=== PATIENT | female | born 1950 | race Caucasian/White ===

== ENCOUNTER 2018-09-14 11:20 | Emergency (ER) | payer MEDICARE, OTHER ==
[2018-09-14 11:46] VITALS: BP 108/58
--- NOTE | 2018-09-14 11:58 | UC ---
Throat Pain/Nasal Omar HPI - HPI Summary HPI Summary: 68-year-old female with at least 10 days of cough, congestion, runny nose. She is diabetic on insulin with history of neuropathy. She denies any smoking history but has had secondhand smoke. Denies elevation of blood sugars. No fevers. - History of Current Complaint Chief Complaint: UCRespiratory Stated Complaint: COUGH CONGESTION Time Seen by Provider: 09/14/18 11:51 Hx Obtained From: Patient Pain Intensity: 0 - Allergies/Home Medications Allergies/Adverse Reactions: Allergies Allergy/AdvReac Type Severity Reaction Status Date / Time aspirin AdvReac GI Upset Verified 09/14/18 11:47 Home Medications: Home Medications Amlodipine Besylate [Norvasc] 09/14/18 [History] Insulin LISPRO* [HumaLOG*] 2 units SUBCUT AC 09/14/18 [History Confirmed ] Metoprolol Tartrate TAB* [Lopressor TAB*] 09/14/18 [History] PMH/Surg Hx/FS Hx/Imm Hx Endocrine History: Diabetes Neurological History: Other - Diabetic neuropathy Other History Of: Negative For: Anticoagulant Therapy - Surgical History Surgical History: Yes Surgery Procedure, Year, and Place: cornea surgery. back surgery - Family History Known Family History: Positive: Hypertension - Social History Occupation: Retired Lives: With Family Alcohol Use: None Substance Use Type: None Smoking Status (MU): Never Smoked Tobacco - Immunization History Most Recent Influenza Vaccination: never Most Recent Tetanus Shot: unknown Most Recent Pneumonia Vaccination: never Review of Systems All Other Systems Reviewed And Are Negative: Yes Constitutional: Negative: Fever Skin: Negative: Rash ENT: Positive: Sore Throat, Nasal Discharge, Sinus Congestion. Negative: Sinus Pain/Tenderness Respiratory: Positive: Cough. Negative: Shortness Of Breath Cardiovascular: Positive: Negative Neurological: Positive: Numbness - Chronic, both legs Physical Exam Triage Information Reviewed: Yes Appearance: No Pain Distress - Chronically ill-appearing Vital Signs: Initial Vital Signs Temp 98.6 F 09/14/18 11:40 Pulse 72 09/14/18 11:40 Resp 16 09/14/18 11:40 BP 108/58 09/14/18 11:40 Pulse Ox 97 09/14/18 11:40 Vital Signs Reviewed: Yes Eyes: Positive: Conjunctiva Clear ENT: Positive: Pharynx normal, Nasal congestion, Nasal drainage, TMs normal. Negative: Pharyngeal erythema, Sinus tenderness Neck: Positive: Nontender, No Lymphadenopathy Respiratory: Positive: Lungs clear, No respiratory distress, No accessory muscle use Cardiovascular: Positive: RRR Abdomen Description: Positive: Nontender Musculoskeletal: Positive: Strength Intact, ROM Intact Neurological Exam: Other - Bilateral lower extremity neuropathy, walks with a cane Neurological: Positive: Alert Psychological Exam: Normal Skin Exam: Normal Diagnostics - Laboratory Lab Results: Blood sugar: 294 - Radiology CXR Radiology Interpretation Completed By: Radiologist - IMPRESSION: #. New RIGHT larger than LEFT small dependent pleural effusions and RIGHT basilar alveolar consolidation concerning for pneumonia. Radiographic follow-up after therapy suggested to assess for resolution. Throat Pain/Nasal Course/Dx - Course Course Of Treatment: Chronically ill-appearing patient without respiratory distress or fever with evidence of right basilar pneumonia on x-ray. Her blood sugar is also elevated. She had no desire to go to the hospital/ER and so was treated here with intramuscular Rocephin and Zithromax orally. She'll be continued on outpatient Augmentin. She is encouraged to follow-up with her doctor tomorrow and to go to the Hospital/ER should she experience worsening, rising blood sugars, difficulty breathing, weakness or other concerns. - Differential Dx/Diagnosis Provider Diagnosis: Community acquired pneumonia, Diabetes mellitus with hyperglycemia Discharge - Sign-Out/Discharge Documenting (check all that apply): Patient Departure All imaging exams completed and their final reports reviewed: Yes - Discharge Plan Condition: Improved Disposition: HOME Prescriptions: Albuterol HFA INHALER* [Ventolin HFA Inhaler*] 2 puff INH Q4H PRN #1 mdi PRN Reason: Sob/Wheezing Amoxicillin/Clavulanate TAB* [Augmentin TAB 875*] 875 mg PO BID #20 tab guaiFENesin [Mucinex] 1,200 mg PO BID #20 tab.er.12h Patient Education Materials: Community Acquired Pneumonia (ED) Referrals: Selene Galo MD [Primary Care Provider] - Additional Instructions: Humidifier while sleeping. Drink lots of fluids. Go to the ER with weakness, fevers, worse, difficulty breathing, new symptoms or other concerns. Call your doctor today for prompt follow-up. - Billing Disposition and Condition Condition: IMPROVED Disposition: Home
[2018-09-14] MEDS ORDERED: Azithromycin TAB* 250 MG PO ONE (12:25)
[2018-09-14] MEDS ORDERED: cefTRIAXone VIAL(*) 1,000 MG VIAL IM ONE (12:25)
[2018-09-14] MEDS ORDERED: Lidocaine 1% MPF* 2 ML VIAL INJ ONE (12:29)
[2018-09-14] MEDS ORDERED: Lidocaine 1%* 5 ML VIAL ONE (12:36)
[2018-09-14] MEDS ORDERED: Lidocaine 1%* 5 ML VIAL INJ ONE (12:41)
== END 2018-09-14 12:55 | disposition home or self-care (01) ==
LOC: UCEAST 11:20
DX: J18.9 Pneumonia, unspecified organism (principal); E11.65 Type 2 diabetes mellitus with hyperglycemia; Z79.4 Long term (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 of insulin
CPT/HCPCS: 71046; 96372; 99212; A9270-GY; G0463; J0696

== ENCOUNTER 2019-02-05 13:08 | Inpatient (IN) | payer MEDICARE, OTHER ==
--- OUTSIDE RECORDS SUMMARY | 2019-02-05 13:48 | XMS REPORT | Continuity of Care Document ---
:1950 External Reference #:[id number] Author Name Loki Johnson MD (transmitted by agent of provider Angi Dickerson) Address [address] [place] [address] Care Team Providers Name Role Phone Selene Galo MD - Internal Medicine Care Team Information Gun Numberer [phone] Franci Hart MD - Nephrology Care Team Information Gun Numberer [phone] Problems Description No Information Available Social History Type Date Description Comments Sex Unknown Tobacco Use Start: Unknown Never Smoked Cigarettes Smoking Status Reviewed: 01/17/19 Never Smoked Cigarettes ETOH Use Never used alcohol Tobacco Use Start: Unknown Patient has never smoked Recreational Drug Use Never Used Drugs Exercise Type/Frequency Exercises sporadically Allergies, Adverse Reactions, Alerts Active Allergies Reaction Severity Comments Date Shellfish-Derived Products Difficulty breathing 07/21/2018 Medications Active Medications SIG Qnty Indications Ordering Date Provider Prednisolone Acetate one drop once Unknown 12/06/2018 daily in right 1% Suspension eye Chromium Picolinate one tablet twice Unknown 12/06/2018 daily 200mcg Tablets Turmeric Unknown 12/05/2018 400mg Capsules Humalog Mix 75/25 inject 20 units 15ml Loki Johnson MD 09/22/2018 Kwikpen in the morning and 10 units at (75-25)100Unit/ML night Supn BD Pen use twice daily 100units E11.22 Loki Johnson MD 09/21/2018 Needle/Angelica/Ultra for injection -Fine/32G X 4mm 32G X 4 mm Misc Insulin use with lantus 100units Loki Johnson MD 08/04/2018 Syringe-Needle U-100 daily 31G X 1/4" 1 ML Misc Onetouch Verio use to check 600units Loki Johnson MD 08/04/2018 blood sugar 4 Strips times a day and for hypoglycemia. Ascorbic Acid 1 tablet twice Unknown 500mg daily Tablets Metoprolol Succinate 1 by mouth twice Unknown ER daily 50mg Tablets ER 24HR Traumeel 1 tablet twice Unknown Tablets daily Onetouch Ultra Blue test twice a day Unknown and as needed Strips Vitamin B-12 1 by mouth every Unknown 1000mcg day Tablets Aspirin 81 1 by mouth every Unknown 81mg day Tablets DR Amlodipine Besylate 1 by mouth every Unknown day 5mg Tablets Acyclovir 1 by mouth once Unknown 400mg daily Tablets History Medications Novolin 70/30 Flexpen 30 minutes before 15ml E11.22 Loki Johnson 2018 - breakfast: 16 09/21/2018 (70-30)100Unit/ML Supn units 30 minutes before dinner: 12 units Novolog Mix 70/30 Take 28 units in 15ml E11.Maritza Johnson 09/21/2018 - Prefilled Flexpen the morning and 09/25/2018 10 units at (70-30)100Unit/ML Supn night. Tradjenta take one tablet 30tabs E11.Maritza Johnson 08/04/2018 - 5mg Tablets by mouth every 10/18/2018 day. Lantus inject 20 units 10ml Loki Johnson 08/04/2018 - 100Unit/ML Solution once daily 09/21/2018 Freestyle Theresa 14 use at least 4 1units E11.Maritza Johnson 08/04/2018 - Day/[place]/Flash times daily with 09/21/2018 Monitoring System sensor Device E16.[address] 3units . Loki Johnson 08/04/2018 - Theresa/Sensor/Flash on skin every 09/21/2018 Monitoring System 10 days; use Misc with reader every 6 hours Immunizations Description No Information Available Vital Signs Date Vital Result Comment 01/17/2019 11:03am Height 64 inches 5'4" Weight 138.00 lb w/ shoes Heart Rate 62 /min BP Systolic Sitting 121 mmHg BP Diastolic Sitting 68 mmHg BMI (Body Mass Index) 23.7 kg/m2 12/21/2018 11:38am Height 64 inches 5'4" Weight 141.00 lb Heart Rate 64 /min BP Systolic Sitting 127 mmHg L arm BP Diastolic Sitting 65 mmHg L arm O2 % BldC Oximetry 99 % BMI (Body Mass Index) 24.2 kg/m2 Results Test Date Facility Test Result H/L Range Note Urinalysis Profile 12/18/2018 [facility] Urine Color Yellow [address] [place] [address] [phone] Urine Appearance Cloudy Urine Specific [place] 1.013 Normal 1.010-1.030 Urine pH 5.0 Normal 5-9 Urine Urobilinogen Negative Negative Urine Ketones Negative Negative Urine Protein 2+(100 mg/dL) Abnormal Negative Urine Leukocytes Negative Negative Urine Blood 1+ Abnormal Negative Urine Nitrite Negative Negative Urine Bilirubin Negative Negative Urine Glucose 3+(>=500 mg/dL) Abnormal Negative Urine White Blood Cell 1+(6-10/hpf) Abnormal Absent Urine Red Blood Cell 3+(>10/hpf) Abnormal Absent Urine Bacteria Absent Absent Urine Squamous Epithelial Cell Present Abnormal Absent CBC Auto 12/18/2018 [facility] White Blood 8.1 10^3/uL Normal 3.5-10.[address] [place] [address] [phone] Red Blood Count 3.85 10^6/uL Normal 3.70-4.87 Hemoglobin 11.8 g/dL Low 12.0-16.0 Hematocrit 35 % Normal 35-47 Mean Corpuscular Volume 90 fL Normal 80-97 Mean Corpuscular Hemoglobin 31 pg Normal 27-31 Mean Corpuscular HGB Conc 34 g/dL Normal 31-36 Red Cell Distribution Width 13 % Normal 10-15 Platelet Count 267 10^3/uL Normal 150-450 Mean Platelet Volume 8.1 fL Normal 7.4-10.4 Abs Neutrophils 6.1 10^3/uL Normal 1.5-7.7 Abs Lymphocytes 1.1 10^3/uL Normal 1.0-4.8 Abs Monocytes 0.4 10^3/uL Normal 0-0.8 Abs Eosinophils 0.4 10^3/uL Normal 0-0.6 Abs Basophils 0.1 10^3/uL Normal 0-0.2 Abs Nucleated RBC 0.0 10^3/uL Granulocyte % 75.8 % Lymphocyte % 13.2 % Monocyte % 5.0 % Eosinophil % 5.3 % Basophil % 0.7 % Nucleated Red Blood Cells % 0.1 Basic Metabolic 12/18/2018 [facility] Sodium 139 mmol/L Normal 135-[address] [place], [place] [id number] [phone] Chloride 108 mmol/L Normal 101-111 Co2 Carbon Dioxide 23 mmol/L Normal 22-32 Glucose 74 mg/dL Normal 70-100 Blood Urea Nitrogen 69 mg/dL High 6-24 Creatinine 3.95 mg/dL High 0.51-0.95 BUN/Creatinine Ratio 17.5 Normal 8-20 Calcium 9.5 mg/dL Normal 8.6-10.3 Egfr Non- 11.2 >60 Egfr 13.6 >60 1 Potassium 5.4 mmol/L High 3.5-5.0 Anion Gap 8 mmol/L Normal 2-11 Laboratory test 12/18/2018 [facility] Total Protein 181 mg/dL finding [address] Random Urine [place], [place] [id number] [phone] Creatinine Random Urine 79.59 mg/dL Pthi 12/18/2018 [facility] Calcium (PTH 9.4 mg/dL Normal 8.6- 10.[address] Intact) [place] [address] [phone] PTH Intact 110.1 pg/mL High 12-88 Urine Culture 12/18/2018 [facility] Urine Culture SEE [address] [place] [address] BELOW [phone] Laboratory test 12/18/2018 [facility] Hemoglobin A1c 7.2 % High 4.0-5. [address] (Glyco HGB) 6 [place], [place] [id number] [phone] Laboratory test 12/18/2018 [facility] Fructosamine 389 Abnormal 200 - [address] mcmol/L 285 [place], [place] [address] [phone] Laboratory test 10/19/2018 [facility] Fructosamine 526 Abnormal 200 - [address] mcmol/L 285 [place], [place] [address] [phone] Comp Metabolic 10/19/2018 [facility] Sodium 137 Normal 135-[address] mmol/L 5 [place] [address] [phone] Potassium 4.5 mmol/L Normal 3.5-5.0 Chloride 105 mmol/L Normal 101-111 Co2 Carbon Dioxide 23 mmol/L Normal 22-32 Anion Gap 9 mmol/L Normal 2-11 Glucose 245 mg/dL High 70-100 Blood Urea Nitrogen 61 mg/dL High 6-24 Creatinine 3.98 mg/dL High 0.51-0.95 BUN/Creatinine Ratio 15.3 Normal 8-20 Calcium 9.6 mg/dL Normal 8.6-10.3 Total Protein 7.1 g/dL Normal 6.4-8.9 Albumin 3.9 g/dL Normal 3.2-5.2 Globulin 3.2 g/dL Normal 2-4 Albumin/Globulin Ratio 1.2 Normal 1-3 Total Bilirubin 0.40 mg/dL Normal 0.2-1.0 Alkaline Phosphatase 120 U/L High 34-104 Alt 14 U/L Normal 7-52 Ast 15 U/L Normal 13-39 Egfr Non- 11.1 >60 Egfr 13.5 >60 6 Laboratory 10/19/2018 [facility] TSH (Thyroid 2.22 Normal 0.34 -5.60 test finding [address] Stim Horm) mcIU/[place] [address] [phone] Hemoglobin A1c (Glyco HGB) 9.6 % High 4.0-5.6 7 Laboratory test 07/21/2018 [facility] C-Peptide 4.5 ng/mL Abnormal 1.1 - [address] 4.4 [place] [address] [phone] Hemoglobin A1c (Glyco HGB) 10.2 % High 4.0-5.6 9 Creatinine 07/21/2018 [facility] Creatinine 3.30 mg/dL High 0.51-0.[address] [place] [address] [phone] Egfr Non- 13.9 >60 Egfr 16.8 >60 10 1 Because ethnic data is not always readily available, this report includes an eGFR for both -Americans and non- Americans. The National Kidney Disease Education Program (NKDEP) does not endorse the use of the MDRD equation for patients that are not between the ages of 18 and 70, are , have extremes of body size, muscle mass, or nutritional status, or are non- or non-. According to the National Kidney Foundation, irrespective of diagnosis, the stage of the disease is based on the level of kidney function: Stage Description GFR(mL/min/1.73 m(2)) 1 Kidney damage with normal or decreased GFR 90 2 Kidney damage with mild decrease in GFR 60-89 3 Moderate decrease in GFR 30-59 4 Severe decrease in GFR 15-29 5 Kidney failure <15 (or dialysis) 2 SEE RESULT BELOW Name: JOSÉ CANO : [address]: Dia Yoder NP, CNM Acct: [id number] Unit: [id number] AGE: 68 Location: LAB Re12/18/18 SEX: F Status: REG REF SPEC: [id number] IVON: 12/18/18-[address] [facility] [address]: Karthik Ornelas MD REQ: [id number] RECD: 12/18/18953 STATUS: ALICIA ARROYO DR: Dia KWON _ SOURCE: URINE SPDESC: ORDERED: Urine Culture Procedure Result Reported Site Urine Culture Final 12/19/18- 1616 ML No growth of clinically significant organisms * ML - Main Lab . END OF REPORT DEPARTMENT OF PATHOLOGY, [address] [place] [address] Shakeel Song M.D. Director [place] # [id number] 3 Therapeutic target for the treatment of diabetes mellitus patients is <7% HBA1C, and in selective patients <6.0%. Please refer to [place] [employer] diabetic care guidelines for further information. 4 Test Performed by: [place] [address] Certified Ophthalmic Surgical Assistant: Andres Little M.D. Ph.D.; CLIA# [id number] 5 Test Performed by: [place] [address] 6 Because ethnic data is not always readily available, this report includes an eGFR for both -Americans and non- Americans. The National Kidney Disease Education Program (NKDEP) does not endorse the use of the MDRD equation for patients that are not between the ages of 18 and 70, are , have extremes of body size, muscle mass, or nutritional status, or are non- or non-. According to the National Kidney Foundation, irrespective of diagnosis, the stage of the disease is based on the level of kidney function: Stage Description GFR(mL/min/1.73 m(2)) 1 Kidney damage with normal or decreased GFR 90 2 Kidney damage with mild decrease in GFR 60-89 3 Moderate decrease in GFR 30-59 4 Severe decrease in GFR 15-29 5 Kidney failure <15 (or dialysis) 7 Therapeutic target for the treatment of diabetes mellitus patients is <7% HBA1C, and in selective patients <6.0%. Please refer to [place] [employer] diabetic care guidelines for further information. 8 Test Performed by: [facility] [address] [facility] [facility], [place], [place] [address] 9 Therapeutic target for the treatment of diabetes mellitus patients is <7% HBA1C, and in selective patients <6.0%. Please refer to [place] [employer] diabetic care guidelines for further information. 10 Because ethnic data is not always readily available, this report includes an eGFR for both -Americans and non- Americans. The National Kidney Disease Education Program (NKDEP) does not endorse the use of the MDRD equation for patients that are not between the ages of 18 and 70, are , have extremes of body size, muscle mass, or nutritional status, or are non- or non-. According to the National Kidney Foundation, irrespective of diagnosis, the stage of the disease is based on the level of kidney function: Stage Description GFR(mL/min/1.73 m(2)) 1 Kidney damage with normal or decreased GFR 90 2 Kidney damage with mild decrease in GFR 60-89 3 Moderate decrease in GFR 30-59 4 Severe decrease in GFR 15-29 5 Kidney failure <15 (or dialysis) Procedures Date Code Description Status 07/21/2018 51032 Glucose Monitoring From Interstital Tissue Fluid Minimum Completed 72 Hours Medical Devices Description No Information Available Encounters Type Date Location Provider Dx Diagnosis Office Visit 12/21/2018 [facility] Nephrology Karthik Ornelas, I12.0 Hyp chr kidney 11:00a disease w stage 5 chr kidney disease or Esrd N18.5 Chronic kidney disease, stage 5 E11.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.4 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 E78.5 Hyperlipidemia, unspecified E87.5 Hyperkalemia I10 Essential (primary) hypertension Office Visit 12/07/2018 11:00a [facility] Nephangel French N18.5 Chronic kidney MD Johnson disease, stage 5 E11.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 E11.65 Type 2 diabetes mellitus with hyperglycemia Z79.4 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 Office Visit 10/19/2018 2:00p [facility] Loki Johnson, E11.22 Type 2 diabetes [facility] of [facility] MD mellitus w diabetic chronic kidney disease N18.5 Chronic kidney disease, stage 5 E11.65 Type 2 diabetes mellitus with hyperglycemia Z79.4 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 Office Visit 09/21/2018 1:00p [facility] Manda N18.6 End stage [facility] of [facility] Marker, 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 Z79.4 alf (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 of insulin E11.649 Type 2 diabetes mellitus with hypoglycemia without coma Office Visit 08/04/2018 11:30a [facility] Manda E11.22 Type 2 [facility] Marker, RPA-C diabetes mellitus w diabetic chronic kidney disease N18.5 Chronic kidney disease, stage 5 Z79.4 alf (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 of insulin E11.649 Type 2 diabetes mellitus with hypoglycemia without coma Office Visit 07/21/2018 1:00p [facility] Manda E11.22 Type 2 [facility] Marker, RPA-C diabetes mellitus w diabetic chronic kidney disease N18.5 Chronic kidney disease, stage 5 Z79.4 alf (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 of insulin 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), and cereb infrc w/o resid deficits Assessments Date Code Description Provider 01/17/2019 E11.22 Type 2 diabetes mellitus with diabetic Loki Johnson MD chronic kidney diseas 01/17/2019 Z79.4 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 Loki Johnson MD 01/17/2019 N18.5 Chronic kidney disease, stage 5 Loki Johnson MD 12/21/2018 I12.0 Hypertensive chronic kidney disease with Karthik Ornelas MD stage 5 chronic kidney disease or end stage renal disease 12/21/2018 N18.5 Chronic kidney disease, stage 5 Karthik Ornelas MD 12/21/2018 E11.22 Type 2 diabetes mellitus with diabetic Karthik Ornelas MD chronic kidney diseas 12/21/2018 Z79.4 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 Karthik Ornelas MD 12/21/2018 E78.5 Hyperlipidemia, unspecified Karthik Ornelas MD 12/21/2018 E87.5 Hyperkalemia Karthik Ornelas MD 12/21/2018 I10 Essential (primary) hypertension Karthik Ornelas MD 12/12/2018 E11.22 Type 2 diabetes mellitus with diabetic Dia Yoder, SPEECH THERAPY ASSISTANT- Cde chronic kidney diseas 12/12/2018 N18.5 Chronic kidney disease, stage 5 Diaenrique Yoder, SPEECH THERAPY ASSISTANT-Cde 12/07/2018 N18.5 Chronic kidney disease, stage 5 Karthik Ornelas MD 12/07/2018 E11.22 Type 2 diabetes mellitus with diabetic Karthik Ornelas MD chronic kidney diseas 12/07/2018 E11.65 Type 2 diabetes mellitus with hyperglycemia Karthik Ornelas MD 12/07/2018 Z79.4 alf (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 of insulin Karthik Ornelas MD 10/19/2018 E11.22 Type 2 diabetes mellitus with diabetic Loki Johnson MD chronic kidney diseas 10/19/2018 N18.5 Chronic kidney disease, stage 5 Loki Johnson MD 10/19/2018 E11.65 Type 2 diabetes mellitus with hyperglycemia Loki Johnson MD 10/19/2018 Z79.4 alf (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 of insulin Loki Johnson MD 09/21/2018 N18.6 End stage renal disease Manda Marker, RPA-C 09/21/2018 E11.22 Type 2 diabetes mellitus with diabetic Manda Marker, RPA -C chronic kidney diseas 09/21/2018 Z79.4 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 Manda Marker, RPA-C 09/21/2018 E11.649 Type 2 diabetes mellitus with hypoglycemia Manda Marker , RPA-C without coma 08/04/2018 E11.22 Type 2 diabetes mellitus with diabetic Manda Marker, RPA -C chronic kidney diseas 08/04/2018 N18.5 Chronic kidney disease, stage 5 Manda Marker, RPA-C 08/04/2018 Z79.4 alf (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 of insulin Manda Marker, RPA-C 08/04/2018 E11.649 Type 2 diabetes mellitus with hypoglycemia Manda Marker , RPA-C without coma 07/21/2018 E11.22 Type 2 diabetes mellitus w diabetic chronic Manda Marker , RPA-C kidney disease 07/21/2018 N18.5 Chronic kidney disease, stage 5 Manda Marker, RPA-C 07/21/2018 Z79.4 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 Manda Marker, RPA-C 07/21/2018 E11.319 Type 2 diabetes w unsp diabetic rtnop w/o Manda Marker , RPA-C macular edema 07/21/2018 Z86.73 Prsnl hx of TIA (TIA), and cereb infrc w/o Manda Marker , RPA-C resid deficits Plan of Treatment Future Appointment(s):03/27/2019 11:00 am - Loki Johnson MD at [facility]01/30/2019 11:30 am - [facility] Rm-Cde at [facility]01/23/2019 1:00 pm - Karthik Ornelas MD at [facility] Uhmeuagyff64/09/2019 - Loki Johnson MDE11.22 Type 2 diabetes mellitus with diabetic chronic kidney diseasNew Orders:Freestyle Theresa Pro, Ordered: Follow up:- 2 weeks with Beba (or Alex) - late March with AlexInstructions:1. Wear Theresa glucose monitor for the next 2 weeks. 2. Use insulin twice daily, as follows: - 20 units with first meal of the day - 10 units with last meal of the day 3. Return in 2 weeks for a follow-up visit.Z79.4 terminal press operator (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 of rbvleonW44.5 Chronic kidney disease, stage 5 Functional Status Description No Information Available Mental Status Description No Information Available Referrals Refer to Reason for Referral Status Appt Date Franci Hart MD CKD stage 5, planning dialysis if Patient Notified needed [address] [facility] [id number] [phone]
--- OUTSIDE RECORDS SUMMARY | 2019-02-05 13:48 | XMS REPORT | Continuity of Care Document ---
:1950 External Reference #:[id number] Author Name Nurse Visit Endocrinology (transmitted by agent of provider Angi Dickerson) Address [address] [place] [id number] Care Team Providers Name Role Phone Selene Galo MD - Internal Medicine Care Team Information Stitching Machine Feeder Or Offbearer [phone] Franci Hart MD - Nephrology Care Team Information Stitching Machine Feeder Or Offbearer Problems Description No Information Available Social History Type Date Description Comments Sex Unknown Tobacco Use Start: Unknown Never Smoked Cigarettes Smoking Status Reviewed: 01/30/19 Never Smoked Cigarettes ETOH Use Never used [...] Mix 70/30 Take 28 units in 15ml E11.22 Loki Johnson 09/21/2018 - Prefilled Flexpen the morning and 09/25/2018 10 units at (70-30)100Unit/ML Supn night. Tradjenta take one tablet 30tabs E11.22 Loki Johnson 08/04/2018 - 5mg Tablets by mouth every MD 10/18/2018 day. Lantus inject 20 units 10ml Loki Johnson 08/04/2018 - 100Unit/ML Solution once daily 09/21/2018 Freestyle Theresa 14 use at least 4 1units E11.22 Loki Johnson 08/04/2018 - Day/[place]/Flash times daily with 09/21/2018 Monitoring System sensor Device E16.[address] 3units E11.22 Loki Johnson 08/04/2018 - Theresa/Sensor/Flash on skin every 09/21/2018 Monitoring System 10 days; use Misc with reader every 6 hours Immunizations Description No Information Available Vital Signs Date Vital Result Comment 01/30/2019 9:24am Height 64 inches 5'4" Weight 142.00 lb w/shoes Heart Rate 67 /min BP Systolic Sitting 120 mmHg BP Diastolic Sitting 71 mmHg BMI (Body Mass Index) 24.4 kg/m2 01/23/2019 1:02pm Height 64 inches 5'4" Weight 142.00 lb L arm Heart Rate 80 /min BP Systolic Sitting 128 mmHg R arm BP Diastolic Sitting 71 mmHg R arm O2 % BldC Oximetry 98 % BMI (Body Mass Index) 24.4 kg/m2 Results Test Date Facility Test Result H/L Range Note Neph Routine 01/22/2019 [facility] Total Protein 131 mg/dL [address] [place] [address] [phone] Creatinine Random Urine 61.80 mg/dL CBC Auto 01/22/2019 [facility] White Blood 8.0 10^3/uL Normal 3.5-10.[address] [place] [address] [phone] Red Blood Count 3.86 10^6/uL Normal 3.70-4.87 Hemoglobin 11.7 g/dL Low 12.0-16.0 Hematocrit 34 % Low 35-47 Mean Corpuscular Volume 89 fL Normal 80-97 Mean Corpuscular Hemoglobin 30 pg Normal 27-31 Mean Corpuscular HGB Conc 34 g/dL Normal 31-36 Red Cell Distribution Width 13 % Normal 10-15 Platelet Count 255 10^3/uL Normal 150-450 Mean Platelet Volume 7.7 fL Normal 7.4-10.4 Abs Neutrophils 6.0 10^3/uL Normal 1.5-7.7 Abs Lymphocytes 1.1 10^3/uL Normal 1.0-4.8 Abs Monocytes 0.4 10^3/uL Normal 0-0.8 Abs Eosinophils 0.5 10^3/uL Normal 0-0.6 Abs Basophils 0.1 10^3/uL Normal 0-0.2 Abs Nucleated RBC 0.0 10^3/uL Granulocyte % 74.7 % Lymphocyte % 13.5 % Monocyte % 5.1 % Eosinophil % 5.8 % Basophil % 0.9 % Nucleated Red Blood Cells % 0.0 Urinalysis Profile 01/22/2019 [facility] Urine Color Yellow [address] [place] [address] [phone] Urine Appearance Clear Urine Specific [place] 1.011 Normal 1.010-1.030 Urine pH 5.0 Normal 5-9 Urine Urobilinogen Negative Negative Urine Ketones Negative Negative Urine Protein 2+(100 mg/dL) Abnormal Negative Urine Leukocytes Negative Negative Urine Blood Negative Negative * * Abnormal Negative 1 Urine Nitrite Negative Negative Urine Bilirubin Negative Negative Urine Glucose 3+(>=500 mg/dL) Abnormal Negative Urine White Blood Cell Trace(0-5/hpf) Absent Urine Red Blood Cell Absent Absent Urine Bacteria Absent Absent Urine Squamous Epithelial Cell Present Abnormal Absent Basic Metabolic 01/22/2019 [facility] Sodium 136 mmol/L Normal 135-[address] [place] [address] [phone] Potassium 4.9 mmol/L Normal 3.5-5.0 Chloride 106 mmol/L Normal 101-111 Co2 Carbon Dioxide 22 mmol/L Normal 22-32 Anion Gap 8 mmol/L Normal 2-11 Glucose 255 mg/dL High 70-100 Blood Urea Nitrogen 60 mg/dL High 6-24 Creatinine 4.11 mg/dL High 0.51-0.95 BUN/Creatinine Ratio 14.6 Normal 8-20 Calcium 9.5 mg/dL Normal 8.6-10.3 Egfr Non- 10.7 >60 Egfr 13.0 >60 2 Urine Culture And 01/22/2019 [facility] Urine Culture SEE RESULT [address] [place] [address] [phone] Urinalysis Profile 12/18/2018 [facility] Urine Color Yellow [address] [place] [address] [phone] Urine Appearance Cloudy Urine Specific [place] 1.013 Normal 1.010-1.030 Urine pH 5.0 Normal [...] Cell Present Abnormal Absent CBC Auto 12/18/2018 [facility] White Blood 8.1 10^3/uL Normal 3.5-10.[address] [place] [address] [phone] Red Blood Count 3.85 10^6/uL Normal 3.70-4.87 [...] Blood Cells % 0.1 Basic Metabolic 12/18/2018 [facility] Sodium 139 mmol/L Normal 135-[address] [place] [address] [phone] Chloride 108 mmol/L Normal 101-111 Co2 Carbon Dioxide 23 mmol/L Normal 22-32 Glucose 74 mg/dL Normal 70-100 Blood Urea Nitrogen 69 mg/dL High 6-24 Creatinine 3.95 mg/dL High 0.51-0.95 BUN/Creatinine Ratio 17.5 Normal 8-20 Calcium 9.5 mg/dL Normal 8.6-10.3 Egfr Non- 11.2 >60 Egfr 13.6 >60 4 Potassium 5.4 mmol/L High 3.5-5.0 Anion Gap 8 mmol/L Normal 2-11 Laboratory test 12/18/2018 [facility] Total Protein 181 mg/dL finding [address] [place] [address] [phone] Creatinine Random Urine 79.59 mg/dL Pthi 12/18/2018 [facility] Calcium (PTH 9.4 mg/dL Normal 8.6- 10.[address] Intact) [place] [address] [phone] PTH Intact 110.1 pg/mL High 12-88 Urine Culture 12/18/2018 [facility] Urine Culture SEE [address] [place] [address] BELOW [phone] Laboratory test 12/18/2018 [facility] Hemoglobin A1c 7.2 % High 4.0-5. 6 finding (Glyco HGB) 6 [place] [address] [phone] Laboratory test 12/18/2018 [facility] Fructosamine 389 Abnormal 200 - [address] mcmol/L [address] [place] [address] [phone] Laboratory test 10/19/2018 [facility] Fructosamine 526 Abnormal 200 - 8 finding mcmol/L [address] [place], [place] [address] [phone] Comp Metabolic 10/19/2018 [facility] Sodium 137 Normal 135-14 Panel mmol/L 5 [place], [place] [address] [phone] Potassium 4.5 mmol/L Normal 3.5-5.0 Chloride 105 [...] Egfr Non- 11.1 >60 Egfr 13.5 >60 9 Laboratory 10/19/2018 [facility] TSH (Thyroid 2.22 Normal 0.34 -5.[address] Stim Horm) mcIU/[place] [address] [phone] Hemoglobin A1c (Glyco HGB) 9.6 % High 4.0-5.6 10 1 *Ascorbic acid is present which may interfere with detection of blood. 2 Because ethnic data is not always readily [...] 15-29 5 Kidney failure <15 (or dialysis) 3 SEE RESULT BELOW Name: JOSÉ CANO : [address]: Karthik Ornelas MD Acct: [id number] Unit: [id number] AGE: 68 Location: LAB Re01/22/19 SEX: F Status: REG REF SPEC: [id number] IVON: 01/22/[address]: Karthik Ornelas MD REQ: [id number] RECD: 01/22/19 STATUS: COMP _ SOURCE: URINE SPDESC: ORDERED: Urine Culture Procedure Result Reported Site Urine Culture Final 01/24/19- 925 ML No growth of clinically significant organisms * ML - Main Lab . END OF REPORT DEPARTMENT OF PATHOLOGY, [address] [place] [address] Shakeel Song M.D. Director [facility] # [id number] 4 Because ethnic data is not always readily [...] 15-29 5 Kidney failure <15 (or dialysis) 5 SEE RESULT BELOW Name: JOSÉ CANO : [address]: Dia Yoder NP, CNM Acct: [id number] Unit: [id number] AGE: 68 Location: LAB Re12/18/18 SEX: F Status: REG REF SPEC: [id number] IVON: 12/18/18-[address]: Karthik Ornelas MD REQ: [id number] RECD: 12/18/18-1343 STATUS: ALICIA ARROYO DR: Dia Yoder NP CNM _ SOURCE: URINE SPDESC: ORDERED: Urine Culture Procedure Result Reported Site Urine Culture Final 12/19/18- 1616 ML No growth of clinically significant organisms * - [facility] . END OF REPORT DEPARTMENT OF PATHOLOGY, [address] [place] [address] Shakeel Song M.D. Director [facility] # [id number] 6 Therapeutic target for the treatment of diabetes mellitus patients is <7% HBA1C, and in selective patients <6.0%. Please refer to [place] [employer] diabetic care guidelines for further information. 7 Test Performed by: [place] [address] Operational Communication Chief: Andres Little M.D. Ph.D.; CLIA# [id number] 8 Test Performed by: [place] [address] 9 Because ethnic data is not always readily [...] 15-29 5 Kidney failure <15 (or dialysis) 10 Therapeutic target for the treatment of diabetes mellitus patients is <7% HBA1C, and in selective patients <6.0%. Please refer to [place] [employer] diabetic care guidelines for further information. Procedures Description No Information Available Medical Devices Description No Information Available Encounters Type Date Location Provider Dx Diagnosis Office Visit 01/23/2019 [facility] Karthik Ornelas, I12.0 Hyp chr kidney 1:00p MD disease w stage 5 chr kidney disease or Esrd N18.5 Chronic kidney disease, stage 5 E11.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 Z79.4 intermediate project manager (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 of insulin E78.5 Hyperlipidemia, unspecified E87.5 Hyperkalemia I10 Essential (primary) hypertension I12.9 Hypertensive chronic kidney disease w stg 1-4/unsp chr kdny Office Visit 12/21/2018 11:00a [facility] Nephrology Karthik French 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 Z79.4 intermediate project manager (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 of insulin E78.5 Hyperlipidemia, unspecified E87.5 Hyperkalemia I10 Essential (primary) hypertension Office Visit 12/12/2018 11:30a [facility] Dia Beckfordkins, E11.22 Type 2 [facility] of [facility] COURSE DEVELOPER-Cde diabetes mellitus w diabetic chronic kidney disease N18.5 Chronic kidney disease, stage 5 Office Visit 12/07/2018 11:00a [facility] Nephrology Karthik French N18.5 Chronic kidney MD Johnson disease, stage 5 E11.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 E11.65 Type 2 diabetes mellitus with hyperglycemia Z79.4 intermediate project manager (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 of insulin Office Visit 10/19/2018 2:00p [facility] Loki Johnson, E11.22 Type 2 diabetes [facility] of [facility] MD mellitus w diabetic chronic kidney disease N18.5 Chronic kidney disease, stage 5 E11.65 Type 2 diabetes mellitus with hyperglycemia Z79.4 intermediate project manager (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 of insulin Office Visit 09/21/2018 1:00p [facility] Manda N18.6 End stage [facility] of [facility] Marker, 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 Z79.4 intermediate project manager (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 of insulin E11.649 Type 2 diabetes mellitus with hypoglycemia without coma Office Visit 08/04/2018 11:30a [facility] Manda E11.22 Type 2 [facility] of [facility] Marker, RPA-C diabetes mellitus w diabetic chronic kidney disease N18.5 Chronic kidney disease, stage 5 Z79.4 intermediate project manager (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 of insulin E11.649 Type 2 diabetes mellitus with hypoglycemia without coma Assessments Date Code Description Provider 01/23/2019 I12.0 Hypertensive chronic kidney disease with Karthik Ornelas MD stage 5 chronic kidney disease or end stage renal disease 01/23/2019 N18.5 Chronic kidney disease, stage 5 Karthik Orenlas MD 01/23/2019 E11.22 Type 2 diabetes mellitus with diabetic Karthik Ornelas MD chronic kidney diseas 01/23/2019 Z79.4 intermediate project manager (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 of insulin Karthik Ornelas MD 01/23/2019 E78.5 Hyperlipidemia, unspecified Karthik Ornelas MD 01/23/2019 E87.5 Hyperkalemia Karthik Ornelas MD 01/23/2019 I10 Essential (primary) hypertension Karthik Ornelas MD 01/23/2019 I12.9 Hypertensive chronic kidney disease with Karthik Ornelas MD stage 1 through stage 4 chronic kidney disease, or unspecified chronic kidney disease 01/17/2019 E11.22 Type 2 diabetes mellitus with diabetic Loki Johnson MD chronic kidney diseas 01/17/2019 Z79.4 penitentiary (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 of insulin Loki Johnson MD 01/17/2019 N18.5 Chronic kidney disease, stage 5 Loki Johnson MD 12/21/2018 I12.0 Hypertensive chronic kidney disease with Karthik Ornelas MD stage 5 chronic kidney disease or end stage renal disease 12/21/2018 N18.5 Chronic kidney disease, stage 5 Karthik Ornelas MD 12/21/2018 E11.22 Type 2 diabetes mellitus with diabetic Karthik Ornelas MD chronic kidney diseas 12/21/2018 Z79.4 intermediate project manager (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 of insulin Karthik Ornelas MD 12/21/2018 E78.5 Hyperlipidemia, unspecified Karthik Ornelas MD 12/21/2018 E87.5 Hyperkalemia Karthik Ornelas MD 12/21/2018 I10 Essential (primary) hypertension Karthik Ornelas MD 12/12/2018 E11.22 Type 2 diabetes mellitus with diabetic AUTUMN Rm chronic kidney diseas 12/12/2018 N18.5 Chronic kidney disease, stage 5 Aide Rm 12/07/2018 N18.5 Chronic kidney disease, stage 5 Karthik Ornelas MD 12/07/2018 E11.22 Type 2 diabetes mellitus with diabetic Karthik Ornelas MD chronic kidney diseas 12/07/2018 E11.65 Type 2 diabetes mellitus with hyperglycemia Karthik Ornelas MD 12/07/2018 Z79.4 intermediate project manager (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 of insulin Karthik Ornelas MD 10/19/2018 E11.22 Type 2 diabetes mellitus with diabetic Loki Johnson MD chronic kidney diseas 10/19/2018 N18.5 Chronic kidney disease, stage 5 Loki Johnson MD 10/19/2018 E11.65 Type 2 diabetes mellitus with hyperglycemia Loki Johnson MD 10/19/2018 Z79.4 intermediate project manager (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 of insulin Loki Johnson MD 09/21/2018 N18.6 End stage renal disease Manda Marker, RPA-C 09/21/2018 E11.22 Type 2 diabetes mellitus with diabetic Manda Marker, RPA -C chronic kidney diseas 09/21/2018 Z79.4 intermediate project manager (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 of insulin Manda Marker, RPA-C 09/21/2018 E11.649 Type 2 diabetes mellitus with hypoglycemia Manda Marker , RPA-C without coma 08/04/2018 E11.22 Type 2 diabetes mellitus with diabetic Manda Marker, RPA -C chronic kidney diseas 08/04/2018 N18.5 Chronic kidney disease, stage 5 Manda Marker, RPA-C 08/04/2018 Z79.4 intermediate project manager (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 of insulin Manda Marker, RPA-C 08/04/2018 E11.649 Type 2 diabetes mellitus with hypoglycemia Manda Marker , RPA-C without coma Plan of Treatment Future Appointment(s):02/23/2019 11:00 am - Karthik Ornelas MD at [facility] Oagoczlknx76/17/2019 11:00 am - Loki Johnson MD at [facility]12/21/2018 - Karthik rOnelas MDI12.0 Hypertensive chronic kidney disease with stage 5 chronic kidney disease or end stage renal hqykqkcS24.5 Chronic kidney disease, stage 5Follow up:1 mvvkeD19.22 Type 2 diabetes mellitus with diabetic chronic kidney davhpqH80.4 intermediate project manager (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 of ikrkdqzQ89.5 Hyperlipidemia, tmlmxzphlbnT35.5 EgqwqemsloxiD98 Essential ( primary) hypertension Functional Status Description No Information Available Mental Status Description No Information Available Referrals Refer to Dr Reason for Referral Status Appt Date Jay Rodriguez MD CKD 5 for AVF Sent [address] [place] [address] [phone] Franci Hart MD CKD stage 5, planning dialysis if Patient Notified needed [address] [facility] [phone]
--- OUTSIDE RECORDS SUMMARY | 2019-02-05 13:48 | XMS REPORT | Continuity of Care Document ---
:1950 External Reference #:[id number] Author Name Karthik Ornelas MD (transmitted by agent of provider Marybeth Patel) Address [address] [place] [address] Care Team Providers Name Role Phone Selene Galo MD - Internal Medicine Care Team Information Manager Mechanical [phone] Franci Hart MD - Nephrology Care Team Information Manager Mechanical [phone] Problems Description No Information Available Social History Type Date Description Comments Sex Unknown Tobacco Use Start: Unknown Never Smoked Cigarettes Smoking Status Reviewed: 01/23/19 Never Smoked Cigarettes ETOH Use Never used [...] Tradjenta take one tablet 30tabs E11.22 Loki Johnson, 08/04/2018 - 5mg Tablets by mouth every MD 10/18/2018 day. Lantus inject 20 units 10ml Loki Johnson 08/04/2018 - 100Unit/ML Solution once daily 09/21/2018 Freestyle Theresa 14 use at least 4 1units E11.22 Loki Johnson 08/04/2018 - Day/[place] [employer]/Flash times daily with 09/21/2018 Monitoring System sensor Device E16.[address] 3units E11.22 Loki Johnson 08/04/2018 - Theresa/Sensor/Flash on skin every 09/21/2018 Monitoring System 10 days; use Misc with reader every 6 hours Immunizations Description No Information Available Vital Signs Date Vital Result Comment 01/23/2019 1:02pm Height 64 inches 5'4" Weight 142.00 lb L arm Heart Rate 80 /min BP Systolic Sitting 128 mmHg R arm BP Diastolic Sitting 71 mmHg R arm O2 % BldC Oximetry 98 % BMI (Body Mass Index) 24.4 kg/m2 01/17/2019 11:03am Height 64 inches 5'4" Weight 138.00 lb w/ shoes Heart Rate 62 /min BP Systolic Sitting 121 mmHg BP Diastolic Sitting 68 mmHg BMI (Body Mass Index) 23.7 kg/m2 Results Test Date Facility Test Result H/L Range Note Neph Routine 01/22/2019 [facility] Total Protein 131 mg/[place] [address] [phone] Creatinine Random Urine 61.80 mg/dL CBC Auto 01/22/2019 [facility] White Blood 8.0 10^3/uL Normal 3.5-10.[address] [place] [address] [phone] Red Blood Count 3.86 10^6/uL Normal 3.70-4.87 [...] Blood Cells % 0.0 Urinalysis Profile 01/22/2019 [facility] Urine Color Yellow [address] [place] [address] [phone] Urine Appearance Clear Urine Specific [place] 1.011 Normal 1.010-1.030 Urine pH 5.0 Normal [...] Cell Present Abnormal Absent Basic Metabolic 01/22/2019 [facility] Sodium 136 mmol/L Normal 135-[address] [place] [address] [phone] Potassium 4.9 mmol/L Normal 3.5-5.0 Chloride 106 mmol/L Normal 101-111 Co2 Carbon Dioxide 22 mmol/L Normal 22-32 Anion Gap 8 mmol/L Normal 2-11 Glucose 255 mg/dL High 70-100 Blood Urea Nitrogen 60 mg/dL High 6-24 Creatinine 4.11 mg/dL High 0.51-0.95 BUN/Creatinine Ratio 14.6 Normal 8-20 Calcium 9.5 mg/dL Normal 8.6-10.3 Egfr Non- 10.7 >60 Egfr 13.0 >60 2 Urinalysis Profile 12/18/2018 [facility] Urine Color Yellow [address] [place] [address] [phone] Urine Appearance Cloudy Urine Specific [place] 1.013 Normal 1.010-1.030 Urine pH 5.0 Normal [...] Cell Present Abnormal Absent CBC Auto 12/18/2018 [facility] White Blood 8.1 10^3/uL Normal 3.5-10.[address] [place] [address] [phone] Red Blood Count 3.85 10^6/uL Normal 3.70-4.87 [...] Blood Cells % 0.1 Basic Metabolic 12/18/2018 [facility] Sodium 139 mmol/L Normal 135-[address] [place], [place] [address] [phone] Chloride 108 mmol/L Normal 101-111 Co2 Carbon Dioxide 23 mmol/L Normal 22-32 Glucose 74 mg/dL Normal 70-100 Blood Urea Nitrogen 69 mg/dL High 6-24 Creatinine 3.95 mg/dL High 0.51-0.95 BUN/Creatinine Ratio 17.5 Normal 8-20 Calcium 9.5 mg/dL Normal 8.6-10.3 Egfr Non- 11.2 >60 Egfr 13.6 >60 3 Potassium 5.4 mmol/L High 3.5-5.0 Anion Gap 8 mmol/L Normal 2-11 Laboratory test 12/18/2018 [facility] Total Protein 181 mg/dL finding [address] Random Urine [place], [place] [address] [phone] Creatinine Random Urine 79.59 mg/dL Pthi 12/18/2018 [facility] Calcium (PTH 9.4 mg/dL Normal 8.6- 10.[address] Intact) [place], [place] [id number] [phone] PTH Intact 110.1 pg/mL High 12-88 Urine Culture 12/18/2018 [facility] Urine Culture SEE [address] [place] [address] BELOW [phone] Laboratory test 12/18/2018 [facility] Hemoglobin A1c 7.2 % High 4.0-5. [address] (Glyco HGB) 6 [place] [address] [phone] Laboratory test 12/18/2018 [facility] Fructosamine 389 Abnormal 200 - [address] mcmol/L 285 [place], [place] [address] [phone] Laboratory test 10/19/2018 [facility] Fructosamine 526 Abnormal 200 - [address] mcmol/L 285 [place] [address] [phone] Comp Metabolic 10/19/2018 [facility] Sodium 137 Normal 135-[address] mmol/L 5 [place], [place] [address] [phone] Potassium 4.5 mmol/L Normal 3.5-5.0 Chloride 105 [...] Egfr Non- 11.1 >60 Egfr 13.5 >60 8 Laboratory 10/19/2018 [facility] TSH (Thyroid 2.22 Normal 0.34 -5.[address] Stim Horm) mcIU/mL [place], [place] [address] [phone] Hemoglobin A1c (Glyco HGB) 9.6 % High 4.0-5.6 9 1 *Ascorbic acid is present which may [...] 5 Kidney failure <15 (or dialysis) 3 Because ethnic data is not always readily [...] 15-29 5 Kidney failure <15 (or dialysis) 4 SEE RESULT BELOW Name: JOSÉ CANO : [address]: Dia Yoder NP [facility] Acct: [id number] Unit: [id number] AGE: 68 Location: LAB Re12/18/18 SEX: F Status: REG REF SPEC: [id number] IVON: 12/18/18-1255 [facility] DR: Karthik Ornelas MD REQ: [id number] RECD: 12/18/184303 STATUS: ALICIA ARROYO DR: Dia Yoder NP CNM _ SOURCE: URINE SPDESC: ORDERED: Urine Culture Procedure Result Reported Site Urine Culture Final 12/19/18- 1616 ML No growth of clinically significant organisms * ML - Main Lab . END OF REPORT DEPARTMENT OF PATHOLOGY, [address] [place] [address] Shakeel Song M.D. Director [facility] # [id number] 5 Therapeutic target for the treatment of diabetes mellitus patients is <7% HBA1C, and in selective patients <6.0%. Please refer to [place] [employer] diabetic care guidelines for further information. 6 Test Performed by: [address] [address] Fruit Bar Maker: Andres Little M.D. Ph.D.; CLIA# [id number] 7 Test Performed by: [place] [id number] 8 Because ethnic data is not always readily [...] 15-29 5 Kidney failure <15 (or dialysis) 9 Therapeutic target for the treatment of diabetes mellitus patients is <7% HBA1C, and in selective patients <6.0%. Please refer to [place] [employer] diabetic care guidelines for further information. Procedures Description No Information Available Medical Devices Description No Information Available Encounters Type Date Location Provider Dx Diagnosis Office Visit 12/21/2018 [facility] Nephrology Karthik Ornelas, I12.0 Hyp chr kidney 11:00a disease w stage 5 chr kidney disease or Esrd N18.5 Chronic kidney disease, stage 5 E11.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 Z79.4 FPC (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 of insulin E78.5 Hyperlipidemia, unspecified E87.5 Hyperkalemia I10 Essential (primary) hypertension Office Visit 12/07/2018 11:00a [facility] Nephrology Karthik French N18.5 Chronic kidney MD Johnson disease, stage 5 E11.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 E11.65 Type 2 diabetes mellitus with hyperglycemia Z79.4 FPC (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 of insulin Office Visit 10/19/2018 2:00p [facility] Manjarrez Coch, E11.22 Type 2 diabetes [facility]ocr[facility]ology of [facility] MD mellitus w diabetic chronic kidney disease N18.5 Chronic kidney disease, stage 5 E11.65 Type 2 diabetes mellitus with hyperglycemia Z79.4 intermediate project manager (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 of insulin Office Visit 09/21/2018 1:00p [facility] Manda N18.6 End stage [facility] of [facility] Marker, 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 Z79.4 intermediate project manager (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 of insulin E11.649 Type 2 diabetes mellitus with hypoglycemia without coma Office Visit 08/04/2018 11:30a [facility] Manda E11.22 Type 2 [facility] Marker, RPA-C diabetes mellitus w diabetic chronic kidney disease N18.5 Chronic kidney disease, stage 5 Z79.4 FPC (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 of insulin E11.649 Type 2 diabetes mellitus with hypoglycemia without coma Assessments Date Code Description Provider 01/23/2019 N18.5 Chronic kidney disease, stage 5 Karthik Ornelas MD 01/23/2019 Z79.4 FPC (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 of insulin Karthik Ornelas MD 01/23/2019 E11.22 Type 2 diabetes mellitus with diabetic Karthik Ornelas MD chronic kidney diseas 01/23/2019 E78.5 Hyperlipidemia, unspecified Karthik Ornelas MD 01/23/2019 E87.5 Hyperkalemia Karthik Ornelas MD 01/23/2019 I10 Essential (primary) hypertension Karthik Ornelas MD 01/23/2019 I12.9 Hypertensive chronic kidney disease with Karthik Ornelas MD stage 1 through stage 4 chronic kidney disease, or unspecified chronic kidney disease 01/17/2019 E11.22 Type 2 diabetes mellitus with diabetic Loki Johnson MD chronic kidney diseas 01/17/2019 Z79.4 FPC (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 of insulin Loki Johnson MD 01/17/2019 N18.5 Chronic kidney disease, stage 5 Loki Johnson MD 12/21/2018 I12.0 Hypertensive chronic kidney disease with Karthik Ornelas MD stage 5 chronic kidney disease or end stage renal disease 12/21/2018 N18.5 Chronic kidney disease, stage 5 Karthik Ornelas MD 12/21/2018 E11.22 Type 2 diabetes mellitus with diabetic Karthik Ornelas MD chronic kidney diseas 12/21/2018 Z79.4 FPC (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 of insulin Karthik Ornelas MD 12/21/2018 E78.5 Hyperlipidemia, unspecified Karthik Ornelas MD 12/21/2018 E87.5 Hyperkalemia Karthik Ornelas MD 12/21/2018 I10 Essential (primary) hypertension Karthik Ornelas MD 12/12/2018 E11.22 Type 2 diabetes mellitus with diabetic CATHY RmP- enrique chronic kidney diseas 12/12/2018 N18.5 Chronic kidney disease, stage 5 Dia Yoder, CONTACT CLERK-Cde 12/07/2018 N18.5 Chronic kidney disease, stage 5 Karthik Ornelas MD 12/07/2018 E11.22 Type 2 diabetes mellitus with diabetic Karthik Ornelas MD chronic kidney diseas 12/07/2018 E11.65 Type 2 diabetes mellitus with hyperglycemia Karthik Ornelas MD 12/07/2018 Z79.4 FPC (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 of insulin Karthik Ornelas MD 10/19/2018 E11.22 Type 2 diabetes mellitus with diabetic Loki Johnson MD chronic kidney diseas 10/19/2018 N18.5 Chronic kidney disease, stage 5 Loki Johnson MD 10/19/2018 E11.65 Type 2 diabetes mellitus with hyperglycemia Loki Johnson MD 10/19/2018 Z79.4 FPC (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 of insulin Loki Johnson MD [...] 11:00 am - Karthik Ornelas MD at [facility] Nrtthojvvg17/22/2019 9:20 am - Nurse Visit Endocrinology at [place] [facility]03/27/2019 11:00 am - Loki Johnson MD at [facility]12/21/2018 - Karthik Ornelas MDI12.0 Hypertensive chronic kidney disease with stage 5 chronic kidney disease or end stage renal lpckuesX27.5 Chronic kidney disease, stage 5Follow up:1 lycdxW64.22 Type 2 diabetes mellitus with diabetic chronic kidney thlbfdM36.4 FPC ( 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 of nkgrkjcL36.5 Hyperlipidemia, rbyihqflgjnS09.5 ExptmsebslsaL49 Essential (primary) hypertension Functional Status Description No Information Available Mental Status Description No Information Available Referrals Refer to Dr Reason for Referral Status Appt Date Jay Rodriguez MD CKD 5 for AVF Sent [address] [place] [address] [phone] Franci Hart MD CKD stage 5, planning dialysis if Patient Notified needed [address] [facility] [address] [phone]
--- OUTSIDE RECORDS SUMMARY | 2019-02-05 13:49 | XMS REPORT | Continuity of Care Document ---
:1950 External Reference #:[id number] Author Name Dia Yoder, SELENIUM PLANT OPERATOR-Cde (transmitted by agent of provider Angi Dickerson) Address [address] [facility], [place] [address] Care Team Providers Name Role Phone Selene Galo MD - Internal Medicine Care Team Information Media Services Director [phone] Franci Hart MD - Nephrology Care Team Information Media Services Director [phone] Problems Description No Information Available Social History Type Date Description Comments Sex Unknown Tobacco Use Start: Unknown Never Smoked Cigarettes Smoking Status Reviewed: 12/07/18 Never Smoked Cigarettes ETOH Use Never used [...] 12/05/2018 400mg Capsules Humalog Mix 75/25 inject 16 units 15ml Loki Johnson MD 09/22/2018 Kwikpen in the morning and 12 units at (75-25)100Unit/ML night Supn BD Pen [...] Strips times a day and for hypoglycemia. Metoprolol Succinate 1 by mouth twice Unknown [...] least 4 1units E11.Maritza Johnson 08/04/2018 - Day/[place]/Flash times daily with 09/21/2018 Monitoring System sensor Device E16.[address] device 3units E11.22 Loki Johnson 08/04/2018 - Theresa/Sensor/Flash on skin every 09/21/2018 Monitoring System 10 days; use Misc with reader every 6 hours Immunizations Description No Information Available Vital Signs Date Vital Result Comment 12/12/2018 11:37am Height 64 inches 5'4" Weight 142.00 lb BP Systolic 124 mmHg BP Diastolic 64 mmHg BMI (Body Mass Index) 24.4 kg/m2 12/07/2018 11:06am Height 64 inches 5'4" Weight 145.00 lb Heart Rate 66 /min BP Systolic Sitting 142 mmHg L arm BP Diastolic Sitting 63 mmHg L arm O2 % BldC Oximetry 94 % BMI (Body Mass Index) 24.9 kg/m2 Results Test Date Facility Test Result H/L Range Note Laboratory test [facility] Fructosamine 526 mcmol/L Abnormal 200 - [address] [place] [address] [phone] Comp Metabolic [facility] Sodium 137 mmol/L Normal 135-[address] [place] [address] [phone] Potassium 4.5 mmol/L Normal 3.5-5.0 Chloride 105 [...] Egfr Non- 11.1 >60 Egfr 13.5 >60 2 Laboratory 10/19/2018 [facility] TSH (Thyroid 2.22 Normal 0.34 -5.[address] Stim Horm) mcIU/[place] [address] [phone] Hemoglobin A1c (Glyco HGB) 9.6 % High 4.0-5.6 3 Laboratory test 07/21/2018 [facility] C-Peptide 4.5 ng/mL Abnormal 1.1 - [address]4 [place] [address] [phone] Hemoglobin A1c (Glyco HGB) 10.2 % High 4.0-5.6 5 Creatinine 07/21/2018 [facility] Creatinine 3.30 mg/dL High 0.51-0.[address] [place] [address] [phone] Egfr Non- 13.9 >60 Egfr 16.8 >60 6 1 Test Performed by: [facility] [address] [place] [address] 2 Because ethnic data is not always [...] 5 Kidney failure <15 (or dialysis) 3 Therapeutic target for the treatment of diabetes mellitus patients is <7% HBA1C, and in selective patients <6.0%. Please refer to [place] [employer] diabetic care guidelines for further information. 4 Test Performed by: [facility] [address] [place] [address] 5 Therapeutic target for the treatment of diabetes mellitus patients is <7% HBA1C, and in selective patients <6.0%. Please refer to [place] [employer] diabetic care guidelines for further information. 6 Because ethnic data is not always [...] dialysis) Procedures Date Code Description Status 07/21/2018 77303 Glucose Monitoring From Interstital Tissue Fluid Minimum Completed 72 Hours Medical Devices Description No Information Available Encounters Type Date Location Provider Dx Diagnosis Office Visit 12/07/2018 [facility] Nephrology Karthik Ornelas, N18.5 Chronic kidney 11:00a MD disease, stage 5 E11.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 E11.65 Type 2 diabetes mellitus with hyperglycemia Z79.4 [facility] (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 of insulin Office Visit 10/19/2018 2:00p [facility] Manjarrez Coch, E11.22 Type 2 diabetes [facility]ocrinology of [facility] MD mellitus w diabetic chronic kidney disease N18.5 Chronic kidney disease, stage 5 E11.65 Type 2 diabetes mellitus with hyperglycemia Z79.4 [facility] (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 of insulin Office Visit 09/21/2018 1:00p [facility] Manda 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, 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 Z79.4 [facility] (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 of insulin E11.649 Type 2 diabetes mellitus with hypoglycemia without coma Office Visit 08/04/2018 11:30a [facility] Manda E11.22 Type 2 [facility] Marker, RPA-C diabetes mellitus w diabetic chronic kidney disease N18.5 Chronic kidney disease, stage 5 Z79.4 [facility] (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 of insulin E11.649 Type 2 diabetes mellitus with hypoglycemia without coma Office Visit 07/21/2018 1:00p [facility] Manda E11.22 Type 2 [facility] Marker, RPA-C diabetes mellitus w diabetic chronic kidney disease N18.5 Chronic kidney disease, stage 5 Z79.4 [facility] (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 of insulin 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), and cereb infrc w/o resid deficits Assessments Date Code Description Provider 12/12/2018 E11.22 Type 2 diabetes mellitus with diabetic Dia Yoder, SELENIUM PLANT OPERATOR- Cde chronic kidney diseas 12/12/2018 N18.5 Chronic kidney disease, stage 5 Dia Yoder, SELENIUM PLANT OPERATOR-Cde 12/07/2018 N18.5 Chronic kidney disease, stage 5 Karthik Ornelas MD 12/07/2018 E11.22 Type 2 diabetes mellitus with diabetic Karthik Ornelas MD chronic kidney diseas 12/07/2018 E11.65 Type 2 diabetes mellitus with hyperglycemia Karthik Ornelas MD 12/07/2018 Z79.4 [facility] (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 of insulin Karthik Ornelas MD 10/19/2018 E11.22 Type 2 diabetes mellitus with diabetic Loki Johnson MD chronic kidney diseas 10/19/2018 N18.5 Chronic kidney disease, stage 5 Loki Johnson MD 10/19/2018 E11.65 Type 2 diabetes mellitus with hyperglycemia Loki Johnson MD 10/19/2018 Z79.4 [facility] (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 of insulin Loki Johnson MD 09/21/2018 N18.6 End stage renal disease Manda Marker, RPA-C 09/21/2018 E11.22 Type 2 diabetes mellitus with diabetic Manda Marker, RPA -C chronic kidney diseas 09/21/2018 Z79.4 [facility] (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 of insulin Manda Marker, RPA-C 09/21/2018 E11.649 Type 2 diabetes mellitus with hypoglycemia Manda Marker , RPA-C without coma 08/04/2018 E11.22 Type 2 diabetes mellitus with diabetic Manda Marker, RPA -C chronic kidney diseas 08/04/2018 N18.5 Chronic kidney disease, stage 5 Manda Marker, RPA-C 08/04/2018 Z79.4 terminal worker (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 of insulin Manda Marker, RPA-C 08/04/2018 E11.649 Type 2 diabetes mellitus with hypoglycemia Manda Marker , RPA-C without coma 07/21/2018 E11.22 Type 2 diabetes mellitus w diabetic chronic Manda Marker , RPA-C kidney disease 07/21/2018 N18.5 Chronic kidney disease, stage 5 Manda Marker, RPA-C 07/21/2018 Z79.4 terminal worker (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 of insulin Manda Marker, RPA-C 07/21/2018 E11.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 2 diabetes w unsp diabetic rtnop w/o Manda Marker , RPA-C macular edema 07/21/2018 Z86.73 Prsnl hx of TIA (TIA), and cereb infrc w/o Manda Marker , RPA-C resid deficits Plan of Treatment Future Appointment(s):12/21/2018 11:00 am - Karthik Ornelas MD at [facility] Ljmpphbkzd64/09/2019 11:00 am - Loki Johnson MD at [facility]12/12/2018 - [place] Rm-CdeE11.22 Type 2 diabetes mellitus w diabetic chronic kidney jnymthxI34.5 Chronic kidney disease, stage 5Follow up:In January with Dr Johnson Get your HgbA1C done first [place] 12/12/2018 - [place] Rm-CdeE11.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1. Follow carbohydrate guidelines: Try to keep your meals to approximately 30 grams of carbohydrates/meal. Use a one cup measurement to approximate this. 2. Make sure that you eat a balanced lunch and a snack in the afternoon to avoid any low blood sugar. 3. Stay on the same insulin dose for now. 4. Please call if you have more low blood sugar aeutrjcxQ72.5 Chronic kidney disease, stage 51. Follow carbohydrate guidelines : Try to keep your meals to approximately 30 grams of carbohydrates/meal. Use a one cup measurement to approximate this. 2. Make sure that you eat a balanced lunch and a snack in the afternoon to avoid any low blood sugar. 3. Stay on the same insulin dose for now. 4. Please call if you have more low blood sugar readingsAll1. Follow carbohydrate guidelines: Try to keep your meals to approximately 30 grams of carbohydrates/meal. Use a one cup measurement to approximate this. 2. Make sure that you eat a balanced lunch and a snack in the afternoon to avoid any low blood sugar. 3. Stay on the same insulin dose for now. 4. Please call if you have more low blood sugar readings Functional Status Description No Information Available Mental Status Description No Information Available Referrals Refer to Reason for Referral Status Appt Date Franci Hart MD CKD stage 5, planning dialysis if Patient Notified needed [address] [facility] [address] [phone]
--- OUTSIDE RECORDS SUMMARY | 2019-02-05 13:49 | XMS REPORT | Continuity of Care Document ---
:1950 External Reference #:[id number] Author Name Karthik Ornelas MD (transmitted by agent of provider Marybeth Patel) Address [address] [place] [address] Care Team Providers Name Role Phone Selene Galo MD - Internal Medicine Care Team Information Foreign Banknote Teller Franci Hart MD - Nephrology Care Team Information Foreign Banknote Teller [phone] Problems Description No Information Available Social History Type Date Description Comments Sex Unknown Tobacco Use Start: Unknown Never Smoked Cigarettes Smoking Status Reviewed: 12/21/18 Never Smoked Cigarettes ETOH Use Never used [...] Theresa 14 use at least 4 1units E11. Loki Johnson 08/04/2018 - Day/[place]/Flash times daily with 09/21/2018 Monitoring System sensor Device E16.[address] 3units E11. Loki Johnson 08/04/2018 - Theresa/Sensor/Flash on skin every 09/21/2018 Monitoring System 10 days; use Misc with reader every 6 hours Immunizations Description No Information Available Vital Signs Date Vital Result Comment 12/21/2018 11:38am Height 64 inches 5'4" Weight 141.00 lb Heart Rate 64 /min BP Systolic Sitting 127 mmHg L arm BP Diastolic Sitting 65 mmHg L arm O2 % BldC Oximetry 99 % BMI (Body Mass Index) 24.2 kg/m2 12/12/2018 11:37am Height 64 inches 5'4" Weight 142.00 lb BP Systolic 124 mmHg BP Diastolic 64 mmHg BMI (Body Mass Index) 24.4 kg/m2 Results Test Date Facility Test Result H/L Range Note Urinalysis Profile 12/18/2018 [facility] Urine Color Yellow [address] [place] [address] [phone] Urine Appearance Cloudy Urine Specific [place] 1.013 Normal 1.010-1.030 Urine pH 5.0 Normal [...] Cell Present Abnormal Absent CBC Auto 12/18/2018 [facility] White Blood 8.1 10^3/uL Normal 3.5-10.[address] [place] [address] [phone] Red Blood Count 3.85 10^6/uL Normal 3.70-4.87 [...] Blood Cells % 0.1 Basic Metabolic 12/18/2018 [facility] Sodium 139 mmol/L Normal 135-[address] [place] [address] [phone] Chloride 108 mmol/L Normal 101-111 Co2 Carbon Dioxide 23 mmol/L Normal 22-32 Glucose 74 mg/dL Normal 70-100 Blood Urea Nitrogen 69 mg/dL High 6-24 Creatinine 3.95 mg/dL High 0.51-0.95 BUN/Creatinine Ratio 17.5 Normal 8-20 Calcium 9.5 mg/dL Normal 8.6-10.3 Egfr Non- 11.2 >60 Egfr 13.6 >60 1 Potassium 5.4 mmol/L High 3.5-5.0 Anion Gap 8 mmol/L Normal 2-11 Laboratory test 12/18/2018 [facility] Total Protein 181 mg/dL finding [address] [place] [address] [phone] Creatinine Random Urine 79.59 mg/dL Pthi 12/18/2018 [facility] Calcium (PTH 9.4 mg/dL Normal 8.6- 10.[address] Intact) [place] [address] [phone] PTH Intact 110.1 pg/mL High 12-88 Urine Culture 12/18/2018 [facility] Urine Culture SEE [address] [place] [address] BELOW [phone] Laboratory test 12/18/2018 [facility] Hemoglobin A1c 7.2 % High 4.0-5. [address] (Glyco HGB) 6 [place], [place] [id number] [phone] Laboratory test 12/18/2018 [facility] Fructosamine 389 Abnormal 200 - [address] mcmol/L 285 [place], [place] [address] [phone] Laboratory test 10/19/2018 [facility] Fructosamine 526 Abnormal 200 - [address] mcmol/L 285 [place], [place] [address] [phone] Comp Metabolic 10/19/2018 [facility] Sodium 137 Normal 135-[address] mmol/L 5 [place] [address] [phone] Potassium 4.5 mmol/L Normal 3.5-5.0 Chloride 105 [...] >60 Egfr 13.5 >60 6 Laboratory 10/19/2018 [facility] TSH (Thyroid 2.22 Normal 0.34 -5.60 test finding [address] Stim Horm) mcIU/[place] [address] [phone] Hemoglobin A1c (Glyco HGB) 9.6 % High 4.0-5.6 7 Laboratory test 07/21/2018 [facility] C-Peptide 4.5 ng/mL Abnormal 1.1 - [address] 4.4 [place] [address] [phone] Hemoglobin A1c (Glyco HGB) 10.2 % High 4.0-5.6 9 Creatinine 07/21/2018 [facility] Creatinine 3.30 mg/dL High 0.51-0.[address] [place] [address] [phone] Egfr Non- 13.9 >60 Egfr 16.8 >60 [...] JOSÉ CANO : [address]: Dia KWON Acct: [id number] Unit: [id number] AGE: 68 Location: LAB Re12/18/18 SEX: F Status: REG REF SPEC: [id number] IVON: 12/18/18-[address] [facility] [address]: Karthik Ornelas MD REQ: [id number] RECD: 12/18/18-1343 STATUS: ALICIA ARROYO DR: Dia Yoder NP [facility] _ SOURCE: URINE SPDESC: ORDERED: Urine Culture Procedure Result Reported Site Urine Culture Final 12/19/18- 1616 ML No growth of clinically significant organisms * ML - Main Lab . END OF REPORT DEPARTMENT OF PATHOLOGY, [address] [place] [address] Shakeel Song M.D. Director CLIA # [id number] 3 Therapeutic target for the treatment of diabetes mellitus patients is <7% HBA1C, and in selective patients <6.0%. Please refer to [employer] diabetic care guidelines for further information. 4 Test Performed by: [facility] [place] [address] Armored Truck Driver: Andres Little M.D. Ph.D.; CLIA# [id number] 5 Test Performed by: [place] [address] 6 Because ethnic data is not always [...] in selective patients <6.0%. Please refer to [employer] diabetic care guidelines for further information. 8 Test Performed by: [facility] [address] [place] [address] 9 Therapeutic target for the treatment of diabetes mellitus patients is <7% HBA1C, and in selective patients <6.0%. 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 Office Visit 10/19/2018 2:00p [facility] and Loki Johnson E11.22 Type 2 diabetes Endocrinology of [facility] mellitus w diabetic chronic kidney disease N18.5 Chronic kidney disease, stage 5 E11.65 Type 2 diabetes mellitus with hyperglycemia Z79.4 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 Office Visit 09/21/2018 1:00p [facility] and Manda N18.6 End stage [facility]ocrinology of [facility] Marker, 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.4 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 E11.649 Type 2 diabetes mellitus with hypoglycemia without coma Office Visit 08/04/2018 11:30a [facility] Manda E11.22 Type 2 Endocrinology of [facility] Marker, RPA-C diabetes mellitus w diabetic chronic kidney disease N18.5 Chronic kidney disease, stage 5 Z79.4 custodial (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 of insulin E11.649 Type 2 diabetes mellitus with hypoglycemia without coma Office Visit 07/21/2018 1:00p [facility] Manda E11.22 Type 2 Endocrinology of [employer] Marker, RPA-C diabetes mellitus w diabetic chronic kidney disease N18.5 Chronic kidney disease, stage 5 Z79.4 custodial (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 of insulin 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), and cereb infrc w/o resid deficits Assessments Date Code Description Provider 12/21/2018 N18.5 Chronic kidney disease, stage 5 Karthik Ornelas MD 12/21/2018 E11.22 Type 2 diabetes mellitus with diabetic Karthik Ornelas MD chronic kidney diseas 12/21/2018 Z79.4 custodial (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 of insulin Karthik Ornelas MD 12/21/2018 E78.5 Hyperlipidemia, unspecified Karthik Ornelas MD 12/21/2018 I10 Essential (primary) hypertension Karthik Ornelas MD 12/21/2018 E87.5 Hyperkalemia Karthik Ornelas MD 12/12/2018 E11.22 Type 2 diabetes mellitus with diabetic AUTUMN Rm chronic kidney diseas 12/12/2018 N18.5 Chronic kidney disease, stage 5 Aide Rm 12/07/2018 N18.5 Chronic kidney disease, stage 5 Karthik Ornelas MD 12/07/2018 E11.22 Type 2 diabetes mellitus with diabetic Karthik Ornelas MD chronic kidney diseas 12/07/2018 E11.65 Type 2 diabetes mellitus with hyperglycemia Karthik Ornelas MD 12/07/2018 Z79.4 custodial (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 of insulin Karthik Ornelas MD 10/19/2018 E11.22 Type 2 diabetes mellitus with diabetic Loki Johnson MD chronic kidney diseas 10/19/2018 N18.5 Chronic kidney disease, stage 5 Loki Johnson MD 10/19/2018 E11.65 Type 2 diabetes mellitus with hyperglycemia Loki Johnson MD 10/19/2018 Z79.4 custodial (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 of insulin Loki Johnson MD 09/21/2018 N18.6 End stage renal disease Manda Marker, RPA-C 09/21/2018 E11.22 Type 2 diabetes mellitus with diabetic Manda Marker, RPA -C chronic kidney diseas 09/21/2018 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.4 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 Manda Marker, RPA-C 09/21/2018 E11.649 Type 2 diabetes mellitus with hypoglycemia Manda Marker , RPA-C without coma 08/04/2018 E11.22 Type 2 diabetes mellitus with diabetic Manda Marker, RPA -C chronic kidney diseas 08/04/2018 N18.5 Chronic kidney disease, stage 5 Manda Marker, RPA-C 08/04/2018 Z79.4 custodial (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 of insulin Manda Marker, RPA-C 08/04/2018 E11.649 Type 2 diabetes mellitus with hypoglycemia Manda Marker , RPA-C without coma 07/21/2018 E11.22 Type 2 diabetes mellitus w diabetic chronic Manda Marker , RPA-C kidney disease 07/21/2018 N18.5 Chronic kidney disease, stage 5 Manda Marker, RPA-C 07/21/2018 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.4 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 Manda Marker, RPA-C 07/21/2018 E11.319 Type 2 diabetes w unsp diabetic rtnop w/o Manda Marker , RPA-C macular edema 07/21/2018 Z86.73 Prsnl hx of TIA (TIA), and cereb infrc w/o Manda Marker , RPA-C resid deficits Plan of Treatment Future Appointment(s):01/23/2019 1:00 pm - Karthik Ornelas MD at [facility] Zzgcmmfzzi49/09/2019 11:00 am - Loki Johnson MD at [facility]12/21/2018 - Karthik Ornelas MDN18.5 Chronic kidney disease, stage 5Follow up:1 occrtX44.22 Type 2 diabetes mellitus with diabetic chronic kidney tospfiH23.4 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 sbfalvcK64.5 Hyperlipidemia, rkytotslhuoW85 Essential (primary) eojwbswbqhltB65.5 Hyperkalemia Functional Status Description No Information Available Mental Status Description No Information Available Referrals Refer to Dr Reason for Referral Status Appt Date Franci Hart MD CKD stage 5, planning dialysis if Patient Notified needed [address] [facility] [address] [phone]
--- NOTE | 2019-02-05 14:07 | ED ---
Shortness of Breath - HPI Summary HPI Summary: This patient is a 68 year old female presenting to [facility] with a chief complaint of SOB since 3 days ago. She states she is experiencing SOB while lying flat and with exertion. She reports dry cough, heart racing and fatigue. Pt has kidney failure and is planned to have fistula placed on 02/13. She has a Hx of diabetes who did not take her medication today. She denies chest pain and abdominal pain. She has a Hx of heart murmur. - History of Current Complaint Chief Complaint: EDShortnessOfBreath Time Seen by Provider: 02/05/19 13:59 Hx Obtained From: Patient Onset/Duration: Sudden Onset, Lasting Days Dyspnea At: Exertion - Allergy/Home Medications Allergies/Adverse Reactions: Allergies Allergy/AdvReac Type Severity Reaction Status Date / Time aspirin AdvReac GI Upset Verified 09/14/18 11:47 seafood Allergy Airway Uncoded 02/06/19 12:26 Obstruction Home Medications: Home Medications Acyclovir* [Zovirax 400 MG TAB*] 400 mg PO DAILY 02/05/19 [History Confirmed ] Ascorbic Acid TAB* [Vitamin C TAB*] 1,000 mg PO DAILY 02/05/19 [History Confirmed 02/05/19] Aspirin EC TAB* [Ecotrin EC Low Dose 81 MG*] 81 mg PO DAILY 02/05/19 [History Confirmed 02/05/19] Hydrocortisone 2.5% CREAM(NF) 1 applic TOPICAL BID 02/05/19 [History Confirmed 02/05/19] Insulin Lispro Protamin/Lispro [Humalog Mix 75-25 Kwikpen] 10 - 20 unit SUBCUT SEE INSTRUCTIONS 02/05/19 [History Confirmed 02/05/19] Nystatin CREAM* 1 applic TOPICAL BID 02/05/19 [History Confirmed 02/05/19] Vitamin C64-Nwhrqehlpvuwkt 1 tab SL DAILY 02/05/19 [History Confirmed 02/05/19] PMH/Surg Hx/FS Hx/Imm Hx Endocrine/Hematology History: Reports: Hx Diabetes - type 2 Denies: Hx Anticoagulant Therapy Cardiovascular History: Reports: Hx Hypertension Denies: Hx Pacemaker/ICD Sensory History: Reports: Hx Contacts or Glasses Denies: Hx Hearing Aid Opthamlomology History: Reports: Hx Contacts or Glasses Psychiatric History: Denies: Hx Panic Disorder - Surgical History Surgery Procedure, Year, and Place: cornea surgery. back surgery Infectious Disease History: No Infectious Disease History: Denies: Traveled Outside the [place] in Last 30 Days - Family History Known Family History: Positive: Hypertension - Social History Alcohol Use: None Substance Use Type: Reports: None Smoking Status (MU): Never Smoked Tobacco Review of Systems Positive: Fatigue Positive: Palpitations. Negative: Chest Pain Positive: Shortness Of Breath, Cough Negative: Abdominal Pain All Other Systems Reviewed And Are Negative: Yes Physical Exam - Summary Physical Exam Summary: Appearance: Well-appearing, Well-nourished, lying in bed comfortably Skin: Warm, dry, no obvious rash Eyes: sclera anicteric, no conjunctival pallor ENT: mucous membranes moist, pharynx appears normal Neck: Supple, nontender Respiratory: Clear to auscultation, no signs of respiratory distress Cardiovascular: Normal S1, S2. No murmurs. Normal distal pulses in tibial and radial bilaterally. Abdomen: Soft, nontender, normal active bowel sounds present Musculoskeletal: Normal, Strength/ROM Intact Neurological: A&Ox3, awake and alert, mentation is normal, speech is fluent and appropriate Psychiatric: affect is normal, does not appear anxious or depressed Triage Information Reviewed: Yes Vital Signs On Initial Exam: Initial Vitals Temp Pulse Resp BP Pulse Ox 97.1 F 67 16 148/76 98 02/05/19 13:17 02/05/19 13:17 02/05/19 13:17 02/05/19 13:17 02/05/19 13:17 Vital Signs Reviewed: Yes Procedures - Sedation Patient Received Moderate/Deep Sedation with Procedure: No Diagnostics - Vital Signs Vital Signs Temp Pulse Resp BP Pulse Ox 02/05/19 13:23 97.1 F 64 17 148/76 98 02/05/19 13:17 97.1 F 67 16 148/76 98 - Laboratory Result Diagrams: 02/06/19 05:45 02/08/19 06:33 Lab Statement: Any lab studies that have been ordered have been reviewed, and results considered in the medical decision making process. - Radiology CXR Radiology Interpretation Completed By: Radiologist Summary of Radiographic Findings: Increased interstitial edema and CHF with cardiomegaly. Right lower lobe mass or infiltrate. ED Physician has reviewed this report. - EKG 1310 Cardiac Rate: NL - 65 BPM EKG Rhythm: Sinus Rhythm Summary of EKG Findings: No STEMI. ED Physician has reviewed and interpreted this report. Course/Dx - Course Course Of Treatment: This patient is a 68 year old female presenting to [facility] with a chief complaint of SOB since 3 days ago. CXR reveals increased interstitial edema and CHF with cardiomegaly. Right lower lobe mass or infiltrate. Labs reveal RBC 3.52 L, Hgb 10.9 L, Hct 32 L, Absolute Lymphs 0.9 L , D-Dimer, Quantiative 303 H, Sodium 134 L, Potassium 5.5 H, Carbon Dioxide 20 L , BUN 69 H, Creatinine 4.07 H, Glucose 240 H, Troponin 0.05 H. The patient was given IV diuretic in the ED, as recommended by Dr. Johnson, Nephrology. Dr. Johnson stated she could go home with a prescription if it works, however it did not and therefore she would be admitted. Dr. Alfaro, Hospitalist, accepted the patient for admission. This plan was discussed with the patient and she was agreeable with this plan. - Diagnoses Provider Diagnoses: CHF (congestive heart failure) - Physician Notifications Discussed Care of Patient With: Rosamaria Johnson - Nephrology Time Discussed With Above Provider: 15:44 Discharge ED - Sign-Out/Discharge Documenting (check all that apply): Patient Departure - Admission - Discharge Plan Condition: Stable Disposition: ADMITTED TO [facility] - Billing Disposition and Condition Condition: STABLE Disposition: Admitted to [facility] - Attestation Statements Document Initiated by Carly: Yes Documenting Bhargavibe: Alvarado Joshi Provider For Whom Carly is Documenting (Include Credential): MD Bhargav Vazibenrique Attestation: Alvarado Kat scribed for Mustapha Tavares MD on 02/08/19 at 1818. Scribe Documentation Reviewed: Yes Provider Attestation: The documentation as recorded by the Alvarado lux accurately reflects the service I personally performed and the decisions made by me, Mustapha Tavares MD Status of Scribe Document: Viewed
[2019-02-05 15:00] LABS: ABS Basophils 0.1 10^3/ul (0-0.2); ABS Eosinophils 0.2 10^3/ul (0-0.6); ABS Lymphocytes 0.9 10^3/ul (1.0-4.8); ABS Monocytes 0.4 10^3/ul (0-0.8); ABS Neutrophils 6.8 10^3/ul (1.5-7.7); Eosinophil % 1.9 %; Hematocrit 32 % (35-47); Hemoglobin 10.9 g/dL (12.0-16.0); Lymphocyte % 10.9 %; Mean Corpuscular HGB Conc 34 g/dL (31-36); Mean Corpuscular Hemoglobin 31 pg (27-31); Mean Corpuscular Volume 90 fL (80-97); Mean Platelet Volume 7.7 fL (7.4-10.4); Nucleated Red Blood Cells % 0.1; Platelet Count 217 10^3/uL (150-450); Red Blood Count 3.52 10^6 /uL (3.70-4.87); Red Cell Distribution Width 14 % (10-15); White Blood Count 8.4 10^3/uL (3.5-10.8)
[2019-02-05 15:21] LABS: ALT 16 U/L (7-52); AST 13 U/L (13-39); Albumin 3.8 g/dL (3.2-5.2); Albumin/Globulin Ratio 1.2 (1-3); Alkaline Phosphatase 104 U/L (34-104); Blood Urea Nitrogen 69 mg/dL (6-24); CO2 Carbon Dioxide 20 mmol/L (22-32); Calcium 9.5 mg/dL (8.6-10.3); Chloride 107 mmol/L (101-111); EGFR African American 13.1 (>60); EGFR Non-African American 10.8 (>60); Globulin 3.3 g/dL (2-4); Glucose 240 mg/dL (70-100); Sodium 134 mmol/L (135-145); Total Protein 7.1 g/dL (6.4-8.9)
[2019-02-05 15:28] LABS: Anion Gap 7 mmol/L (2-11); Potassium 5.5 mmol/L (3.5-5.0)
[2019-02-05 15:31] LABS: Troponin I 0.05 ng/mL (<0.04)
[2019-02-05] MEDS ORDERED: Furosemide IV* 10 MG/ML VIAL (40 MG) IV SLOW PU ONE (15:42)
[2019-02-05] MEDS ORDERED: Furosemide IV* 100 MG in NS 0.9% 100 ML* 90 ML IV ONE (16:00)
[2019-02-05 18:53] LABS: Troponin I 0.04 ng/mL (<0.04)
[2019-02-05] MEDS ORDERED: Acetaminophen TAB* 325 MG PO PRN (19:00)
[2019-02-05] MEDS ORDERED: Ondansetron INJ* 2 MG/ML VIAL IV PRN (19:00)
[2019-02-05] MEDS: Senna TAB 8.6 mg* TAB PO SCH (21:27)
[2019-02-05] MEDS: Heparin VIAL(*) 5000 UNITS/ML VIAL (FIVE THOUSAND) SUBCUT SCH (21:52)
[2019-02-05] MEDS: Metoprolol Tartrate TAB* 50 mg PO SCH (21:53)
[2019-02-05] MEDS: Insulin ISOPH/REG 70/30 (*) 1 UNITS UNIT SUBCUT SCH (21:53)
[2019-02-05] MEDS: Nystatin CREAM* 15 GM TUBE TOPICAL SCH (21:54)
[2019-02-05 22:19] LABS: Urine Appearance Clear; Urine Bacteria Absent (Absent); Urine Bilirubin Negative (Negative); Urine Blood 1+ (Negative); Urine Color Straw; Urine Glucose 2+(150 mg/dL) (Negative); Urine Ketones Negative (Negative); Urine Nitrite Negative (Negative); Urine Protein Negative (Negative); Urine Red Blood Cell Absent (Absent); Urine Specific Gravity 1.008 (1.010-1.030); Urine Squamous Epithelial Cell Present (Absent); Urine Urobilinogen Negative (Negative); Urine White Blood Cell Absent (Absent)
--- NOTE | 2019-02-05 22:46 | HP ---
ADMISSION HISTORY AND PHYSICAL: DATE OF ADMISSION: 02/05/19 PRIMARY CARE PHYSICIAN: Dr. Selene Galo. PROVIDER: Leatha Torres NP ATTENDING PHYSICIAN: Dr. Real Queen.* (DICTATED BY LEATHA TORRES NP) OTHER PROVIDER: Dr. Karthik Ornelas. CHIEF COMPLAINT: Shortness of breath. HISTORY OF PRESENT ILLNESS: This is a 68-year-old female with a past medical history significant for end-stage renal disease, heart murmur, and diabetes type 2, who arrived at the ED on 02/05/19 after reports of shortness of breath, originally onset within the past few weeks, but got worse significantly this past Tuesday, so 3 days prior, worse when getting up going to the bathroom or with any kind of activity. It is better with rest. She has been sleeping with 2 pillows in the past few nights and uses no home O2. She has denied any recent changes in her medications though is supposed to have an AV fistula placed for dialysis on 02/13/19 due to failing creatinine. In the emergency room, labs were drawn, chest x-ray was taken. Hospitalists were asked to evaluate the patient for admission after the patient had received 100 mg of IV Lasix per Nephrology, which she did not respond to. After the IV Lasix, she was still breathless with transfers from stretcher to commode and O2 sats would drop into the 80s upon room air. Currently, she,at rest, denies any shortness of breath or chest pain, is satting about 93% on 2 L and in no acute distress. PAST MEDICAL HISTORY: Heart murmur; diabetes type 2; hypertension; neuropathy; cerebellar CVA, congestive heart failure, unknown whether it is diastolic or systolic; hyperlipidemia; hyperparathyroidism; osteoporosis. PAST SURGICAL HISTORY: Cataract extraction, corneal transplant, removal of bone spurs in her lumbar spine, bilateral tubal ligation. MEDICATIONS: 1. Nystatin cream 1 application topically b.i.d. to her chin. 2. Metoprolol tartrate 50 mg p.o. b.i.d. 3. Insulin lispro. 4. Protamine/lispro 75/25, 10 to 20 units twice a day. 5. Hydrocortisone 2.5% cream topically b.i.d. 6. Ascorbic acid 1000 mg p.o. daily. 7. Vitamin B12 one tab sublingually daily. 8. Aspirin 81 mg p.o. daily. 9. Amlodipine besylate 5 mg p.o. daily. 10. Acyclovir 400 mg p.o. daily. ALLERGIES: To ASPIRIN which causes GI upset. FAMILY HISTORY: Significant for sister having diabetes and a stroke. SOCIAL HISTORY: Denies any tobacco, ETOH, or recreational substance use. 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 She is , has 3 children. She lives with her . REVIEW OF SYSTEMS: An 11-point system review was performed. It was significant for orthostatic hypotension, poor appetite, dry hacky cough for the past few days, constipation, and right eye blurriness which has been present for the past 10 to 12 years. PHYSICAL EXAMINATION GENERAL: This is a thin, older woman seen resting in bed, in no acute distress. VITAL SIGNS: Temperature 97.1 Fahrenheit, 61 pulse, 19 respirations, 92% oxygen on 2 L, and 138/78 blood pressure. HEENT: Eyes: Conjunctivae pink and moist. PERRLA. EOMs intact. ENT: Oropharynx clear. Mucous membranes moist. NECK: Supple. No JVD noted. LUNGS: Fine crackles heard to right middle and lower lung henry. Other lung henry clear on 2 L of oxygen via nasal cannula. No accessory muscle use noted. HEART: S1, S2. Stenotic murmur appreciated. No gallops or rubs. ABDOMEN: Soft, nontender, and nondistended with positive bowel sounds x4. MUSCULOSKELETAL: No clubbing or cyanosis appreciated. Full range of motion, 5 /5 in bilateral upper and lower extremities. NEURO: Moves all extremities. Sensation intact to light touch. No focal deficits appreciated. PSYCH: Alert and oriented x4. No anxiety or depression appreciated. SKIN: Noted fine peeling red area to the chin and around lips. PERTINENT LAB DATA/ DIAGNOSTIC STUDIES: Sodium 134, potassium 5.5, carbon dioxide 20, BUN 69, creatinine 4.07, glucose 240, lactic acid 0.1. Troponin 0.05, which trended down to 0.04, appears not too much above baseline. D-dimer is 303. RBC 3.52, hemoglobin 10.9, hematocrit 32. EKG showed sinus rhythm with inverted T-waves in V1 and V2 and AVL with some ST depression present in V5 and V6, which is similar to previous EKGs. Chest x-ray showed increased interstitial edema and CHF with cardiomegaly, right lower lobe mass or infiltrate. ASSESSMENT AND PLAN: My impression is that this is a 68-year-old female with a past medical history significant for end-stage renal disease, heart murmur, and diabetes type 2, who was admitted on 02/05/19 for congestive heart failure exacerbation with possible need for dialysis. 1. Congestive heart failure exacerbation. Transthoracic echocardiogram to confirm ejection fraction. Spoke with Dr. Ornelas, the industrial maintenance repairer helper, and per his recommendations, we will give IV Lasix at 100 mg and start Garcia catheter to monitor urine output and draw BNP. Currently, the patient does not seem to be in distress, noted no JVD, +1 lower extremity edema, no shortness of breath at rest. 2. End-stage renal disease. Again, Dr. Ornelas consulted. We will monitor the patient for need for earlier dialysis than the beginning of February. To draw CBC and BMP in the a.m. and monitor fluid status and urine output. 3. Hypertension. Current SBP in the 140's. Continue amlodipine and metoprolol. 4. Diabetes type II. Glucose in the ED was 240. The patient has had recent issues with controlling her glucose and has not tolerated the increase in nighttime insulin that her primary care physician put her on. We will do fingersticks a.c. and h.s. and NPH insulin 70/30 mix. 5. Fungal rash to face. Continue with nystatin cream. It is not causing the patient any discomfort. No pain, no itching, though has noted improvement with the use of nystatin. 6. Hyperlipidemia. Not currently on any statins, though due to the patient facing pending dialysis, the efficacy of statins is questionable. 7. DVT prophylaxis. Heparin and SCDs. 8. Code status: Full code. CONDITION: Guarded. DISPOSITION: Admit OBV to [address] [place] [address]. TIME SPENT: Time spent with the patient is about 60 minutes with more than half of this spent [id number]. Case was reviewed my by attending and they agree. LEATHA TORRES, DIRECTOR OF PLAYER PERSONNEL [id number]/[facility] #: [id number] [facility]ENT[facility]etta
[2019-02-06] MEDS: Heparin VIAL(*) 5000 UNITS/ML VIAL (FIVE THOUSAND) SUBCUT SCH ×3 (05:22→21:43)
[2019-02-06 06:30] LABS: ABS Basophils 0.1 10^3/ul (0-0.2); ABS Eosinophils 0.3 10^3/ul (0-0.6); ABS Lymphocytes 1.5 10^3/ul (1.0-4.8); ABS Monocytes 0.5 10^3/ul (0-0.8); ABS Neutrophils 5.3 10^3/ul (1.5-7.7); Eosinophil % 4.3 %; Hematocrit 31 % (35-47); Hemoglobin 10.8 g/dL (12.0-16.0); Lymphocyte % 19.6 %; Mean Corpuscular HGB Conc 35 g/dL (31-36); Mean Corpuscular Hemoglobin 31 pg (27-31); Mean Corpuscular Volume 89 fL (80-97); Mean Platelet Volume 7.9 fL (7.4-10.4); Nucleated Red Blood Cells % 0.1; Platelet Count 220 10^3/uL (150-450); Red Blood Count 3.51 10^6 /uL (3.70-4.87); Red Cell Distribution Width 14 % (10-15); White Blood Count 7.6 10^3/uL (3.5-10.8)
[2019-02-06 06:45] LABS: BUN/Creatinine Ratio 16.9 (8-20); Calcium 9.4 mg/dL (8.6-10.3); EGFR African American 12.5 (>60); EGFR Non-African American 10.3 (>60); Potassium 4.1 mmol/L (3.5-5.0)
[2019-02-06] MEDS ORDERED: amLODIPine TAB* 5 MG PO SCH (09:00)
[2019-02-06] MEDS: Insulin ISOPH/REG 70/30 (*) 1 UNITS UNIT SUBCUT SCH ×2 (09:30→21:43)
[2019-02-06] MEDS: Acyclovir* 400 MG TAB PO SCH (09:30)
[2019-02-06] MEDS: Aspirin EC TAB* 81 MG TAB.EC PO SCH (09:31)
[2019-02-06] MEDS: [UNRECOGNIZED DRUG - OTHER] SL SCH (09:32)
[2019-02-06] MEDS: Ascorbic Acid TAB* 500 MG PO SCH (09:32)
[2019-02-06] MEDS: Nystatin CREAM* 15 GM TUBE TOPICAL SCH ×2 (09:32→21:48)
[2019-02-06] MEDS: Metoprolol Tartrate TAB* 50 mg PO SCH ×2 (09:32→21:43)
[2019-02-06] MEDS: METHYLCOBALAMIN SL SCH (09:32)
--- NOTE | 2019-02-06 11:38 | ECHO ---
*[facility]* [place] [address] Fax #: [phone] Transthoracic Echocardiogram Patient: Shaunna Tolbert : 1950 Study Date: 02/06/2019 Age: 68 Gender: F HR: 61 bpm Height: 64 in /162.6 cm BSA: 1.69 m^2 Weight: 140.7 lb /64 kg BMI: 24.2 kg/m^2 *Trip Rider: * Selene Cyr [facility] *Referring Physician: * Leatha Torres *Reading Physician: * Kam Harris MD Indications: Congestive Heart Failure. History: Congestive heart failure. Cerebrovascular accident. Chronic renal disease. Risk factors: Hypertension. Diabetes mellitus. Dyslipidemia. Conclusions Summary: - Left ventricle: Systolic function is mildly reduced. The estimated ejection fraction is 40-45%. - Regional wall motion abnormality: Moderate hypokinesis of the apical anterior, apical inferior, and apical myocardium; mild hypokinesis of the apical septal and apical lateral myocardium. - Right ventricle: Systolic function is normal. - Mitral valve: The Mitral valve annulus appears calcified. The leaflets are moderately calcified. Mobility is restricted. The findings are consistent with moderate stenosis. There is mild regurgitation. The valve area by pressure half-time is 1.8 cm^2. - Aortic valve: The findings are consistent with mild stenosis. There is trace regurgitation. The mean systolic gradient is 10.0 mm Hg. - Tricuspid valve: There is mild-moderate regurgitation. - Pulmonary arteries: Systolic pressure is severely increased. The peak pressure during systole by Doppler is 60.0 mm Hg. - The previous study of 05/29/06 was normal. All abnormal findings on today's study are new. Study data: Transthoracic echocardiogram. Procedure: Transthoracic echocardiography was performed. Image quality was good. Complete 2D, spectral Doppler, and color flow Doppler. Location: Bedside. Patient status: Inpatient. Patient room number: 442 02. Rhythm: Normal sinus rhythm. Findings Left ventricle: The cavity size is normal. Wall thickness is mildly increased. Systolic function is mildly reduced. The estimated ejection fraction is 40-45%. Regional wall motion abnormalities: Hypokinesis of the apical myocardium. Moderate hypokinesis of the apical anterior, apical inferior, and apical myocardium; mild hypokinesis of the apical septal and apical lateral myocardium. Features are consistent with a pseudonormal left ventricular filling pattern, with concomitant abnormal relaxation and increased filling pressure (grade 2 diastolic dysfunction). Right ventricle: The cavity size is normal. Systolic function is normal. Left atrium: The atrium is normal in size. Right atrium: The atrium is normal in size. Mitral valve: The Mitral valve annulus appears calcified. The leaflets are moderately calcified. Mobility is restricted. The findings are consistent with moderate stenosis. There is mild regurgitation. Aortic valve: The annulus is mildly calcified. The valve is trileaflet. The leaflets are moderately thickened. Valve mobility is restricted. The findings are consistent with mild stenosis. There is trace regurgitation. Tricuspid valve: The leaflets are normal thickness. There is no evidence of stenosis. There is mild-moderate regurgitation. Pulmonic valve: The leaflets are normal thickness. There is no evidence of stenosis. There is no significant regurgitation. Aorta: The aortic root appears normal. Pericardium: There is no significant pericardial effusion. Pulmonary arteries: Systolic pressure is severely increased. Systemic veins: Inferior vena cava: The vessel is normal in size. There is (>= 50%) respiratory change in the IVC dimension. Measurements Left ventricle Value Ref Aortic valve continued Value Ref EVANS, LAX 4.3 cm 3.8 - 5.2 VTI, S 51.0 cm ----- ESD, LAX 2.5 cm 2.2 - 3.5 Mean grad, S 10.0 mm Hg ----- FS, LAX 43 % 27 - 45 Peak grad, S 18.0 mm Hg ----- PW, ED, LAX 0.9 cm 0.6 - 0.9 LVOT/AV, VTI ratio 0.5 ----- EF 74 % 54 - 74 ROSELYN, VTI 1.20 cm^2 ----- E', lat julia, TDI (L) 4.3 cm/sec >=10.0 ROSELYN, Vmax 1.10 cm^2 - ---- E/e', lat julia, 47 TDI Mitral valve Value Ref E', med julia, TDI (L) 4.2 cm/sec >=7.0 Peak E 2.01 m/sec - ---- E/e', med julia, 48 Peak A 1.32 m/sec ---- - TDI Decel time 299 ms ----- E', avg, TDI 4.3 cm/sec PHT 125 ms ---- - E/e', avg, TDI (H) 47 <=14 Mean grad, D 7.0 mm Hg - ---- Peak grad, D 18.0 mm Hg ----- LVOT Value Ref Peak E/A ratio 1.5 ----- Diam, S 1.80 cm MVA, PHT 1.8 cm^2 ----- Area 2.5 cm^2 Peak gustavo, S 0.9 m/sec Pulmonic valve Value Ref VTI, S 24.0 cm Peak v, S 0.87 m/sec ----- Peak grad, S 3 mm Hg Peak grad, S 3.0 mm Hg ----- Mean grad, S 3 mm Hg Tricuspid valve Value Ref Ventricular septum Value Ref TR peak v (H) 3.7 m/sec <=2.8 IVS, ED (H) 1.2 cm 0.6 - 0.9 Peak RV-RA grad, S 55 mm Hg ----- Right ventricle Value Ref Aortic root Value Ref EVANS, LAX 2.1 cm Root diam 2.5 cm <3.9 EVANS minor ax, A4C 2.7 cm 1.9 - 3.5 mid Ascending aorta Value Ref Pressure, S 63 mm Hg AAo AP diam, S 2.7 cm ----- Left atrium Value Ref Aortic arch Value Ref AP dim, ES (H) 4.10 cm 2.70 - Arch diam 2.0 cm ----- 3.80 ML dim, A4C 3.3 cm Decending aorta Value Ref SI dim, A4C 5.1 cm Edith peak gustavo 0.54 m/sec ----- Vol/bsa, ES, A/L 28 ml/m^2 16 - 34 Pulmonary artery Value Ref Right atrium Value Ref Pressure, S 60.0 mm Hg ----- SI dim, ES 5.2 cm 3.4 - 5.3 ML dim, ES, A4C 3.1 cm 2.6 - 4.4 Inferior vena cava Value Ref Estimated RAP 8 mm Hg Diam 1.7 cm ----- Aortic valve Value Ref Julia diam, ED 1.7 cm Peak v, S 2.1 m/sec Legend: (L) and (H) ryile values outside specified reference range. Prepared and electronically signed by Kam Harris MD 02/06/2019 11:38
[2019-02-06] MEDS: Furosemide IV* 10 MG/ML VIAL (40 MG) IV SLOW PU SCH ×2 (15:35→15:52)
--- NOTE | 2019-02-06 15:39 | CONSULT ---
Consult Consult: Chief complaint: Consultation for Shortness of breath. Requesting physician is Dr. Christel Contreras History of present illness: Patient is a very nice 68-year-old woman who has been admitted last night for progressive shortness of breath. History is taken from the patient and review of medical records. Her shortness of breath started about 2 weeks ago initially was present only with exertion. This has progressed to being present even at rest and at night when lying down. She had to prop herself up on 2 pillows. She would wake up in the middle of the night being short of breath. This has not been associated by any fevers, chills, chest pain, palpitations or sputum production. When she came in the emergency room she needed 2 L of oxygen to maintain oxygen saturation to about 95%. Blood pressure was good in 120s-140s systolic. She did not have any leukocytosis or fever. Chest x-ray was compatible with congestive heart failure. BNP was elevated. Troponins were slightly elevated but remained stable. She received a dose of 100 mg IV of Lasix and apparently she did not make much urine with that. Subsequently received another dose of 100 mg Lasix within the next couple hours and she produced about 1 L of urine overnight. Initially she was found to have post void residual of about 250 cc. This morning it was checked again and it was nonsignificant per patients report. This morning oxygenation was good at rest without the need of supplemental oxygen. Blood pressure has been low in low 100s systolic. She stated that she was feeling okay without significant shortness of breath at rest. Head of the bed was elevated about 30. She slept better last night. An echocardiogram was done today show a mildly decreased left ventricular ejection fraction to 40-45%. Multiple regional wall motion abnormalities. Severe pulmonary hypertension. Mild mitral valve regurgitation with moderate stenosis. Mild aortic valve stenosis and trace regurgitation. Mild to moderate tricuspid valve regurgitation. Right ventricle function is normal. She has a history of advanced chronic kidney disease with an estimated GFR lower than 15 mL/min. Most probably her chronic kidney disease is secondary to type 2 diabetes mellitus. She is in the process of getting ready for dialysis. She is scheduled to have a fistula placement on February 13. Kidney function is not much changed compared to baseline. She was admitted with a creatinine of 4.07 mg/dL and today is 4.25 mg/dL with minimal change in GFR. She also has a history of type 2 diabetes mellitus. She states that lately her blood sugars have been low when she had to cut back on insulin at night. Chest x-ray on admission showed a right middle lobe infiltrate which was stable compared with a chest x-ray done in September. Patient does not know of any abnormality. She has never smoked. She denies hemoptysis, night sweats, cough and weight loss. She usually walks with a walker or cane at home just for safety. She has a previous history of CVA. Review of systems: Other than those mentioned in the history of present illness: Constitutional: Fatigue, no weight loss GI: No nausea, vomiting, diarrhea, constipation, blood per rectum : Decreased urine output, no hematuria, no frequency All systems were reviewed and they are all negative unless otherwise specified Medications prior to admission: 1. Metoprolol tartrate 50 mg by mouth twice a day 2. Amlodipine 5 mg by mouth twice a day 3. Acyclovir 400 mg by mouth daily 4. Aspirin 81 mg daily 5. Insulin lispro 6. Protamine/lispro 75/25, 10-20 units twice a day 7. vitamin C 1000 mg daily. 8. Vitamin B12 1 tab sublingually daily 9. Hydrocortisone 2.5 g percent cream topically twice a day Current medications: 1. Acetaminophen 650 milligrams by mouth every 4 hours as needed for pain 2. Acyclovir 400 mg by mouth daily 3. Vitamin C 1000 mg daily 4. Aspirin 81 mg daily 5. Heparin 5000 units subcu 6. Regular insulin 8 units at bedtime subcutaneously, 16 units in the morning. 7. Metoprolol 50 mg by mouth twice a day 8. Amlodipine 5 mg daily 9. Nystatin cream 10. Zofran as needed 11. Senna at bedtime 1 tab Past medical history: 1. 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 Hypertension 3. Cerebellar CVA 4. Congestive heart failure 5. Hyperlipidemia 6. Hyperparathyroidism of renal origin 7. Diabetic neuropathy Past surgical history: 1. Cataract extraction 2. Corneal transplant 3. Removal of bone spurs in her lumbar spine 4. Tubal ligation bilaterally Family history: 1. A sister with diabetes and stroke 2. Mother had hypertension and Social history: Lives with her , she is retired. Has 3 children. Denies smoking or alcohol. Physical exam: Vitals stable: Blood pressure 106/45, heart rate 66 bpm, temperature 97.5 oxygen saturation is 95% on room air at rest Constitutional: Minimal work of breathing sitting up in the bed, chronically ill , pleasant and conversant. Eyes: [place] conjunctiva, no ptosis, normal sclera, pupils are equal ENMT: Nose and ears appear normal. No pharyngeal erythema. Neck: No thyromegaly appreciated, trachea midline, no lymphadenopathy appreciated. JVD present. Chest: Clear to auscultation with good respiratory effort, no CVA tenderness Cardiovascular: Regular rate and rhythm, normal S1-S2, no rubs or gallops appreciated. 2 out of 6 harsh systolic murmur appreciated at the apex. +1 lower extremities dependent edema. No carotid bruits appreciated. Gastrointestinal: Abdomen is soft, nontender, nondistended. No hepatosplenomegaly or organomegaly appreciated. No masses. Bowel sounds are present. No rebound. Musculoskeletal: No digital cyanosis or clubbing. Skin: No rashes, ulcers or lesions. Normal program temperature. Neurologic: Speech fluent, no tremors. Grossly nonfocal. Psychiatric: Alert and oriented x3, judgment and insight intact. Normal memory. Normal mood. Labs: Sodium 136, potassium 4.1, total CO2 21, BUN 72, Green 4.25 mg/dL, EGFR 10.30 glucose in the morning 125. BNP greater than 1300. Assessment and plan: Shaunna Tolbert is a very nice 68-year-old woman who has end-stage kidney disease on dialysis yet secondary to diabetes mellitus type 2. She is admitted for acute systolic heart failure. She responded to 100 mg IV 2 of Lasix last night. 1. Acute systolic heart failure with left ventricular ejection fraction of 40- 45%. - She needs continued diuretics. Even her blood pressure is a little low but she may tolerate Lasix well. I would continue Lasix 100 mg IV over 30 minutes twice a day. 2. CKD stage V - Stable. If volume control becomes difficult we may need to start dialysis during this hospitalization. - I would stop vitamin C thousand milligrams daily. It can accumulate in patients with decreased kidney function and because the position of oxalate in the kidneys. 3. Diabetes mellitus type 2 complicated with diabetic nephropathy and diabetic neuropathy - Per admitting physician she is on regular insulin. 4. Hypotension - Continue to hold amlodipine - Consider decreasing metoprolol from 50-25 mg by mouth twice a day if hypotension persists - May improve with volume removal 5. Pulmonary hypertension - Most probably secondary to mitral valve stenosis. - Diuresis for now 6. Regional wall motion abnormalities of the heart - She may need a cardiac cath. Consider cardiology consult. 7. Moderate mitral stenosis 8. Mild aortic stenosis 9. Mild to moderate tricuspid regurgitation 10. Hyperlipidemia 11. Increased post void residual - Continue to monitor for with bladder scans 12. Right middle lobe opacity which has been present since September. - Wonder if we need to start any workup while she is in the hospital Discussed with Dr. Contreras twice today. This note was dictated with [employer] voice recognition software. It was checked for major inaccuracies. I apologize if minor inaccuracies are still present.
--- NOTE | 2019-02-06 19:36 | PN ---
Subjective Date of Service: 02/06/19 Interval History: Pt is feeling ok. She denies any SOB at this time. No LE edema. Objective Active Medications: Acetaminophen (Tylenol Tab*) 650 mg PO Q4H PRN PRN Reason: MILD PAIN or TEMP > 100.4 Acyclovir (Zovirax Tab*) 400 mg PO DAILY [facility] Last Admin: 02/06/19 09:30 Dose: 400 mg Ascorbic Acid (Vitamin C Tab*) 1,000 mg PO DAILY [facility] Last Admin: 02/06/19 09:32 Dose: Not Given Aspirin (Aspirin Ec Tab*) 81 mg PO DAILY [facility] Last Admin: 02/06/19 09:31 Dose: 81 mg Furosemide (Lasix Iv*) 100 mg IV SLOW PU 0800,1700 [facility] Last Admin: 02/06/19 15:52 Dose: Not Given Heparin Sodium (Porcine) (Heparin Vial(*)) 5,000 units SUBCUT Q8HR [facility] Last Admin: 02/06/19 15:13 Dose: 5,000 units Insulin Human Isoph/Insulin Regular (Humulin 70/30 (*)) 16 units SUBCUT QAM [facility] Last Admin: 02/06/19 09:30 Dose: 16 units Insulin Human Isoph/Insulin Regular (Humulin 70/30 (*)) 8 units SUBCUT BEDTIME [facility] Last Admin: 02/05/19 21:53 Dose: 8 units Metoprolol Tartrate (Lopressor Tab*) 50 mg PO BID [facility] Last Admin: 02/06/19 09:32 Dose: 50 mg Non Formulary Med* ( Vitamin B12- Methylcobalamin 1 Tab) 1 tab SL DAILY [facility] Last Admin: 02/06/19 09:32 Dose: Not Given Nystatin (Nystatin Cream*) 1 applic TOPICAL BID [facility] Last Admin: 02/06/19 09:32 Dose: Not Given Ondansetron HCl (Zofran Inj*) 4 mg IV Q4H PRN PRN Reason: NAUSEA/VOMITING Senna (Senokot 8.6 Mg Tab*) 1 tab PO BEDTIME [facility] Last Admin: 02/05/19 21:27 Dose: Not Given Vital Signs - 8 hr 02/06/19 02/06/19 14:16 15:17 Temperature 97.7 F Pulse Rate 62 Respiratory 18 Rate Blood Pressure 106/45 121/53 (mmHg) O2 Sat by Pulse 97 Oximetry Oxygen Devices in Use Now: None Appearance: Elderly female sitting up in bed, NAD Eyes: No Scleral Icterus Ears/Nose/Mouth/Throat: Mucous Membranes Moist Respiratory: Symmetrical Chest Expansion and Respiratory Effort, Clear to Auscultation, - - breath sounds are diminished throught out, few crackles at the bases Cardiovascular: RRR, No Edema, - - III/ murmur heard best at the LUSB Abdominal: NL Sounds; No Tenderness; No Distention Extremities: No Clubbing, Cyanosis Skin: No Nodules or Sclerosis Neurological: Alert and Oriented x 3 Result Diagrams: 02/06/19 05:45 02/06/19 05:45 Assess/Plan/Problems-Billing Ms Tolbert is a 68 yo F who has a h/o type II DM, HTN, CHF, past CVA and HLD who presented to the ER with c/o progressive shortness of breath and was admitted for a CHF exacerbation. - Patient Problems (1) Diastolic CHF, acute on chronic Current Visit: Yes Status: Acute Code(s): I50.33 - ACUTE ON CHRONIC DIASTOLIC (CONGESTIVE) HEART FAILURE SNOMED Code(s): 789235238 Comment: Pt not responding too well to IV lasix. Dr. Johnson however recommended trying lasix 100mg IV BID to see if she has a better response. Currently the patient is seeming improved from how she was described on admission. (2) Chronic kidney disease, stage IV (severe) Current Visit: Yes Status: Acute Code(s): N18.4 - CHRONIC KIDNEY DISEASE, STAGE 4 (SEVERE) SNOMED Code(s): 819572863 Comment: Creatinine is relatively stable. Monitor closely for worsening renal function in the setting of aggressive diuresis. (3) Hypertension Current Visit: Yes Status: Chronic Priority: High Code(s): I10 - ESSENTIAL (PRIMARY) HYPERTENSION SNOMED Code(s): 89986309 Comment: BP low normal today. Amlodipine discontinued. Monitor on current dose of metoprolol. (4) DVT prophylaxis Current Visit: Yes Status: Acute Code(s): Z29.9 - ENCOUNTER FOR PROPHYLACTIC MEASURES, UNSPECIFIED SNOMED Code(s): 749166175 Comment: SQ heparin (5) Full code status Current Visit: Yes Status: Acute Code(s): Z78.9 - OTHER SPECIFIED HEALTH STATUS SNOMED Code(s): 853637358
[2019-02-06] MEDS: Senna TAB 8.6 mg* TAB PO SCH (21:43)
[2019-02-07] MEDS ORDERED: Dextrose 50% VIAL 50 ml IV PUSH PRN (01:21)
[2019-02-07] MEDS ORDERED: Dextrose 50% VIAL 50 ml ONE (01:30)
[2019-02-07] MEDS: Heparin VIAL(*) 5000 UNITS/ML VIAL (FIVE THOUSAND) SUBCUT SCH ×3 (05:11→21:34)
[2019-02-07] MEDS: [UNRECOGNIZED DRUG - OTHER] SL SCH (09:15)
[2019-02-07] MEDS: METHYLCOBALAMIN SL SCH (09:15)
[2019-02-07] MEDS: Furosemide IV* 10 MG/ML VIAL (40 MG) IV SLOW PU SCH ×2 (09:17→10:17)
[2019-02-07] MEDS: Insulin ISOPH/REG 70/30 (*) 1 UNITS UNIT SUBCUT SCH ×2 (09:24→17:00)
[2019-02-07] MEDS: Acyclovir* 400 MG TAB PO SCH (09:26)
[2019-02-07] MEDS: Ascorbic Acid TAB* 500 MG PO SCH (09:27)
[2019-02-07] MEDS: Aspirin EC TAB* 81 MG TAB.EC PO SCH (09:27)
[2019-02-07] MEDS: Nystatin CREAM* 15 GM TUBE TOPICAL SCH ×2 (09:29→21:35)
[2019-02-07] MEDS: Metoprolol Tartrate TAB* 50 mg PO SCH ×2 (10:16→21:34)
--- NOTE | 2019-02-07 10:36 | PN ---
Subjective Date of Service: 02/07/19 Interval History: Overnight had an episode of hypoglycemia- resolved. Per patient she takes her PM dose of the insulin with dinner and not at bedtime - that likely contributed to the hypoglycemia No chest pain, reports SOB is improved, no lower extremity swelling. Family History: Unchanged from Admission Social History: Unchanged from Admission Past Medical History: Unchanged from Admission Objective Active Medications: Acetaminophen (Tylenol Tab*) 650 mg PO Q4H PRN PRN Reason: MILD PAIN or TEMP > 100.4 Acyclovir (Zovirax Tab*) 400 mg PO DAILY [facility] Last Admin: 02/07/19 09:26 Dose: 400 mg Ascorbic Acid (Vitamin C Tab*) 1,000 mg PO DAILY [facility] Last Admin: 02/07/19 09:27 Dose: 1,000 mg Aspirin (Aspirin Ec Tab*) 81 mg PO DAILY [facility] Last Admin: 02/07/19 09:27 Dose: 81 mg Dextrose (Dextrose 50% Vial 50 Ml*) 50 ml IV PUSH .FOR FS < 60 - SS PRN PRN Reason: FS < 60 Last Admin: 02/07/19 01:36 Dose: 50 ml Heparin Sodium (Porcine) (Heparin Vial(*)) 5,000 units SUBCUT Q8HR [facility] Last Admin: 02/07/19 05:11 Dose: 5,000 units Insulin Human Isoph/Insulin Regular (Humulin 70/30 (*)) 16 units SUBCUT QAM [facility] Last Admin: 02/07/19 09:24 Dose: 16 units Insulin Human Isoph/Insulin Regular (Humulin 70/30 (*)) 8 units SUBCUT BEDTIME [facility] Last Admin: 02/06/19 21:43 Dose: 8 units Metoprolol Tartrate (Lopressor Tab*) 50 mg PO BID [facility] Last Admin: 02/07/19 10:16 Dose: Not Given Non Formulary Med* ( Vitamin B12- Methylcobalamin 1 Tab) 1 tab SL DAILY [facility] Last Admin: 02/07/19 09:15 Dose: Not Given Nystatin (Nystatin Cream*) 1 applic TOPICAL BID [facility] Last Admin: 02/07/19 09:29 Dose: 1 applic Ondansetron HCl (Zofran Inj*) 4 mg IV Q4H PRN PRN Reason: NAUSEA/VOMITING Senna (Senokot 8.6 Mg Tab*) 1 tab PO BEDTIME [facility] Last Admin: 02/06/19 21:43 Dose: 1 tab Torsemide (Demadex*) 100 mg PO DAILY [facility] Vital Signs - 8 hr 02/07/19 02/07/19 02/07/19 03:38 06:34 07:33 Temperature 97.3 F 98.3 F Pulse Rate 60 64 Respiratory 14 18 16 Rate Blood Pressure 128/55 124/52 (mmHg) O2 Sat by Pulse 98 96 Oximetry Oxygen Devices in Use Now: None Appearance: Elderly female, lying in bed, not in distress. Eyes: PERRLA Ears/Nose/Mouth/Throat: Mucous Membranes Moist, - Neck: - - No JVD Respiratory: Symmetrical Chest Expansion and Respiratory Effort, Clear to Auscultation Cardiovascular: RRR, No Edema Neurological: Alert and Oriented x 3 Result Diagrams: 02/06/19 05:45 02/06/19 05:45 Assess/Plan/Problems-Billing Ms Tolbert is a 68 yo F who has a h/o type II DM, HTN, CHF, past CVA and HLD who presented to the ER with c/o progressive shortness of breath and was admitted for a CHF exacerbation. - Patient Problems (1) Chronic kidney disease, stage IV (severe) Current Visit: Yes Status: Acute Code(s): N18.4 - CHRONIC KIDNEY DISEASE, STAGE 4 (SEVERE) SNOMED Code(s): 706514040 Comment: Creatinine is relatively stable. Monitor closely for worsening renal function in the setting of aggressive diuresis. (2) Diastolic CHF, acute on chronic Current Visit: Yes Status: Acute Code(s): I50.33 - ACUTE ON CHRONIC DIASTOLIC (CONGESTIVE) HEART FAILURE SNOMED Code(s): 589150356 Comment: Not responding to lasix. Dr. Johnson- recommends changing lasix to torsemide- 100mg oral- to start today. Labs ordered for today- to check electorlytes and Cr. ECHO with hypokinesis with EF of 40-45%. (3) DVT prophylaxis Current Visit: Yes Status: Acute Code(s): Z29.9 - ENCOUNTER FOR PROPHYLACTIC MEASURES, UNSPECIFIED SNOMED Code(s): 744875252 Comment: Heparin subQ (4) Full code status Current Visit: Yes Status: Acute Code(s): Z78.9 - OTHER SPECIFIED HEALTH STATUS SNOMED Code(s): 541244021 (5) Hypertension Current Visit: Yes Status: Chronic Priority: High Code(s): I10 - ESSENTIAL (PRIMARY) HYPERTENSION SNOMED Code(s): 41724822 Comment: Amlodipine discontinued this admission. Monitor on current dose of metoprolol and with diuresis. Status and Disposition: monitor for diuresis.
[2019-02-07 11:18] LABS: BUN/Creatinine Ratio 16.2 (8-20); EGFR Non-African American 9.4 (>60); Potassium 4.2 mmol/L (3.5-5.0)
[2019-02-07 11:19] LABS: Calcium 9.9 mg/dL (8.6-10.3); EGFR African American 11.3 (>60); Magnesium 2.5 mg/dL (1.9-2.7); Phosphorus 5.4 mg/dL (2.5-5.0)
[2019-02-07] MEDS: Torsemide TAB* 100 MG PO SCH (11:32)
[2019-02-07] MEDS: Senna TAB 8.6 mg* TAB PO SCH (21:34)
--- NOTE | 2019-02-07 22:31 | PN ---
NEPHROLOGY INPATIENT PROGRESS NOTE: DATE OF SERVICE: 02/07/19 CHIEF COMPLAINT: Advanced chronic kidney disease and acute systolic heart failure. HISTORY OF PRESENT ILLNESS: Mrs. Tolbert is doing much better today from the shortness of breath point of view. She slept well at night without PND. She had good urine output after her evening dose of Lasix. She is able to go to the bathroom without being short of breath, which she was not able to do before. She has no chest pain or palpitations. She had low blood sugars overnight. she usually takes her insulin with dinner, but at this time she took it at bedtime. She is feeling much better, but tired after having to deal with the low blood sugars. She denies burning with urination, blood in the urine, cough with sputum production. Ins and outs, she had an intake of 940 cc yesterday and an output of 1.5 L. Her weight yesterday was 63.6 kilos. MEDICATIONS: Her medications were unchanged. PHYSICAL EXAM: Blood pressure is 124/53, heart rate is 62 beats per minute, oxygen saturation is 98% on room air, temperature is 97.9 Fahrenheit. Constitutional: She is in no acute distress, pleasant, and conversant, sitting in bed. Chest is clear to auscultation with good respiratory effort. Heart shows S1, S2, harsh systolic murmur, 2/6 appreciated at apex. She has trace lower extremity edema. Abdomen is soft, nontender, nondistended. Extremities: Without clubbing or cyanosis. Psychiatric: She is alert and oriented x3. Normal insight, normal mood, and good judgment. LABORATORY DATA: Sodium 136, potassium 4.2, total CO2 23, BUN 75, creatinine is 4.62, estimated GFR is 9.4, phosphorus is 5.4. ASSESSMENT AND PLAN: Shaunna Tolbert is a 68-year-old woman who has end-stage kidney disease, not on dialysis yet. She is admitted for acute systolic heart failure and she is improving with the diuresis. 1. Acute systolic heart failure with left ventricular ejection fraction of 40% to 45%. She responded very well to diuretics and she is symptomatically improved. I would switch her from Lasix IV to torsemide 100 mg daily. The plan is to get her ready for discharge on a stable dose of po diuretics. We will have to determine a target weight for her. Please add order for daily weights. 2. She has chronic kidney disease, stage 5, not on dialysis yet. Serum creatinine worsened because of cardiorenal and jorge-cardiac syndrome. She is not symptomatic with uremia. She is due for an AV fistula placement on . Hopefully, she will get discharged by then and she will be ready for the procedure. 3. Diabetes mellitus type 2, complicated with diabetic nephropathy and diabetic neuropathy. She had a low blood sugar overnight. During the day blood sugars are much better today. Her insulin regimen has been adjusted by the admission provider. 4. Hypertension. is doing well without amlodipine without continuous hypotension. She continues on metoprolol 50 mg by mouth twice a day. 5. Hypophosphatemia, potassium is 5.5, which is reasonable at this time. I would not add the phosphate binder because of polypharmacy. 6. Anemia of chronic kidney disease. Her last hemoglobin was 10.8. No need of YUAN. She may need iron studies as an outpatient. 7. Pulmonary hypertension, which is severe. 8. Cardiomyopathy, regional wall motion abnormalities and decreased systolic ejection fraction. She will need to see continuous towel roller during this admission or after discharge. 9. Increased postvoid residual. Continue to monitor. 10. Mild aortic stenosis with moderate mitral stenosis and [id number] tricuspid regurgitation. 11. Right middle lobe opacity, which has been present in September. Again, I think this she will need some workup during this hospitalization or after discharge. I discussed with the primary team. [id number]/[facility] #: [id number] [place]
[2019-02-08] MEDS: Heparin VIAL(*) 5000 UNITS/ML VIAL (FIVE THOUSAND) SUBCUT SCH ×3 (05:17→21:34)
[2019-02-08 08:05] LABS: BUN/Creatinine Ratio 16.8 (8-20); Calcium 9.4 mg/dL (8.6-10.3); EGFR Non-African American 9.1 (>60); Magnesium 2.3 mg/dL (1.9-2.7); Potassium 3.5 mmol/L (3.5-5.0)
[2019-02-08] MEDS ORDERED: Influenza VAC *QUAD* 2019-20* 0.5 ML SYRINGE IM ONE (09:00)
[2019-02-08] MEDS ORDERED: Pneumococcal *Vac Polyvalent 0.5 ML VIAL IM ONE (09:00)
--- NOTE | 2019-02-08 09:43 | PN ---
NEPHROLOGY INPATIENT PROGRESS NOTE: DATE OF SERVICE: 02/08/19 CHIEF COMPLAINT: Volume overload, acute systolic heart failure, and advanced CKD stage 5. HISTORY OF PRESENT ILLNESS: Ms. Tolbert is doing much better today. I saw her while sitting in the chair eating her breakfast. Her appetite is very good. She states she had a very good night and shortness of breath is much improved. She is able to walk around in the room without becoming short of breath. She denies any chest pain or palpitations. Denies dysuria. She responded well to diuretics. REVIEW OF SYSTEMS: As above. PHYSICAL EXAMINATION: Vitals: Temperature is 92.8, oxygen saturation is 98% on room air, blood pressure is 118/52 with a heart rate of 57 beats per minute, heart rate can go up to 72 beats per minute. Constitutional: She is in no acute distress, pleasant and conversant, looking better than yesterday. Chest: She has few crackles on the right base, but other than that, is clear. She has good respiratory effort. Extremities: She has no clubbing or cyanosis, and she has trace to +1 edema. Heart shows S1 and S2, regular rate and rhythm, a 2/6 holosystolic murmur at the apex. Psychiatric : She is alert and oriented x3. Good insight and good judgment. Memory is excellent. LABORATORY DATA: Sodium is 136, potassium 3.5, total CO2 of 21, BUN 80, creatinine is 4.76. MEDICATIONS: She is on: 1. Acyclovir 400 mg daily. 2. Vitamin C 1000 mg daily. 3. Aspirin 81 mg daily. 4. Heparin subcu 5000 units q.8 hours. 5. She was given influenza vaccination here in the hospital. 6. Insulin 16 units in the morning, 8 units at 5 p.m. 7. She is on Humulin 70/30. 8. Metoprolol 50 mg p.o. b.i.d. 9. Torsemide 100 mg daily. 10. Senokot at bedtime. 11. Zofran as needed. ASSESSMENT AND PLAN: Ms. Tolbert is a very nice 68-year-old woman who has a history of chronic kidney disease stage 5 with an estimated GFR of about 10 mL per minute, and was admitted with acute decompensation of systolic heart failure. 1. Acute systolic heart failure, decompensated. Ejection fraction 40% to 45%. She is significantly improved. I would switch her to torsemide 60 mg daily and spironolactone 12.5 mg daily. Her potassium is on the low side at 3.5 mEq per liter and I want to avoid hypokalemia over the weekend. She can be discharged home on this regimen, and she can call me over the weekend if she has any problems, I gave her my card. Otherwise, we will see her in the clinic on Tuesday. She will need to do daily weights and make sure she does not gain weight. 2. Chronic kidney disease stage 5, not on dialysis yet. Her appetite is superb. She always finishes her breakfast 100%. She does not have any tremor or asterixis. She has no symptoms of uremia. She will have her arteriovenous fistula placed on 02/12/19. 3. Hypertension, is very well controlled. She should remain on the same regimen, off amlodipine. 4. Type 2 diabetes mellitus, complicated with diabetic nephropathy and diabetic retinopathy. Blood sugars are better. 5. Anemia of chronic kidney disease. No need for YUAN. We will continue to follow up as outpatient. 6. Complicating comorbidities: a. Pulmonary hypertension. b. Cardiomyopathy with regional wall motion abnormality and decreased systolic ejection fraction. She should see Cardiology after discharge. c. Mild aortic stenosis with moderate mitral stenosis and [id number] tricuspid regurgitation. d. Right middle lobe opacity which has been present since September. She will need workup as an outpatient. Thank you for allowing me to be involved in her care. Rosamaria Johnson MD Nephrology [id number]/[facility] #: [id number] [facility] HOSPITALRenetta
[2019-02-08] MEDS: Acyclovir* 400 MG TAB PO SCH (10:34)
[2019-02-08] MEDS: Spironolactone TAB* 25 MG PO SCH (10:35)
[2019-02-08] MEDS: Metoprolol Tartrate TAB* 50 mg PO SCH ×2 (10:36→21:34)
[2019-02-08] MEDS: Aspirin EC TAB* 81 MG TAB.EC PO SCH (10:37)
[2019-02-08] MEDS: Ascorbic Acid TAB* 500 MG PO SCH (10:37)
[2019-02-08] MEDS: Nystatin CREAM* 15 GM TUBE TOPICAL SCH ×2 (10:39→21:34)
[2019-02-08] MEDS: Insulin ISOPH/REG 70/30 (*) 1 UNITS UNIT SUBCUT SCH ×2 (10:40→17:19)
[2019-02-08] MEDS: Torsemide TAB* 100 MG PO SCH (10:52)
[2019-02-08] MEDS: METHYLCOBALAMIN SL SCH (10:52)
[2019-02-08] MEDS: [UNRECOGNIZED DRUG - OTHER] SL SCH (10:52)
[2019-02-08] MEDS: Torsemide TAB* 20 MG PO SCH (12:07)
--- NOTE | 2019-02-08 15:10 | PN ---
Subjective Date of Service: 02/08/19 Interval History: Patient is feeling well today. Patient has no DIALLO, but has had limited exercise. Patient denies CP, SOB, Dizziness, N/V, abdominal pain, diarrhea, F/C , anuria, dysuria, or other pain. Patient states she is unhappy with her care with her primary providers and would like to transfer her care up to [place] if possible. Family History: Unchanged from Admission Social History: Unchanged from Admission Past Medical History: Unchanged from Admission Objective Active Medications: Acetaminophen (Tylenol Tab*) 650 mg PO Q4H PRN PRN Reason: MILD PAIN or TEMP > 100.4 Last Admin: 02/08/19 02:43 Dose: 650 mg Acyclovir (Zovirax Tab*) 400 mg PO DAILY [facility] Last Admin: 02/08/19 10:34 Dose: 400 mg Ascorbic Acid (Vitamin C Tab*) 1,000 mg PO DAILY [facility] Last Admin: 02/08/19 10:37 Dose: 1,000 mg Aspirin (Aspirin Ec Tab*) 81 mg PO DAILY [facility] Last Admin: 02/08/19 10:37 Dose: 81 mg Dextrose (Dextrose 50% Vial 50 Ml*) 50 ml IV PUSH .FOR FS < 60 - SS PRN PRN Reason: FS < 60 Last Admin: 02/07/19 01:36 Dose: 50 ml Heparin Sodium (Porcine) (Heparin Vial(*)) 5,000 units SUBCUT Q8HR [facility] Last Admin: 02/08/19 14:28 Dose: 5,000 units Insulin Human Isoph/Insulin Regular (Humulin 70/30 (*)) 8 units SUBCUT 1700 [facility] Last Admin: 02/07/19 17:00 Dose: 8 units Metoprolol Tartrate (Lopressor Tab*) 50 mg PO BID [facility] Last Admin: 02/08/19 10:36 Dose: 50 mg Non Formulary Med* ( Vitamin B12- Methylcobalamin 1 Tab) 1 tab SL DAILY [facility] Last Admin: 02/08/19 10:52 Dose: Not Given Nystatin (Nystatin Cream*) 1 applic TOPICAL BID [facility] Last Admin: 02/08/19 10:39 Dose: 1 applic Ondansetron HCl (Zofran Inj*) 4 mg IV Q4H PRN PRN Reason: NAUSEA/VOMITING Senna (Senokot 8.6 Mg Tab*) 1 tab PO BEDTIME [facility] Last Admin: 02/07/19 21:34 Dose: 1 tab Spironolactone (Aldactone Tab*) 12.5 mg PO DAILY [facility] Last Admin: 02/08/19 10:35 Dose: 12.5 mg Torsemide (Demadex*) 60 mg PO DAILY [facility] Last Admin: 02/08/19 12:07 Dose: 60 mg Vital Signs - 8 hr 02/08/19 02/08/19 02/08/19 07:15 08:00 11:15 Temperature 97.1 F 97.1 F Pulse Rate 61 61 Respiratory 20 20 20 Rate Blood Pressure 113/54 111/50 (mmHg) O2 Sat by Pulse 98 100 Oximetry Oxygen Devices in Use Now: None Appearance: Patient is a 68yo female who appears stated age and is sitting in the bed in NAD. Eyes: No Scleral Icterus, PERRLA Ears/Nose/Mouth/Throat: NL Teeth, Lips, Gums, Clear Oropharnyx, Mucous Membranes Moist Neck: NL Appearance and Movements; NL JVP, Trachea Midline Respiratory: Symmetrical Chest Expansion and Respiratory Effort, Clear to Auscultation Cardiovascular: NL Sounds; No Murmurs; No JVD, RRR, - - Trace LE Edema. Abdominal: NL Sounds; No Tenderness; No Distention, No Hepatosplenomegaly Lymphatic: No Cervical Adenopathy Extremities: No Edema, No Clubbing, Cyanosis Skin: No Rash or Ulcers, No Nodules or Sclerosis Neurological: Alert and Oriented x 3, NL Sensation, NL Muscle Strength and Tone , - - CN II-XII intact. Result Diagrams: 02/06/19 05:45 02/08/19 06:33 Assess/Plan/Problems-Billing Ms Tolbert is a 68 yo F who has a h/o type II DM, HTN, CHF, past CVA and HLD who presented to the ER with c/o progressive shortness of breath and was admitted for a CHF exacerbation which is improving. - Patient Problems (1) Chronic kidney disease Current Visit: Yes Status: Acute Code(s): N18.9 - CHRONIC KIDNEY DISEASE, UNSPECIFIED SNOMED Code(s): 393435418 Comment: - Stage V - Worsened with diuresis, decrease Torsemide and add Spironolactone for decreasing potassium level - Appreciate Nephrology input, Dialysis fistula on 11/4/19 - No electrolyte abnormality necessitating dialysis yet - No Symptomatic uremia (2) Heart failure with reduced ejection fraction Current Visit: Yes Status: Acute Code(s): I50.20 - UNSPECIFIED SYSTOLIC ( CONGESTIVE) HEART FAILURE SNOMED Code(s): 888771837 Comment: - Newly reduced EF with wall motion abnormalities from Echo from 02/2018 - Continue Torsemide and Start Spironolactone, already on Metoprolol - Unable to be put on ACEI/ARB at this time - Stress test in AM with Lipid profile and hemoglobin A1c - Trop elevated and trended down on admission, No recollection of chest pain. (3) Pulmonary infiltrate Current Visit: Yes Status: Acute Code(s): R91.8 - OTHER NONSPECIFIC ABNORMAL FINDING OF LUNG FIELD SNOMED Code(s): 844280571 Comment: - Present since 09/2018 - No symptoms of Pnemonia, will need outpatient CT scan for further characterization. - Denies smoking history (4) Hypertension Current Visit: Yes Status: Chronic Priority: High Code(s): I10 - ESSENTIAL (PRIMARY) HYPERTENSION SNOMED Code(s): 07190120 Comment: - Amlodipine discontinued this admission. Monitor on current dose of metoprolol and with diuresis. - Normotensive (5) Diabetes Current Visit: Yes Status: Acute Code(s): E11.9 - TYPE 2 DIABETES MELLITUS WITHOUT COMPLICATIONS SNOMED Code(s): 76743318 Comment: - Likely complicated by diabetic nephropathy - Good BG control with 70/30 - Hold Morning dose tomorrow due to NPO status. - Update Hemoglobin A1c (6) DVT prophylaxis Current Visit: Yes Status: Acute Code(s): Z29.9 - ENCOUNTER FOR PROPHYLACTIC MEASURES, UNSPECIFIED SNOMED Code(s): 304932964 Comment: - Heparin subQ (7) Full code status Current Visit: Yes Status: Acute Code(s): Z78.9 - OTHER SPECIFIED HEALTH STATUS SNOMED Code(s): 092470995 Status and Disposition: Inpatient for stress test.
[2019-02-08] MEDS: Senna TAB 8.6 mg* TAB PO SCH (21:34)
[2019-02-09] MEDS: Heparin VIAL(*) 5000 UNITS/ML VIAL (FIVE THOUSAND) SUBCUT SCH ×2 (05:06→14:31)
[2019-02-09] MEDS: Metoprolol Tartrate TAB* 50 mg PO SCH (08:47)
[2019-02-09] MEDS: Spironolactone TAB* 25 MG PO SCH (08:47)
[2019-02-09] MEDS: Acyclovir* 400 MG TAB PO SCH (08:47)
[2019-02-09] MEDS: Nystatin CREAM* 15 GM TUBE TOPICAL SCH (08:47)
[2019-02-09] MEDS: Torsemide TAB* 20 MG PO SCH (08:47)
[2019-02-09] MEDS: Ascorbic Acid TAB* 500 MG PO SCH (08:48)
[2019-02-09] MEDS: [UNRECOGNIZED DRUG - OTHER] SL SCH (08:48)
[2019-02-09] MEDS: Aspirin EC TAB* 81 MG TAB.EC PO SCH (08:48)
[2019-02-09] MEDS: METHYLCOBALAMIN SL SCH (08:48)
[2019-02-09] MEDS ORDERED: Regadenoson* 0.4 MG/5 ML SYRINGE ONE (09:27)
[2019-02-09 12:28] LABS: ABS Basophils 0.1 10^3/ul (0-0.2); ABS Eosinophils 0.2 10^3/ul (0-0.6); ABS Lymphocytes 0.7 10^3/ul (1.0-4.8); ABS Monocytes 0.6 10^3/ul (0-0.8); ABS Neutrophils 9.9 10^3/ul (1.5-7.7); Eosinophil % 1.9 %; Hematocrit 35 % (35-47); Hemoglobin 11.8 g/dL (12.0-16.0); Lymphocyte % 6.5 %; Mean Corpuscular HGB Conc 34 g/dL (31-36); Mean Corpuscular Hemoglobin 30 pg (27-31); Mean Corpuscular Volume 89 fL (80-97); Mean Platelet Volume 8.2 fL (7.4-10.4); Platelet Count 245 10^3/uL (150-450); Red Blood Count 3.93 10^6 /uL (3.70-4.87); Red Cell Distribution Width 14 % (10-15); White Blood Count 11.5 10^3/uL (3.5-10.8)
[2019-02-09 12:33] VITALS: BP 103/41
[2019-02-09 12:53] LABS: BUN/Creatinine Ratio 17.1 (8-20); Calcium 9.5 mg/dL (8.6-10.3); EGFR African American 9.9 (>60); EGFR Non-African American 8.2 (>60); HDL Cholesterol 37.9 mg/dL; Magnesium 2.5 mg/dL (1.9-2.7); Potassium 3.9 mmol/L (3.5-5.0)
--- NOTE | 2019-02-09 14:36 | CONSULT ---
Subjective Date of Service: 02/09/19 Interval History: Admission Date: 02/06/19 Consult date 02/09/2019 Service: Hospitalist CC: shortness of breath Reason for consult: Previous silent WI HISTORY OF PRESENT ILLNESS: Shaunna Tolbert is a 68-year-old female with a past medical history as below. She was admitted with shortness of breath and orthopnea. She was found with pulmonary edema. She received IV diuresis and is now asymptomatic. There are plans to start dialysis soon and placement of an AV fistulaa. During the course of hospitalization she was found with evidence of a prior WI. She denies any chest, GI, neck, jaw or arm discomfort or any memorable symptoms that could have represented an WI. PAST MEDICAL HISTORY: Aortic stenosis diabetes type 2 CHF hypertension neuropathy cerebellar CVA, hyperlipidemia; hyperparathyroidism; o steoporosis. PAST SURGICAL HISTORY: Cataract extraction, corneal transplant, removal of bone spurs in her lumbar spine, bilateral tubal ligation. ALLERGIES: To ASPIRIN which causes GI upset. FAMILY HISTORY: Significant for sister having diabetes and a stroke. SOCIAL HISTORY: Denies any tobacco, ETOH, or recreational substance use. 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 She is , has 3 children. She lives with her . Medications Active Medications: Acetaminophen (Tylenol Tab*) 650 mg PO Q4H PRN PRN Reason: MILD PAIN or TEMP > 100.4 Last Admin: 02/08/19 02:43 Dose: 650 mg Acyclovir (Zovirax Tab*) 400 mg PO DAILY [facility] Last Admin: 02/09/19 08:47 Dose: 400 mg Ascorbic Acid (Vitamin C Tab*) 1,000 mg PO DAILY [facility] Last Admin: 02/09/19 08:48 Dose: 1,000 mg Aspirin (Aspirin Ec Tab*) 81 mg PO DAILY [facility] Last Admin: 02/09/19 08:48 Dose: 81 mg Atorvastatin Calcium (Lipitor*) 80 mg PO 1700 [facility] Dextrose (Dextrose 50% Vial 50 Ml*) 50 ml IV PUSH .FOR FS < 60 - SS PRN PRN Reason: FS < 60 Last Admin: 02/07/19 01:36 Dose: 50 ml Heparin Sodium (Porcine) (Heparin Vial(*)) 5,000 units SUBCUT Q8HR [facility] Last Admin: 02/09/19 05:06 Dose: 5,000 units Insulin Human Isoph/Insulin Regular (Humulin 70/30 (*)) 8 units SUBCUT 1700 [facility] Last Admin: 02/08/19 17:19 Dose: 8 units Metoprolol Succinate (Toprol Xl Tab*) 50 mg PO DAILY [facility] Non Formulary Med* ( Vitamin B12- Methylcobalamin 1 Tab) 1 tab SL DAILY [facility] Last Admin: 02/09/19 08:48 Dose: Not Given Nystatin (Nystatin Cream*) 1 applic TOPICAL BID [facility] Last Admin: 02/09/19 08:47 Dose: 1 applic Ondansetron HCl (Zofran Inj*) 4 mg IV Q4H PRN PRN Reason: NAUSEA/VOMITING Senna (Senokot 8.6 Mg Tab*) 1 tab PO BEDTIME [facility] Last Admin: 02/08/19 21:34 Dose: 1 tab Sodium Bicarbonate (Sodium Bicarbonate (Antacid)*) 325 mg PO QID [facility] Torsemide (Demadex*) 40 mg PO DAILY [facility] Home Medications: Metoprolol Tartrate TAB* [Lopressor TAB*] 50 mg PO BID 09/14/18 [History Confirmed 02/05/19] Acyclovir* [Zovirax 400 MG TAB*] 400 mg PO DAILY 02/05/19 [History Confirmed ] Ascorbic Acid TAB* [Vitamin C TAB*] 1,000 mg PO DAILY 02/05/19 [History Confirmed 02/05/19] Aspirin EC TAB* [Ecotrin EC Low Dose 81 MG*] 81 mg PO DAILY 02/05/19 [History Confirmed 02/05/19] Hydrocortisone 2.5% CREAM(NF) 1 applic TOPICAL BID 02/05/19 [History Confirmed 02/05/19] Insulin Lispro Protamin/Lispro [Humalog Mix 75-25 Kwikpen] 10 - 20 unit SUBCUT SEE INSTRUCTIONS 02/05/19 [History Confirmed 02/05/19] Nystatin CREAM* 1 applic TOPICAL BID 02/05/19 [History Confirmed 02/05/19] Vitamin K19-Weczyrqrbdvnll 1 tab SL DAILY 02/05/19 [History Confirmed 02/05/19] Acetaminophen TAB* [Tylenol TAB*] 650 mg PO Q4H PRN tab 02/08/19 [Rx] Spironolactone TAB* [Aldactone TAB 25 MG*] 12.5 mg PO DAILY #30 tab 02/08/19 [Rx ] Torsemide TAB* [Demadex 20 MG*] 60 mg PO DAILY #90 tab 02/08/19 [Rx] Review of Systems - Measurements Intake and Output: Intake and Output Last 24 Hours 02/07/19 02/08/19 02/09/19 02/10/19 06:59 06:59 06:59 06:59 Intake Total 854 439 9171 0 Output Total 1455 1525 1680 300 Balance -515 -865 120 -300 Weight 135 lb 9.6 oz Intake: IV Fluids 10 IVPB 10 Oral 410 522 8710 0 Output: Urine 1455 1525 1680 300 Other: # Bowel Movements 2 2 1 Estimated Stool Amount Medium Medium Medium Medium - Review of Systems Constitutional Symptoms: Positive: Weakness, Fatigue Negative: Weight Gain, Weight Loss, Fever, Night Sweats Dermatology: Negative: Rash, Skin Lesions HEENT: Negative: Change in Hearing, Vertigo Eyes: Negative: Change in Vision, Double Vision Thyroid: Negative: Cold Intolerance, Heat Intolerance Pulmonary: Positive: Shortness of Breath, Exercise Intolerance Negative: Cough, Sputum, Hemoptysis, Wheezing, COPD, Asthma, Home Oxygen Cardiology: Positive: Shortness of Breath Negative: Chest Pain, Palpitations, Swelling of Ankles, Peripheral Vascular Dis, Syncope, Claudication, Paroxysmal Nocturnal Dyspnea, Orthopnea Gastroenterology: Negative: Haematemesis, Melena Musculoskeletal: Negative: Joint Stiffness, Arthritis Endocrinology: Negative: Diabetes, Polydipsia, Polyuria Hematologic/Lymphatic: Positive: Use of Antiplatelet Drugs Negative: Use of Anticoagulant Neurology: Negative: Hx of Stroke\TIA, Hx Seizures Psychiatry: Negative: Unusual Anxiety, Suicidal Ideation Allergic/Immunologic: Negative: Hx HIV, Immunocompromise Review of Systems Statement: All other review of systems negative, unless stated above. Objective Vital Signs: Temp Pulse Resp BP Pulse Ox 98.1 F 68 16 103/41 100 02/09/19 11:15 02/09/19 11:15 02/09/19 11:15 02/09/19 11:15 02/09/19 11:15 Oxygen Devices in Use Now: None Appearance: nad, pleasant Ears/Nose/Mouth/Throat: Clear Oropharnyx, Mucous Membranes Moist Neck: NL Appearance and Movements; NL JVP, Trachea Midline Respiratory: Symmetrical Chest Expansion and Respiratory Effort, Clear to Auscultation Cardiovascular: RRR, - - 3/6 systolic murmur, minimal edema, uncertain jvp Abdominal: NL Sounds; No Tenderness; No Distention Extremities: No Clubbing, Cyanosis Skin: No Rash or Ulcers Neurological: Alert and Oriented x 3 Laboratory Results: 02/09/19 11:49 02/09/19 11:49 Total Bilirubin 0.50 mg/dL (0.2-1.0) 02/05/19 14:45 AST 13 U/L (13-39) 02/05/19 14:45 ALT 16 U/L (7-52) 02/05/19 14:45 Alkaline Phosphatase 104 U/L (34-104) 02/05/19 14:45 B-Natriuretic Peptide > 1300 pg/mL (<=100) H 02/05/19 14:45 Total Protein 7.1 g/dL (6.4-8.9) 02/05/19 14:45 Albumin 3.8 g/dL (3.2-5.2) 02/05/19 14:45 Globulin 3.3 g/dL (2-4) 02/05/19 14:45 Albumin/Globulin Ratio 1.2 (1-3) 02/05/19 14:45 Triglycerides 151 mg/dL 02/09/19 11:49 Cholesterol 167 mg/dL 02/09/19 11:49 LDL Cholesterol 99 mg/dL 02/09/19 11:49 HDL Cholesterol 37.9 mg/dL 02/09/19 11:49 02/05/19 02/05/19 14:45 18:26 Troponin I 0.05 H* 0.04 H* Diagnostic Imaging: Transthoracic Echocardiogram Study Date: 02/06/2019 - Left ventricle: Systolic function is mildly reduced. The estimated ejection fraction is 40-45%. - Regional wall motion abnormality: Moderate hypokinesis of the apical anterior, apical inferior, and apical myocardium; mild hypokinesis of the apical septal and apical lateral myocardium. - Right ventricle: Systolic function is normal. - Mitral valve: The Mitral valve annulus appears calcified. The leaflets are moderately calcified. Mobility is restricted. The findings are consistent with moderate stenosis. There is mild regurgitation. The valve area by pressure half-time is 1.8 cm^2. - Aortic valve: The findings are consistent with mild stenosis. There is trace regurgitation. The mean systolic gradient is 10.0 mm Hg. - Tricuspid valve: There is mild-moderate regurgitation. - Pulmonary arteries: Systolic pressure is severely increased. cxr Exam Date: 02/05/19 1409 ADM Status: REG ER IMPRESSION: Increased interstitial edema and CHF with cardiomegaly. Right lower lobe mass or infiltrate. EKG Data: ekg 02/06/2019 NSR, LAFB, poor R wave progression consider prior anterior wall WI Assessment/Plan 1. Silent WI, old - Ischemic CM LVEF 40-45% with CHF - Stress MPI reviewed and my interpretation is a medium sized fixed mid LAD territory infarct 2. Advanced CKD 3. Diabetes 4. Aortic and mitral stenosis, not severe 5. Pulmonary hypertension 6. Hypertension - continue aspirin 81 mg po daily - continue toprol 50 mg po bid - recommend to start lipitor 80 mg po daily - Not on aceI/ARB due to renal failure, once on HD would consider at Triage Specialist discretion - Diuretics per Nephrology - once PD and/or AVF catheter placed and ok with surgeon will start plavix 75 mg po daily - Given patient is asymptomatic (other than multifactorial volume overload improved) and stress MPI defect is fixed, I do not think that patient would benefit form revascularization in addition to secondary prevention medical therapy at this time. - Will arrange cardiology follow up - Discussed with patient and her son in detail and they are agreeable to plan Thank you for for allowing me to participate in the cardiovascular care of this patient. Please do not hesitate to contact me with questions or concerns.
--- NOTE | 2019-02-09 15:02 | PN ---
Progress Note - Progress Note Date of Service: 02/09/19 - ' Note: Inpatient Nephrology FU Note: Attending: Hospitalist Andres Cline Performed by Dr. Hamilton Ornelas, [facility] Nephrology 02/09/2019 I know Shaunna from the outpatient renal clinic. She was admitted to [facility] with fluid overload and progressive CKD. Diuresis with IV Lasix and switched to PO Demadex. She was admitted with sCr 4.07~02/05. sCr 4.07~02/05 to 5.2~02/09 BUN worsening 69~02/05 to 89~02/09 She initially chose HD, for which she was scheduled for AVF 02/16. No current uremic s&s Good appetite. No SOB at rest. No CP, Syncope & edema is significantly better. No flapping tremors Of note, seen by Cardiology, has old CA, HFrEF~LVEF 40-45% & mild aortic stenosis No invasive tests planned by cardiology. Now has only mild Edema Active Medications: Acetaminophen (Tylenol Tab*) 650 mg PO Q4H PRN PRN Reason: MILD PAIN or TEMP > 100.4 Last Admin: 02/08/19 02:43 Dose: 650 mg Acyclovir (Zovirax Tab*) 400 mg PO DAILY [facility] Last Admin: 02/09/19 08:47 Dose: 400 mg Ascorbic Acid (Vitamin C Tab*) 1,000 mg PO DAILY [facility] Last Admin: 02/09/19 08:48 Dose: 1,000 mg Aspirin (Aspirin Ec Tab*) 81 mg PO DAILY [facility] Last Admin: 02/09/19 08:48 Dose: 81 mg Atorvastatin Calcium (Lipitor*) 80 mg PO 1700 [facility] Dextrose (Dextrose 50% Vial 50 Ml*) 50 ml IV PUSH .FOR FS < 60 - SS PRN PRN Reason: FS < 60 Last Admin: 02/07/19 01:36 Dose: 50 ml Heparin Sodium (Porcine) (Heparin Vial(*)) 5,000 units SUBCUT Q8HR [facility] Last Admin: 02/09/19 14:31 Dose: 5,000 units Insulin Human Isoph/Insulin Regular (Humulin 70/30 (*)) 8 units SUBCUT 1700 [facility] Last Admin: 02/08/19 17:19 Dose: 8 units Metoprolol Succinate (Toprol Xl Tab*) 50 mg PO DAILY [facility] Non Formulary Med* ( Vitamin B12- Methylcobalamin 1 Tab) 1 tab SL DAILY [facility] Last Admin: 02/09/19 08:48 Dose: Not Given Nystatin (Nystatin Cream*) 1 applic TOPICAL BID [facility] Last Admin: 02/09/19 08:47 Dose: 1 applic Ondansetron HCl (Zofran Inj*) 4 mg IV Q4H PRN PRN Reason: NAUSEA/VOMITING Senna (Senokot 8.6 Mg Tab*) 1 tab PO BEDTIME [facility] Last Admin: 02/08/19 21:34 Dose: 1 tab Sodium Bicarbonate (Sodium Bicarbonate (Antacid)*) 325 mg PO QID [facility] Torsemide (Demadex*) 40 mg PO DAILY [facility] Objective: .Vital Signs: Vital Signs Temp 98.1 F 02/09/19 11:15 Pulse 68 02/09/19 11:15 Resp 16 02/09/19 11:15 BP 103/41 02/09/19 11:15 Pulse Ox 100 02/09/19 11:15 Intake & Output 02/08/19 02/09/19 02/09/19 18:59 06:59 18:59 Intake Total 1080 720 0 Output Total 650 1030 300 Balance 430 -310 -300 Weight 61.915 kg 61.507 kg Intake: Oral 1080 720 0 Output: Urine 650 1030 300 Other: # Bowel Movements 1 Estimated Stool Amount Medium Medium .Heart: Regular rate and rhythm No murmur or gallop Trace LE Edema No Rub .Lungs: Clear to auscultation and percussion. No wheezes or Crackles .Extremities: Trace LE edema Laboratory: Sodium 133 mmol/L (135-145) L 02/09/19 11:49 Potassium 3.9 mmol/L (3.5-5.0) 02/09/19 11:49 BUN 89 mg/dL (6-24) H 02/09/19 11:49 Creatinine 5.21 mg/dL (0.51-0.95) H 02/09/19 11:49 Hemoglobin A1c 7.3 % (4.0-5.6) H 02/09/19 11:49 Calcium 9.5 mg/dL (8.6-10.3) 02/09/19 11:49 Magnesium 2.5 mg/dL (1.9-2.7) 02/09/19 11:49 AST 13 U/L (13-39) 02/05/19 14:45 ALT 16 U/L (7-52) 02/05/19 14:45 Triglycerides 151 mg/dL 02/09/19 11:49 Cholesterol 167 mg/dL 02/09/19 11:49 LDL Cholesterol 99 mg/dL 02/09/19 11:49 Assessment and Plan: I had a lengthy discussion with Shaunna and her son at the bedside. They were given the different EQUINE DENTIST Choice, including HD vs. PD. I told them her best choice is PD, as it will be gentler on her cardiac conditions given her Hx o Pulm. HTN & mild and low LVEF~HFrEF. Besides, if she gets PD Catheter soon, she can start PD training within 2 weeks of placement. I dont think HD is suitable for her given her Echo findings, besides shell unlikely be able to hold on till AVF matures, 2 months after AVF placement, she will likely end up with TDC. I spoke to Dr. Cline, Hospitalist and Dr. Giles, Surgeon. Shes scheduled for PDC next Tuesday. Shes On ASA, Surgeon is Ok with it. Ill see her in Renal Clinic Next Tuesday She was informed about lab results & prognosis. All questions were answered. She and her son were made part of the treatment plan
[2019-02-09] MEDS ORDERED: Atorvastatin* 80 MG TAB PO SCH (17:00)
[2019-02-09] MEDS ORDERED: Sodium Bicarbonate (ANTACID)* 650 MG TAB PO SCH (17:00)
--- NOTE | 2019-02-09 23:12 | DS ---
CC: Dr. Selene Galo; Dr. Karthik Ornelas; Dr. Romel Saldana * DISCHARGE SUMMARY: DATE OF ADMISSION: 02/05/19 DATE OF DISCHARGE: 02/09/19 PRIMARY CARE PROVIDER: Dr. Selene Galo. MY ATTENDING WHILE IN THE HOSPITAL: Dr. Vee Verde.* (DICTATED BY ARCENIO JALLOH) OUTPATIENT CRIB ATTENDANT: Dr. Karthik Ornelas. CONSULTING FIELD SERVICE TECHNICIAN: Dr. Romel Saldana. PRIMARY DISCHARGE DIAGNOSES: 1. Heart failure with reduced ejection fraction exacerbation, improved. 2. History of myocardial infarction, new diagnosis. 3. Chronic kidney disease stage 5, not on dialysis. 4. Diabetes mellitus type 2, insulin dependent. SECONDARY DISCHARGE DIAGNOSES: 1. Hypertension. 2. History of cerebrovascular accident. 3. Diabetic neuropathy. 4. Hyperlipidemia. 5. Hyperparathyroidism. 6. Osteoporosis. 7. Chronic pulmonary infiltrate, unknown etiology. STUDIES DONE WHILE IN THE HOSPITAL: Chest x-ray from 02/05/19 read as increased interstitial edema and CHF with cardiomegaly, right lower lobe mass or infiltrate. EKG from 02/05/19 read as normal sinus rhythm, T-wave inversions in I and aVL, and [id number] elevation or depression, left atrial enlargement. No hypertrophy. Left axis deviation. Transthoracic echocardiogram from 02/05/19 read as left ventricle systolic function is mildly reduced, estimated ejection fraction 40% to 45%, regional wall motion abnormality, mild hypokinesis of the apical; anterior apical and inferior apical myocardium, mild hypokinesis of the apical septal and apical lateral myocardium. Right ventricular systolic function is normal. Mitral valve annulus appears calcified. The leaflets are moderately calcified and mobility is restricted consistent with moderate stenosis. Tricuspid valve with [id number] regurgitation, severe pulmonary hypertension. Previous study from 2006 was normal. EF was 60% to 65% in February 2018. Nuclear medicine scan from 02/09/19 read as large fixed defects of the anterior wall and apex consistent with previous infarct, intermediate risk, EF 58%, end diastolic volume 76 mL, septal apical dyskinesia. MEDICATIONS AT DISCHARGE: 1. Metoprolol succinate 50 mg p.o. daily. 2. Sodium bicarbonate 325 mg p.o. 4 times a day. 3. Torsemide 40 mg p.o. daily. 4. Tylenol 650 mg p.o. q.4 hours as needed. 5. Acyclovir 400 mg p.o. daily. 6. Aspirin 81 mg p.o. daily. 7. Multivitamin 1 tab p.o. daily. 8. Ascorbic acid 1000 mg p.o. daily. 9. Hydrocortisone 1 application topical b.i.d. 10. Insulin lispro 75/25 mix 16 units in a.m., 8 units at 1700. 11. Nystatin topical powder 1 application topical b.i.d. 12. Atorvastatin 80 mg p.o. daily. Medications Discontinued at Discharge: 1. Metoprolol tartrate 50 mg p.o. b.i.d. 2. Norvasc 5 mg p.o. daily. New Medications at Discharge: 1. Tylenol. 2. Lipitor. 3. Metoprolol succinate. 4. Sodium bicarbonate. 5. Torsemide. HOSPITAL COURSE: This is a brief summary of the patient's presentation. For more details, please see the history and physical from Leatha Torres NP, on . In brief, the patient is a 68-year-old female with past medical history significant for the above who has had worsening renal function over the past year with her creatinine going from 0.9 most recently noted in 2013 to 3.3 in July this year, up to 4.11 on 01/22/19, and 4.07 on 02/05/19 when the patient was admitted. The patient had several days of worsening shortness of breath on the days before her admission, particularly getting worse 3 days before and needing to use several pillows due to shortness of breath and severely decreased exercise tolerance. The patient was in the emergency department seen in consultation by Dr. Rosamaria Johnson of nephrology who recommended high-dose IV Lasix therapy due to the patient's severe chronic kidney disease and recommended admission to the hospital. The patient had good diuresis. Her weight declined from admission at 64 kg down to 61.5 on her day of discharge. The patient had resolution in her symptoms of shortness of breath and on admission, she had lower extremity edema, which entirely resolved by the time of discharge; however, the patient's creatinine continued to increase from 4.07 on admission to 5.21 on 02/09/19. The patient had worsening uremia and increased anion gap metabolic acidosis. The patient was found to have a decreased ejection fraction, which was a new diagnosis for her. The patient had no known history of WA and no history of reduced ejection fraction including a normal echocardiogram in February 2018. The patient had slight troponin elevation, which trended down on her admission. The patient also had slightly elevated potassium on her admission, which resolved with diuresis. The patient was planned to have a dialysis fistula placed in her arm on . With the patient's diuresis and worsening renal function, the patient was cut back to initially from 100 mg of IV Lasix twice daily to torsemide 100 mg p.o. daily, then 60 mg, and then 40, which was finally what she was discharged on. The patient was trialed on spironolactone, which was discontinued as her potassium began to increase again and her torsemide was being decreased. The patient underwent a stress test on 02/09/19 after her respiratory symptoms had resolved to assess the cause of her decreased ejection fraction, which was read as above showing a large anterior infarct. The patient was seen in consultation by Dr. Romel Saldana and was counseled that she likely had a silent WA at some point in time recently, possibly very recently, leading to her worsening heart failure and renal function. The patient was seen in consultation as followed by her outpatient chief specialist leed, Dr. Karthik Ornelas, who convinced the patient to try peritoneal dialysis and a peritoneal dialysis catheter insertion was planned for 02/16/19. The patient was already on aspirin. The patient was started on a statin for secondary prevention of WA, and her metoprolol tartrate was transitioned to metoprolol succinate. Due to addition of the patient's torsemide and low normal blood pressures throughout her hospitalization, the patient's amlodipine was discontinued in the hospital and not resumed at discharge. The patient was stable and amenable for discharge on 02/09/19. PHYSICAL EXAM ON THE DAY OF DISCHARGE: General: The patient is a 68-year-old female who appears stated age and is sitting comfortably in bed, in no acute distress. Vital Signs: Temperature 98.1, pulse rate 60, respiratory rate 16, oxygen saturation 100% on room air, blood pressure 103/41. HEENT: Head: Normocephalic, atraumatic. Sclerae anicteric. No conjunctival injection. Nasal mucosa moist. Oral mucosa moist. No pharyngeal erythema, discharge, or exudate. Neck: Supple, nontender. No lymphadenopathy. No carotid bruits auscultated. No JVD. Cardiac: Regular rate and rhythm. Grade 2/6 holosystolic murmur heard best at the right upper sternal border. Respiratory: Clear to auscultation bilaterally. No wheezes, rales, or rhonchi. Good air exchange bilaterally. Abdomen: Soft, nontender, nondistended. Bowel sounds present and normoactive in all 4 quadrants. No hepatosplenomegaly. No abdominal bruits auscultated. No hepatojugular reflux. Genitourinary: No suprapubic or CVA tenderness. Skin: Clean, dry, and intact. No rashes. Neuro : Cranial nerves II through XII intact. No focal deficits. Alert and oriented x3. Psychiatric: Pleasant and cooperative. DISCHARGE PLAN BY PROBLEM: 1. Chronic kidney disease stage 5, not on dialysis. The patient's renal function has been worsening throughout her hospitalization with diuresis. The patient's diuretics have been significantly decreased. The patient will follow up closely with her chief specialist leed, Dr. Ornelas. She has an appointment made on 02/13/19. The patient will have a renal function panel before that. The patient has been started on sodium bicarbonate for her slight acidosis and torsemide should likely keep her potassium from going too high. The patient is planned to have a peritoneal dialysis catheter placed and will be started on dialysis soon thereafter. The patient should return to the hospital for severe shortness of breath, passing out, entire lack of urine output, or other alarming symptoms. 2. History of silent WA, heart failure, and reduced ejection fraction. The patient has evidence of an WA that occurred sometime between February last year and this year resulting in new wall motion abnormalities and decreased ejection fraction. The patient will be started on a statin and continued on aspirin after for secondary prevention. The patient will be started on Plavix per recommendation of cardiology after the patient is cleared to have this done by her surgeon, after peritoneal dialysis catheter is placed. The patient will be on metoprolol succinate for her heart failure at some point in the future. The patient will also be started on DONALD inhibitor likely after she has started peritoneal dialysis as well as possibly spironolactone based on her electrolyte status and diuretic need. 3. Hypertension. The patient has had low normal blood pressure throughout her hospitalization. The patient has been started on metoprolol succinate 50 mg p.o. daily as well as her torsemide and the patient's amlodipine has been stopped. The patient should have a close recheck of her blood pressure and her amlodipine can be restarted if needed. 4. Hyperlipidemia. The patient was started on high-dose aspirin therapy due to discovered silent WA. 5. Diabetes mellitus type 2. Continue the patient's daily dosing of 70/30 insulin. 6. History of CVA. Continue the patient's aspirin and statin. 7. Heart murmur. The patient's heart murmur is likely a combination of aortic stenosis and mitral regurgitation. This should be followed with echocardiogram with outpatient puncher and fastener, whom she should see in 1 to 2 weeks. DISPOSITION: Home. CONDITION: Stable. TIME SPENT: Approximately 75 minutes were spent on the discharge of this patient, 30 of which were spent [id number] with the patient obtaining history and physical and discussing the treatment plan. ARCENIO JALLOH [id number]/[facility] #: [id number] [place]
[2019-02-10] MEDS ORDERED: Metoprolol Succinate XL TAB* 50 MG PO SCH (09:00)
[2019-02-10] MEDS ORDERED: Torsemide TAB* 20 MG PO SCH (09:00)
== END 2019-02-09 15:18 | disposition home or self-care (01) | DRG 291 ==
LOC: ED 13:08 → MEDTELE 19:27 → OBSVTOIN 02-06 16:00
PROVIDERS: ADMIT Internal Medicine; ATTEND Internal Medicine
DX: I13.2 Hypertensive heart and chronic kidney disease with heart failure and with stage 5 chronic kidney disease, or end stage renal disease (principal); I50.21 Acute systolic (congestive) heart failure; N18.5 Chronic kidney disease, stage 5; I27.20 Pulmonary hypertension, unspecified; D63.1 Anemia in chronic kidney disease; E11.649 Type 2 diabetes mellitus with hypoglycemia without coma; E11.22 Type 2 diabetes mellitus with diabetic chronic kidney disease; E11.21 Type 2 diabetes mellitus with diabetic nephropathy; E21.3 Hyperparathyroidism, unspecified; E78.5 Hyperlipidemia, unspecified; I95.1 Orthostatic hypotension; R91.8 Other nonspecific abnormal finding of lung field; M81.0 Age-related osteoporosis without current pathological fracture; R01.1 Cardiac murmur, unspecified; I08.3 Combined rheumatic disorders of mitral, aortic and tricuspid valves; I25.2 Old myocardial infarction; Z86.73 Personal history of transient ischemic attack (TIA), and cerebral infarction without residual deficits; Z79.82 Long term (current) use of aspirin; Z79.4 Long term (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 of insulin; Z79.899 Other long term (current) drug therapy; Z88.6 Allergy status to analgesic agent; Z83.3 Family history of diabetes mellitus; Z82.3 Family history of stroke
CPT/HCPCS: 36415; 71046; 78452; 80048; 80053; 80061; 81003; 81015; 83036; 83605; 83735; 83880; 84100; 84484; 85025; 85379; 90686; 90732; 93005; 93017; 93306; 96365; 99285; A9270-GY; A9502; J1644; J1940; J2785

== ENCOUNTER → 2019-02-16 12:14 | Day surgery (SDC) | payer MEDICARE, OTHER ==
[~2019-02-16 12:14] MED LIST: Acetaminophen TAB* 325 MG ONE; Acetaminophen TAB* 325 MG PO ONE; Buffered Lidocaine 1% SYRIN* 1 ML/SYRINGE INTRADERM ONE; Bupivacaine 0.25% EPI 200,000* 30 ML SDV ONE; Famotidine IV* 10 MG/ML 2 ML (20 mg) IV ONE; Famotidine IV* 10 MG/ML 2 ML (20 mg) ONE; HYDROmorphone INJ1* 1 MG/ML SYRINGE IV PRN; Lactated Ringers 1000 ML Bag* 1,000 ML IV SCH; Lidocaine 1% INJ* 10 MG/ML 30 ML SDV ONE; Midazolam* 1 MG/ML 2 ML VIAL (2 MG) ONE; Naloxone* 0.4 MG/ML 1 ML VIAL IV PRN; Ondansetron INJ* 2 MG/ML VIAL IV PRN; Phenylephrine 40 MCG/ML SYRINGE ONE; Propofol* 10 MG/ML 20 ML BTL ONE; ceFAZolin 2 GM in NS PREMIX(*) 2 GM/100 ML BAG IVPB ONE; ceFAZolin VIAL(*) VIAL ONE
--- NOTE | 2019-02-16 17:02 | BRIEFOPN ---
Brief Operative/Procedure Note - Operation Details Pre-Op Diagnosis: end stage renal disease Post-Op Diagnosis: end stage renal disease Procedures: open placement of peritoneal dialysis catheter Surgeon(s)/Proceduralists: Surgeon: Chan. Assist: MARIAMA Chavez Anesthesia: MAC Estimated Blood Loss: scant Findings: Catheter placed without incident Complications: none
[2019-02-16 17:08] VITALS: BP 138/80
--- NOTE | 2019-02-17 14:10 | OP ---
AMENDED REPORT TO CORRECT ACCOUNT NUMBER CC: Dr. Jay Rdoriguez; Dr. Karthik Ornelas; Primary Care Doctor; Dr. Loki Johnson * DATE OF OPERATION: 02/16/19 - SDS DATE OF : 46 SURGEON: Romel Giles MD RAYON WINDER: ARCENIO Villagran ANESTHESIA: Local MAC. PRE-OP DIAGNOSIS: End-stage renal disease. POST-OP DIAGNOSIS: End-stage renal disease. OPERATIVE PROCEDURE: Open placement of peritoneal dialysis catheter. ESTIMATED BLOOD LOSS: Minimal blood loss. FLUIDS: Minimal crystalloid fluid given. IMPLANTS: Appropriate peritoneal dialysis catheter placed over the left lower quadrant. COMPLICATIONS: None. DRAIN: Not sutured to skin, but taped. DISPOSITION: The patent was transferred to the PACU in stable condition. DESCRIPTION OF PROCEDURE: The patient was identified in the preoperative area. She was marked accordingly. She does not wear a belt, so this did not play into her marking. She was then taken the operating room, placed on the operating table in supine position. Preoperative antibiotics were given. Sequential devices were placed on bilateral lower extremities. General sedation was given. The patient's abdomen was prepped and draped in a standard sterile fashion and the time-out was performed. An incision was made over the left rectus muscle. This was dissected down through Shala's fascia down to the rectus fascia. I incised this at point about a 1 cm incision that was up and down and it appeared to be lateral with no muscle fibers under there, appeared to be lateral to the rectus muscle. We therefore abandoned that and made another approximately 1 cm linear incision overlying the left rectus muscle. The muscle fibers were split and posterior fascia was elevated and incised. We then looked into the abdomen. There was no free fluid. A 2-0 Vicryl suture in a pursestring fashion was made and then a PD catheter was inserted in appropriate fashion directing it into the deep pelvis. We assured that the appropriate portions were intraabdominal and the appropriate portions were extraabdominal. We then closed our pursestring suture ensuring it was not clamping on the tubing itself. We then irrigated and reapproximated the anterior fascia with interrupted 0-Vicryl sutures. Next, the catheter was tunneled in the appropriate fashion up and then over again to the left lateral abdomen. We then connected this to dialysate and that was allowed to flow and it flowed well and also emptied well. We then reapproximated the skin and incision. The initial skin incision with 3-0 Vicryl at the Shala's fascia and skin ambar and 4-0 Vicryl at the separate stab incision superiorly for the tunneling purpose. Sterile dressing was applied. The patient tolerated the procedure well, was transferred to the PACU in stable condition. [id number]/[facility] #: [id number] [facility]ENTERRenetta
== END | disposition home or self-care (01) ==
LOC: OR 12:14
PROVIDERS: ATTEND Surgery
DX: E11.22 Type 2 diabetes mellitus with diabetic chronic kidney disease (principal); N18.6 End stage renal disease; I12.0 Hypertensive chronic kidney disease with stage 5 chronic kidney disease or end stage renal disease; Z79.4 Long term (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 of insulin; E78.5 Hyperlipidemia, unspecified; M19.90 Unspecified osteoarthritis, unspecified site; F32.9 Major depressive disorder, single episode, unspecified; M81.0 Age-related osteoporosis without current pathological fracture
CPT/HCPCS: 36415; 84132; A9270-GY; C1750; J0690; J2250; J2704

== ENCOUNTER 2019-04-11 10:52 | Emergency (ER) | payer MEDICARE, OTHER ==
--- OUTSIDE RECORDS SUMMARY | 2019-04-11 11:15 | XMS REPORT | Continuity of Care Document ---
:1950 External Reference #:[id number] Author Name Romel Saldana DO FAC (transmitted by agent of provider Loyda Benítez) Address [address] [place] [address] Care Team Providers Name Role Phone Selene Galo MD - Internal Medicine Care Team Information [employer] Teacher Librarian Franci Hart MD - Nephrology Care Team Information [employer] Teacher Librarian Romel Giles MD - Surgery Care Team Information Primary [employer] Teacher Librarian [phone] Deo Sierra MD - Hospitalist Care Team Information [employer] Teacher Librarian [phone] Problems Description No Information Available Social History Type Date Description Comments Sex Unknown Tobacco Use Start: Unknown Never Smoked Cigarettes Smoking Status Reviewed: 02/26/19 Never Smoked Cigarettes ETOH Use Never used alcohol Tobacco Use Start: Unknown Patient has never smoked Recreational Drug Use Never Used Drugs Exercise Type/Frequency Exercises sporadically Allergies, Adverse Reactions, Alerts Active Allergies Reaction Severity Comments Date Shellfish-Derived Products Difficulty breathing 07/21/2018 Medications Active Medications SIG Qnty Indications Ordering Date Provider Renvelconcepcion 1 tab po 3 times 90units N18.5 Mohammad A. 02/13/2019 0.8gm Packet daily with meals MD Johnson Prednisolone Acetate one drop once Unknown 12/06/2018 daily in right 1% Suspension eye Humalog Mix 75/25 inject 20 units 15ml [...] Strips times a day and for hypoglycemia. Sodium Bicarbonate 1/2 tab by mouth Unknown four times a day 650mg Tablets Atorvastatin Calcium 1 by mouth every 90tabs Romel Saldana, day at 5 pm DO FACC 80mg Tablets Torsemide 1 by mouth every Unknown 20mg day Tablets Metoprolol Succinate 1 by mouth once 90tabs Romel Saldana, ER daily DO FACC 50mg Tablets ER 24HR Onetouch Ultra Blue test twice a day Unknown and as needed Strips Aspirin 81 1 by mouth every Unknown 81mg day Tablets DR Acyclovir 1 by mouth once Unknown 400mg daily as needed Tablets History Medications Chromium Picolinate one tablet twice Unknown 12/06/2018 - Unknown daily 200mcg Tablets Turmeric Unknown 12/05/2018 - Unknown 400mg Capsules Novolin 70/30 30 minutes before 15ml E11.22 Loki Johnson MD 09/21/2018 - Flexpen breakfast: 16 09/21/2018 units 30 minutes (70-30)100Unit/ML before dinner: 12 Supn units Novolog Mix 70/30 Take 28 units in 15ml E11.22 Loki Johnson MD 09/21/2018 - Prefilled Flexpen the morning and 09/25/2018 10 units at (70-30)100Unit/ML night. Supn Immunizations Description No Information Available Vital Signs Date Vital Result Comment 02/26/2019 2:06pm Height 64 inches 5'4" Weight 130.00 lb with shoes Heart Rate 62 /min BP Systolic Sitting 110 mmHg LA BP Diastolic Sitting 66 mmHg LA BP Systolic Standing 104 mmHg LA BP Diastolic Standing 70 mmHg LA BMI (Body Mass Index) 22.3 kg/m2 Ejection Fraction 40-45% Echo 02/06/19 02/26/2019 9:40am Heart Rate 66 /min BP Systolic Sitting 112 mmHg BP Diastolic Sitting 58 mmHg Respiratory Rate 16 /min Body Temperature 97.2 F Results Test Acquired Date Facility Test Result H/L Range Note Renal Function 02/26/2019 [facility] Albumin 3.7 g/dL Normal 3.2-5.[address] [place] [address] [phone] Calcium 9.2 mg/dL Normal 8.6-10.3 Co2 Carbon Dioxide 29 mmol/L Normal 22-32 Chloride 92 mmol/L Low 101-111 Glucose 325 mg/dL High 70-100 Phosphorus 5.3 mg/dL High 2.5-5.0 Potassium 3.1 mmol/L Low 3.5-5.0 Sodium 132 mmol/L Low 135-145 Blood Urea Nitrogen BUN 111 mg/dL High 6-24 Creatinine 02/26/2019 [facility] Creatinine 5.41 mg/dL High 0.51-0.[address] [place] [address] [phone] Egfr Non- 7.8 >60 Egfr 9.5 >60 1 Comp Metabolic Panel 02/22/2019 [facility] Sodium 133 mmol/L Low 135-[address] [place] [address] [phone] Potassium 3.6 mmol/L Normal 3.5-5.0 Chloride 93 mmol/L Low 101-111 Co2 Carbon Dioxide 25 mmol/L Normal 22-32 Anion Gap 15 mmol/L High 2-11 Glucose 296 mg/dL High 70-100 Blood Urea Nitrogen 124 mg/dL High 6-24 Creatinine 6.61 mg/dL High 0.51-0.95 BUN/Creatinine Ratio 18.8 Normal 8-20 Calcium 9.5 mg/dL Normal 8.6-10.3 Total Protein 7.6 g/dL Normal 6.4-8.9 Albumin 3.9 g/dL Normal 3.2-5.2 Globulin 3.7 g/dL Normal 2-4 Albumin/Globulin Ratio 1.1 Normal 1-3 Total Bilirubin 0.40 mg/dL Normal 0.2-1.0 Alkaline Phosphatase 101 U/L Normal 34-104 Alt < 3 U/L Low 7-52 Ast 11 U/L Low 13-39 Egfr Non- 6.2 >60 Egfr 7.5 >60 2 Pthi 02/22/2019 [facility] Calcium (PTH 9.6 mg/dL Normal 8.6- 10.[address] Intact) [place] [address] [phone] PTH Intact 168.5 pg/mL High 12-88 Urine Culture And 02/19/2019 [facility] Urine SEE RESULT [address] Culture BELOW [place] [address] [phone] Laboratory test 02/19/2019 [facility] Albumin 4.1 g/dL Normal 3.2-[address] .[address] [place] [address] [phone] B-Type Natriuretic Peptide BNP 686 pg/mL High <=100 Phosphorus 8.6 mg/dL High 2.5-5.0 Calcium 9.6 mg/dL Normal 8.6-10.3 Neph Routine 02/19/2019 [facility] Total Protein Random 123 mg/ dL [address] [place] [address] [phone] Creatinine Random Urine 76.76 mg/dL CBC Auto 02/19/2019 [facility] White Blood 10.4 10^3/uL Normal 3.5-10.[address] [place] [address] [phone] Red Blood Count 4.13 10^6/uL Normal 3.70-4.87 Hemoglobin 12.6 g/dL Normal 12.0-16.0 Hematocrit 37 % Normal 35-47 Mean Corpuscular Volume 89 fL Normal 80-97 Mean Corpuscular Hemoglobin 31 pg Normal 27-31 Mean Corpuscular HGB Conc 34 g/dL Normal 31-36 Red Cell Distribution Width 14 % Normal 10-15 Platelet Count 320 10^3/uL Normal 150-450 Mean Platelet Volume 8.7 fL Normal 7.4-10.4 Abs Neutrophils 8.9 10^3/uL High 1.5-7.7 Abs Lymphocytes 0.8 10^3/uL Low 1.0-4.8 Abs Monocytes 0.4 10^3/uL Normal 0-0.8 Abs Eosinophils 0.2 10^3/uL Normal 0-0.6 Abs Basophils 0.1 10^3/uL Normal 0-0.2 Abs Nucleated RBC 0.0 10^3/uL Granulocyte % 85.1 % Lymphocyte % 7.6 % Monocyte % 4.3 % Eosinophil % 2.4 % Basophil % 0.6 % Nucleated Red Blood Cells % 0.0 Urinalysis Profile 02/19/2019 [facility] Urine Color Yellow [address] [place] [address] [phone] Urine Appearance Turbid Urine Specific Revloc 1.012 Normal 1.010-1.030 Urine pH 5.0 Normal 5-9 Urine Urobilinogen Negative Negative Urine Ketones Trace Abnormal Negative Urine Protein 1+(30 mg/dL) Abnormal Negative Urine Leukocytes 3+ Abnormal Negative Urine Blood 2+ Abnormal Negative Urine Nitrite Negative Negative Urine Bilirubin Negative Negative Urine Glucose 1+(50 mg/dL) Abnormal Negative Urine White Blood Cell 3+(>20/hpf) Abnormal Absent Urine Red Blood Cell 3+(>10/hpf) Abnormal Absent Urine Bacteria Absent Absent Urine Squamous Epithelial Cell Present Abnormal Absent Urine Hyaline Casts Present Abnormal Absent Basic Metabolic 02/19/2019 [facility] Sodium 133 mmol/L Low 135-145 Panel [address] [place] [address] [phone] Potassium 3.7 mmol/L Normal 3.5-5.0 Chloride 94 mmol/L Low 101-111 Co2 Carbon Dioxide 20 mmol/L Low 22-32 Anion Gap 19 mmol/L High 2-11 Glucose 315 mg/dL High 70-100 Creatinine 7.26 mg/dL High 0.51-0.95 Egfr Non- 5.6 >60 Egfr 6.7 >60 4 Blood Urea Nitrogen 135 mg/dL High 6-24 BUN/Creatinine Ratio 18.6 Normal 8-20 Laboratory 02/16/2019 [facility] Point of Care 323 mg/dL High 70-100 [address] [place] [address] [phone] Laboratory 02/16/2019 [facility] Point of Care 175 mg/dL High 70-100 6 test finding 101 [facility] [place] [address] [phone] Laboratory 02/16/2019 [facility] Potassium 4.0 Normal 3.5-5.0 7, 8 test finding 101 [facility] mmol/[place] [address] [phone] Laboratory 02/16/2019 [facility] Point of Care 312 mg/dL High 70-100 9 test finding [address] [place] [address] [phone] CBC Auto Diff 02/15/2019 [facility] White Blood 9.8 Normal 3.5 -10.[address] Count 10^3/[place] [address] [phone] Red Blood Count 4.05 10^6/uL Normal 3.70-4.87 Hemoglobin 12.4 g/dL Normal 12.0-16.0 Hematocrit 36 % Normal 35-47 Mean Corpuscular Volume 88 fL Normal 80-97 Mean Corpuscular Hemoglobin 31 pg Normal 27-31 Mean Corpuscular HGB Conc 35 g/dL Normal 31-36 Red Cell Distribution Width 14 % Normal 10-15 Platelet Count 290 10^3/uL Normal 150-450 Mean Platelet Volume 8.0 fL Normal 7.4-10.4 Abs Neutrophils 8.2 10^3/uL High 1.5-7.7 Abs Lymphocytes 0.8 10^3/uL Low 1.0-4.8 Abs Monocytes 0.6 10^3/uL Normal 0-0.8 Abs Eosinophils 0.2 10^3/uL Normal 0-0.6 Abs Basophils 0.1 10^3/uL Normal 0-0.2 Abs Nucleated RBC 0.0 10^3/uL Granulocyte % 83.0 % Lymphocyte % 7.8 % Monocyte % 5.9 % Eosinophil % 2.3 % Basophil % 1.0 % Nucleated Red Blood Cells % 0.0 Laboratory test 02/15/2019 [facility] B-Type 562 pg/mL High <= [address] [place] [address] Peptide BNP [phone] Laboratory test 02/15/2019 [facility] Albumin 4.2 g/dL Normal 3.2-5.[address] [place] [address] [phone] Phosphorus 8.7 mg/dL High 2.5-5.0 Quantiferon-TB 02/15/2019 [facility] QuantiferonTb Negative Negative 10 Gold Plus [address] [place] [address] [phone] TB1 Ag minus Nil Result 0.01 IU/mL TB2 Ag minus Nil Result 0.01 IU/mL Mitogen minus Nil Result 3.16 IU/mL Nil Result 0.02 IU/mL Urinalysis Profile 02/15/2019 [facility] Urine Color Yellow [address] [place] [address] [phone] Urine Appearance Turbid Urine Specific Revloc 1.011 Normal 1.010-1.030 Urine pH 5.0 Normal 5-9 Urine Urobilinogen Negative Negative Urine Ketones Negative Negative Urine Protein 2+(100 mg/dL) Abnormal Negative Urine Leukocytes 3+ Abnormal Negative Urine Blood 1+ Abnormal Negative Urine Nitrite Negative Negative Urine Bilirubin Negative Negative Urine Glucose 2+(150 mg/dL) Abnormal Negative Urine White Blood Cell 3+(>20/hpf) Abnormal Absent Urine Red Blood Cell 2+(6-10/hpf) Abnormal Absent Urine Bacteria 1+ Abnormal Absent Urine Squamous Epithelial Cell Present Abnormal Absent Urine Culture And 02/15/2019 [facility] Urine Culture SEE RESULT [address] [place] [address] [phone] Neph Routine 02/15/2019 [facility] Total Protein 183 mg/dL [address] [place] [address] [phone] Creatinine Random Urine 68.74 mg/dL Pthi 02/15/2019 [facility] Calcium (PTH 9.4 mg/dL Normal 8.6- 10.[address] Intact) [place] [address] [phone] PTH Intact 228.1 pg/mL High 12-88 Basic Metabolic 02/15/2019 [facility] Sodium 134 mmol/L Low 135-[address] [place] [address] [phone] Potassium 3.9 mmol/L Normal 3.5-5.0 Chloride 99 mmol/L Low 101-111 Co2 Carbon Dioxide 20 mmol/L Low 22-32 Anion Gap 15 mmol/L High 2-11 Glucose 273 mg/dL High 70-100 Creatinine 6.92 mg/dL High 0.51-0.95 Egfr Non- 5.9 >60 Egfr 7.1 >60 12 Blood Urea Nitrogen 144 mg/dL High 6-24 BUN/Creatinine Ratio 20.8 High 8-20 Laboratory test 02/15/2019 [facility] Calcium 9.4 mg/dL Normal 8.6-10.[address] [place] [address] [phone] Hepatitis B Core AB Total Negative Negative 13 Hepatitis B Surface Ag Nonreactive Nonreactive Hepatitis B Madie AB Titer Not Immune Abnormal Immune Neph Routine 02/13/2019 [facility] Total Protein Random 141 mg/ dL [address] [place] [address] [phone] Creatinine Random Urine 57.19 mg/dL CBC Auto 02/13/2019 [facility] White Blood 9.5 10^3/uL Normal 3.5-10.[address] [place] [address] [phone] Red Blood Count 4.18 10^6/uL Normal 3.70-4.87 Hemoglobin 12.7 g/dL Normal 12.0-16.0 Hematocrit 37 % Normal 35-47 Mean Corpuscular Volume 89 fL Normal 80-97 Mean Corpuscular Hemoglobin 30 pg Normal 27-31 Mean Corpuscular HGB Conc 34 g/dL Normal 31-36 Red Cell Distribution Width 14 % Normal 10-15 Platelet Count 282 10^3/uL Normal 150-450 Mean Platelet Volume 7.6 fL Normal 7.4-10.4 Abs Neutrophils 7.6 10^3/uL Normal 1.5-7.7 Abs Lymphocytes 0.9 10^3/uL Low 1.0-4.8 Abs Monocytes 0.6 10^3/uL Normal 0-0.8 Abs Eosinophils 0.3 10^3/uL Normal 0-0.6 Abs Basophils 0.1 10^3/uL Normal 0-0.2 Abs Nucleated RBC 0.0 10^3/uL Granulocyte % 79.9 % Lymphocyte % 9.8 % Monocyte % 6.5 % Eosinophil % 2.9 % Basophil % 0.9 % Nucleated Red Blood Cells % 0.0 Basic Metabolic 02/13/2019 [facility] Sodium 135 mmol/L Normal 135-[address] [place] [address] [phone] Potassium 4.3 mmol/L Normal 3.5-5.0 Chloride 98 mmol/L Low 101-111 Co2 Carbon Dioxide 20 mmol/L Low 22-32 Anion Gap 17 mmol/L High 2-11 Glucose 186 mg/dL High 70-100 Blood Urea Nitrogen 120 mg/dL High 6-24 Creatinine 6.55 mg/dL High 0.51-0.95 BUN/Creatinine Ratio 18.3 Normal 8-20 Calcium 9.8 mg/dL Normal 8.6-10.3 Egfr Non- 6.3 >60 Egfr 7.6 >60 14 Urinalysis Profile 02/13/2019 [facility] Urine Color Yellow [address] [place] [address] [phone] Urine Appearance Turbid Urine Specific Revloc 1.010 Normal 1.010-1.030 Urine pH 5.0 Normal 5-9 Urine Urobilinogen Negative Negative Urine Ketones Negative Negative Urine Protein 2+(100 mg/dL) Abnormal Negative Urine Leukocytes 3+ Abnormal Negative Urine Blood 2+ Abnormal Negative Urine Nitrite Positive Abnormal Negative Urine Bilirubin Negative Negative Urine Glucose 1+(50 mg/dL) Abnormal Negative Urine White Blood Cell 3+(>20/hpf) Abnormal Absent Urine Red Blood Cell 3+(>10/hpf) Abnormal Absent Urine Bacteria 1+ Abnormal Absent Urine Culture And 02/13/2019 [facility] Urine Culture SEE RESULT [address] [place] [address] [phone] Neph Routine 01/22/2019 [facility] Total Protein 131 mg/dL [address] [place] [address] [phone] Creatinine Random Urine 61.80 mg/dL CBC Auto 01/22/2019 [facility] White Blood 8.0 10^3/uL Normal 3.5-10.[address] [place] [address] [phone] Red Blood Count 3.86 10^6/uL Normal 3.70-4.87 [...] Blood Cells % 0.0 Urinalysis Profile 01/22/2019 [facility] Urine Color Yellow [address] [place] [address] [phone] Urine Appearance Clear Urine Specific Revloc 1.011 Normal 1.010-1.030 Urine pH 5.0 Normal 5-9 Urine Urobilinogen Negative Negative Urine Ketones Negative Negative Urine Protein 2+(100 mg/dL) Abnormal Negative Urine Leukocytes Negative Negative Urine Blood Negative Negative * * Abnormal Negative 16 Urine Nitrite Negative Negative Urine Bilirubin Negative Negative Urine Glucose 3+(>=500 mg/dL) Abnormal Negative Urine White Blood Cell Trace(0-5/hpf) Absent Urine Red Blood Cell Absent Absent Urine Bacteria Absent Absent Urine Squamous Epithelial Cell Present Abnormal Absent Basic Metabolic 01/22/2019 [facility] Sodium 136 mmol/L Normal 135-145 Panel [facility] [place] [address] [phone] Potassium 4.9 mmol/L Normal 3.5-5.0 Chloride 106 mmol/L Normal 101-111 Co2 Carbon Dioxide 22 mmol/L Normal 22-32 Anion Gap 8 mmol/L Normal 2-11 Glucose 255 mg/dL High 70-100 Blood Urea Nitrogen 60 mg/dL High 6-24 Creatinine 4.11 mg/dL High 0.51-0.95 BUN/Creatinine Ratio 14.6 Normal 8-20 Calcium 9.5 mg/dL Normal 8.6-10.3 Egfr Non- 10.7 >60 Egfr 13.0 >60 17 Urine Culture And 01/22/2019 [facility] Urine Culture SEE RESULT [address] [place] [address] [phone] Urinalysis Profile 12/18/2018 [facility] Urine Color Yellow [address] [place] [address] [phone] Urine Appearance Cloudy Urine Specific Revloc 1.013 Normal 1.010-1.030 Urine pH 5.0 Normal [...] Cell Present Abnormal Absent CBC Auto 12/18/2018 [facility] White Blood 8.1 10^3/uL Normal 3.5-10.[address] [place] [address] [phone] Red Blood Count 3.85 10^6/uL Normal 3.70-4.87 [...] Blood Cells % 0.1 Basic Metabolic 12/18/2018 [facility] Sodium 139 mmol/L Normal 135-[address] [place] [address] [phone] Chloride 108 mmol/L Normal 101-111 Co2 Carbon Dioxide 23 mmol/L Normal 22-32 Glucose 74 mg/dL Normal 70-100 Blood Urea Nitrogen 69 mg/dL High 6-24 Creatinine 3.95 mg/dL High 0.51-0.95 BUN/Creatinine Ratio 17.5 Normal 8-20 Calcium 9.5 mg/dL Normal 8.6-10.3 Egfr Non- 11.2 >60 Egfr 13.6 >60 19 Potassium 5.4 mmol/L High 3.5-5.0 Anion Gap 8 mmol/L Normal 2-11 Laboratory test 12/18/2018 [facility] Total Protein 181 mg/dL finding [address] [place] [address] [phone] Creatinine Random Urine 79.59 mg/dL Pthi 12/18/2018 [facility] Calcium (PTH 9.4 mg/dL Normal 8.6- 10.[address] Intact) [place] [address] [phone] PTH Intact 110.1 pg/mL High 12-88 Urine Culture 12/18/2018 [facility] Urine Culture SEE [address] [place] [address] BELOW [phone] Laboratory test 12/18/2018 [facility] Hemoglobin A1c 7.2 % High 4.0-[address] (Glyco HGB) .6 [place] [address] [phone] Laboratory test 12/18/2018 [facility] Fructosamine 389 Abnormal 200 - [address] mcmol/L [address] [place], [place] [address] [phone] Laboratory test 10/19/2018 [facility] Fructosamine 526 Abnormal 200 - [address] mcmol/L [address] [place], [place] [address] [phone] Comp Metabolic 10/19/2018 [facility] Sodium 137 Normal 135-[address] mmol/L [address] [place], [place] [address] [phone] Potassium 4.5 mmol/L Normal 3.5-5.0 Chloride 105 [...] Egfr Non- 11.1 >60 Egfr 13.5 >60 24 Laboratory 10/19/2018 [facility] TSH (Thyroid 2.22 Normal 0.34 -5.60 test finding [address] Stim Horm) mcIU/mL [place], [place] [address] [phone] Hemoglobin A1c (Glyco HGB) 9.6 % High 4.0-5.6 25 1 Because ethnic data is not always [...] 5 Kidney failure <15 (or dialysis) 2 Because ethnic data is not always [...] dialysis) 3 SEE RESULT BELOW Name: JOSÉ TOLBERT : [address]: Karthik Ornelas MD Acct: [id number] Unit: [id number] AGE: 68 Location: LAB Re02/19/19 SEX: F Status: REG REF SPEC: [id number] IVON: 02/19/19-[address] [facility] [address]: Karthik Ornelas MD REQ: [id number] RECD: 02/19/19 STATUS:COMP _ SOURCE: URINE SPDESC: ORDERED: Urine Culture Procedure Result Reported Site Urine Culture Final 02/20/19- 1320 ML No Growth (<1,000 CFU/mL) * ML - [facility] . END OF REPORT DEPARTMENT OF PATHOLOGY, [address] [place] [address] Shakeel Song M.D. Director [facility] # [id number] 4 Because ethnic data is not always [...] 5 Kidney failure <15 (or dialysis) 5 Presetter Operator: [id number] 6 Presetter Operator: [id number] 7 Comment: when arrives for OR 8 Comment: when arrives for OR 9 Presetter Operator: [id number] 10 M. tuberculosis infection NOT likely 11 SEE RESULT BELOW Name: JOSÉ TOLBERT : [address]: Karthik Ornelas MD Acct: [id number] Unit: [id number] AGE: 68 Location: LAB Re02/15/19 SEX: F Status: REG REF SPEC: [id number] IVON: 02/15/[address]: Karthik Ornelas MD REQ: [id number] RECD: 02/15/19 STATUS:COMP _ SOURCE: URINE SPDESC: ORDERED: Urine Culture Procedure Result Reported Site Urine Culture Final 02/17/19 0839 ML Organism 1 KLEBSIELLA PNEUMONIAE [place] Count >100,000 (Many) CFU/ML 1. KLEBSIELLA PNEUMONIAE [facility] RX --------- ------ Ampicillin >=32 R Cefazolin <=4 S Cefepime <=1 S Ceftriaxone <=1 S Ciprofloxacin <=0.25 S Gentamicin <=1 S Levofloxacin <=0.12 S Meropenem <=0.25 S Nitrofurantoin 64 I Tetracycline >=16 R Pipercillin/Tazobactam <=4 S Trimethoprim/Sulfamethoxazole <=20 S Amoxicillin/Clavulanic Acid <=2 S Aztreonam <=1 S Contact the Microbiology Department for any additional antibiotic reporting. * ML - [facility] . END OF REPORT DEPARTMENT OF PATHOLOGY, [address] [place] [address] Shakeel Song M.D. Director [facility] # [id number] 12 Because ethnic data is not always readily [...] 15-29 5 Kidney failure <15 (or dialysis) 13 Test Performed by: [facility] [address] [place] [address] [facility]: Andres Little M.D. Ph.D.; [place]# [id number] 14 Because ethnic data is not always readily [...] 15-29 5 Kidney failure <15 (or dialysis) 15 SEE RESULT BELOW Name: JOSÉ TOLBERT : [address]: Karthik Ornelas MD Acct: [id number] Unit: [id number] AGE: 68 Location: LAB Re02/13/19 SEX: F Status: REG REF SPEC: [id number] IVON: 02/13/19-[address]: Karthik Ornelas MD REQ: [id number] RECD: 02/13/19 STATUS:COMP _ SOURCE: URINE SPDESC: ORDERED: Urine Culture Procedure Result Reported Site Urine Culture Final 02/15/19- 1007 ML Organism 1 KLEBSIELLA PNEUMONIAE [place] Count >100,000 (Many) CFU/ML 1. KLEBSIELLA PNEUMONIAE [facility] RX --------- ------ Ampicillin >=32 R Cefazolin <=4 S Cefepime <=1 S Ceftriaxone <=1 S Ciprofloxacin <=0.25 S Gentamicin <=1 S Levofloxacin <=0.12 S Meropenem <=0.25 S Nitrofurantoin 64 I Tetracycline >=16 R Pipercillin/Tazobactam <=4 S Trimethoprim/Sulfamethoxazole <=20 S Amoxicillin/Clavulanic Acid <=2 S Aztreonam <=1 S Contact the Microbiology Department for any additional antibiotic reporting. * ML - Main Lab . END OF REPORT DEPARTMENT OF PATHOLOGY, [address] [place] [address] Shakeel Song M.D. Director [facility] # [id number] 16 *Ascorbic acid is present which may interfere with detection of blood. 17 Because ethnic data is not always readily [...] 15-29 5 Kidney failure <15 (or dialysis) 18 SEE RESULT BELOW Name: JOSÉ TOLBERT : [address]: Karthik Ornelas MD Acct: [id number] Unit: [id number] AGE: 68 Location: LAB Re01/22/19 SEX: F Status: REG REF SPEC: [id number] IVON: 01/22/[address] [facility] [address]: Karthik Ornelas MD REQ: [id number] RECD: 01/22/19 STATUS: COMP _ S[facility]: [facility] ORDERED: Urine Culture Procedure Result Reported Site Urine Culture Final 01/24/19- 0238 ML No growth of clinically significant organisms * ML - Main Lab . END OF REPORT DEPARTMENT OF PATHOLOGY, [address] [place] [address] Shakeel Song M.D. Director [facility] # [id number] 19 Because ethnic data is not always readily [...] 15-29 5 Kidney failure <15 (or dialysis) 20 SEE RESULT BELOW Name: JOSÉ TOLBERT : [address]: Dia Yoder NP, CNM Acct: [id number] Unit: [id number] AGE: 68 Location: LAB Re12/18/18 SEX: F Status: REG REF SPEC: [id number] IVON: 12/18/18-[address] [facility] [address]: Karthik Ornelas MD REQ: [id number] RECD: 12/18/185023 STATUS: ALICIA ARROYO DR: Dia Yoder NP, CNM _ SOURCE: URINE SPDESC: ORDERED: Urine Culture Procedure Result Reported Site Urine Culture Final 12/19/18- 1616 ML No growth of clinically significant organisms * ML - Main Lab . END OF REPORT DEPARTMENT OF PATHOLOGY, [address] [place] [address] Shakeel Song M.D. Director [place] # [id number] 21 Therapeutic target for the treatment of diabetes mellitus patients is <7% HBA1C, and in selective patients <6.0%. Please refer to [place] [employer] diabetic care guidelines for further information. 22 Test Performed by: [place] [address] [facility]: Andres Little M.D. Ph.D.; CLIA# [id number] 23 Test Performed by: [place] [address] 24 Because ethnic data is not always readily [...] 15-29 5 Kidney failure <15 (or dialysis) 25 Therapeutic target for the treatment of diabetes mellitus patients is <7% HBA1C, and in selective patients <6.0%. Please refer to [place] diabetic care guidelines for further information. Procedures Date Code Description Status 02/26/2019 94001 EKG Tracing & Interpretation Completed 02/16/2019 94000 Insert Intraperitoneal Cannula/Catheter Permanent Completed 02/16/2019 15873 Insert Intraperitoneal Cannula/Catheter Permanent Completed 02/09/2019 11966 Treadmill Interp/Report Only Completed 02/09/2019 91892 Stress Test Supervsn W/Out I/R Completed 02/06/2019 89801 ECHO Transthorasic Realtime 2D W Doppler & Color Flow Hosp Completed 01/30/2019 11598 Glucose Monitoring Interpetation And Report Completed Medical Devices Description No Information Available Encounters Type Date Location Provider Dx Diagnosis Office Visit 02/15/2019 Surgical [facility] Romel Giles, N18.6 End stage renal 10:45a Of Ankur ALVAREZ, FACS disease Office Visit 02/09/2019 [facility] Karthik French N18.5 Chronic kidney 3:27p MD Johnson disease, stage 5 E87.70 Fluid overload, unspecified Office Visit 02/08/2019 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 N18.5 Chronic kidney disease, stage 5 I50.23 Acute on chronic systolic (congestive) heart failure E87.70 Fluid overload, unspecified E11.40 Type 2 diabetes mellitus with diabetic neuropathy, unsp D63.1 Anemia in chronic kidney disease I27.20 Pulmonary hypertension, unspecified Office Visit 02/07/2019 [facility] Kayla I50.33 Acute on chronic 9:17a Assoc,tim Queen MD diastolic Hospitalists (congestive) heart failure Z78.9 Other specified health status Office Visit 02/07/2019 8:54a [facility] Rosamaria Johnson, I13.2 Hyp hrt & chr 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 I50.21 Acute systolic (congestive) heart failure E11.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 N18.5 Chronic kidney disease, stage 5 D63.1 Anemia in chronic kidney disease E11.40 Type 2 diabetes mellitus with diabetic neuropathy, unsp I27.20 Pulmonary hypertension, unspecified Office Visit 02/06/2019 [facility] Christel I50.33 Acute on chronic 9:16a Assoc,tim Contreras D.O. diastolic Hospitalists (congestive) heart failure Office Visit 02/06/2019 [facility] Rosamaria Johnson, I13.2 Hyp hrt & chr kdny 8:54a dis w hrt fail and w stg 5 chr kdny/Esrd I50.21 Acute systolic (congestive) heart failure E11.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 N18.5 Chronic kidney disease, stage 5 I95.89 Other hypotension Office Visit 02/05/2019 9:16a [facility] Leatha Vaca, I13.2 Hyp hrt & chr Assoc,pc SAND HAULER kdny dis w hrt Hospitalists fail and w stg 5 chr kdny/Esrd E11.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 N18.6 End stage renal disease I50.9 Heart failure, unspecified Office Visit 01/23/2019 1:00p [facility] Karthik French 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 Z79.4 custodial (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 of insulin E78.5 Hyperlipidemia, unspecified E87.5 Hyperkalemia I10 Essential (primary) hypertension I12.9 Hypertensive chronic kidney disease w stg 1-4/unsp chr kdny Office Visit 01/17/2019 11:00a [facility] Manjarrezrickie Johnson, E11.22 Type 2 diabetes [facility] MD mellitus w diabetic chronic kidney disease N18.4 Chronic kidney disease, stage 4 (severe) Z79.4 custodial (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 of insulin Office Visit 12/21/2018 11:00a [facility] Karthik French 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 Z79.4 physical therapy aid (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 of insulin E78.5 Hyperlipidemia, unspecified E87.5 Hyperkalemia I10 Essential (primary) hypertension Office Visit 12/12/2018 11:30a [facility] Dia Yoder E11.22 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-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 diabetes mellitus w diabetic chronic kidney disease N18.5 Chronic kidney disease, stage 5 Office Visit 12/07/2018 11:00a [facility] Karthik French N18.5 Chronic kidney MD Johnson disease, stage 5 E11.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 E11.65 Type 2 diabetes mellitus with hyperglycemia Z79.4 custodial (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 of insulin Office Visit 10/19/2018 2:00p [facility] Loki Johnson, E11.22 Type 2 diabetes [facility] MD mellitus w diabetic chronic kidney disease N18.5 Chronic kidney disease, stage 5 E11.65 Type 2 diabetes mellitus with hyperglycemia Z79.4 physical therapy aid (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 of insulin Office Visit 09/21/2018 1:00p [facility] Manda N18.6 End stage [facility] Marker, 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 Z79.4 physical therapy aid (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 of insulin E11.649 Type 2 diabetes mellitus with hypoglycemia without coma Assessments Date Code Description Provider 02/26/2019 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 infarction Romel Saldana DO FACC 02/26/2019 N18.6 End stage renal disease Romel Giles MD, FACS 02/26/2019 N18.5 Chronic kidney disease, stage 5 Romel Saldana DO FACC 02/26/2019 E11.22 Type 2 diabetes mellitus with diabetic Romel Saldana DO FACC chronic kidney disease 02/26/2019 I10 Essential (primary) hypertension Romelbehzad Saldana, DO FACC 02/26/2019 E78.2 Mixed hyperlipidemia Romelbehzad Saldana, DO FACC 02/26/2019 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, 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) and diastolic (congestive) heart failure 02/22/2019 N18.5 Chronic kidney disease, stage 5 Karthik Ornelas MD 02/22/2019 N18.6 End stage renal disease Karthik Ornelas MD 02/22/2019 E11.22 Type 2 diabetes mellitus with diabetic Karthik Ornelas MD chronic kidney disease 02/22/2019 I10 Essential (primary) hypertension Karthik Ornelas MD 02/22/2019 E78.2 Mixed hyperlipidemia Karthik Ornelas MD 02/22/2019 E87.70 Fluid overload, unspecified Karthik Ornelas MD 02/22/2019 I50.20 Unspecified systolic (congestive) heart Karthik Ornelas MD failure 02/19/2019 N18.5 Chronic kidney disease, stage 5 Karthik Ornelas MD 02/19/2019 N18.6 End stage renal disease Karthik Ornelas MD 02/19/2019 E11.22 Type 2 diabetes mellitus with diabetic Karthik Ornelas MD chronic kidney disease 02/19/2019 I10 Essential (primary) hypertension Karthik Ornelas MD 02/19/2019 E78.2 Mixed hyperlipidemia Karthik Ornelas MD 02/19/2019 E87.70 Fluid overload, unspecified Karthik Ornelas MD 02/16/2019 N18.6 End stage renal disease Alvarado Chavez PA-C 02/16/2019 N18.6 End stage renal disease Romel Giles MD, FACS 02/15/2019 N18.5 Chronic kidney disease, stage 5 Karthik Ornelas MD 02/15/2019 N18.6 End stage renal disease Romel Giles MD, FACS 02/15/2019 N18.6 End stage renal disease Karthik Ornelas MD 02/15/2019 E11.22 Type 2 diabetes mellitus with diabetic Karthik Ornelas MD chronic kidney disease 02/15/2019 I10 Essential (primary) hypertension Karthik Ornelas MD 02/15/2019 E78.2 Mixed hyperlipidemia Karthik Ornelas MD 02/15/2019 E87.70 Fluid overload, unspecified Karthik Ornelas MD 02/14/2019 N18.5 Chronic kidney disease, stage 5 Deo Sierra MD 02/14/2019 E11.22 Type 2 diabetes mellitus with diabetic Deo Sierra MD chronic kidney disease 02/14/2019 I10 Essential (primary) hypertension Deo Sierra MD 02/14/2019 E78.2 Mixed hyperlipidemia Deo Sierra MD 02/14/2019 I50.20 Unspecified systolic (congestive) heart Deo Sierra MD failure 02/13/2019 I12.0 Hypertensive chronic kidney disease with Karthik Ornelas MD stage 5 chronic kidney disease or end stage renal disease 02/13/2019 E11.22 Type 2 diabetes mellitus with diabetic Karthik Ornelas MD chronic kidney disease 02/13/2019 N18.5 Chronic kidney disease, stage 5 Karthik Ornelas MD 02/13/2019 E87.70 Fluid overload, unspecified Karthik Ornelas MD 02/13/2019 E78.2 Mixed hyperlipidemia Karthik Ornelas MD 02/13/2019 I10 Essential (primary) hypertension Karthik Ornelas MD 02/13/2019 I12.9 Hypertensive chronic kidney disease with Karthik Ornelas MD stage 1 through stage 4 chronic kidney disease, or unspecified chronic kidney disease 02/09/2019 N18.5 Chronic kidney disease, stage 5 Karthik Ornelas MD 02/09/2019 E87.70 Fluid overload, unspecified Karthik Ornelas MD 02/09/2019 I13.2 Hypertensive heart and chronic kidney ARCENIO Bennett disease with heart failure and with stage 5 chronic kidney disease, or end stage renal disease 02/09/2019 I50.20 Unspecified systolic (congestive) heart ARCENIO Bennett failure 02/09/2019 E11.22 Type 2 diabetes mellitus with diabetic ARCENIO Bennett chronic kidney disease 02/09/2019 N18.5 Chronic kidney disease, stage 5 ARCENIO Bennett 02/08/2019 I50.20 Unspecified systolic (congestive) heart ARCENIO Bennett failure 02/08/2019 I13.2 Hypertensive heart and chronic kidney Rosamaria Johnson MD disease with heart failure and with stage 5 chronic kidney disease, or end stage renal disease 02/08/2019 R91.8 Other nonspecific abnormal finding of ARCENIO Bennett lung field 02/08/2019 E11.22 Type 2 diabetes mellitus with diabetic Rosamaria Johnson MD chronic kidney disease 02/08/2019 E11.21 Type 2 diabetes mellitus with diabetic ARCENIO Bennett nephropathy 02/08/2019 N18.5 Chronic kidney disease, stage 5 Rosamaria Johnson MD 02/08/2019 I50.23 Acute on chronic systolic (congestive) Rosamaria Johnson MD heart failure 02/08/2019 E87.70 Fluid overload, unspecified Rosamaria Johnson MD 02/08/2019 E11.40 Type 2 diabetes mellitus with diabetic Rosamaria Johnson MD neuropathy, unspecified 02/08/2019 D63.1 Anemia in chronic kidney disease Rosamaria Johnson MD 02/08/2019 I27.20 Pulmonary hypertension, unspecified Rosamaria Johnson MD 02/07/2019 I50.33 Acute on chronic diastolic (congestive) Kayla Queen MD heart failure 02/07/2019 Z78.9 Other specified health status Kayla Queen MD 02/07/2019 I13.2 Hypertensive heart and chronic kidney Rosamaria Johnson MD disease with heart failure and with stage 5 chronic kidney disease, or end stage renal disease 02/07/2019 I50.21 Acute systolic (congestive) heart Rosamaria Johnson MD failure 02/07/2019 E11.22 Type 2 diabetes mellitus with diabetic Rosamaria Johnson MD chronic kidney disease 02/07/2019 N18.5 Chronic kidney disease, stage 5 Rosamaria Johnson MD 02/07/2019 D63.1 Anemia in chronic kidney disease Rosamaria Johnson MD 02/07/2019 E11.40 Type 2 diabetes mellitus with diabetic Rosamaria Johnson MD neuropathy, unspecified 02/07/2019 I27.20 Pulmonary hypertension, bhavaniified Rosamaria Johnson MD 02/06/2019 I13.2 Hypertensive heart and chronic kidney Rosamaria Johnson MD disease with heart failure and with stage 5 chronic kidney disease, or end stage renal disease 02/06/2019 I50.33 Acute on chronic diastolic (congestive) Christel Contreras D.O. heart failure 02/06/2019 I50.21 Acute systolic (congestive) heart Rosamaria Johnson MD failure 02/06/2019 E11.22 Type 2 diabetes mellitus with diabetic Rosamaria Johnson MD chronic kidney disease 02/06/2019 N18.5 Chronic kidney disease, stage 5 Rosamaria Johnson MD 02/06/2019 I95.89 Other hypotension Rosamaria Johnson MD 02/06/2019 I50.9 Heart failure, unspecified Kam Harris M.D. 02/05/2019 I13.2 Hypertensive heart and chronic kidney Leatha Vaca NP disease with heart failure and with stage 5 chronic kidney disease, or end stage renal disease 02/05/2019 E11.22 Type 2 diabetes mellitus with diabetic Leatha Vaca NP chronic kidney disease 02/05/2019 N18.6 End stage renal disease Leatha Vaca NP 02/05/2019 I50.9 Heart failure, unspecified Leatha Vaca NP 01/30/2019 E11.22 Type 2 diabetes mellitus with diabetic Nurse Visit Endocrinology chronic kidney disease 01/30/2019 N18.4 Chronic kidney disease, stage 4 (severe) Nurse Visit Endocrinology 01/23/2019 I12.0 Hypertensive chronic kidney disease with Karthik Ornelas MD stage 5 chronic kidney disease or end stage renal disease 01/23/2019 N18.5 Chronic kidney disease, stage 5 Karthik Ornelas MD 01/23/2019 E11.22 Type 2 diabetes mellitus with diabetic Karthik Ornelas MD chronic kidney diseas 01/23/2019 Z79.4 physical therapy aid (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 of insulin Karthik Ornelas MD [...] Loki Johnson MD chronic kidney diseas 01/17/2019 N18.4 Chronic kidney disease, stage 4 (severe) Loki Johnson MD 01/17/2019 Z79.4 custodial (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 of insulin Loki Johnson MD 12/21/2018 I12.0 Hypertensive chronic kidney disease with Karthik Ornelas MD stage 5 chronic kidney disease or end stage renal disease 12/21/2018 N18.5 Chronic kidney disease, stage 5 Karthik Ornelas MD 12/21/2018 E11.22 Type 2 diabetes mellitus with diabetic Karthik Ornelas MD chronic kidney diseas 12/21/2018 Z79.4 physical therapy aid (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 of insulin Karthik Ornelas MD [...] 12/07/2018 E11.65 Type 2 diabetes mellitus with Karthik Ornelas MD hyperglycemia 12/07/2018 Z79.4 physical therapy aid (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 of insulin Karthik Ornelas MD 10/19/2018 E11.22 Type 2 diabetes mellitus with jass Johnson MD chronic kidney diseas 10/19/2018 N18.5 Chronic kidney disease, stage 5 Loki Johnson MD 10/19/2018 E11.65 Type 2 diabetes mellitus with Loki Johnson MD hyperglycemia 10/19/2018 Z79.4 physical therapy aid (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 of insulin Loki Johnson MD 09/21/2018 N18.6 End stage renal disease Manda Marker, RPA-C 09/21/2018 E11.22 Type 2 diabetes mellitus with diabetic Manda Marker, RPA -C chronic kidney diseas 09/21/2018 Z79.4 physical therapy aid (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 of insulin Manda Marker, RPA-C 09/21/2018 E11.649 Type 2 diabetes mellitus with Manda Marker, RPA-C hypoglycemia without coma Plan of Treatment Future Appointment(s):08/23/2019 11:20 am - Romel Saldana DO FACC at [facility]04/16/2019 11:20 am - Deo Sierra MD at [facility] - [address] 05/28/2018 11:00 am - Loki Johnson MD at [facility]02/26/2019 - Romel Saldana, DO FACC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 infarctionComments:Have a lipid panel checked with your next routine blood work. Just take the lab slip with you and have them add it and send a copy to us.Follow up:6 ysfulxE88.5 Chronic kidney disease, stage 5E11.22 Type 2 diabetes mellitus with diabetic chronic kidney [id number] Essential (primary) [id number] Mixed sbjreenakevdyjX09.40 Unspecified combined systolic ( congestive) and diastolic (congestive) heart failure Functional Status Description No Information Available Mental Status Description No Information Available Referrals Refer to Dr Reason for Referral Status Appt Date Romel Giles MD Dr. Bollo agreed to place PD Catheter next Tuesday Created 02/16. Please schedule on his clinic schedule for 02/15 She'll need PD very soon [place] [address] [facility] [id number] [phone] Jay Rodriguez MD CKD 5 for AVF Sent [address] [place] [address] [phone]
--- OUTSIDE RECORDS SUMMARY | 2019-04-11 11:15 | XMS REPORT | Continuity of Care Document ---
:1950 External Reference #:[id number] Author Name Romel Giles MD, FACS (transmitted by agent of provider Jame Marte) Address [address] [place] [address] [place] [address] Care Team Providers Name Role Phone Selene Galo MD - Internal Medicine Care Team Information Labor Utilization Superintendent Franci Hart MD - Nephrology Care Team Information Labor Utilization Superintendent Romel Giles MD - Surgery Care Team Information Labor Utilization Superintendent [phone] Deo Sierra MD - Hospitalist Care Team Information Labor Utilization Superintendent [phone] Problems Description No Information Available Social History [...] Medications SIG Qnty Indications Ordering Date Provider Renvela 1 tab po 3 times 90units N18.5 [...] Tablets Atorvastatin Calcium 1 by mouth every Unknown day at 5 pm 80mg Tablets Torsemide 1 by mouth every Unknown 20mg day Tablets Metoprolol Succinate 1 by mouth once Unknown ER daily 50mg Tablets ER 24HR Onetouch Ultra Blue [...] Vital Signs Date Vital Result Comment 02/26/2019 9:40am Heart Rate 66 /min BP Systolic Sitting 112 mmHg BP Diastolic Sitting 58 mmHg Respiratory Rate 16 /min Body Temperature 97.2 F 02/22/2019 2:07pm Height 64 inches 5'4" Weight 132.00 lb Heart Rate 65 /min BP Systolic Sitting 107 mmHg L arm BP Diastolic Sitting 64 mmHg L arm O2 % BldC Oximetry 97 % BMI (Body Mass Index) 22.7 kg/m2 Results Test Acquired Date Facility Test Result H/L Range Note Comp Metabolic 02/22/2019 [facility] Sodium 133 mmol/L Low 135 -[address] [place] [address] [phone] Potassium 3.6 mmol/L Normal 3.5-5.0 Chloride 93 [...] Egfr Non- 6.2 >60 Egfr 7.5 >60 1 Pthi 02/22/2019 [facility] Calcium (PTH 9.6 mg/dL Normal 8.6- 10.[address] Intact) [place], [place] [id number] [phone] PTH Intact 168.5 pg/mL High 12-88 Neph Routine 02/19/2019 [facility] Total Protein Random 123 mg/ dL [address] [place] [address] [phone] Creatinine Random Urine 76.76 mg/dL CBC Auto 02/19/2019 [facility] White Blood 10.4 10^3/uL Normal 3.5-10.[address] [place] [address] [phone] Red Blood Count 4.13 10^6/uL Normal 3.70-4.87 [...] Red Blood Cells % 0.0 Basic Metabolic 02/19/2019 [facility] Sodium 133 mmol/L Low 135-145 Panel [address] [place] [address] [phone] Potassium 3.7 mmol/L Normal 3.5-5.0 Chloride 94 mmol/L Low 101-111 Co2 Carbon Dioxide 20 mmol/L Low 22-32 Anion Gap 19 mmol/L High 2-11 Glucose 315 mg/dL High 70-100 Creatinine 7.26 mg/dL High 0.51-0.95 Egfr Non- 5.6 >60 Egfr 6.7 >60 2 Blood Urea Nitrogen 135 mg/dL High 6-24 BUN/Creatinine Ratio 18.6 Normal 8-20 Urinalysis Profile 02/19/2019 [facility] Urine Color Yellow [address] [place] [address] [phone] Urine Appearance Turbid Urine Specific [place] 1.012 Normal 1.010-1.030 Urine pH 5.0 Normal [...] Absent Urine Hyaline Casts Present Abnormal Absent Laboratory test 02/19/2019 [facility] Albumin 4.1 g/dL Normal 3.2-5.[address] [place] [address] [phone] B-Type Natriuretic Peptide BNP 686 pg/mL High <=100 Phosphorus 8.6 mg/dL High 2.5-5.0 Calcium 9.6 mg/dL Normal 8.6-10.3 Urine Culture 02/19/2019 [facility] Urine Culture SEE [address] [place] [address] BELOW [phone] Laboratory test 02/16/2019 [facility] Point of Care 323 mg/dL High 70-100 [address] [place] [address] [phone] Laboratory test 02/16/2019 [facility] Potassium 4.0 Normal 3.5 -5.0 5, finding [address] mmol/L 6 [place] [address] [phone] Laboratory test 02/16/2019 [facility] Point of Care 312 mg/dL High 70-100 [address] [place] [address] [phone] Laboratory test 02/16/2019 [facility] Point of Care 175 mg/dL High 70-100 [address] [place] [address] [phone] Urine Culture 02/15/2019 [facility] Urine Culture SEE [address] [place] [address] BELOW [phone] Laboratory test 02/15/2019 [facility] B-Type 562 pg/mL High <= [address] [place] [address] Peptide BNP [phone] Quantiferon-TB 02/15/2019 [facility] QuantiferonTb Negative Negative 10 Gold Plus [address] [place] [address] Result [phone] TB1 Ag minus Nil Result 0.01 IU/mL TB2 Ag minus Nil Result 0.01 IU/mL Mitogen minus Nil Result 3.16 IU/mL Nil Result 0.02 IU/mL Laboratory test 02/15/2019 [facility] Calcium 9.4 mg/dL Normal 8.6-10.[address] [place] [address] [phone] Hepatitis B Core AB Total Negative Negative 11 Hepatitis B Surface Ag Nonreactive Nonreactive Hepatitis B Madie AB Titer Not Immune Abnormal Immune Pthi 02/15/2019 [facility] Calcium (PTH 9.4 mg/dL Normal 8.6- 10.[address] Intact) [place] [address] [phone] PTH Intact 228.1 pg/mL High 12-88 Laboratory test 02/15/2019 [facility] Albumin 4.2 g/dL Normal 3.2-5.2 finding [address] [place] [address] [phone] Phosphorus 8.7 mg/dL High 2.5-5.0 Urinalysis Profile 02/15/2019 [facility] Urine Color Yellow [address] [place] [address] [phone] Urine Appearance Turbid Urine Specific [place] 1.011 Normal 1.010-1.030 Urine pH 5.0 Normal [...] Epithelial Cell Present Abnormal Absent Basic Metabolic 02/15/2019 [facility] Sodium 134 mmol/L Low 135-[address] [facility] [place] [address] [phone] Potassium 3.9 mmol/L Normal 3.5-5.0 Chloride 99 mmol/L Low 101-111 Co2 Carbon Dioxide 20 mmol/L Low 22-32 Anion Gap 15 mmol/L High 2-11 Glucose 273 mg/dL High 70-100 Creatinine 6.92 mg/dL High 0.51-0.95 Egfr Non- 5.9 >60 Egfr 7.1 >60 12 Blood Urea Nitrogen 144 mg/dL High 6-24 BUN/Creatinine Ratio 20.8 High 8-20 CBC Auto 02/15/2019 [facility] White Blood 9.8 10^3/uL Normal 3.5-10.[address] [place] [address] [phone] Red Blood Count 4.05 10^6/uL Normal 3.70-4.87 [...] % Nucleated Red Blood Cells % 0.0 Neph Routine 02/15/2019 [facility] Total Protein Random 183 mg/ dL [address] [place] [address] [phone] Creatinine Random Urine 68.74 mg/dL Neph Routine 02/13/2019 [facility] Total Protein Random 141 mg/ dL [address] [place] [address] [phone] Creatinine Random Urine 57.19 mg/dL CBC Auto 02/13/2019 [facility] White Blood 9.5 10^3/uL Normal 3.5-10.[address] [place] [address] [phone] Red Blood Count 4.18 10^6/uL Normal 3.70-4.87 [...] Blood Cells % 0.0 Basic Metabolic 02/13/2019 [facility] Sodium 135 mmol/L Normal 135-145 Panel [address] [place] [address] [phone] Potassium 4.3 mmol/L Normal 3.5-5.0 Chloride 98 mmol/L Low 101-111 Co2 Carbon Dioxide 20 mmol/L Low 22-32 Anion Gap 17 mmol/L High 2-11 Glucose 186 mg/dL High 70-100 Blood Urea Nitrogen 120 mg/dL High 6-24 Creatinine 6.55 mg/dL High 0.51-0.95 BUN/Creatinine Ratio 18.3 Normal 8-20 Calcium 9.8 mg/dL Normal 8.6-10.3 Egfr Non- 6.3 >60 Egfr 7.6 >60 13 Urinalysis Profile 02/13/2019 [facility] Urine Color Yellow [address] [place] [address] [phone] Urine Appearance Turbid Urine Specific [place] 1.010 Normal 1.010-1.030 Urine pH 5.0 Normal [...] 1+ Abnormal Absent Urine Culture And 02/13/2019 [facility] Urine SEE RESULT [address] [place] [place] [address] [phone] Urine Culture And 01/22/2019 [facility] Urine SEE RESULT [address] [place] [place] [address] [phone] Basic Metabolic 01/22/2019 [facility] Sodium 136 mmol/L Normal 135- Panel [address] [place] [address] [phone] Potassium 4.9 mmol/L Normal 3.5-5.0 Chloride 106 mmol/L Normal 101-111 Co2 Carbon Dioxide 22 mmol/L Normal 22-32 Anion Gap 8 mmol/L Normal 2-11 Glucose 255 mg/dL High 70-100 Blood Urea Nitrogen 60 mg/dL High 6-24 Creatinine 4.11 mg/dL High 0.51-0.95 BUN/Creatinine Ratio 14.6 Normal 8-20 Calcium 9.5 mg/dL Normal 8.6-10.3 Egfr Non- 10.7 >60 Egfr 13.0 >60 16 Urinalysis Profile 01/22/2019 [facility] Urine Color Yellow [address] [place] [address] [phone] Urine Appearance Clear Urine Specific [place] 1.011 Normal 1.010-1.030 Urine pH 5.0 Normal 5-9 Urine Urobilinogen Negative Negative Urine Ketones Negative Negative Urine Protein 2+(100 mg/dL) Abnormal Negative Urine Leukocytes Negative Negative Urine Blood Negative Negative * * Abnormal Negative 17 Urine Nitrite Negative Negative Urine Bilirubin Negative Negative Urine Glucose 3+(>=500 mg/dL) Abnormal Negative Urine White Blood Cell Trace(0-5/hpf) Absent Urine Red Blood Cell Absent Absent Urine Bacteria Absent Absent Urine Squamous Epithelial Cell Present Abnormal Absent CBC Auto 01/22/2019 [facility] White Blood 8.0 10^3/uL Normal 3.5-10.[address] [place] [address] [phone] Red Blood Count 3.86 10^6/uL Normal 3.70-4.87 [...] % Nucleated Red Blood Cells % 0.0 Neph Routine 01/22/2019 [facility] Total Protein Random 131 mg/ dL [address] [place] [address] [phone] Creatinine Random Urine 61.80 mg/dL Urinalysis Profile 12/18/2018 [facility] Urine Color Yellow [address] [place] [address] [phone] Urine Appearance Cloudy Urine Specific [place] 1.013 Normal 1.010-1.030 Urine pH 5.0 Normal [...] Cell Present Abnormal Absent CBC Auto 12/18/2018 [facility] White Blood 8.1 10^3/uL Normal 3.5-10.[address] [place] [address] [phone] Red Blood Count 3.85 10^6/uL Normal 3.70-4.87 [...] Blood Cells % 0.1 Basic Metabolic 12/18/2018 [facility] Sodium 139 mmol/L Normal 135-[address] [place] [address] [phone] Chloride 108 mmol/L Normal 101-111 Co2 Carbon Dioxide 23 mmol/L Normal 22-32 Glucose 74 mg/dL Normal 70-100 Blood Urea Nitrogen 69 mg/dL High 6-24 Creatinine 3.95 mg/dL High 0.51-0.95 BUN/Creatinine Ratio 17.5 Normal 8-20 Calcium 9.5 mg/dL Normal 8.6-10.3 Egfr Non- 11.2 >60 Egfr 13.6 >60 18 Potassium 5.4 mmol/L High 3.5-5.0 Anion Gap 8 mmol/L Normal 2-11 Laboratory test 12/18/2018 [facility] Total Protein 181 mg/dL finding [address] [place] [address] [phone] Creatinine Random Urine 79.59 mg/dL Pthi 12/18/2018 [facility] Calcium (PTH 9.4 mg/dL Normal 8.6- 10.[address] Intact) [place] [address] [phone] PTH Intact 110.1 pg/mL High 12-88 Urine Culture 12/18/2018 [facility] Urine Culture SEE [address] [place] [address] BELOW [phone] Laboratory test 12/18/2018 [facility] Hemoglobin A1c 7.2 % High 4.0-[address] (Glyco HGB) .6 [place] [address] [phone] Laboratory test 12/18/2018 [facility] Fructosamine 389 Abnormal 200 - [address] mcmol/L 285 [place] [address] [phone] Laboratory test 10/19/2018 [facility] Fructosamine 526 Abnormal 200 - [address] mcmol/L 285 [place] [address] [phone] Comp Metabolic 10/19/2018 [facility] Sodium 137 Normal 135-[address] mmol/L 45 [place] [address] [phone] Potassium 4.5 mmol/L Normal 3.5-5.0 Chloride 105 [...] Egfr Non- 11.1 >60 Egfr 13.5 >60 23 Laboratory 10/19/2018 [facility] TSH (Thyroid 2.22 Normal 0.34 -5.60 test finding [address] Stim Horm) mcIU/[place] [address] [phone] Hemoglobin A1c (Glyco HGB) 9.6 % High 4.0-5.6 24 1 Because ethnic data is not always [...] [address]: Karthik Ornelas MD Acct: [id number] Unit: [id number] AGE: 68 Location: LAB Re02/19/19 SEX: F Status: REG REF SPEC: [id number] IVON: 02/19/19-12[address] [facility] [address]: Karthik Ornelas MD REQ: [id number] RECD: 02/19/19 STATUS:COMP _ SOURCE: URINE SPDESC: ORDERED: Urine Culture Procedure Result Reported Site Urine Culture Final 02/20/19- 1320 ML No Growth (<1,000 CFU/mL) * ML - Main Lab . END OF REPORT DEPARTMENT OF PATHOLOGY, [address] [place] [address] Shakeel Song M.D. Director [facility] # [id number] 4 Land Surveyor: [id number] Comment: when arrives for OR 6 Comment: when arrives for OR 7 Land Surveyor: [id number] Land Surveyor: [id number] 9 SEE RESULT BELOW Name: JOSÉ TOLBERT : [address]: Karthik Ornelas MD Acct: [id number] Unit: [id number] AGE: 68 Location: LAB Re02/15/19 SEX: F Status: REG REF SPEC: [id number] IVON: 02/15/[address]: Karthik Ornelas MD REQ: [id number] RECD: 02/15/19 STATUS:COMP _ SOURCE: URINE SPDESC: ORDERED: Urine Culture Procedure Result Reported Site Urine Culture Final 02/17/19 0839 ML Organism 1 KLEBSIELLA PNEUMONIAE [place] Count >100,000 (Many) CFU/ML 1. KLEBSIELLA PNEUMONIAE [...] . END OF REPORT DEPARTMENT OF PATHOLOGY, [address] [place] [address] Shakeel Song M.D. Director [facility] # [id number] 10 M. tuberculosis infection NOT likely 11 Test Performed by: [facility] [place] [address] Mathematical Sciences Professor: Andres Little M.D. Ph.D.; IA# [id number] 12 Because ethnic data is not always [...] 5 Kidney failure <15 (or dialysis) 13 Because ethnic data is not always readily [...] 15-29 5 Kidney failure <15 (or dialysis) 14 SEE RESULT BELOW Name: JOÉS TOLBERT : [address]: Karthik Ornelas MD Acct: [id number] Unit: [id number] AGE: 68 Location: LAB Re02/13/19 SEX: F Status: REG REF SPEC: [id number] IVON: 02/13/19-[address]: Karthik Ornelas MD REQ: [id number] RECD: 02/13/195899 STATUS:COMP _ SOURCE: URINE SPDESC: ORDERED: Urine Culture Procedure Result Reported Site Urine Culture Final 02/15/19- 1007 ML Organism 1 KLEBSIELLA PNEUMONIAE [place] Count >100,000 (Many) CFU/ML 1. KLEBSIELLA PNEUMONIAE [...] . END OF REPORT DEPARTMENT OF PATHOLOGY, [address] [place] [address] Shakeel Song M.D. Director [facility] # [id number] 15 SEE RESULT BELOW Name: JOSÉ TOLBERT : [address]: Karthik Ornelas MD Acct: [id number] Unit: [id number] AGE: 68 Location: LAB Re01/22/19 SEX: F Status: REG REF SPEC: [id number] IVON: 01/22/19-[address] [facility] [address]: Karthik Ornelas MD REQ: [id number] RECD: 01/22/19 STATUS: COMP _ SOURCE: URINE [facility]: ORDERED: Urine Culture Procedure Result Reported Site Urine Culture Final 01/24/19925 ML No growth of clinically significant organisms * ML - Main Lab . END OF REPORT DEPARTMENT OF PATHOLOGY, [address] [place] [address] Shakeel Song M.D. Director [facility] # [id number] 16 Because ethnic data is not always readily [...] 15-29 5 Kidney failure <15 (or dialysis) 17 *Ascorbic acid is present which may interfere with detection of blood. 18 Because ethnic data is not always readily [...] 15-29 5 Kidney failure <15 (or dialysis) 19 SEE RESULT BELOW Name: JOSÉ TOLBERT : [address]: Dia Yoder NP, CNM Acct: [id number] Unit: [id number] AGE: 68 Location: LAB Re12/18/18 SEX: F Status: REG REF SPEC: [id number] IVON: 12/18/18-[address]: Karthik Ornelas MD REQ: [id number] RECD: 12/18/185174 STATUS: COMP OT : Dia Yoder NP, CNM _ SOURCE: URINE SPDESC: ORDERED: Urine Culture Procedure Result Reported Site Urine Culture Final 12/19/18- 1616 ML No growth of clinically significant organisms * ML - Main Lab . END OF REPORT DEPARTMENT OF PATHOLOGY, [address] [place] [address] Shakeel Song M.D. Director [place] # [id number] 20 Therapeutic target for the treatment of diabetes mellitus patients is <7% HBA1C, and in selective patients <6.0%. Please refer to [employer] diabetic care guidelines for further information. 21 Test Performed by: [place] [address] Mathematical Sciences Professor: Andres Little M.D. Ph.D.; CLIA# [id number] 22 Test Performed by: [address] [address] 23 Because ethnic data is not always readily [...] 15-29 5 Kidney failure <15 (or dialysis) 24 Therapeutic target for the treatment of diabetes mellitus patients is <7% HBA1C, and in selective patients <6.0%. Please refer to [employer] diabetic care guidelines for further information. Procedures Date Code Description Status 02/16/2019 26956 Insert Intraperitoneal Cannula/Catheter Permanent Completed 02/16/2019 98229 Insert Intraperitoneal Cannula/Catheter Permanent Completed 02/09/2019 04431 Treadmill Interp/Report Only Completed 02/09/2019 44617 Stress Test Supervsn W/Out I/R Completed 02/06/2019 71276 ECHO Transthorasic Realtime 2D W Doppler & Color Flow Hosp Completed 01/30/2019 96282 Glucose Monitoring Interpetation And Report Completed Medical Devices Description No Information Available Encounters Type Date Location Provider Dx Diagnosis Office Visit 02/[facility] Romel Giles, N18.6 End stage renal 10:45a Of Ankur ALVAREZ, FACS disease Office Visit 02/09/2019 [facility] Nephrology Karthik French N18.5 Chronic kidney 3:27p MD Johnson disease, stage 5 E87.70 Fluid overload, unspecified Office Visit 02/08/2019 [facility] I50.20 Unspecified 9:17a Assoc,pc ARCENIO Gould systolic Hospitalists (congestive) heart failure R91.8 Other nonspecific abnormal finding of lung field E11.21 Type 2 diabetes mellitus with diabetic nephropathy Office Visit 02/08/2019 8:36a [facility] Nephrology Rosamaria Johnson, I13.2 Hyp hrt & chr lala ALVAREZ dis w hrt fail and w stg 5 chr kdclare/Esrd E11.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 N18.5 Chronic kidney disease, stage 5 I50.23 Acute on chronic systolic (congestive) heart failure E87.70 Fluid overload, unspecified E11.40 Type 2 diabetes mellitus with diabetic neuropathy, unsp D63.1 Anemia in chronic kidney disease I27.20 Pulmonary hypertension, unspecified Office Visit 02/07/2019 [facility] Kayla I50.33 Acute on chronic 9:17a Assoc,pc MD Bret diastolic Hospitalists (congestive) heart failure Z78.9 Other specified health status Office Visit 02/07/2019 8:54a [facility] Nephrology Rosamaria Johnson, I13.2 Hyp hrt & chr 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 I50.21 Acute systolic (congestive) heart failure E11.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 N18.5 Chronic kidney disease, stage 5 D63.1 Anemia in chronic kidney disease E11.40 Type 2 diabetes mellitus with diabetic neuropathy, unsp I27.20 Pulmonary hypertension, unspecified [facility] I[facility]33 Acute on chronic 9:16a Assoc,pc Ingrid Contreras diastolic Hospitalists (congestive) heart failure Office Visit 02/06/2019 [facility] Nephrology Rosamaria Johnson, I13.2 Hyp hrt & chr kdny 8:54a dis w hrt fail and w stg 5 chr kdny/Esrd I50.21 Acute systolic (congestive) heart failure E11.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 N18.5 Chronic kidney disease, stage 5 I95.89 Other hypotension Office Visit 02/05/2019 9:16a [facility] Leatha Vaca, I13.2 Hyp hrt & chr Assoc,pc DISBURSING AGENT kdny dis w hrt Hospitalists fail and w stg 5 chr kdny/Esrd E11.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 N18.6 End stage renal disease I50.9 Heart failure, unspecified Office Visit 01/23/2019 1:00p [facility] Nephrology Karthik French 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 Z79.4 assisted (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 of insulin E78.5 Hyperlipidemia, unspecified E87.5 Hyperkalemia I10 Essential (primary) hypertension I12.9 Hypertensive chronic kidney disease w stg 1-4/unsp chr kdny Office Visit 01/17/2019 11:00a [facility] Manjarrez Coch, E11.22 Type 2 diabetes [facility] MD mellitus w diabetic chronic kidney disease N18.4 Chronic kidney disease, stage 4 (severe) Z79.4 assisted (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 of insulin Office Visit 12/21/2018 11:00a [facility] Nephrology Karthik French 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 Z79.4 superintendent terminal (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 of insulin E78.5 Hyperlipidemia, unspecified E87.5 Hyperkalemia I10 Essential (primary) hypertension Office Visit 12/12/2018 11:30a [facility] Dia Yoder, E11.22 Type 2 [facility] GAMBLING MONITOR-Cde diabetes mellitus w diabetic chronic kidney disease N18.5 Chronic kidney disease, stage 5 Office Visit 12/07/2018 11:00a [facility] Nephrology Karthik French N18.5 Chronic kidney MD Johnson disease, stage 5 E11.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 E11.65 Type 2 diabetes mellitus with hyperglycemia Z79.4 superintendent terminal (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 of insulin Office Visit 10/19/2018 2:00p [facility] Loki Johnson, E11.22 Type 2 diabetes [facility] MD mellitus w diabetic chronic kidney disease N18.5 Chronic kidney disease, stage 5 E11.65 Type 2 diabetes mellitus with hyperglycemia Z79.4 assisted (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 of insulin Office Visit 09/21/2018 1:00p [facility] Manda N18.6 End stage [facility] Marker, 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 Z79.4 assisted (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 of insulin E11.649 Type 2 diabetes mellitus with hypoglycemia without coma Assessments Date Code Description Provider 02/26/2019 N18.6 End stage renal disease Romel iGles MD, FACS 02/22/2019 N18.5 Chronic kidney disease, stage 5 [...] E11.22 Type 2 diabetes mellitus with diabetic Rosmaaria Johnson MD chronic kidney disease 02/08/2019 E11.21 [...] Ornelas MD chronic kidney diseas 01/23/2019 Z79.4 superintendent terminal (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 of insulin Karthik Ornelas MD [...] 4 (severe) Loki Johnson MD 01/17/2019 Z79.4 assisted (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 of insulin Loki Johnson MD 12/21/2018 I12.0 Hypertensive chronic kidney disease with Karthik Ornelas MD stage 5 chronic kidney disease or end stage renal disease 12/21/2018 N18.5 Chronic kidney disease, stage 5 Karthik Ornelas MD 12/21/2018 E11.22 Type 2 diabetes mellitus with diabetic Karthik Ornelas MD chronic kidney diseas 12/21/2018 Z79.4 superintendent terminal (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 of insulin Karthik Ornelas MD [...] with Karthik Ornelas MD hyperglycemia 12/07/2018 Z79.4 superintendent terminal (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 of insulin Karthik Ornelas MD 10/19/2018 E11.22 Type 2 diabetes mellitus with diabetic Loki Johnson MD chronic kidney diseas 10/19/2018 N18.5 Chronic kidney disease, stage 5 Loki Johnson MD 10/19/2018 E11.65 Type 2 diabetes mellitus with Loki Johnson MD hyperglycemia 10/19/2018 Z79.4 assisted (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 of insulin Loki Johnson MD 09/21/2018 N18.6 End stage renal disease Manda Marker, RPA-C 09/21/2018 E11.22 Type 2 diabetes mellitus with diabetic Manda Marker, RPA -C chronic kidney diseas 09/21/2018 Z79.4 assisted (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 of insulin Manda Marker, RPA-C 09/21/2018 E11.649 Type 2 diabetes mellitus with Manda Marker, RPA-C hypoglycemia without coma Plan of Treatment Future Appointment(s):04/16/2019 11:20 am - Deo Sierra MD at [facility] Internal Medicine - [address]/28/2018 11:00 am - Loki Johnson MD at [facility]02/26/2019 - Romel Giles MD, FACSN18.6 End stage renal diseaseFollow up:With your edge brusher.Instructions:Antibiotic ointment, gauze , paper tape Functional Status Description No Information Available Mental Status Description No Information Available Referrals Refer to Dr Reason for Referral Status Appt Date Romel Giles MD Dr. Bollo agreed to place PD Catheter next Tuesday Created 02/16. Please schedule on his clinic schedule for 02/15 She'll need PD very soon [place] [address] [facility] [id number] [phone] Jay Rodriguez MD CKD 5 for [facility] [address] [place], [place] [id number] [phone]
--- OUTSIDE RECORDS SUMMARY | 2019-04-11 11:15 | XMS REPORT | Continuity of Care Document ---
:1950 External Reference #:[id number] Author Name Karthik Ornelas MD (transmitted by agent of provider Marybeth Patel) Address [address] [address] Care Team Providers Name Role Phone Selene Galo MD - Internal Medicine Care Team Information [facility] [phone] Franci Hart MD - Nephrology Care Team Information [facility] Romel Giles MD - Surgery Care Team Information [facility] [phone] Deo Sierra MD - Hospitalist Care Team Information [facility] [employer] [phone] Problems Description No Information Available Social History Type Date Description Comments Sex Unknown Tobacco Use Start: Unknown Never Smoked Cigarettes Smoking Status Reviewed: 02/22/19 Never Smoked Cigarettes ETOH Use Never used alcohol Tobacco Use Start: Unknown Patient has never smoked Recreational Drug Use Never Used Drugs Exercise Type/Frequency Exercises sporadically Allergies, Adverse Reactions, Alerts Active Allergies Reaction Severity Comments Date Shellfish-Derived Products Difficulty breathing 07/21/2018 Medications Active Medications SIG Qnty Indications Ordering Date Provider Renvela 1 tab po 3 times 90units N18.5 Karthik French 02/13/2019 0.8gm Packet daily with meals MD [...] Capsules Novolin 70/30 30 minutes before 15ml E11.Maritza Johnson MD 09/21/2018 - Flexpen breakfast: 16 09/21/2018 units 30 minutes (70-30)100Unit/ML before dinner: 12 Supn units Novolog Mix 70/30 Take 28 units in 15ml E11.Maritza Johnson MD 09/21/2018 - Prefilled Flexpen the morning and 09/25/2018 10 units at (70-30)100Unit/ML night. Supn Immunizations Description No Information Available Vital Signs Date Vital Result Comment 02/22/2019 2:07pm Height 64 inches 5'4" Weight 132.00 lb Heart Rate 65 /min BP Systolic Sitting 107 mmHg L arm BP Diastolic Sitting 64 mmHg L arm O2 % BldC Oximetry 97 % BMI (Body Mass Index) 22.7 kg/m2 02/19/2019 1:58pm Height 64 inches 5'4" Weight 132.00 lb Heart Rate 72 /min BP Systolic Sitting 108 mmHg R arm BP Diastolic Sitting 58 mmHg R arm O2 % BldC Oximetry 100 % BMI (Body Mass Index) 22.7 kg/m2 Results Test Acquired Date Facility Test Result H/L Range Note Comp Metabolic 02/22/2019 [facility] Sodium 133 mmol/L Low 135 -[address] [place] [address] [phone] Potassium 3.6 mmol/L Normal 3.5-5.0 Chloride 93 [...] >60 Egfr 7.5 >60 1 Pthi 02/22/2019 [facility] Calcium (PTH 9.6 mg/dL Normal 8.6- 10.[address] Intact) [place], [place] [id number] [phone] PTH Intact 168.5 pg/mL High 12-88 Neph Routine 02/19/2019 [facility] Total Protein Random 123 mg/ dL [address] [place] [address] [phone] Creatinine Random Urine 76.76 mg/dL CBC Auto 02/19/2019 [facility] White Blood 10.4 10^3/uL Normal 3.5-10.[address] [place] [address] [phone] Red Blood Count 4.13 10^6/uL Normal 3.70-4.87 [...] Blood Cells % 0.0 Basic Metabolic 02/19/2019 [facility] Sodium 133 mmol/L Low 135-[address] [place] [address] [phone] Potassium 3.7 mmol/L Normal 3.5-5.0 Chloride 94 mmol/L Low 101-111 Co2 Carbon Dioxide 20 mmol/L Low 22-32 Anion Gap 19 mmol/L High 2-11 Glucose 315 mg/dL High 70-100 Creatinine 7.26 mg/dL High 0.51-0.95 Egfr Non- 5.6 >60 Egfr 6.7 >60 2 Blood Urea Nitrogen 135 mg/dL High 6-24 BUN/Creatinine Ratio 18.6 Normal 8-20 Urinalysis Profile 02/19/2019 [facility] Urine Color Yellow [address] [place] [address] [phone] Urine Appearance Turbid Urine Specific Drake 1.012 Normal 1.010-1.030 Urine pH 5.0 Normal [...] Casts Present Abnormal Absent Laboratory test 02/19/2019 [facility] Albumin 4.1 g/dL Normal 3.2-5.[address] [place] [address] [phone] B-Type Natriuretic Peptide BNP 686 pg/mL High <=100 Phosphorus 8.6 mg/dL High 2.5-5.0 Calcium 9.6 mg/dL Normal 8.6-10.3 Urine Culture 02/19/2019 [facility] Urine Culture SEE [address] [place] [address] BELOW [phone] Laboratory test 02/16/2019 [facility] Point of Care 323 mg/dL High 70-100 [address] [place] [address] [phone] Laboratory test 02/16/2019 [facility] Potassium 4.0 Normal 3.5 -5.0 5, finding [address] mmol/L 6 [place] [address] [phone] Laboratory test 02/16/2019 [facility] Point of Care 312 mg/dL High 70-100 [address] [place] [address] [phone] Laboratory test 02/16/2019 [facility] Point of Care 175 mg/dL High 70-100 [address] [place] [address] [phone] Urine Culture 02/15/2019 [facility] Urine Culture SEE [address] [place] [address] BELOW [phone] Laboratory test 02/15/2019 [facility] B-Type 562 pg/mL High <= [address] [place] [address] Peptide BNP [phone] Quantiferon-TB 02/15/2019 [facility] QuantiferonTb Negative Negative 10 Gold [address] [place] [address] Result [phone] TB1 Ag minus Nil Result 0.01 IU/mL TB2 Ag minus Nil Result 0.01 IU/mL Mitogen minus Nil Result 3.16 IU/mL Nil Result 0.02 IU/mL Laboratory test 02/15/2019 [facility] Calcium 9.4 mg/dL Normal 8.6-10.[address] [place] [address] [phone] Hepatitis B Core AB Total Negative Negative 11 Hepatitis B Surface Ag Nonreactive Nonreactive Hepatitis B Madie AB Titer Not Immune Abnormal Immune Pthi 02/15/2019 [facility] Calcium (PTH 9.4 mg/dL Normal 8.6- 10.[address] DRIVE Intact) [place] [address] [phone] PTH Intact 228.1 pg/mL High 12-88 Laboratory test 02/15/2019 [facility] Albumin 4.2 g/dL Normal 3.2-5.2 [place] [address] [phone] Phosphorus 8.7 mg/dL High 2.5-5.0 Urinalysis Profile 02/15/2019 [facility] Urine Color Yellow [address] [place] [address] [phone] Urine Appearance Turbid Urine Specific Drake 1.011 Normal 1.010-1.030 Urine pH 5.0 Normal [...] Cell Present Abnormal Absent Basic Metabolic 02/15/2019 [facility] Sodium 134 mmol/L Low 135-145 Panel [address] [place] [address] [phone] Potassium 3.9 mmol/L Normal 3.5-5.0 Chloride 99 mmol/L Low 101-111 Co2 Carbon Dioxide 20 mmol/L Low 22-32 Anion Gap 15 mmol/L High 2-11 Glucose 273 mg/dL High 70-100 Creatinine 6.92 mg/dL High 0.51-0.95 Egfr Non- 5.9 >60 Egfr 7.1 >60 12 Blood Urea Nitrogen 144 mg/dL High 6-24 BUN/Creatinine Ratio 20.8 High 8-20 CBC Auto 02/15/2019 [facility] White Blood 9.8 10^3/uL Normal 3.5-10.[address] [place] [address] [phone] Red Blood Count 4.05 10^6/uL Normal 3.70-4.87 [...] Blood Cells % 0.0 Neph Routine 02/15/2019 [facility] Total Protein Random 183 mg/ dL [address] [place] [address] [phone] Creatinine Random Urine 68.74 mg/dL Neph Routine 02/13/2019 [facility] Total Protein Random 141 mg/ dL [address] [place] [address] [phone] Creatinine Random Urine 57.19 mg/dL CBC Auto 02/13/2019 [facility] White Blood 9.5 10^3/uL Normal 3.5-10.[address] [place] [address] [phone] Red Blood Count 4.18 10^6/uL Normal 3.70-4.87 [...] Blood Cells % 0.0 Basic Metabolic 02/13/2019 [facility] Sodium 135 mmol/L Normal 135-145 Panel [address] [place] [address] [phone] Potassium 4.3 mmol/L Normal 3.5-5.0 Chloride 98 mmol/L Low 101-111 Co2 Carbon Dioxide 20 mmol/L Low 22-32 Anion Gap 17 mmol/L High 2-11 Glucose 186 mg/dL High 70-100 Blood Urea Nitrogen 120 mg/dL High 6-24 Creatinine 6.55 mg/dL High 0.51-0.95 BUN/Creatinine Ratio 18.3 Normal 8-20 Calcium 9.8 mg/dL Normal 8.6-10.3 Egfr Non- 6.3 >60 Egfr 7.6 >60 13 Urinalysis Profile 02/13/2019 [facility] Urine Color Yellow [address] [place] [address] [phone] Urine Appearance Turbid Urine Specific Drake 1.010 Normal 1.010-1.030 Urine pH 5.0 Normal [...] 1+ Abnormal Absent Urine Culture And 02/13/2019 [facility] Urine SEE RESULT [address] [place] [address] [phone] Urine Culture And 01/22/2019 [facility] Urine SEE RESULT [address] [place] [address] [phone] Basic Metabolic 01/22/2019 [facility] Sodium 136 mmol/L Normal 135- Panel [address] [place] [address] [phone] Potassium 4.9 mmol/L Normal 3.5-5.0 Chloride 106 mmol/L Normal 101-111 Co2 Carbon Dioxide 22 mmol/L Normal 22-32 Anion Gap 8 mmol/L Normal 2-11 Glucose 255 mg/dL High 70-100 Blood Urea Nitrogen 60 mg/dL High 6-24 Creatinine 4.11 mg/dL High 0.51-0.95 BUN/Creatinine Ratio 14.6 Normal 8-20 Calcium 9.5 mg/dL Normal 8.6-10.3 Egfr Non- 10.7 >60 Egfr 13.0 >60 16 Urinalysis Profile 01/22/2019 [facility] Urine Color Yellow [address] [place] [address] [phone] Urine Appearance Clear Urine Specific Drake 1.011 Normal 1.010-1.030 Urine pH 5.0 Normal [...] Cell Present Abnormal Absent CBC Auto 01/22/2019 [facility] White Blood 8.0 10^3/uL Normal 3.5-10.[address] [place] [address] [phone] Red Blood Count 3.86 10^6/uL Normal 3.70-4.87 [...] Blood Cells % 0.0 Neph Routine 01/22/2019 [facility] Total Protein Random 131 mg/ dL [address] [place] [address] [phone] Creatinine Random Urine 61.80 mg/dL Urinalysis Profile 12/18/2018 [facility] Urine Color Yellow [address] [place] [address] [phone] Urine Appearance Cloudy Urine Specific Drake 1.013 Normal 1.010-1.030 Urine pH 5.0 Normal [...] Cell Present Abnormal Absent CBC Auto 12/18/2018 [facility] White Blood 8.1 10^3/uL Normal 3.5-10.[address] [place] [address] [phone] Red Blood Count 3.85 10^6/uL Normal 3.70-4.87 [...] Blood Cells % 0.1 Basic Metabolic 12/18/2018 [facility] Sodium 139 mmol/L Normal 135-[address] [place], [place] [address] [phone] Chloride 108 mmol/L Normal 101-111 Co2 Carbon Dioxide 23 mmol/L Normal 22-32 Glucose 74 mg/dL Normal 70-100 Blood Urea Nitrogen 69 mg/dL High 6-24 Creatinine 3.95 mg/dL High 0.51-0.95 BUN/Creatinine Ratio 17.5 Normal 8-20 Calcium 9.5 mg/dL Normal 8.6-10.3 Egfr Non- 11.2 >60 Egfr 13.6 >60 18 Potassium 5.4 mmol/L High 3.5-5.0 Anion Gap 8 mmol/L Normal 2-11 Laboratory test 12/18/2018 [facility] Total Protein 181 mg/dL finding [address] Random Urine [place], [place] [address] [phone] Creatinine Random Urine 79.59 mg/dL Pthi 12/18/2018 [facility] Calcium (PTH 9.4 mg/dL Normal 8.6- 10.[address] Intact) [place], [place] [address] [phone] PTH Intact 110.1 pg/mL High 12-88 Urine Culture 12/18/2018 [facility] Urine Culture SEE [address] [place] [address] BELOW [phone] Laboratory test 12/18/2018 [facility] Hemoglobin A1c 7.2 % High 4.0-5 [address] (Glyco HGB) .6 [place] [address] [phone] Laboratory test 12/18/2018 [facility] Fructosamine 389 Abnormal 200 - [address] mcmol/L 285 [place] [address] [phone] Laboratory test 10/19/2018 [facility] Fructosamine 526 Abnormal 200 - [address] mcmol/L 285 [place] [address] [phone] Comp Metabolic 10/19/2018 [facility] Sodium 137 Normal 135-[address] mmol/L 45 [place] [address] [phone] Potassium 4.5 mmol/L Normal 3.5-5.0 Chloride 105 [...] >60 Egfr 13.5 >60 23 Laboratory 10/19/2018 [facility] TSH (Thyroid 2.22 Normal 0.34 -5.60 test finding [address] Stim Horm) mcIU/[place] [address] [phone] Hemoglobin A1c (Glyco HGB) 9.6 % High [...] [address]: Karthik Ornelas MD Acct: [id number] Unit: [id number] AGE: 68 Location: LAB Re02/19/19 SEX: F Status: REG REF SPEC: [id number] IVON: 02/19/19-[address]: Karthik Ornelas MD REQ: [id number] RECD: 02/19/19 STATUS:COMP _ SOURCE: URINE SPDC: ORDERED: Urine Culture Procedure Result Reported Site Urine Culture Final 02/20/19- 1319 ML No Growth (<1,000 CFU/mL) * ML - Main Lab . END OF REPORT DEPARTMENT OF PATHOLOGY, [address] [place] [address] Shakeel Song M.D. Director [facility] # [id number] 4 Ultrasonic Tester: [id number] Comment: when arrives for OR 6 Comment: when arrives for OR 7 Ultrasonic Tester: [id number] Ultrasonic Tester: [id number] 9 SEE RESULT BELOW Name: JOSÉ TOLBERT : [address]: Karthik Ornelas MD Acct: [id number] Unit: [id number] AGE: 68 Location: LAB Re02/15/19 SEX: F Status: REG REF SPEC: [id number] IVON: 02/15/19 [facility] DR: Karthik Orenlas MD REQ: [id number] RECD: 02/15/19 STATUS:COMP _ SOURCE: URINE SPDESC: ORDERED: Urine Culture Procedure Result Reported Site Urine Culture Final 02/17/19- 0839 ML Organism 1 KLEBSIELLA PNEUMONIAE [place] Count >100,000 (Many) CFU/ML 1. KLEBSIELLA PNEUMONIAE [...] . END OF REPORT DEPARTMENT OF PATHOLOGY, [address] [place] [address] Shakeel Song M.D. Director CLIA # [id number] 10 M. tuberculosis infection NOT likely 11 Test [place]: [place] [address] Forming Machine Upkeep Mechanic Helper: Andres Little M.D. Ph.D.; CLIA# [id number] 12 Because ethnic data is not always [...] (or dialysis) 14 SEE RESULT BELOW Name: JOSÉ TOLBERT : [address]: Karthik Ornelas MD Acct: [id number] Unit: [id number] AGE: 68 Location: LAB Re02/13/19 SEX: F Status: REG REF SPEC: [id number] IVON: 02/13/19 [facility] DR: Karthik Ornelas MD REQ: [id number] RECD: 02/13/194269 STATUS:COMP _ SOURCE: URINE SPDESC: ORDERED: Urine Culture Procedure Result Reported Site Urine Culture Final 02/15/19- 1007 ML Organism 1 KLEBSIELLA PNEUMONIAE [place] Count >100,000 (Many) CFU/ML 1. KLEBSIELLA PNEUMONIAE [...] . END OF REPORT DEPARTMENT OF PATHOLOGY, [address] [place] [address] Shakeel oSng M.D. Director [facility] # [id number] 15 SEE RESULT BELOW Name: JOSÉ TOLBERT : [address]: Karthik Ornelas MD Acct: [id number] Unit: [id number] AGE: 68 Location: LAB Re01/22/19 SEX: F Status: REG REF SPEC: [id number] IVON: 01/22/19 [facility] DR: Karthik Ornelas MD REQ: [id number] RECD: 01/22/19 STATUS: COMP _ SOURCE: URINE SPDESC: ORDERED: Urine Culture Procedure Result Reported Site Urine Culture Final 01/24/19925 ML No growth of clinically significant organisms * ML - Main Lab . END OF REPORT DEPARTMENT OF PATHOLOGY, [address] [place] [address] Shakeel Song M.D. Director [facility] # [id number] 16 Because ethnic data is not always [...] TOLBERT : [address]: Dia Yoder NP [facility] Acct: [id number] Unit: [id number] AGE: 68 Location: LAB Re12/18/18 SEX: F Status: REG REF SPEC: [id number] IVON: 12/18/18-1255 [facility] DR: Karthik Ornelas MD REQ: [id number] RECD: 12/18/18-1603 STATUS: ALICIA ARROYO DR: Dia Yoder WATER TREATMENT SPECIALIST CNM _ SOURCE: URINE [facility]: ORDERED: Urine Culture Procedure Result Reported Site Urine Culture Final 12/19/18- 1616 ML No growth of clinically significant organisms * ML - Main Lab . END OF REPORT DEPARTMENT OF PATHOLOGY, [address] [place] [address] Shakeel Song M.D. Director [place] # [id number] 20 Therapeutic target for the treatment of diabetes mellitus patients is <7% HBA1C, and in selective patients <6.0%. Please refer to [employer] diabetic care guidelines for further information. 21 Test Performed by: [address] [address] Forming Machine Upkeep Mechanic Helper: Andres Little M.D. Ph.D.; CLIA# [id number] 22 Test Performed by: [address] [address] 23 Because ethnic data is not always [...] in selective patients <6.0%. Please refer to [employer] diabetic care guidelines for further information. Procedures Date Code Description Status 02/16/2019 13395 Insert Intraperitoneal Cannula/Catheter Permanent Completed 02/16/2019 63370 Insert Intraperitoneal Cannula/Catheter Permanent Completed 02/06/2019 67858 ECHO Transthorasic Realtime 2D W Doppler & Color Flow Hosp Completed 01/30/2019 24409 Glucose Monitoring Interpetation And Report Completed Medical Devices Description No Information Available Encounters Type Date Location Provider Dx Diagnosis Office Visit 02/[facility] Romel Giles, N18.6 End stage renal 10:45a Of Ankur ALVAREZ, FACS disease Office Visit 02/09/2019 [facility] Nephrology Karthik French N18.5 Chronic kidney 3:27p MD Johnson disease, stage 5 E87.70 Fluid overload, unspecified Office Visit 02/08/2019 [facility] I50.20 Unspecified 9:17a Assoc,pc ARCENIO Gould systolic Hospitalists (congestive) heart failure R91.8 Other nonspecific abnormal finding of lung field E11.21 Type 2 diabetes mellitus with diabetic nephropathy Office Visit 02/08/2019 8:36a [facility] Nephrology Rosamaria Johnson, I13.2 Hyp hrt & [...] I27.20 Pulmonary hypertension, unspecified 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 I50.21 Acute systolic (congestive) heart failure E11.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 N18.5 Chronic kidney disease, stage 5 D63.1 Anemia in chronic kidney disease E11.40 Type 2 diabetes mellitus with diabetic neuropathy, unsp I27.20 Pulmonary hypertension, unspecified Office Visit 02/06/2019 [facility] I50.33 Acute on chronic 9:16a Assoc,pc Ingrid Contreras diastolic Hospitalists (congestive) heart failure Office Visit 02/06/2019 [facility] Nephrology Rosamaria Johnson, I13.2 Hyp hrt & chr kdny 8:54a dis w hrt fail and w stg 5 chr kdny/Esrd I50.21 Acute systolic (congestive) heart failure E11.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 N18.5 Chronic kidney disease, stage 5 I95.89 Other hypotension Office Visit 02/05/2019 9:16a [facility] Leatha Vaca, I13.2 Hyp hrt & chr Assoc,pc WATER TREATMENT SPECIALIST kdny dis w hrt Hospitalists fail and w stg 5 chr kdny/Esrd E11.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 N18.6 End stage renal disease I50.9 Heart failure, unspecified Office Visit 01/23/2019 1:00p [facility] Nephrology Karthik French 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 Z79.4 skilled nursing (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 of insulin E78.5 Hyperlipidemia, unspecified E87.5 Hyperkalemia I10 Essential (primary) hypertension I12.9 Hypertensive chronic kidney disease w stg 1-4/unsp chr kdny Office Visit 01/17/2019 11:00a [facility] Loki Johnson, E11.22 Type 2 diabetes [facility] MD mellitus w diabetic chronic kidney disease N18.4 Chronic kidney disease, stage 4 (severe) Z79.4 skilled nursing (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 of insulin Office Visit 12/21/2018 11:00a [facility] Nephrology Karthik French 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 Z79.4 skilled nursing (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 of insulin E78.5 Hyperlipidemia, unspecified E87.5 Hyperkalemia I10 Essential (primary) hypertension Office Visit 12/12/2018 11:30a [facility] Steele and Dia Yoder, E11.22 Type 2 [facility] ACTIVITIES AIDE-Cde diabetes mellitus w diabetic chronic kidney disease N18.5 Chronic kidney disease, stage 5 Office Visit 12/07/2018 11:00a [facility] Nephrology Karthik French N18.5 Chronic kidney MD Johnson disease, stage 5 E11.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 E11.65 Type 2 diabetes mellitus with hyperglycemia 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 Office Visit 10/19/2018 2:00p [facility] and Loki Johnson E11.22 Type 2 diabetes [facility] MD mellitus w diabetic chronic kidney disease N18.5 Chronic kidney disease, stage 5 E11.65 Type 2 diabetes mellitus with hyperglycemia 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 Office Visit 09/21/2018 1:00p [place] [facility] Manda N18.6 End stage [facility] Marker, 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 Z79.4 skilled nursing (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 of insulin E11.649 Type 2 diabetes mellitus with hypoglycemia without coma Assessments Date Code Description Provider 02/22/2019 N18.5 Chronic kidney disease, stage 5 [...] failure 02/06/2019 I50.21 Acute systolic (congestive) heart Rsoamaria Johnson MD failure 02/06/2019 E11.22 Type 2 [...] Ornelas MD chronic kidney diseas 01/23/2019 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 Karthik Ornelas MD [...] 4 (severe) Loki Johnson MD 01/17/2019 Z79.4 skilled nursing (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 of insulin Loki Johnson MD 12/21/2018 I12.0 Hypertensive chronic kidney disease with Karthik Ornelas MD stage 5 chronic kidney disease or end stage renal disease 12/21/2018 N18.5 Chronic kidney disease, stage 5 Karthik Ornelas MD 12/21/2018 E11.22 Type 2 diabetes mellitus with diabetic Karthik Ornelas MD chronic kidney diseas 12/21/2018 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 Karthik Ornelas MD 12/21/2018 E78.5 Hyperlipidemia, unspecified Karthik Ornelas MD 12/21/2018 E87.5 Hyperkalemia Karthik Ornelas MD 12/21/2018 I10 Essential (primary) hypertension Karthik Ornelas MD 12/12/2018 E11.22 Type 2 diabetes mellitus with diabetic CATHY RmP- enrique chronic kidney diseas 12/12/2018 N18.5 Chronic kidney disease, stage 5 ELHAM Rm-Fernando 12/07/2018 N18.5 Chronic kidney disease, stage 5 Karthik Ornelas MD 12/07/2018 E11.22 Type 2 diabetes mellitus with diabetic Karthik Ornelas MD chronic kidney diseas 12/07/2018 E11.65 Type 2 diabetes mellitus with Karthik Ornelas MD hyperglycemia 12/07/2018 Z79.4 skilled nursing (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 of insulin Karthik Ornelas MD 10/19/2018 E11.22 Type 2 diabetes mellitus with diabetic Loki Johnson MD chronic kidney diseas 10/19/2018 N18.5 Chronic kidney disease, stage 5 Loki Johnson MD 10/19/2018 E11.65 Type 2 diabetes mellitus with Loki Johnson MD hyperglycemia 10/19/2018 Z79.4 skilled nursing (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 of insulin Loki Johnson MD 09/21/2018 N18.6 End stage renal disease Manda Marker, RPA-C 09/21/2018 E11.22 Type 2 diabetes mellitus with diabetic Manda Marker, RPA -C chronic kidney diseas 09/21/2018 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 Manda Marker, RPA-C 09/21/2018 E11.649 Type 2 diabetes mellitus with Manda Marker, RPA-C hypoglycemia without coma Plan of Treatment Future Appointment(s):02/27/2019 11:30 am - Karthik Ornelas MD at [facility] Hxmjcdlxmv54/06/2020 11:20 am - Deo Sierra MD at [facility] Internal Medicine - [address]/28/2018 11:00 am - Loki Johnson MD at [place] [facility]02/22/2019 - Karthik Ornelas MDN18.5 Chronic kidney disease, stage 5N18.6 End stage renal cxudfvhZ80.22 Type 2 diabetes mellitus with diabetic chronic kidney sflyxfeP16 Essential (primary) dipfxkckmofuS03.2 Mixed fhjcjcftopdkbuP06.70 Fluid overload, ryjdhzamarzC43.20 Unspecified systolic ( congestive) heart failure Functional Status Description No Information Available Mental Status Description No Information Available Referrals Refer to Reason for Referral Status Appt Date Romel Giles MD Dr. Bollo agreed to place PD Catheter next Tuesday Created 02/16. Please schedule on his clinic schedule for 02/15 She'll need PD very soon [place] [address] [facility] [address] [phone] Jay Rodriguez MD CKD 5 for AVF Sent [address] [place] [address] [place] [address] [phone]
--- OUTSIDE RECORDS SUMMARY | 2019-04-11 11:15 | XMS REPORT | Continuity of Care Document ---
:1950 External Reference #:[id number] Author Name Karthik Ornelas MD (transmitted by agent of provider Marybeth Patel) Address [address] [address] Care Team Providers Name Role Phone Selene Galo MD - Internal Medicine Care Team Information Coronary Care Unit Nurse Franci Hart MD - Nephrology Care Team Information Coronary Care Unit Nurse Romel Giles MD - Surgery Care Team Information Coronary Care Unit Nurse [phone] Deo Sierra MD - Hospitalist Care Team Information Coronary Care Unit Nurse [phone] Problems Description No Information Available Social History Type Date Description Comments Sex Unknown Tobacco Use Start: Unknown Never Smoked Cigarettes Smoking Status Reviewed: 03/06/19 Never Smoked Cigarettes ETOH Use Never used alcohol Tobacco Use Start: Unknown Patient has never smoked Recreational Drug Use Never Used Drugs Exercise Type/Frequency Exercises sporadically Allergies, Adverse Reactions, Alerts Active Allergies Reaction Severity Comments Date Shellfish-Derived Products Difficulty breathing 07/21/2018 Medications Active Medications SIG Qnty Indications Ordering Date Provider Potassium Chloride 1 tablet daily 30tabs Karthik French 02/27/2019 ER MD Johnson 20Meq Tablets ER Renvela 1 tab po 3 times 90units [...] every Unknown 20mg day Tablets Metoprolol Succinate Half Tab by mouth 90tabs Mohammad A. ER once daily MD Johnson 50mg Tablets ER 24HR Onetouch Ultra Blue [...] Available Vital Signs Date Vital Result Comment 03/06/2019 11:47am Height 64 inches 5'4" Weight 131.00 lb Heart Rate 72 /min BP Systolic Sitting 86 mmHg R arm BP Diastolic Sitting 51 mmHg R arm O2 % BldC Oximetry 94 % BMI (Body Mass Index) 22.5 kg/m2 02/27/2019 11:09am Height 64 inches 5'4" Weight 133.00 lb with shoes and coat BMI (Body Mass Index) 22.8 kg/m2 Results Test Acquired Date Facility Test Result H/L Range Note Urinalysis Profile 03/06/2019 [facility] Urine Color Yellow [address] [place] [address] [phone] Urine Appearance Turbid Urine Specific [place] 1.008 Low 1.010-1.030 Urine pH 6.0 Normal 5-9 Urine Urobilinogen Negative Negative Urine [...] Urine Squamous Epithelial Cell Present Abnormal Absent Laboratory test 03/06/2019 [facility] Creatinine Random <pending > finding [address] [place] [address] [phone] Total Protein Random Urine <pending> Laboratory test 03/06/2019 [facility] Hepatitis B Madie <pending> [place] [address] [phone] Hepatitis B Surface Ag <pending> Hepatitis B Core AB Igm <pending> Lipid Profile 03/05/2019 [facility] Triglycerides 165 mg/dL 1 (Trig/Chol/HDL) [address] [place] [address] [phone] Cholesterol 74 mg/dL 2 HDL Cholesterol 24.7 mg/dL 3 LDL Cholesterol 16 mg/dL 4 Neph Routine 03/05/2019 [facility] Total Protein Random <pending > [address] [place] [address] [phone] Creatinine Random Urine <pending> CBC Auto 03/05/2019 [facility] White Blood 6.5 10^3/uL Normal 3.5-10.[address] [place] [address] [phone] Red Blood Count 3.44 10^6/uL Low 3.70-4.87 Hemoglobin 10.7 g/dL Low 12.0-16.0 Hematocrit 31 % Low 35-47 Mean Corpuscular Volume 89 fL Normal 80-97 Mean Corpuscular Hemoglobin 31 pg Normal 27-31 Mean Corpuscular HGB Conc 35 g/dL Normal 31-36 Red Cell Distribution Width 13 % Normal 10-15 Platelet Count 276 10^3/uL Normal 150-450 Mean Platelet Volume 8.6 fL Normal 7.4-10.4 Abs Neutrophils 5.0 10^3/uL Normal 1.5-7.7 Abs Lymphocytes 0.8 10^3/uL Low 1.0-4.8 Abs Monocytes 0.4 10^3/uL Normal 0-0.8 Abs Eosinophils 0.3 10^3/uL Normal 0-0.6 Abs Basophils 0.1 10^3/uL Normal 0-0.2 Abs Nucleated RBC 0.0 10^3/uL Granulocyte % 77.1 % Lymphocyte % 11.7 % Monocyte % 5.5 % Eosinophil % 4.5 % Basophil % 1.2 % Nucleated Red Blood Cells % 0.1 Basic Metabolic 03/05/2019 [facility] Sodium 134 mmol/L Low 135-[address] [place] [phone] Potassium 3.8 mmol/L Normal 3.5-5.0 Chloride 98 mmol/L Low 101-111 Co2 Carbon Dioxide 25 mmol/L Normal 22-32 Anion Gap 11 mmol/L Normal 2-11 Calcium 9.6 mg/dL Normal 8.6-10.3 Glucose 247 mg/dL High 70-100 Blood Urea Nitrogen 77 mg/dL High 6-24 Creatinine 4.30 mg/dL High 0.51-0.95 BUN/Creatinine Ratio 17.9 Normal 8-20 Egfr Non- 10.2 >60 Egfr 12.3 >60 5 Laboratory test 03/05/2019 [facility] Albumin 3.6 g/dL Normal 3.2-5.2 [place] [address] [phone] Renal Function 02/26/2019 [facility] Albumin 3.7 g/dL Normal 3.2-5.2 Panel [address] [place] [address] [phone] Calcium 9.2 mg/dL Normal 8.6-10.3 Co2 Carbon Dioxide 29 mmol/L Normal 22-32 Chloride 92 mmol/L Low 101-111 Glucose 325 mg/dL High 70-100 Phosphorus 5.3 mg/dL High 2.5-5.0 Potassium 3.1 mmol/L Low 3.5-5.0 Sodium 132 mmol/L Low 135-145 Blood Urea Nitrogen BUN 111 mg/dL High 6-24 Creatinine 02/26/2019 [facility] Creatinine 5.41 mg/dL High 0.51-0.[address] [place] [address] [phone] Egfr Non- 7.8 >60 Egfr 9.5 >60 6 Comp Metabolic Panel 02/22/2019 [facility] Sodium 133 mmol/L Low 135-[address] [place] [address] [phone] Potassium 3.6 mmol/L Normal 3.5-5.0 Chloride 93 [...] Egfr Non- 6.2 >60 Egfr 7.5 >60 7 Pthi 02/22/2019 [facility] Calcium (PTH 9.6 mg/dL Normal 8.6- 10.[address] Intact) [place] [address] [phone] PTH Intact 168.5 pg/mL High 12-88 Urine Culture And 02/19/2019 [facility] Urine SEE RESULT [address] [place] [address] [phone] Laboratory test 02/19/2019 [facility] Albumin 4.1 g/dL Normal 3.2-[address] .2 [place] [address] [phone] B-Type Natriuretic Peptide BNP 686 pg/mL High <=100 Phosphorus 8.6 mg/dL High 2.5-5.0 Calcium 9.6 mg/dL Normal 8.6-10.3 Neph Routine 02/19/2019 [facility] Total Protein Random 123 mg/ dL [address] [place] [address] [phone] Creatinine Random Urine 76.76 mg/dL CBC Auto 02/19/2019 [facility] White Blood 10.4 10^3/uL Normal 3.5-10.[address] [place] [address] [phone] Red Blood Count 4.13 10^6/uL Normal 3.70-4.87 [...] Blood Cells % 0.0 Urinalysis Profile 02/19/2019 [facility] Urine Color Yellow [address] [place] [address] [phone] Urine Appearance Turbid Urine Specific [place] 1.012 Normal 1.010-1.030 Urine pH 5.0 Normal [...] Casts Present Abnormal Absent Basic Metabolic 02/19/2019 [facility] Sodium 133 mmol/L Low 135-[address] [place] [address] [phone] Potassium 3.7 mmol/L Normal 3.5-5.0 Chloride 94 mmol/L Low 101-111 Co2 Carbon Dioxide 20 mmol/L Low 22-32 Anion Gap 19 mmol/L High 2-11 Glucose 315 mg/dL High 70-100 Creatinine 7.26 mg/dL High 0.51-0.95 Egfr Non- 5.6 >60 Egfr 6.7 >60 9 Blood Urea Nitrogen 135 mg/dL High 6-24 BUN/Creatinine Ratio 18.6 Normal 8-20 Laboratory 02/16/2019 [facility] Point of Care 323 High 70- 100 10 test finding [address] Glucose mg/[place] [address] [phone] Laboratory 02/16/2019 [facility] Point of Care 175 High 70- 100 11 test finding [address] Glucose mg/[place] [address] [phone] Laboratory 02/16/2019 [facility] Potassium 4.0 Normal 3.5-5.0 12, test finding [address] mmol/L 13 [place], [place] [phone] Laboratory 02/16/2019 [facility] Point of Care 312 High 70- 100 14 test finding [address] Glucose mg/[place] [address] [phone] CBC Auto Diff 02/15/2019 [facility] White Blood 9.8 Normal 3.5 -10.[address] Count 10^3/[place] [address] [phone] Red Blood Count 4.05 10^6/uL Normal 3.70-4.87 [...] Blood Cells % 0.0 Laboratory test 02/15/2019 [facility] B-Type 562 pg/mL High <= 100 finding [address] [place] [address] Peptide BNP [phone] Laboratory test 02/15/2019 [facility] Albumin 4.2 g/dL Normal 3.2-5.2 finding [address] [place] [address] [phone] Phosphorus 8.7 mg/dL High 2.5-5.0 Quantiferon-TB 02/15/2019 [facility] QuantiferonTb Negative Negative 15 [address] Plus [address] [place] [address] [phone] TB1 Ag minus Nil Result 0.01 IU/mL TB2 Ag minus Nil Result 0.01 IU/mL Mitogen minus Nil Result 3.16 IU/mL Nil Result 0.02 IU/mL Urinalysis Profile 02/15/2019 [facility] Urine Color Yellow [address] [place] [address] [phone] Urine Appearance Turbid Urine Specific [place] 1.011 Normal 1.010-1.030 Urine pH 5.0 Normal [...] Present Abnormal Absent Urine Culture And 02/15/2019 [facility] Urine Culture SEE RESULT [address] [place] [address] [phone] Neph Routine 02/15/2019 [facility] Total Protein 183 mg/dL [address] [place] [place] [address] [phone] Creatinine Random Urine 68.74 mg/dL Pthi 02/15/2019 [facility] Calcium (PTH 9.4 mg/dL Normal 8.6- 10.[address] Intact) [place] [address] [phone] PTH Intact 228.1 pg/mL High 12-88 Basic Metabolic 02/15/2019 [facility] Sodium 134 mmol/L Low 135-[address] [place] [address] [phone] Potassium 3.9 mmol/L Normal 3.5-5.0 Chloride 99 mmol/L Low 101-111 Co2 Carbon Dioxide 20 mmol/L Low 22-32 Anion Gap 15 mmol/L High 2-11 Glucose 273 mg/dL High 70-100 Creatinine 6.92 mg/dL High 0.51-0.95 Egfr Non- 5.9 >60 Egfr 7.1 >60 17 Blood Urea Nitrogen 144 mg/dL High 6-24 BUN/Creatinine Ratio 20.8 High 8-20 Laboratory test 02/15/2019 [facility] Calcium 9.4 mg/dL Normal 8.6-10.[address] [place] [address] [phone] Hepatitis B Core AB Total Negative Negative 18 Hepatitis B Surface Ag Nonreactive Nonreactive Hepatitis B Madie AB Titer Not Immune Abnormal Immune Neph Routine 02/13/2019 [facility] Total Protein Random 141 mg/ dL [address] [place] [address] [phone] Creatinine Random Urine 57.19 mg/dL CBC Auto 02/13/2019 [facility] White Blood 9.5 10^3/uL Normal 3.5-10.[address] [place] [address] [phone] Red Blood Count 4.18 10^6/uL Normal 3.70-4.87 [...] Blood Cells % 0.0 Basic Metabolic 02/13/2019 [facility] Sodium 135 mmol/L Normal 135-[address] [place] [address] [phone] Potassium 4.3 mmol/L Normal 3.5-5.0 Chloride 98 mmol/L Low 101-111 Co2 Carbon Dioxide 20 mmol/L Low 22-32 Anion Gap 17 mmol/L High 2-11 Glucose 186 mg/dL High 70-100 Blood Urea Nitrogen 120 mg/dL High 6-24 Creatinine 6.55 mg/dL High 0.51-0.95 BUN/Creatinine Ratio 18.3 Normal 8-20 Calcium 9.8 mg/dL Normal 8.6-10.3 Egfr Non- 6.3 >60 Egfr 7.6 >60 19 Urinalysis Profile 02/13/2019 [facility] Urine Color Yellow [address] [place] [address] [phone] Urine Appearance Turbid Urine Specific [place] 1.010 Normal 1.010-1.030 Urine pH 5.0 Normal [...] 1+ Abnormal Absent Urine Culture And 02/13/2019 [facility] Urine Culture SEE RESULT [address] [place] [address] [phone] Neph Routine 01/22/2019 [facility] Total Protein 131 mg/dL [address] [place] [place] [address] [phone] Creatinine Random Urine 61.80 mg/dL CBC Auto 01/22/2019 [facility] White Blood 8.0 10^3/uL Normal 3.5-10.[address] [place] [address] [phone] Red Blood Count 3.86 10^6/uL Normal 3.70-4.87 [...] Blood Cells % 0.0 Urinalysis Profile 01/22/2019 [facility] Urine Color Yellow [address] [place] [address] [phone] Urine Appearance Clear Urine Specific [place] 1.011 Normal 1.010-1.030 Urine pH 5.0 Normal 5-9 Urine Urobilinogen Negative Negative Urine Ketones Negative Negative Urine Protein 2+(100 mg/dL) Abnormal Negative Urine Leukocytes Negative Negative Urine Blood Negative Negative * * Abnormal Negative 21 Urine Nitrite Negative Negative Urine Bilirubin Negative Negative Urine Glucose 3+(>=500 mg/dL) Abnormal Negative Urine White Blood Cell Trace(0-5/hpf) Absent Urine Red Blood Cell Absent Absent Urine Bacteria Absent Absent Urine Squamous Epithelial Cell Present Abnormal Absent Basic Metabolic 01/22/2019 [facility] Sodium 136 mmol/L Normal 135-145 Panel [address] [place] [address] [phone] Potassium 4.9 mmol/L Normal 3.5-5.0 Chloride 106 mmol/L Normal 101-111 Co2 Carbon Dioxide 22 mmol/L Normal 22-32 Anion Gap 8 mmol/L Normal 2-11 Glucose 255 mg/dL High 70-100 Blood Urea Nitrogen 60 mg/dL High 6-24 Creatinine 4.11 mg/dL High 0.51-0.95 BUN/Creatinine Ratio 14.6 Normal 8-20 Calcium 9.5 mg/dL Normal 8.6-10.3 Egfr Non- 10.7 >60 Egfr 13.0 >60 22 Urine Culture And 01/22/2019 [facility] Urine Culture SEE RESULT [address] [place] [address] [phone] Urinalysis Profile 12/18/2018 [facility] Urine Color Yellow [address] [place] [address] [phone] Urine Appearance Cloudy Urine Specific [place] 1.013 Normal 1.010-1.030 Urine pH 5.0 Normal [...] Cell Present Abnormal Absent CBC Auto 12/18/2018 [facility] White Blood 8.1 10^3/uL Normal 3.5-10.[address] [place] [address] [phone] Red Blood Count 3.85 10^6/uL Normal 3.70-4.87 [...] Blood Cells % 0.1 Basic Metabolic 12/18/2018 [facility] Sodium 139 mmol/L Normal 135-[address] [place] [address] [phone] Chloride 108 mmol/L Normal 101-111 Co2 Carbon Dioxide 23 mmol/L Normal 22-32 Glucose 74 mg/dL Normal 70-100 Blood Urea Nitrogen 69 mg/dL High 6-24 Creatinine 3.95 mg/dL High 0.51-0.95 BUN/Creatinine Ratio 17.5 Normal 8-20 Calcium 9.5 mg/dL Normal 8.6-10.3 Egfr Non- 11.2 >60 Egfr 13.6 >60 24 Potassium 5.4 mmol/L High 3.5-5.0 Anion Gap 8 mmol/L Normal 2-11 Laboratory test 12/18/2018 [facility] Total Protein 181 mg/dL finding [address] [place] [address] [phone] Creatinine Random Urine 79.59 mg/dL Pthi 12/18/2018 [facility] Calcium (PTH 9.4 mg/dL Normal 8.6- 10.[address] Intact) [place] [address] [phone] PTH Intact 110.1 pg/mL High 12-88 Urine Culture 12/18/2018 [facility] Urine Culture SEE [address] [place] [address] BELOW [phone] Laboratory test 12/18/2018 [facility] Hemoglobin A1c 7.2 % High 4.0-[address] (Glyco HGB) .6 [place], [place] [address] [phone] Laboratory test 12/18/2018 [facility] Fructosamine 389 Abnormal 200 - [address] mcmol/L 285 [place], [place] [address] [phone] Laboratory test 10/19/2018 [facility] Fructosamine 526 Abnormal 200 - [address] mcmol/L 285 [place] [address] [phone] Comp Metabolic 10/19/2018 [facility] Sodium 137 Normal 135-[address] mmol/L 45 [place], [place] [address] [phone] Potassium 4.5 mmol/L Normal 3.5-5.0 Chloride 105 [...] Egfr Non- 11.1 >60 Egfr 13.5 >60 29 Laboratory 10/19/2018 [facility] TSH (Thyroid 2.22 Normal 0.34 -5.60 test finding [address] Stim Horm) mcIU/[place] [address] [phone] Hemoglobin A1c (Glyco HGB) 9.6 % High 4.0-5.6 30 1 Desirable: <150 Borderline High: 150-199 High: 200-499 Very High: >500 2 Desirable: <200 Borderline High: 200-239 High: >239 3 Low: <40 Desirable: 40-60 High: >60 4 Desirable: <100 Near Optimal: 100-129 Borderline High: 130-159 High: 160-189 Very High: >189 5 Because ethnic data is not always readily [...] 15-29 5 Kidney failure <15 (or dialysis) 6 Because ethnic data is not always [...] 5 Kidney failure <15 (or dialysis) 7 Because ethnic data is not always readily [...] 15-29 5 Kidney failure <15 (or dialysis) 8 SEE RESULT BELOW Name: JOSÉ TOLBERT : [address]: Karthik Ornelas MD Acct: [id number] Unit: [id number] AGE: 68 Location: LAB Re02/19/19 SEX: F Status: REG REF SPEC: [id number] IVON: 02/19/19-1250 [facility] DR: Karthik Ornelas MD REQ: [id number] RECD: 02/19/19 STATUS:COMP _ SOURCE: URINE SPDESC: ORDERED: Urine Culture Procedure Result Reported Site Urine Culture Final 02/20/19- 1320 ML No Growth (<1,000 CFU/mL) * ML - Main Lab . END OF REPORT DEPARTMENT OF PATHOLOGY, [address] [place] [address] Shakeel Song M.D. Director [facility] # [id number] 9 Because ethnic data is not always [...] 5 Kidney failure <15 (or dialysis) 10 Stone Operator: [id number] 11 Stone Operator: [id number] 12 Comment: when arrives for OR 13 Comment: when arrives for OR 14 Stone Operator: [id number] 15 M. tuberculosis infection NOT likely 16 SEE RESULT BELOW Name: JOSÉ TOLBERT : [address]: Karthik Ornelas MD Acct: [id number] Unit: [id number] AGE: 68 Location: LAB Re02/15/19 SEX: F Status: REG REF SPEC: [id number] IVON: 02/15/[address]: Karthik Ornelas MD REQ: [id number] RECD: 02/15/19 STATUS:COMP _ SOURCE: URINE SPDESC: ORDERED: Urine Culture Procedure Result Reported Site Urine Culture Final 02/17/19838 ML Organism 1 KLEBSIELLA PNEUMONIAE [place] Count >100,000 (Many) CFU/ML 1. KLEBSIELLA PNEUMONIAE [...] . END OF REPORT DEPARTMENT OF PATHOLOGY, [address] [place] [address] Shakeel Song M.D. Director [facility] # [id number] 17 Because ethnic data is not always [...] 5 Kidney failure <15 (or dialysis) 18 Test Performed by: [facility] [address] [place] [address] Student Worker: Andres Little M.D. Ph.D.; CLIA# [id number] 19 Because ethnic data is not always [...] [address]: Karthik Ornelas MD Acct: [id number] Unit: [id number] AGE: 68 Location: LAB Re02/13/19 SEX: F Status: REG REF SPEC: [id number] IVON: 02/13/19-8 [facility] DR: Karthik Ornelas MD REQ: [id number] RECD: 02/13/193766 STATUS:COMP _ SOURCE: URINE SPDESC: ORDERED: Urine Culture Procedure Result Reported Site Urine Culture Final 02/15/19- 1007 ML Organism 1 KLEBSIELLA PNEUMONIAE [place] Count >100,000 (Many) CFU/ML 1. KLEBSIELLA PNEUMONIAE [...] . END OF REPORT DEPARTMENT OF PATHOLOGY, [address] [place] [address] Shakeel Song M.D. Director [facility] # [id number] 21 *Ascorbic acid is present which may interfere with detection of blood. 22 Because ethnic data is not always readily [...] 15-29 5 Kidney failure <15 (or dialysis) 23 SEE RESULT BELOW Name: JOSÉ TOLBERT : [address]: Karthik Ornelas MD Acct: [id number] Unit: [id number] AGE: 68 Location: LAB Re01/22/19 SEX: F Status: REG REF SPEC: [id number] IVON: 01/22/[address]: Karthik Ornelas MD REQ: [id number] RECD: 01/22/19 STATUS: COMP _ SOURCE: URINE SPDESC: ORDERED: Urine Culture Procedure Result Reported Site Urine Culture Final 10/16925 ML No growth of clinically significant organisms * ML - Main Lab . END OF REPORT DEPARTMENT OF PATHOLOGY, [address] [place] [address] Shakeel Song M.D. Director [facility] # [id number] 24 Because ethnic data is not always [...] 5 Kidney failure <15 (or dialysis) 25 SEE RESULT BELOW Name: JOSÉ TOLBERT : [address]: Dia Yoder NP [facility] Acct: [id number] Unit: [id number] AGE: 68 Location: LAB Re12/18/18 SEX: F Status: REG REF SPEC: [id number] IVON: 12/18/18-1255 [facility] DR: Karthik Ornelas MD REQ: [id number] RECD: 12/18/18 STATUS: ALICIA ARROYO DR: Dia Yoder NP CNM _ SOURCE: URINE SPDESC: ORDERED: Urine Culture Procedure Result Reported Site Urine Culture Final 12/19/18- 1616 ML No growth of clinically significant organisms * ML - Main Lab . END OF REPORT DEPARTMENT OF PATHOLOGY, [address] [place] [address] Shakeel Song M.D. Director [facility] # [id number] 26 Therapeutic target for the treatment of diabetes mellitus patients is <7% HBA1C, and in selective patients <6.0%. Please refer to [place] [employer] diabetic care guidelines for further information. 27 Test Performed by: [place] [id number] Student Worker: Andres Little M.D. Ph.D.; CLIA# [id number] 28 Test Performed by: [facility] [address] [place] [address] 29 Because ethnic data is not always readily [...] 15-29 5 Kidney failure <15 (or dialysis) 30 Therapeutic target for the treatment of diabetes mellitus patients is <7% HBA1C, and in selective patients <6.0%. Please refer to [place] [employer] diabetic care guidelines for further information. Procedures Date Code Description Status 02/26/2019 50876 EKG Tracing & Interpretation Completed 02/16/2019 58320 Insert Intraperitoneal Cannula/Catheter Permanent Completed 02/16/2019 96202 Insert Intraperitoneal Cannula/Catheter Permanent Completed 02/09/2019 96841 Treadmill Interp/Report Only Completed 02/09/2019 11084 Stress Test Supervsn W/Out I/R Completed 02/06/2019 67362 ECHO Transthorasic Realtime 2D W Doppler & Color Flow Hosp Completed 01/30/2019 57018 Glucose Monitoring Interpetation And Report Completed Medical Devices Description No Information Available Encounters Type Date Location Provider Dx Diagnosis Office Visit 02/26/2019 [facility] Romel Saldana, 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 N18.5 Chronic kidney disease, stage 5 E11.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 I10 Essential (primary) hypertension E78.2 Mixed hyperlipidemia 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 I35.0 Nonrheumatic aortic (valve) stenosis I34.2 Nonrheumatic mitral (valve) stenosis Office Visit 02/19/2019 2:30p [facility] Karthik French I12.0 Hyp [facility] kidney MD Johnson disease w stage 5 chr kidney disease or Esrd E11.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 N18.5 Chronic kidney disease, stage 5 I10 Essential (primary) hypertension E78.2 Mixed hyperlipidemia E87.70 Fluid overload, unspecified Office Visit 02/15/2019 11:30a [facility] Nephrology Karthik French I12.0 Hyp chr kidney MD Johnson disease w stage 5 chr kidney disease or Esrd E11.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 N18.5 Chronic kidney disease, stage 5 I10 Essential (primary) hypertension E78.2 Mixed hyperlipidemia E87.70 Fluid overload, unspecified Office Visit 02/15/2019 10:45a Surgical Romel Giles, N18.6 End stage [facility] MD FACS renal disease Office Visit 02/13/2019 1:00p [facility] Nephrology Karthik French I12.0 Hyp chr kidney MD Johnson disease w stage 5 chr kidney disease or Esrd E11.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 N18.5 Chronic kidney disease, stage 5 E87.70 Fluid overload, unspecified E78.2 Mixed hyperlipidemia I10 Essential (primary) hypertension I12.9 Hypertensive chronic kidney disease w stg 1-4/unsp chr kdny Office Visit 02/09/2019 3:27p [facility] Karthik French N18.5 Chronic kidney MD Johnson disease, stage 5 E87.70 Fluid overload, unspecified Office Visit 02/09/2019 7:59a [facility] Romel Farrell 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 Of [facility] Saldana, DO infarction FACC I25.5 Ischemic cardiomyopathy I50.9 Heart failure, unspecified N18.9 Chronic kidney disease, unspecified I12.9 Hypertensive chronic kidney disease w stg 1-4/unsp chr kdny I27.20 Pulmonary hypertension, unspecified Office Visit 02/08/2019 [facility] I50.20 Unspecified 9:17a Assoc,pc ARCENIO Gould systolic Hospitalists (congestive) heart failure R91.8 Other nonspecific abnormal finding of lung field E11.21 Type 2 diabetes mellitus with diabetic nephropathy Office Visit 02/08/2019 8:36a [facility] Rosamaria Johnson, I13.2 Hyp hrt & chr rowanny dis w hrt fail and w stg 5 chr kdny/Esrd E11.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 N18.5 Chronic kidney disease, stage 5 I50.23 Acute on chronic systolic (congestive) heart failure E87.70 Fluid overload, unspecified E11.40 Type 2 diabetes mellitus with diabetic neuropathy, unsp D63.1 Anemia in chronic kidney disease I27.20 Pulmonary hypertension, unspecified Office Visit 02/07/2019 [facility] I50.33 Acute on chronic 9:17a Assoc,pc MD Bret diastolic Hospitalists (congestive) heart failure Z78.9 Other specified health status Office Visit 02/07/2019 8:54a [facility] Rosamaria Johnson, I13.2 Hyp hrt [...] I27.20 Pulmonary hypertension, unspecified Office Visit 02/06/2019 [facility] [place] I50.33 Acute on chronic 9:16a Assoc,pc Ingrid Contreras diastolic Hospitalists (congestive) heart failure Office Visit 02/06/2019 [facility] Rosamaria Johnson, I13.2 Hyp hrt & chr kdny 8:54a dis w hrt fail and w stg 5 chr kdny/Esrd I50.21 Acute systolic (congestive) heart failure E11.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 N18.5 Chronic kidney disease, stage 5 I95.89 Other hypotension Office Visit 02/05/2019 9:16a 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 Z79.4 terminal supervisor (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 of insulin E78.5 Hyperlipidemia, unspecified E87.5 Hyperkalemia I10 Essential (primary) hypertension Office Visit 12/12/2018 11:30a [facility] Dia Yoder, E11.22 Type 2 [facility] [employer]-Cde diabetes mellitus w diabetic chronic kidney disease N18.5 Chronic kidney disease, stage 5 Office Visit 12/07/2018 11:00a [facility] Karthik French N18.5 Chronic kidney MD Johnson disease, stage 5 E11.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 E11.65 Type 2 diabetes mellitus with hyperglycemia Z79.4 senior living (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 of insulin Office Visit 10/19/2018 2:00p [facility] Loki Johnson, E11.22 Type 2 diabetes [facility] MD mellitus w diabetic chronic kidney disease N18.5 Chronic kidney disease, stage 5 E11.65 Type 2 diabetes mellitus with hyperglycemia Z79.4 senior living (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 of insulin Office Visit 09/21/2018 1:00p [facility] Manda N18.6 End stage [facility] Marker, 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 Z79.4 terminal supervisor (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 of insulin E11.649 Type 2 diabetes mellitus with hypoglycemia without coma Assessments Date Code Description Provider 03/06/2019 N18.5 Chronic kidney disease, stage 5 Karthik Ornelas MD 03/06/2019 E87.70 Fluid overload, unspecified Karthik Ornelas MD 03/06/2019 E78.2 Mixed hyperlipidemia Karthik Ornelas MD 03/06/2019 I10 Essential (primary) hypertension Karthik Ornelas MD 03/06/2019 E11.22 Type 2 diabetes mellitus with Karthik Ornelas MD diabetic chronic kidney disease 03/06/2019 I12.0 Hypertensive chronic kidney Karthik Ornelas MD disease with stage 5 chronic kidney disease or end stage renal disease 02/27/2019 N18.5 Chronic kidney disease, stage 5 Karthik Ornelas MD 02/27/2019 N18.6 End stage renal disease Karthik Ornelas MD 02/27/2019 E87.70 Fluid overload, unspecified Karthik Ornelas MD 02/27/2019 E78.2 Mixed hyperlipidemia Karthik Ornelas MD 02/27/2019 I10 Essential (primary) hypertension Karthik Ornelas MD 02/27/2019 E11.22 Type 2 diabetes mellitus with Karthik Ornelas MD diabetic chronic kidney disease 02/27/2019 I12.0 Hypertensive chronic kidney Karthik Ornelas MD disease with stage 5 chronic kidney disease or end stage renal disease 02/26/2019 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 infarction Romel Saldana, DO FACC 02/26/2019 N18.6 End stage renal disease Romel Giles MD, FACS 02/26/2019 N18.5 Chronic kidney disease, stage 5 Romel Saldana, DO FACC 02/26/2019 E11.22 Type 2 diabetes mellitus with Romel Saldana, DO FAC diabetic chronic kidney disease 02/26/2019 I10 Essential (primary) hypertension Romel Saldana, DO FACC 02/26/2019 E78.2 Mixed hyperlipidemia Romel Saldana, DO FACC 02/26/2019 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, 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) and diastolic (congestive) heart failure 02/26/2019 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, 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 02/26/2019 I35.0 Nonrheumatic aortic (valve) Romel Saldana, DO FACC stenosis 02/26/2019 I34.2 Nonrheumatic mitral (valve) Romel Saldana, DO FACC stenosis 02/22/2019 N18.5 Chronic kidney disease, stage 5 Karthik Ornelas MD 02/22/2019 E11.22 Type 2 diabetes mellitus with Karthik Ornelas MD diabetic chronic kidney disease 02/22/2019 I10 Essential (primary) hypertension Karthik Ornelas MD 02/22/2019 E78.2 Mixed hyperlipidemia Karthik Ornelas MD 02/22/2019 E87.70 Fluid overload, unspecified Karthik Ornelas MD 02/22/2019 I50.20 Unspecified systolic (congestive) Karthik Ornelas MD heart failure 02/19/2019 I12.0 Hypertensive chronic kidney Karthik Ornelas MD disease with stage 5 chronic kidney disease or end stage renal disease 02/19/2019 E11.22 Type 2 diabetes mellitus with Karthik Ornelas MD diabetic chronic kidney disease 02/19/2019 N18.5 Chronic kidney disease, stage 5 Karthik Ornelas MD 02/19/2019 I10 Essential (primary) hypertension Karthik Ornelas MD 02/19/2019 E78.2 Mixed hyperlipidemia Karthik Ornelas MD 02/19/2019 E87.70 Fluid overload, unspecified Karthik Ornelas MD 02/16/2019 N18.6 End stage renal disease Alvarado Chavez PA-C 02/16/2019 N18.6 End stage renal disease Romel Giles MD, FACS 02/15/2019 I12.0 Hypertensive chronic kidney Karthik Ornelas MD disease with stage 5 chronic kidney disease or end stage renal disease 02/15/2019 E11.22 Type 2 diabetes mellitus with Karthik Ornelas MD diabetic chronic kidney disease 02/15/2019 N18.6 End stage renal disease Romel Giles MD, FACS 02/15/2019 N18.5 Chronic kidney disease, stage 5 Karthik Ornelas MD 02/15/2019 I10 Essential (primary) hypertension Karthik Ornelas MD 02/15/2019 E78.2 Mixed hyperlipidemia Karthik Ornelas MD 02/15/2019 E87.70 Fluid overload, unspecified Karthik Ornelas MD 02/14/2019 N18.5 Chronic kidney disease, stage 5 Deo Sierra MD 02/14/2019 E11.22 Type 2 diabetes mellitus with Deo Sierra MD diabetic chronic kidney disease 02/14/2019 I10 Essential (primary) hypertension Deo Sierra MD 02/14/2019 E78.2 Mixed hyperlipidemia Deo Sierra MD 02/14/2019 I50.20 Unspecified systolic (congestive) Deo Sierra MD heart failure 02/13/2019 I12.0 Hypertensive chronic kidney Karthik Ornelas MD disease with stage 5 chronic kidney disease or end stage renal disease 02/13/2019 E11.22 Type 2 diabetes mellitus with Karthik Ornelas MD diabetic chronic kidney disease 02/13/2019 N18.5 Chronic kidney disease, stage 5 Karthik Ornelas MD 02/13/2019 E87.70 Fluid overload, bhavaniified Karthik Ornelas MD 02/13/2019 E78.2 Mixed hyperlipidemia Karthik Ornelas MD 02/13/2019 I10 Essential (primary) hypertension Karthik Ornelas MD 02/13/2019 I12.9 Hypertensive chronic kidney Karthik Ornelas MD disease with stage 1 through stage 4 chronic kidney disease, or unspecified chronic kidney disease 02/09/2019 R06.02 Shortness of breath Poncho Menezes MD, [facility], [facility] 02/09/2019 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 infarction Romel Saldana, DO [facility] 02/09/2019 I25.5 Ischemic cardiomyopathy Romel Saldana, DO FAC 02/09/2019 I50.9 Heart failure, unspecified Romel Saldana, DO FAC 02/09/2019 N18.9 Chronic kidney disease, Romel S. Saldana, DO FACC unspecified 02/09/2019 I12.9 Hypertensive chronic kidney Romel Saldana, DO FACC disease with stage 1 through stage 4 chronic kidney disease, or unspecified chronic kidney disease 02/09/2019 I27.20 Pulmonary hypertension, Romel Saldana, DO FACC unspecified 02/09/2019 N18.5 Chronic kidney disease, stage 5 Karthik Ornelas MD 02/09/2019 E87.70 Fluid overload, unspecified Karthik Ornelas MD 02/09/2019 I13.2 Hypertensive heart and chronic ARCENIO Bennett kidney disease with heart failure and with stage 5 chronic kidney disease, or end stage renal disease 02/09/2019 I50.20 Unspecified systolic (congestive) ARCENIO Bennett heart failure 02/09/2019 E11.22 Type 2 diabetes mellitus with ARCENIO Bennett diabetic chronic kidney disease 02/09/2019 N18.5 Chronic kidney disease, stage 5 ARCENIO Bennett 02/08/2019 I50.20 Unspecified systolic (congestive) ARCENIO Bennett heart failure 02/08/2019 I13.2 Hypertensive heart and chronic Rosamaria Johnson MD kidney disease with heart failure and with stage 5 chronic kidney disease, or end stage renal disease 02/08/2019 R91.8 Other nonspecific abnormal finding ARCENIO Bennett of lung field 02/08/2019 E11.22 Type 2 diabetes mellitus with Rosamaria Johnson MD diabetic chronic kidney disease 02/08/2019 E11.21 Type 2 diabetes mellitus with ARCENIO Bennett diabetic nephropathy 02/08/2019 N18.5 Chronic kidney disease, stage 5 Rosamaria Johnson MD 02/08/2019 I50.23 Acute on chronic systolic Rosamaria Johnson MD (congestive) heart failure 02/08/2019 E87.70 Fluid overload, unspecified Rosamaria Johnson MD 02/08/2019 E11.40 Type 2 diabetes mellitus with Rosamaria Johnson MD diabetic neuropathy, unspecified 02/08/2019 D63.1 Anemia in chronic kidney disease Rosamaria Johnson MD 02/08/2019 I27.20 Pulmonary hypertension, Rosamaria Johnson MD unspecified 02/07/2019 I50.33 Acute on chronic diastolic Kayla Movva, MD (congestive) heart failure 02/07/2019 Z78.9 Other specified health status Kayla Queen MD 02/07/2019 I13.2 Hypertensive heart and chronic Rosamaria Johnson MD kidney disease with heart failure and with stage 5 chronic kidney disease, or end stage renal disease 02/07/2019 I50.21 Acute systolic (congestive) heart Rosamaria Johnson MD failure 02/07/2019 E11.22 Type 2 diabetes mellitus with Rosamaria Johnson MD diabetic chronic kidney disease 02/07/2019 N18.5 Chronic kidney disease, stage 5 Rosamaria Johnson MD 02/07/2019 D63.1 Anemia in chronic kidney disease Rosamaria Johnson MD 02/07/2019 E11.40 Type 2 diabetes mellitus with Rosamaria Johnson MD diabetic neuropathy, unspecified 02/07/2019 I27.20 Pulmonary hypertension, Rosamaria Johnson MD unspecified 02/06/2019 I13.2 Hypertensive heart and chronic Rosamaria Johnson MD kidney disease with heart failure and with stage 5 chronic kidney disease, or end stage renal disease 02/06/2019 I50.33 Acute on chronic diastolic Christel Contreras D.O. (congestive) heart failure 02/06/2019 I50.21 Acute systolic (congestive) heart Rosamaria Johnson MD failure 02/06/2019 E11.22 Type 2 diabetes mellitus with Rosamaria Johnson MD diabetic chronic kidney disease 02/06/2019 N18.5 Chronic kidney disease, stage 5 Rosamaria Johnson MD 02/06/2019 I95.89 Other hypotension Rosamaria Johnson MD 02/06/2019 I50.9 Heart failure, unspecified Kam Harris M.D. 02/05/2019 I13.2 Hypertensive heart and chronic Leatha Vaca NP kidney disease with heart failure and with stage 5 chronic kidney disease, or end stage renal disease 02/05/2019 E11.22 Type 2 diabetes mellitus with Leatha Vaca NP diabetic chronic kidney disease 02/05/2019 N18.6 End stage renal disease Leatha Vaca NP 02/05/2019 I50.9 Heart failure, unspecified Leatha Vaca NP 01/30/2019 E11.22 Type 2 diabetes mellitus with Nurse Visit Endocrinology diabetic chronic kidney disease 01/30/2019 N18.4 Chronic kidney disease, stage 4 Nurse Visit Endocrinology (severe) 01/23/2019 I12.0 Hypertensive chronic kidney Karthik Ornelas MD disease with stage 5 chronic kidney disease or end stage renal disease 01/23/2019 N18.5 Chronic kidney disease, stage 5 Karthik Ornelas MD 01/23/2019 E11.22 Type 2 diabetes mellitus with Karthik Ornelas MD diabetic chronic kidney diseas 01/23/2019 Z79.4 terminal supervisor (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 of insulin Karthik Onrelas MD 01/23/2019 E78.5 Hyperlipidemia, unspecified Karthik Ornelas MD 01/23/2019 E87.5 Hyperkalemia Karthik Ornelas MD 01/23/2019 I10 Essential (primary) hypertension Karthik Ornelas MD 01/23/2019 I12.9 Hypertensive chronic kidney Karthik Ornelas MD disease with stage 1 through stage 4 chronic kidney disease, or unspecified chronic kidney disease 01/17/2019 E11.22 Type 2 diabetes mellitus with Loki Johnson MD diabetic chronic kidney diseas 01/17/2019 N18.4 Chronic kidney disease, stage 4 Loki Johnson MD (severe) 01/17/2019 Z79.4 senior living (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 of insulin Loki Johnson MD 12/21/2018 I12.0 Hypertensive chronic kidney Karthik Ornelas MD disease with stage 5 chronic kidney disease or end stage renal disease 12/21/2018 N18.5 Chronic kidney disease, stage 5 Karthik Ornelas MD 12/21/2018 E11.22 Type 2 diabetes mellitus with Karthik Ornelas MD diabetic chronic kidney diseas 12/21/2018 Z79.4 terminal supervisor (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 of insulin Karthik Ornelas MD 12/21/2018 E78.5 Hyperlipidemia, bhavaniified Karthik Ornelas MD 12/21/2018 E87.5 Hyperkalemia Karthik Ornelas MD 12/21/2018 I10 Essential (primary) hypertension Karthik Ornelas MD 12/12/2018 E11.22 Type 2 diabetes mellitus with ELHAM Rm-Fernando diabetic chronic kidney diseas 12/12/2018 N18.5 Chronic kidney disease, stage 5 ELHAM Rm-Fernando 12/07/2018 N18.5 Chronic kidney disease, stage 5 Karthik Ornelas MD 12/07/2018 E11.22 Type 2 diabetes mellitus with Karthik Ornelas MD diabetic chronic kidney diseas 12/07/2018 E11.65 Type 2 diabetes mellitus with Karthik Ornelas MD hyperglycemia 12/07/2018 Z79.4 terminal supervisor (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 of insulin Karthik Ornelas MD 10/19/2018 E11.22 Type 2 diabetes mellitus with Loki Johnson MD diabetic chronic kidney diseas 10/19/2018 N18.5 Chronic kidney disease, stage 5 Loki Johnson MD 10/19/2018 E11.65 Type 2 diabetes mellitus with Loki Johnson MD hyperglycemia 10/19/2018 Z79.4 senior living (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 of insulin Loki Johnson MD 09/21/2018 N18.6 End stage renal disease Manda Marker, RPA-C 09/21/2018 E11.22 Type 2 diabetes mellitus with Manda Marker, RPA-C diabetic chronic kidney diseas 09/21/2018 Z79.4 terminal supervisor (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 of insulin Manda Marker, RPA-C 09/21/2018 E11.649 Type 2 diabetes mellitus with Manda Marker, RPA-C hypoglycemia without coma Plan of Treatment Future Appointment(s):03/14/2019 11:20 am - Karthik Ornelas MD at [facility] Ytmpxmuxud83/14/2020 11:20 am - Romel Saldana DO FACC at [facility]04/16/2019 11:20 am - Deo Sierra MD at [facility] Internal Medicine - [address] 11:00 am - Loki Johnson MD at [facility] - Deo Sierra MDN18.5 Chronic kidney disease, stage 5Follow up:8 weeks.E11.22 Type 2 diabetes mellitus with diabetic chronic kidney [id number] Essential (primary) hypertensionComments:Your blood pressure was low today. Please record at home in a log book.E78.2 Mixed [id number] Unspecified systolic (congestive) heart failure Functional Status Description No Information Available Mental Status Description No Information Available Referrals Refer to Dr Reason for Referral Status Appt Date Romel Giles MD Dr. Bollo agreed to place PD Catheter next Tuesday Created 02/16. Please schedule on his clinic schedule for 02/15 She'll need PD very soon [place] [address] [facility] [id number] [phone] Jay Rodriguez MD CKD 5 for AVF Sent [address] [place] [address] [place] [address] [phone]
--- OUTSIDE RECORDS SUMMARY | 2019-04-11 11:15 | XMS REPORT | Continuity of Care Document ---
:1950 External Reference #:[id number] Author Name Karthik Ornelas MD (transmitted by agent of provider Marybeth Patel) Address [address] [address] Care Team Providers Name Role Phone Selene Galo MD - Internal Medicine Care Team Information Electrician Journeyman Wireman [phone] Franci Hart MD - Nephrology Care Team Information Electrician Journeyman Wireman [phone] Romel Giles MD - Surgery Care Team Information Electrician Journeyman Wireman [phone] Deo Sierra MD - Hospitalist Care Team Information Electrician Journeyman Wireman [phone] Problems Description No Information Available Social History Type Date Description Comments Sex Unknown Tobacco Use Start: Unknown Never Smoked Cigarettes Smoking Status Reviewed: 02/27/19 Never Smoked Cigarettes ETOH Use Never used [...] Available Vital Signs Date Vital Result Comment 02/27/2019 11:09am Height 64 inches 5'4" Weight 133.00 lb with shoes and coat BMI (Body Mass Index) 22.8 kg/m2 02/26/2019 2:06pm Height 64 inches 5'4" Weight 130.00 lb with shoes Heart Rate 62 /min BP Systolic Sitting 110 mmHg LA BP Diastolic Sitting 66 mmHg LA BP Systolic Standing 104 mmHg LA BP Diastolic Standing 70 mmHg LA BMI (Body Mass Index) 22.3 kg/m2 Ejection Fraction 40-45% Echo 02/06/19 Results Test Acquired Date Facility Test Result H/L Range Note Renal Function 02/26/2019 [facility] Albumin 3.7 g/dL Normal 3.2-5.2 Panel [address] [place] [address] [phone] Calcium 9.2 mg/dL Normal 8.6-10.3 Co2 Carbon Dioxide 29 mmol/L Normal 22-32 Chloride 92 mmol/L Low 101-111 Glucose 325 mg/dL High 70-100 Phosphorus 5.3 mg/dL High 2.5-5.0 Potassium 3.1 mmol/L Low 3.5-5.0 Sodium 132 mmol/L Low 135-145 Blood Urea Nitrogen BUN 111 mg/dL High 6-24 Creatinine 02/26/2019 [facility] Creatinine 5.41 mg/dL High 0.51-0.95 [address] [place] [address] [phone] Egfr Non- 7.8 >60 Egfr 9.5 >60 1 Comp Metabolic Panel 02/22/2019 [facility] Sodium 133 mmol/L Low 135-145 [address] [place] [address] [phone] Potassium 3.6 mmol/L Normal 3.5-5.0 Chloride 93 [...] >60 Egfr 7.5 >60 2 Pthi 02/22/2019 [facility] Calcium (PTH 9.6 mg/dL Normal 8.6- 10.[address] Intact) [place] [address] [phone] PTH Intact 168.5 pg/mL High 12-88 Urine Culture And 02/19/2019 [facility] Urine SEE RESULT [address] [place] [address] [phone] Laboratory test 02/19/2019 [facility] Albumin 4.1 g/dL Normal 3.2-[address] .2 [place] [address] [phone] B-Type Natriuretic Peptide BNP 686 pg/mL High <=100 Phosphorus 8.6 mg/dL High 2.5-5.0 Calcium 9.6 mg/dL Normal 8.6-10.3 Neph Routine 02/19/2019 [facility] Total Protein Random 123 mg/ dL [address] [place] [address] [phone] Creatinine Random Urine 76.76 mg/dL CBC Auto 02/19/2019 [facility] White Blood 10.4 10^3/uL Normal 3.5-10.[address] [place] [address] [phone] Red Blood Count 4.13 10^6/uL Normal 3.70-4.87 [...] Blood Cells % 0.0 Urinalysis Profile 02/19/2019 [facility] Urine Color Yellow [address] [place] [address] [phone] Urine Appearance Turbid Urine Specific [place] 1.012 Normal 1.010-1.030 Urine pH 5.0 Normal [...] Casts Present Abnormal Absent Basic Metabolic 02/19/2019 [facility] Sodium 133 mmol/L Low 135-145 Panel [address] [place] [address] [phone] Potassium 3.7 mmol/L Normal 3.5-5.0 Chloride 94 mmol/L Low 101-111 Co2 Carbon Dioxide 20 mmol/L Low 22-32 Anion Gap 19 mmol/L High 2-11 Glucose 315 mg/dL High 70-100 Creatinine 7.26 mg/dL High 0.51-0.95 Egfr Non- 5.6 >60 Egfr 6.7 >60 4 Blood Urea Nitrogen 135 mg/dL High 6-24 BUN/Creatinine Ratio 18.6 Normal 8-20 Laboratory 02/16/2019 [facility] Point of Care 323 mg/dL High 70-100 5 test finding [address] [facility] [place] [address] [phone] Laboratory 02/16/2019 [facility] Point of Care 175 mg/dL High 70-100 6 test finding 101 [facility] [place] [address] [phone] Laboratory 02/16/2019 [facility] Potassium 4.0 Normal 3.5-5.0 7, 8 test finding [facility] mmol/[place] [address] [phone] Laboratory 02/16/2019 [facility] Point of Care 312 mg/dL High 70-100 9 test finding [address] [place] [address] [phone] CBC Auto Diff 02/15/2019 [facility] White Blood 9.8 Normal 3.5 -10.[address] Count 10^3/[place] [address] [phone] Red Blood Count 4.05 10^6/uL Normal 3.70-4.87 [...] Blood Cells % 0.0 Laboratory test 02/15/2019 [facility] B-Type 562 pg/mL High <= [address] [place] [address] Peptide BNP [phone] Laboratory test 02/15/2019 [facility] Albumin 4.2 g/dL Normal 3.2-5.[address] [place] [address] [phone] Phosphorus 8.7 mg/dL High 2.5-5.0 Quantiferon-TB 02/15/2019 [facility] QuantiferonTb Negative Negative [address] Gold [address] [place] [address] [phone] TB1 Ag minus Nil Result 0.01 IU/mL TB2 Ag minus Nil Result 0.01 IU/mL Mitogen minus Nil Result 3.16 IU/mL Nil Result 0.02 IU/mL Urinalysis Profile 02/15/2019 [facility] Urine Color Yellow [address] [place] [address] [phone] Urine Appearance Turbid Urine Specific [place] 1.011 Normal 1.010-1.030 Urine pH 5.0 Normal [...] Present Abnormal Absent Urine Culture And 02/15/2019 [facility] Urine Culture SEE RESULT [address] [place] [address] [phone] Neph Routine 02/15/2019 [facility] Total Protein 183 mg/dL [address] [place] [address] [phone] Creatinine Random Urine 68.74 mg/dL Pthi 02/15/2019 [facility] Calcium (PTH 9.4 mg/dL Normal 8.6- 10.[address] Intact) [place] [address] [phone] PTH Intact 228.1 pg/mL High 12-88 Basic Metabolic 02/15/2019 [facility] Sodium 134 mmol/L Low 135-[address] [place] [address] [phone] Potassium 3.9 mmol/L Normal 3.5-5.0 Chloride 99 mmol/L Low 101-111 Co2 Carbon Dioxide 20 mmol/L Low 22-32 Anion Gap 15 mmol/L High 2-11 Glucose 273 mg/dL High 70-100 Creatinine 6.92 mg/dL High 0.51-0.95 Egfr Non- 5.9 >60 Egfr 7.1 >60 12 Blood Urea Nitrogen 144 mg/dL High 6-24 BUN/Creatinine Ratio 20.8 High 8-20 Laboratory test 02/15/2019 [facility] Calcium 9.4 mg/dL Normal 8.6-10.[address] [place] [address] [phone] Hepatitis B Core AB Total Negative Negative 13 Hepatitis B Surface Ag Nonreactive Nonreactive Hepatitis B Madie AB Titer Not Immune Abnormal Immune Neph Routine 02/13/2019 [facility] Total Protein Random 141 mg/ dL [address] [place] [address] [phone] Creatinine Random Urine 57.19 mg/dL CBC Auto 02/13/2019 [facility] White Blood 9.5 10^3/uL Normal 3.5-10.[address] [place] [address] [phone] Red Blood Count 4.18 10^6/uL Normal 3.70-4.87 [...] Blood Cells % 0.0 Basic Metabolic 02/13/2019 [facility] Sodium 135 mmol/L Normal 135-[address] [place] [address] [phone] Potassium 4.3 mmol/L Normal 3.5-5.0 Chloride 98 mmol/L Low 101-111 Co2 Carbon Dioxide 20 mmol/L Low 22-32 Anion Gap 17 mmol/L High 2-11 Glucose 186 mg/dL High 70-100 Blood Urea Nitrogen 120 mg/dL High 6-24 Creatinine 6.55 mg/dL High 0.51-0.95 BUN/Creatinine Ratio 18.3 Normal 8-20 Calcium 9.8 mg/dL Normal 8.6-10.3 Egfr Non- 6.3 >60 Egfr 7.6 >60 14 Urinalysis Profile 02/13/2019 [facility] Urine Color Yellow [address] [place] [address] [phone] Urine Appearance Turbid Urine Specific [place] 1.010 Normal 1.010-1.030 Urine pH 5.0 Normal [...] 1+ Abnormal Absent Urine Culture And 02/13/2019 [facility] Urine Culture SEE RESULT [address] [place] [address] [phone] Neph Routine 01/22/2019 [facility] Total Protein 131 mg/dL [address] [place] [address] [phone] Creatinine Random Urine 61.80 mg/dL CBC Auto 01/22/2019 [facility] White Blood 8.0 10^3/uL Normal 3.5-10.[address] [place] [address] [phone] Red Blood Count 3.86 10^6/uL Normal 3.70-4.87 [...] Blood Cells % 0.0 Urinalysis Profile 01/22/2019 [facility] Urine Color Yellow [address] [place] [address] [phone] Urine Appearance Clear Urine Specific [place] 1.011 Normal 1.010-1.030 Urine pH 5.0 Normal [...] Cell Present Abnormal Absent Basic Metabolic 01/22/2019 [facility] Sodium 136 mmol/L Normal 135-145 [place] [address] [phone] Potassium 4.9 mmol/L Normal 3.5-5.0 Chloride 106 mmol/L Normal 101-111 Co2 Carbon Dioxide 22 mmol/L Normal 22-32 Anion Gap 8 mmol/L Normal 2-11 Glucose 255 mg/dL High 70-100 Blood Urea Nitrogen 60 mg/dL High 6-24 Creatinine 4.11 mg/dL High 0.51-0.95 BUN/Creatinine Ratio 14.6 Normal 8-20 Calcium 9.5 mg/dL Normal 8.6-10.3 Egfr Non- 10.7 >60 Egfr 13.0 >60 17 Urine Culture And 01/22/2019 [facility] Urine Culture SEE RESULT [address] [place] [address] [phone] Urinalysis Profile 12/18/2018 [facility] Urine Color Yellow [address] [place] [address] [phone] Urine Appearance Cloudy Urine Specific [place] 1.013 Normal 1.010-1.030 Urine pH 5.0 Normal [...] Present Abnormal Absent CBC Auto 12/18/2018 [facility] White Blood 8.1 10^3/uL Normal 3.5-10.[address] [place] [address] [phone] Red Blood Count 3.85 10^6/uL Normal 3.70-4.87 [...] Cells % 0.1 Basic Metabolic 12/18/2018 [facility] Sodium 139 mmol/L Normal 135-[address] [place] [address] [phone] Chloride 108 mmol/L Normal 101-111 Co2 Carbon Dioxide 23 mmol/L Normal 22-32 Glucose 74 mg/dL Normal 70-100 Blood Urea Nitrogen 69 mg/dL High 6-24 Creatinine 3.95 mg/dL High 0.51-0.95 BUN/Creatinine Ratio 17.5 Normal 8-20 Calcium 9.5 mg/dL Normal 8.6-10.3 Egfr Non- 11.2 >60 Egfr 13.6 >60 19 Potassium 5.4 mmol/L High 3.5-5.0 Anion Gap 8 mmol/L Normal 2-11 Laboratory test 12/18/2018 [facility] Total Protein 181 mg/dL finding [address] [place] [address] [phone] Creatinine Random Urine 79.59 mg/dL Pthi 12/18/2018 [facility] Calcium (PTH 9.4 mg/dL Normal 8.6- 10.[address] Intact) [place] [address] [phone] PTH Intact 110.1 pg/mL High 12-88 Urine Culture 12/18/2018 [facility] Urine Culture SEE [address] [place] [address] BELOW [phone] Laboratory test 12/18/2018 [facility] Hemoglobin A1c 7.2 % High 4.0-[address] (Glyco HGB) .6 [place], [place] [address] [phone] Laboratory test 12/18/2018 [facility] Fructosamine 389 Abnormal 200 - [address] mcmol/L 285 [place], [place] [address] [phone] Laboratory test 10/19/2018 [facility] Fructosamine 526 Abnormal 200 - [address] mcmol/L 285 [place], [place] [address]60[address] [phone] Comp Metabolic 10/19/2018 [facility] Sodium 137 Normal 135-[address] mmol/L 45 [place], [place] [address] [phone] Potassium 4.5 mmol/L Normal 3.5-5.0 Chloride 105 [...] >60 Egfr 13.5 >60 24 Laboratory 10/19/2018 [facility] TSH (Thyroid 2.22 Normal 0.34 -5.60 test finding [address] Stim Horm) mcIU/[place] [address] [phone] Hemoglobin A1c (Glyco HGB) 9.6 % High [...] [address]: Karthik Ornelas MD Acct: [id number] Unit: [id number] AGE: 68 Location: LAB Re02/19/19 SEX: F Status: REG REF SPEC: [id number] IVON: 02/19/[address]: Karthik Ornelas MD REQ: [id number] RECD: 02/19/19 STATUS:COMP _ SOURCE: URINE SPDESC: ORDERED: Urine Culture Procedure Result Reported Site Urine Culture Final 02/20/19- 1320 ML No Growth (<1,000 CFU/mL) * ML - Main Lab . END OF REPORT DEPARTMENT OF PATHOLOGY, [address] [place] [address] Shakeel Song M.D. Director [facility] # [id number] 4 Because ethnic data is not always [...] 5 Kidney failure <15 (or dialysis) 5 Candle Pourer: [id number] 6 Candle Pourer: [id number] Comment: when arrives for OR 8 Comment: when arrives for OR 9 Candle Pourer: [id number] 10 M. tuberculosis infection NOT likely 11 SEE RESULT BELOW Name: JOSÉ TOLBERT : [address]: Karthik Ornelas MD Acct: [id number] Unit: [id number] AGE: 68 Location: LAB Re02/15/19 SEX: F Status: REG REF SPEC: [id number] IVON: 02/15/[address]: Karthik Ornelas MD REQ: [id number] RECD: 02/15/19 STATUS:COMP _ SOURCE: URINE SPDESC: ORDERED: Urine Culture Procedure Result Reported Site Urine Culture Final 02/17/19- 0839 ML Organism 1 KLEBSIELLA PNEUMONIAE Chandler Count >100,000 (Many) CFU/ML 1. KLEBSIELLA PNEUMONIAE [...] . END OF REPORT DEPARTMENT OF PATHOLOGY, [address] [place] [address] Shakeel Song M.D. Director [facility] # [id number] 12 Because ethnic data is not always [...] <15 (or dialysis) 13 Test Performed by: [facility] [address] [place] [address] Category Manager: Andres Little M.D. Ph.D.; IA# [id number] 14 Because ethnic data is not always [...] [address]: Karthik Ornelas MD Acct: [id number] Unit: [id number] AGE: 68 Location: LAB Re02/13/19 SEX: F Status: REG REF SPEC: [id number] IVON: 02/13/19-[address]: Karthik Ornelas MD REQ: [id number] RECD: 02/13/19 STATUS:COMP _ SOURCE: URINE SPDESC: ORDERED: Urine Culture Procedure Result Reported Site Urine Culture Final 02/15/19- 1007 ML Organism 1 KLEBSIELLA PNEUMONIAE Chandler Count >100,000 (Many) CFU/ML 1. KLEBSIELLA PNEUMONIAE [...] . END OF REPORT DEPARTMENT OF PATHOLOGY, [address] [place] [address] Shakeel Song M.D. Director [facility] # [id number] 16 *Ascorbic acid is present which may [...] [address]: Karthik Ornelas MD Acct: [id number] Unit: [id number] AGE: 68 Location: LAB Re01/22/19 SEX: F Status: REG REF SPEC: [id number] IVON: 01/22/19-[address] [facility] [address]: Karthik Ornelas MD REQ: [id number] RECD: 01/22/19 STATUS: COMP _ SOURCE: URINE SPDESC: ORDERED: Urine Culture Procedure Result Reported Site Urine Culture Final 01/24/19- 925 ML No growth of clinically significant organisms * ML - Main Lab . END OF REPORT DEPARTMENT OF PATHOLOGY, [address] [place] [address] Shakeel Song M.D. Director [facility] # [id number] 19 Because ethnic data is not always [...] Attend Dr: Dia Yoder NP, CNM Acct: [id number] Unit: [id number] AGE: 68 Location: LAB Re12/18/18 SEX: F Status: REG REF SPEC: [id number] IVON: 12/18/18-[address]: Karthik Ornelas MD REQ: [id number] RECD: 12/18/188354 STATUS: ALICIA ARROYO DR: Dia KWON _ SOURCE: URINE SPDESC: ORDERED: Urine Culture Procedure Result Reported Site Urine Culture Final 12/19/18- 1616 ML No growth of clinically significant organisms * ML - Main Lab . END OF REPORT DEPARTMENT OF PATHOLOGY, [address] [place] [address] Shakeel Song M.D. Director CLIA # [id number] 21 Therapeutic target for the treatment of diabetes mellitus patients is <7% HBA1C, and in selective patients <6.0%. Please refer to [employer] diabetic care guidelines for further information. 22 Test Performed by: [facility] [place] [address] Category Manager: Andres Little M.D. Ph.D.; CLIA# [id number] 23 Test Performed by: [address] [address] 24 Because ethnic data is not always [...] in selective patients <6.0%. Please refer to [employer] diabetic care guidelines for further information. Procedures Date Code Description Status 02/26/2019 85335 EKG Tracing & Interpretation Completed 02/16/2019 22517 Insert Intraperitoneal Cannula/Catheter Permanent Completed 02/16/2019 56571 Insert Intraperitoneal Cannula/Catheter Permanent Completed 02/09/2019 44508 Treadmill Interp/Report Only Completed 02/09/2019 06180 Stress Test Supervsn W/Out I/R Completed 02/06/2019 98773 ECHO Transthorasic Realtime 2D W Doppler & Color Flow Hosp Completed 01/30/2019 74871 Glucose Monitoring Interpetation And Report Completed Medical Devices Description No Information Available Encounters Type Date Location Provider Dx Diagnosis Office Visit 02/19/2019 [facility]ph[facility] Karthik Ornelas, I12.0 Hyp chr kidney 2:30p MD disease w stage 5 chr kidney disease or Esrd E11.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 N18.5 Chronic kidney disease, stage 5 I10 Essential (primary) hypertension E78.2 Mixed hyperlipidemia E87.70 Fluid overload, unspecified Office Visit 02/15/2019 11:30a [facility] Nephangel French I12.0 Hyp chr kidney MD Johnson disease w stage 5 chr kidney disease or Esrd E11.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 N18.5 Chronic kidney disease, stage 5 I10 Essential (primary) hypertension E78.2 Mixed hyperlipidemia E87.70 Fluid overload, unspecified Office Visit 02/15/2019 10:45a Surgical Romel Giles, N18.6 End stage [facility] renal disease Office Visit 02/13/2019 1:00p [facility]ph[facility] Karthik French I12.0 Hyp chr kidney MD Johnson disease w stage 5 chr kidney disease or Esrd E11.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 N18.5 Chronic kidney disease, stage 5 E87.70 Fluid overload, unspecified E78.2 Mixed hyperlipidemia I10 Essential (primary) hypertension I12.9 Hypertensive chronic kidney disease w stg 1-4/unsp chr kdny Office Visit 02/09/2019 7:59a [facility] Romel Farrell 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 [facility] Sal[place], DO infarction FAC I25.5 Ischemic cardiomyopathy I50.9 Heart failure, unspecified N18.9 Chronic kidney disease, unspecified I12.9 Hypertensive chronic kidney disease w stg 1-4/unsp chr kdny I27.20 Pulmonary hypertension, unspecified Office Visit 02/09/2019 3:27p [facility] Karthik French N18.5 Chronic kidney MD Johnson disease, stage 5 E87.70 Fluid overload, unspecified Office Visit 02/08/2019 8:36a [facility] Rosamaria Johnson, I13.2 Hyp hrt & [...] disease I27.20 Pulmonary hypertension, unspecified Office Visit 02/08/2019 [facility] Andres I50.20 Unspecified 9:17a Assoc,ARCENIO Poon systolic Hospitalists (congestive) heart failure R91.8 Other nonspecific abnormal finding of lung field E11.21 Type 2 diabetes mellitus with diabetic nephropathy Office Visit 02/07/2019 [facility] Kayla I50.33 Acute on chronic 9:17a Assoc,tim Queen MD diastolic Hospitalists (congestive) heart failure Z78.9 Other specified health status Office Visit 02/07/2019 8:54a [facility] Rosamaria Johnson, I13.2 Hyp hrt & [...] I27.20 Pulmonary hypertension, unspecified Office Visit 02/06/2019 [facility] Christel I50.33 Acute on chronic 9:16a Assoc,pc Ingrid Contreras diastolic Hospitalists (congestive) heart failure Office Visit 02/06/2019 [facility] Rosamaria Johnson, I13.2 Hyp hrt & chr kdny 8:54a MD dis w hrt fail and w stg 5 chr kdny/Esrd I50.21 Acute systolic (congestive) heart failure E11.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 N18.5 Chronic kidney disease, stage 5 I95.89 Other hypotension Office Visit 02/05/2019 9:16a [facility] Leatha Vaca, I13.2 Hyp hrt & chr Assoc,pc [employer] kdny dis w hrt Hospitalists fail and w stg 5 chr kdny/Esrd E11.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 N18.6 End stage renal disease I50.9 Heart failure, unspecified Office Visit 01/23/2019 1:00p [facility] Karthik Enriquez. 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 Z79.4 [facility] (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 of insulin E78.5 Hyperlipidemia, unspecified E87.5 Hyperkalemia I10 Essential (primary) hypertension I12.9 Hypertensive chronic kidney disease w stg 1-4/unsp chr kdny Office Visit 01/17/2019 11:00a [facility] Manjarrez Coch, E11.22 Type 2 diabetes [facility] mellitus w diabetic chronic kidney disease N18.4 Chronic kidney disease, stage 4 (severe) Z79.4 [facility] (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 of insulin Office Visit 12/21/2018 11:00a [facility] Karthik Enriquez. 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 E78.5 Hyperlipidemia, unspecified E87.5 Hyperkalemia I10 Essential (primary) hypertension Office Visit 12/12/2018 11:30a [facility] Dia Yoder, E11.22 Type 2 [facility] MATERIAL HAULER-Cde diabetes mellitus w diabetic chronic kidney disease N18.5 Chronic kidney disease, stage 5 Office Visit 12/07/2018 11:00a [facility] Karthik French N18.5 Chronic kidney MD Johnson disease, stage 5 E11.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 E11.65 Type 2 diabetes mellitus with hyperglycemia 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 Office Visit 10/19/2018 2:00p [facility] Loki Johnson, E11.22 Type 2 diabetes [facility] MD mellitus w diabetic chronic kidney disease N18.5 Chronic kidney disease, stage 5 E11.65 Type 2 diabetes mellitus with hyperglycemia 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 Office Visit 09/21/2018 1:00p [facility] Manda N18.6 End stage [facility] Marker, 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 E11.649 Type 2 diabetes mellitus with hypoglycemia without coma Assessments Date Code Description Provider 02/27/2019 N18.5 Chronic kidney disease, stage 5 [...] 2 diabetes mellitus with Romel Saldana, DO FACC diabetic chronic kidney disease 02/26/2019 I10 Essential (primary) hypertension Romel Saldana, DO FACC 02/26/2019 E78.2 Mixed hyperlipidemia Romel Saldana, DO FACC 02/26/2019 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, 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) and diastolic (congestive) heart failure 02/26/2019 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, 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 02/26/2019 I35.0 [...] Karthik Ornelas MD 02/22/2019 E87.70 Fluid overload, bhavaniified Karthik Ornelas MD 02/22/2019 I50.20 Unspecified systolic [...] R06.02 Shortness of breath Poncho Menezes MD, [facility] 02/09/2019 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 infarction Romel Saldana, DO [facility] 02/09/2019 I25.5 Ischemic cardiomyopathy Romel Saldana, DO FAC 02/09/2019 I50.9 Heart failure, unspecified Romel Saldana, DO FAC 02/09/2019 N18.9 Chronic kidney disease, Romel Saldana, DO [facility] unspecified 02/09/2019 I12.9 Hypertensive chronic kidney Romel Saldana, DO [facility] disease with stage 1 through stage 4 chronic kidney disease, or unspecified chronic kidney disease 02/09/2019 I27.20 Pulmonary hypertension, Romel Saldana, DO [facility] unspecified 02/09/2019 N18.5 Chronic kidney disease, stage [...] 02/07/2019 I50.33 Acute on chronic diastolic Kayla Queen MD (congestive) heart failure 02/07/2019 Z78.9 Other [...] 02/05/2019 I13.2 Hypertensive heart and chronic Leatha R.Brian, [employer] kidney disease with heart failure and with [...] MD diabetic chronic kidney diseas 01/23/2019 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 Karthik Ornelas MD [...] 4 Loki Johnson MD (severe) 01/17/2019 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 Loki Johnson MD 12/21/2018 I12.0 Hypertensive chronic kidney Karthik Ornelas MD disease with stage 5 chronic kidney disease or end stage renal disease 12/21/2018 N18.5 Chronic kidney disease, stage 5 Karthik Ornelas MD 12/21/2018 E11.22 Type 2 diabetes mellitus with Karthik Ornelas MD diabetic chronic kidney diseas 12/21/2018 Z79.4 [facility] (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 of insulin Karthik Ornelas MD 12/21/2018 E78.5 Hyperlipidemia, unspecified Karthik Ornelas MD 12/21/2018 E87.5 Hyperkalemia Karthik Ornelas MD 12/21/2018 I10 Essential (primary) hypertension Karthik Ornelas MD 12/12/2018 E11.22 Type 2 diabetes mellitus with Aide Rm diabetic chronic kidney diseas 12/12/2018 N18.5 Chronic kidney disease, stage 5 Aide Rm 12/07/2018 N18.5 Chronic kidney disease, stage 5 Karthik Ornelas MD 12/07/2018 E11.22 Type 2 diabetes mellitus with Karthik Ornelas MD diabetic chronic kidney diseas 12/07/2018 E11.65 Type 2 diabetes mellitus with Karthik Ornelas MD hyperglycemia 12/07/2018 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 Karthik Ornelas MD 10/19/2018 E11.22 Type 2 diabetes mellitus with Loki Johnson MD diabetic chronic kidney diseas 10/19/2018 N18.5 Chronic kidney disease, stage 5 Loki Johnson MD 10/19/2018 E11.65 Type 2 diabetes mellitus with Loki Johnson MD hyperglycemia 10/19/2018 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 Loki Johnson MD 09/21/2018 N18.6 End stage renal disease Manda Marker, RPA-C 09/21/2018 E11.22 Type 2 diabetes mellitus with Manda Marker, RPA-C diabetic chronic kidney diseas 09/21/2018 Z79.4 [facility] (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 of insulin Manda Marker, RPA-C 09/21/2018 E11.649 Type 2 diabetes mellitus with Manda Marker, RPA-C hypoglycemia without coma Plan of Treatment Future Appointment(s):03/06/2019 11:30 am - Karthik Ornelas MD at [facility] Ngxbanegmv16/14/2020 11:20 am - Romel Saldana DO FACC at [facility]04/16/2019 11:20 am - Deo Sierra MD at [facility] Internal Medicine - [address] 11:00 am - Loki Johnson MD at [facility] - Karthik Ornelas MDN18.5 Chronic kidney disease, stage 5Comments: Dialysis training last week of February.Instructed to go to ED if she gets any worse.Blood Pressure low:Decrease Metoprolol ER 25 mg daily.High phosphate, on Renvela, improvingPotassium low 3.1: Start Potassium 1 tablet dailyFollow up Next week Educated about Low salt diet and Avoiding NSAIDsFollow up:1 weekN18.6 End stage renal zqhcxghW46.70 Fluid overload, pnavuykclgmX94.2 Mixed pkbhqmgyyrapckU90 Essential (primary) dbyuwykpbupyB97.22 Type 2 diabetes mellitus with diabetic chronic kidney jrvkfhyS41.0 Hypertensive chronic kidney disease with stage 5 chronic kidney disease or end stage renal disease Functional Status Description No Information Available Mental Status Description No Information Available Referrals Refer to Dr Reason for Referral Status Appt Date Romel Giles MD Dr. Bollo agreed to place PD Catheter next Tuesday Created 02/16. Please schedule on his clinic schedule for 02/15 She'll need PD very soon [place] [address] [facility] [address] [phone] Jay Rodriguez MD CKD 5 for AVF Sent [address] [place] [address] [place] [address] [phone]
--- OUTSIDE RECORDS SUMMARY | 2019-04-11 11:15 | XMS REPORT | Continuity of Care Document ---
:1950 External Reference #:[id number] Author Name Karthik Ornelas MD (transmitted by agent of provider Marybeth Patel) Address [address] [address] Care Team Providers Name Role Phone Selene Galo MD - Internal Medicine Care Team Information Apartment Rental Agent Franci Hart MD - Nephrology Care Team Information Apartment Rental Agent [phone] Romel Giles MD - Surgery Care Team Information Apartment Rental Agent [phone] Deo Sierra MD - Hospitalist Care Team Information Apartment Rental Agent [phone] Problems Description No Information Available Social History Type Date Description Comments Sex Unknown Tobacco Use Start: Unknown Never Smoked Cigarettes Smoking Status Reviewed: 02/19/19 Never Smoked Cigarettes ETOH Use Never used [...] day at 5 pm 80mg Tablets Torsemide 2 by mouth every Unknown 20mg day Tablets [...] Available Vital Signs Date Vital Result Comment 02/19/2019 1:58pm Height 64 inches 5'4" Weight 132.00 lb Heart Rate 72 /min BP Systolic Sitting 108 mmHg R arm BP Diastolic Sitting 58 mmHg R arm O2 % BldC Oximetry 100 % BMI (Body Mass Index) 22.7 kg/m2 02/15/2019 11:51am Height 64 inches 5'4" Weight 132.00 lb Heart Rate 67 /min BP Systolic Sitting 126 mmHg left arm reg cuff BP Diastolic Sitting 79 mmHg left arm reg cuff O2 % BldC Oximetry 97 % room air BMI (Body Mass Index) 22.7 kg/m2 Results Test Acquired Date Facility Test Result H/L Range Note Neph Routine 02/19/2019 [facility] Total Protein 123 mg/dL [address] [place] [address] [phone] Creatinine Random Urine 76.76 mg/dL CBC Auto 02/19/2019 [facility] White Blood 10.4 10^3/uL Normal 3.5-10.[address] [place] [address] [phone] Red Blood Count 4.13 10^6/uL Normal 3.70-4.87 [...] Blood Cells % 0.0 Urinalysis Profile 02/19/2019 [facility] Urine Color Yellow [address] [place] [address] [phone] Urine Appearance Turbid Urine Specific [place] 1.012 Normal 1.010-1.030 Urine pH 5.0 Normal [...] Hyaline Casts Present Abnormal Absent Laboratory test finding 02/19/2019 [facility] Albumin <pending> [address] [place] [address] [phone] B-Type Natriuretic Peptide BNP <pending> Phosphorus <pending> Calcium <pending> Laboratory test 02/16/2019 [facility] Point of Care 175 mg/dL High 70-100 [address] [place] [address] [phone] Laboratory test 02/16/2019 [facility] Point of Care 312 mg/dL High 70-[address] [place] [address] [phone] Laboratory test 02/16/2019 [facility] Potassium 4.0 mmol/L Normal 3.5-5.0 3, finding [address] 4 [place] [address] [phone] Laboratory test 02/16/2019 [facility] Point of Care 323 mg/dL High 70-100 [address] [place] [address] [phone] Urine Culture 02/15/2019 [facility] Urine Culture SEE RESULT [address] [place] [address] [phone] Laboratory test 02/15/2019 [facility] B-Type 562 pg/mL High <= [address] [place] [address] Peptide BNP [phone] Quantiferon-TB 02/15/2019 [facility] QuantiferonTb Negative Negative 7 Gold Plus [address] [place] [address] Result [phone] TB1 Ag minus Nil Result 0.01 IU/mL TB2 Ag minus Nil Result 0.01 IU/mL Mitogen minus Nil Result 3.16 IU/mL Nil Result 0.02 IU/mL Laboratory test 02/15/2019 [facility] Calcium 9.4 mg/dL Normal 8.6-10.[address] [place] [address] [phone] Hepatitis B Core AB Total Negative Negative 8 Hepatitis B Surface Ag Nonreactive Nonreactive Hepatitis B Madie AB Titer Not Immune Abnormal Immune Pthi 02/15/2019 [facility] Calcium (PTH 9.4 mg/dL Normal 8.6- 10.[address] Intact) [place] [address] [phone] PTH Intact 228.1 pg/mL High 12-88 Laboratory test 02/15/2019 [facility] Albumin 4.2 g/dL Normal 3.2-5.[address] [place] [address] [phone] Phosphorus 8.7 mg/dL High 2.5-5.0 Urinalysis Profile 02/15/2019 [facility] Urine Color Yellow [address] [place] [address] [phone] Urine Appearance Turbid Urine Specific [place] 1.011 Normal 1.010-1.030 Urine pH 5.0 Normal [...] Cell Present Abnormal Absent Basic Metabolic 02/15/2019 [facility] Sodium 134 mmol/L Low 135-145 Panel [facility] [place] [address] [phone] Potassium 3.9 mmol/L Normal 3.5-5.0 Chloride 99 mmol/L Low 101-111 Co2 Carbon Dioxide 20 mmol/L Low 22-32 Anion Gap 15 mmol/L High 2-11 Glucose 273 mg/dL High 70-100 Creatinine 6.92 mg/dL High 0.51-0.95 Egfr Non- 5.9 >60 Egfr 7.1 >60 9 Blood Urea Nitrogen 144 mg/dL High 6-24 BUN/Creatinine Ratio 20.8 High 8-20 CBC Auto 02/15/2019 [facility] White Blood 9.8 10^3/uL Normal 3.5-10.[address] Count [place], [place] [address] [phone] Red Blood Count 4.05 10^6/uL Normal 3.70-4.87 [...] Blood Cells % 0.0 Neph Routine 02/15/2019 [facility] Total Protein Random 183 mg/ dL [address] [place] [address] [phone] Creatinine Random Urine 68.74 mg/dL Urine Culture And 02/13/2019 [facility] Urine Culture SEE RESULT [address] [place] [address] [phone] Urinalysis Profile 02/13/2019 [facility] Urine Color Yellow [address] [place] [address] [phone] Urine Appearance Turbid Urine Specific [place] 1.010 Normal 1.010-1.030 Urine pH 5.0 Normal [...] Abnormal Absent Urine Bacteria 1+ Abnormal Absent Basic Metabolic 02/13/2019 [facility] Sodium 135 mmol/L Normal 135-[address] [place] [address] [phone] Potassium 4.3 mmol/L Normal 3.5-5.0 Chloride 98 mmol/L Low 101-111 Co2 Carbon Dioxide 20 mmol/L Low 22-32 Anion Gap 17 mmol/L High 2-11 Glucose 186 mg/dL High 70-100 Blood Urea Nitrogen 120 mg/dL High 6-24 Creatinine 6.55 mg/dL High 0.51-0.95 BUN/Creatinine Ratio 18.3 Normal 8-20 Calcium 9.8 mg/dL Normal 8.6-10.3 Egfr Non- 6.3 >60 Egfr 7.6 >60 11 CBC Auto 02/13/2019 [facility] White Blood 9.5 10^3/uL Normal 3.5-10.[address] [place] [address] [phone] Red Blood Count 4.18 10^6/uL Normal 3.70-4.87 [...] Red Blood Cells % 0.0 Neph Routine 02/13/2019 [facility] Total Protein Random 141 mg/ dL [address] [place] [address] [phone] Creatinine Random Urine 57.19 mg/dL Neph Routine 01/22/2019 [facility] Total Protein Random 131 mg/ dL [address] [place] [address] [phone] Creatinine Random Urine 61.80 mg/dL CBC Auto 01/22/2019 [facility] White Blood 8.0 10^3/uL Normal 3.5-10.[address] [place] [address] [phone] Red Blood Count 3.86 10^6/uL Normal 3.70-4.87 [...] Blood Cells % 0.0 Urinalysis Profile 01/22/2019 [facility] Urine Color Yellow [address] [place] [address] [phone] Urine Appearance Clear Urine Specific [place] 1.011 Normal 1.010-1.030 Urine pH 5.0 Normal 5-9 Urine Urobilinogen Negative Negative Urine Ketones Negative Negative Urine Protein 2+(100 mg/dL) Abnormal Negative Urine Leukocytes Negative Negative Urine Blood Negative Negative * * Abnormal Negative 12 Urine Nitrite Negative Negative Urine Bilirubin Negative Negative Urine Glucose 3+(>=500 mg/dL) Abnormal Negative Urine White Blood Cell Trace(0-5/hpf) Absent Urine Red Blood Cell Absent Absent Urine Bacteria Absent Absent Urine Squamous Epithelial Cell Present Abnormal Absent Basic Metabolic 01/22/2019 [facility] Sodium 136 mmol/L Normal 135-[address] [place] [address] [phone] Potassium 4.9 mmol/L Normal 3.5-5.0 Chloride 106 mmol/L Normal 101-111 Co2 Carbon Dioxide 22 mmol/L Normal 22-32 Anion Gap 8 mmol/L Normal 2-11 Glucose 255 mg/dL High 70-100 Blood Urea Nitrogen 60 mg/dL High 6-24 Creatinine 4.11 mg/dL High 0.51-0.95 BUN/Creatinine Ratio 14.6 Normal 8-20 Calcium 9.5 mg/dL Normal 8.6-10.3 Egfr Non- 10.7 >60 Egfr 13.0 >60 13 Urine Culture 01/22/2019 [facility] Urine Culture SEE [address] [place] [address] BELOW [phone] Laboratory test 12/18/2018 [facility] Fructosamine 389 Abnormal 200 - [address] mcmol/L 285 [place] [address] [phone] Laboratory test 12/18/2018 [facility] Hemoglobin A1c 7.2 % High 4.0-[address] (Glyco HGB) .6 [place] [address] [phone] Urine Culture 12/18/2018 [facility] Urine Culture SEE [address] [place] [address] BELOW [phone] Pthi 12/18/2018 [facility] Calcium (PTH 9.4 mg/dL Normal 8.6- [address] Intact) 0.3 [place] [address] [phone] PTH Intact 110.1 pg/mL High 12-88 Laboratory test 12/18/2018 [facility] Total Protein 181 mg/dL finding [address] Random Urine [place], [place] [address] [phone] Creatinine Random Urine 79.59 mg/dL Basic Metabolic 12/18/2018 [facility] Sodium 139 mmol/L Normal 135-[address] [place] [address] [phone] Chloride 108 mmol/L Normal 101-111 Co2 Carbon Dioxide 23 mmol/L Normal 22-32 Glucose 74 mg/dL Normal 70-100 Blood Urea Nitrogen 69 mg/dL High 6-24 Creatinine 3.95 mg/dL High 0.51-0.95 BUN/Creatinine Ratio 17.5 Normal 8-20 Calcium 9.5 mg/dL Normal 8.6-10.3 Egfr Non- 11.2 >60 Egfr 13.6 >60 18 Potassium 5.4 mmol/L High 3.5-5.0 Anion Gap 8 mmol/L Normal 2-11 CBC Auto 12/18/2018 [facility] White Blood 8.1 10^3/uL Normal 3.5-10.[address] [place] [address] [phone] Red Blood Count 3.85 10^6/uL Normal 3.70-4.87 [...] % Nucleated Red Blood Cells % 0.1 Urinalysis Profile 12/18/2018 [facility] Urine Color Yellow [address] [place] [address] [phone] Urine Appearance Cloudy Urine Specific [place] 1.013 Normal 1.010-1.030 Urine pH 5.0 Normal [...] Squamous Epithelial Cell Present Abnormal Absent Laboratory 10/19/2018 [facility] Fructosamine 526 mcmol/L Abnormal 200 - 19 test finding [address] [place] [address] [phone] Comp Metabolic 10/19/2018 [facility] Sodium 137 mmol/L Normal 135-[address] 5 [place] [address] [phone] Potassium 4.5 mmol/L Normal 3.5-5.0 Chloride 105 [...] Egfr Non- 11.1 >60 Egfr 13.5 >60 20 Laboratory 10/19/2018 [facility] TSH (Thyroid 2.22 Normal 0.34 -5.60 test finding [address] Stim Horm) mcIU/[place] [address] [phone] Hemoglobin A1c (Glyco HGB) 9.6 % High 4.0-5.6 21 1 Correctional Nurse: [id number] 2 Correctional Nurse: [id number] 3 Comment: when arrives for OR 4 Comment: when arrives for OR 5 Correctional Nurse: [id number] 6 SEE RESULT BELOW Name: JOSÉ TOLBERT : [address]: Karthik Ornelas MD Acct: [id number] Unit: [id number] AGE: 68 Location: LAB Re02/15/19 SEX: F Status: REG REF SPEC: [id number] IVON: 02/15/[address] [facility] [address]: Karthik Ornelas MD REQ: [id number] RECD: 02/15/19 STATUS:COMP _ SOURCE: URINE SPDESC: ORDERED: Urine Culture Procedure Result Reported Site Urine Culture Final 02/17/19- 0839 ML Organism 1 KLEBSIELLA PNEUMONIAE [place] Count >100,000 (Many) CFU/ML 1. KLEBSIELLA PNEUMONIAE [...] . END OF REPORT DEPARTMENT OF PATHOLOGY, [address] [place] [address] Shakeel Song M.D. Director CLIA # [id number] 7 M. tuberculosis infection NOT likely 8 Test Performed by: [facility] [address] [place] [address] Machine I Cutter: Andres Little M.D. Ph.D.; CLIA# [id number] 9 Because ethnic data is not always [...] 5 Kidney failure <15 (or dialysis) 10 SEE RESULT BELOW Name: JOSÉ TOLBERT : [address]: Karthik Ornelas MD Acct: [id number] Unit: [id number] AGE: 68 Location: LAB Re02/13/19 SEX: F Status: REG REF SPEC: [id number] IVON: 02/13/19-[address] [facility] [address]: Karthik Ornelas MD REQ: [id number] RECD: 02/13/19 STATUS:COMP _ SOURCE: URINE SPDESC: ORDERED: Urine Culture Procedure Result Reported Site Urine Culture Final 02/15/19- 1007 ML Organism 1 KLEBSIELLA PNEUMONIAE [place] Count >100,000 (Many) CFU/ML 1. KLEBSIELLA PNEUMONIAE [...] . END OF REPORT DEPARTMENT OF PATHOLOGY, [address] [place] [address] Shakeel Song M.D. Director [facility] # [id number] 11 Because ethnic data is not always readily [...] 15-29 5 Kidney failure <15 (or dialysis) 12 *Ascorbic acid is present which may interfere with detection of blood. 13 Because ethnic data is not always [...] [address]: Karthik Ornelas MD Acct: [id number] Unit: [id number] AGE: 68 Location: LAB Re01/22/19 SEX: F Status: REG REF SPEC: [id number] IVON: 01/22/[address] [facility] [address]: Karthik Ornelas MD REQ: [id number] RECD: 01/22/19 STATUS: COMP _ SOURCE: URINE SPDESC: ORDERED: Urine Culture Procedure Result Reported Site Urine Culture Final 01/24/19- 09 ML No growth of clinically significant organisms * - [facility] . END OF REPORT DEPARTMENT OF PATHOLOGY, [address] [place] [address] Shakeel Song M.D. Director [facility] # [id number] 15 Test Performed by: [place] [address] Machine I Cutter: Andres Little M.D. Ph.D.; IA# [id number] 16 Therapeutic target for the treatment of diabetes mellitus patients is <7% HBA1C, and in selective patients <6.0%. Please refer to [place] [employer] diabetic care guidelines for further information. 17 SEE RESULT BELOW Name: TOLBERTJOSÉ : [address]: Dia Yoder NP, CNM Acct: [id number] Unit: [id number] AGE: 68 Location: LAB Re12/18/18 SEX: F Status: REG REF SPEC: [id number] IVON: 12/18/18-[address] [facility] [address]: Karthik Ornelas MD REQ: [id number] RECD: 12/18/188036 STATUS: ALICIA ARROYO DR: Dia KWON _ SOURCE: URINE SPDESC: ORDERED: Urine Culture Procedure Result Reported Site Urine Culture Final 12/19/18- 1616 ML No growth of clinically significant organisms * ML - Main Lab . END OF REPORT DEPARTMENT OF PATHOLOGY, [address] [place] [address] Shakeel Song M.D. Director [facility] # [id number] 18 Because ethnic data is not always [...] 5 Kidney failure <15 (or dialysis) 19 Test Performed by: [facility] [address] [facility], [place] [address] 20 Because ethnic data is not always readily [...] 15-29 5 Kidney failure <15 (or dialysis) 21 Therapeutic target for the treatment of diabetes mellitus patients is <7% HBA1C, and in selective patients <6.0%. Please refer to [place] [employer] diabetic care guidelines for further information. Procedures Date Code Description Status 02/06/2019 60646 ECHO Transthorasic Realtime 2D W Doppler & Color Flow Hosp Completed 01/30/2019 91173 Glucose Monitoring Interpetation And Report Completed Medical Devices Description No Information Available Encounters Type Date Location Provider Dx Diagnosis Office Visit 02/19/2019 [facility] Karthik Ornelas, N18.5 Chronic kidney 2:30p disease, stage 5 N18.6 End stage renal disease E11.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 I10 Essential (primary) hypertension E78.2 Mixed hyperlipidemia E87.70 Fluid overload, unspecified Office Visit 02/15/2019 10:45a Surgical Romel Giles N18.6 End [facility], FACS renal disease Office Visit 02/09/2019 3:27p [facility] Sanchez8.5 Chronic kidney MD Johnson disease, stage 5 E87.70 Fluid overload, unspecified Office Visit 02/08/2019 [facility] I50.20 Unspecified 9:17a Assoc,pc ARCENIO Gould systolic Hospitalists (congestive) heart failure R91.8 Other nonspecific abnormal finding of lung field E11.21 Type 2 diabetes mellitus with diabetic nephropathy Office Visit 02/08/2019 8:36a [facility] Rosamaria Johnson, I13.2 Hyp hrt & [...] I27.20 Pulmonary hypertension, unspecified Office Visit 02/07/2019 8:54a [facility] oRsamaria Johnson, I13.2 Hyp hrt & chr rowanny dis w hrt fail and w stg 5 chr kdny/Esrd I50.21 Acute systolic (congestive) heart failure E11.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 N18.5 Chronic kidney disease, stage 5 D63.1 Anemia in chronic kidney disease E11.40 Type 2 diabetes mellitus with diabetic neuropathy, unsp I27.20 Pulmonary hypertension, unspecified Office Visit 02/07/2019 [facility] I50.33 Acute on chronic 9:17a Assoc,pc MD Bret diastolic Hospitalists (congestive) heart failure Z78.9 Other specified health status Office Visit 02/06/2019 [facility] Christel I50.33 Acute on chronic 9:16a Assoc,pc Ingrid Contreras diastolic Hospitalists (congestive) heart failure Office Visit 02/06/2019 [facility] Rosamaria Johnson, I13.2 Hyp hrt & chr kdny 8:54a dis w hrt fail and w stg 5 chr kdny/Esrd I50.21 Acute systolic (congestive) heart failure E11.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 N18.5 Chronic kidney disease, stage 5 I95.89 Other hypotension Office Visit 02/05/2019 9:16a [facility] Leatha Vaca, I13.2 Hyp hrt & 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 Z79.4 half-way (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 of insulin E78.5 Hyperlipidemia, unspecified E87.5 Hyperkalemia I10 Essential (primary) hypertension I12.9 Hypertensive chronic kidney disease w stg 1-4/unsp [facility] kdny Office Visit 01/17/2019 11:00a [facility] Loki Johnson, E11.22 Type 2 diabetes [facility] mellitus w diabetic chronic kidney disease N18.4 Chronic kidney disease, stage 4 (severe) Z79.4 ocean transportation intermediary (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 of insulin Office Visit 12/21/2018 11:00a [facility] Karthik Enriquez. 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 Z79.4 ocean transportation intermediary (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 of insulin E78.5 Hyperlipidemia, unspecified E87.5 Hyperkalemia I10 Essential (primary) hypertension Office Visit 12/12/2018 11:30a [facility] Dia Yoder E11.22 Type 2 [facility] SONG LYRICIST-Cde diabetes mellitus w diabetic chronic kidney disease N18.5 Chronic kidney disease, stage 5 Office Visit 12/07/2018 11:00a [facility] Karthik French N18.5 Chronic kidney MD Johnson disease, stage 5 E11.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 E11.65 Type 2 diabetes mellitus with hyperglycemia Z79.4 half-way (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 of insulin Office Visit 10/19/2018 2:00p [facility] Loki Johnson E11.22 Type 2 diabetes [facility] mellitus w diabetic chronic kidney disease N18.5 Chronic kidney disease, stage 5 E11.65 Type 2 diabetes mellitus with hyperglycemia Z79.4 half-way (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 of insulin Office Visit 09/21/2018 1:00p [facility] Manda N18.6 End stage [facility] Marker, 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 Z79.4 half-way (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 of insulin E11.649 Type 2 diabetes mellitus with hypoglycemia without coma Assessments Date Code Description Provider 02/19/2019 N18.5 Chronic kidney disease, stage 5 Karthik Ornelas MD 02/19/2019 N18.6 End stage renal disease Karthik Ornelas MD 02/19/2019 E11.22 Type 2 diabetes mellitus with diabetic Karthik Ornelas MD chronic kidney disease 02/19/2019 I10 Essential (primary) hypertension Karthik Ornelas MD 02/19/2019 E78.2 Mixed hyperlipidemia Karthik Ornelas MD 02/19/2019 E87.70 Fluid overload, unspecified Karthik Ornelas MD 02/15/2019 N18.5 Chronic kidney disease, stage 5 Karthik Ornelas MD 02/15/2019 N18.6 End stage renal disease Romel Giles MD, [facility] 02/15/2019 N18.6 End stage renal disease Karthik [...] Type 2 diabetes mellitus with diabetic Karthik Onrelas MD chronic kidney disease 02/13/2019 N18.5 Chronic [...] MD heart failure 02/08/2019 E87.70 Fluid overload, bhavaniified Rosamaria Johnson MD 02/08/2019 E11.40 Type 2 [...] E11.40 Type 2 diabetes mellitus with diabetic Rosamaira Johnson MD neuropathy, unspecified 02/07/2019 I27.20 Pulmonary hypertension, unspecified Rosamaria Johnson MD 02/06/2019 I13.2 Hypertensive heart [...] Ornelas MD chronic kidney diseas 01/23/2019 Z79.4 half-way (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 of insulin Karthik Ornelas MD [...] 4 (severe) Loki Johnson MD 01/17/2019 Z79.4 half-way (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 of insulin Loki Johnson MD 12/21/2018 I12.0 Hypertensive chronic kidney disease with Karthik Onrelas MD stage 5 chronic kidney disease or end stage renal disease 12/21/2018 N18.5 Chronic kidney disease, stage 5 Karthik Ornelas MD 12/21/2018 E11.22 Type 2 diabetes mellitus with diabetic Karthik Ornelas MD chronic kidney diseas 12/21/2018 Z79.4 half-way (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 of insulin Karthik Ornelas MD 12/21/2018 E78.5 Hyperlipidemia, unspecified Karthik Ornelas MD 12/21/2018 E87.5 Hyperkalemia Karthik Ornelas MD 12/21/2018 I10 Essential (primary) hypertension Karthik Ornelas MD 12/12/2018 E11.22 Type 2 diabetes mellitus with diabetic Diaenrique Yoder, SONG LYRICIST- Cde chronic kidney diseas 12/12/2018 N18.5 Chronic kidney disease, stage 5 Dia Yoder, SONG LYRICIST-Cde 12/07/2018 N18.5 Chronic kidney disease, stage 5 Karthik Ornelas MD 12/07/2018 E11.22 Type 2 diabetes mellitus with diabetic Karthik Ornelas MD chronic kidney diseas 12/07/2018 E11.65 Type 2 diabetes mellitus with Karthik Ornelas MD hyperglycemia 12/07/2018 Z79.4 half-way (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 of insulin Karthik Ornelas MD 10/19/2018 E11.22 Type 2 diabetes mellitus with diabetic Loki Johnson MD chronic kidney diseas 10/19/2018 N18.5 Chronic kidney disease, stage 5 Loki Johnson MD 10/19/2018 E11.65 Type 2 diabetes mellitus with Loki Johnson MD hyperglycemia 10/19/2018 Z79.4 ocean transportation intermediary (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 of insulin Loki Johnson MD 09/21/2018 N18.6 End stage renal disease Manda Marker, RPA-C 09/21/2018 E11.22 Type 2 diabetes mellitus with diabetic Manda Marker, RPA -C chronic kidney diseas 09/21/2018 Z79.4 half-way (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 of insulin Manda Marker, RPA-C 09/21/2018 E11.649 Type 2 diabetes mellitus with Manda Marker, RPA-C hypoglycemia without coma Plan of Treatment Future Appointment(s):02/22/2019 2:00 pm - Karthik Ornelas MD at [facility] Gvmhcnsqqf45/14/2019 2:45 pm - Romel Giles MD, FACS at [facility]04/16/2019 11:20 am - Deo Sierra MD at [facility] Internal Medicine - [address] 11:00 am - Loki Johnson MD at [facility] - Karthik Ornelas MDN18.5 Chronic kidney disease, stage 5Follow up:f /u in 3 days with LabsN18.6 End stage renal ifsitriN13.22 Type 2 diabetes mellitus with diabetic chronic kidney [id number] Essential (primary) cwqdbkyoergsF91.2 Mixed aqlnlpkqkcaatbF05.70 Fluid overload, unspecified Functional Status Description No Information Available Mental Status Description No Information Available Referrals Refer to Reason for Referral Status Appt Date Romel Giles MD Dr. Bollo agreed to place PD Catheter next Tuesday Created 02/16. Please schedule on his clinic schedule for 02/15 She'll need PD very soon [place] [address] [facility] [address] [phone] Jay Rodriguez MD CKD 5 for AVF Sent [address] [place] [address] [place] [address] [phone]
--- OUTSIDE RECORDS SUMMARY | 2019-04-11 11:16 | XMS REPORT | Continuity of Care Document ---
:1950 External Reference #:[id number] Author Name Deo Sierra MD (transmitted by agent of provider Alexandra Manjarrez) Address [address] [place] [id number] Care Team Providers Name Role Phone Selene Galo MD - Internal Medicine Care Team Information [employer] Franci Hart MD - Nephrology Care Team Information [employer] Romel Giles MD - Surgery Care Team Information [employer] [phone] Deo Sierra MD - Hospitalist Care Team Information [employer] [phone] Problems Description No Information Available Social History Type Date Description Comments Sex Unknown Tobacco Use Start: Unknown Never Smoked Cigarettes Smoking Status Reviewed: 02/14/19 Never Smoked Cigarettes ETOH Use Never used alcohol Tobacco Use Start: Unknown Patient has never smoked Recreational Drug Use Never Used Drugs Exercise Type/Frequency Exercises sporadically Allergies, Adverse Reactions, Alerts Active Allergies Reaction Severity Comments Date Shellfish-Derived Products Difficulty breathing 07/21/2018 Medications Active Medications SIG Qnty Indications Ordering Date Provider Prednisolone Acetate one drop once Unknown 12/06/2018 1% daily in right Suspension eye Chromium Picolinate one tablet twice Unknown 12/06/2018 daily 200mcg Tablets Turmeric Unknown 12/05/2018 400mg Capsules Humalog Mix 75/25 inject 20 units 15ml Loki Johnson MD 09/22/2018 Kwikpen in the morning (75-25)100Unit/ML and 10 units at Supn night BD Pen use twice daily 100units E11.22 Loki Johnson MD 09/21/2018 Needle/Angelica/Ultra for injection -Fine/32G X 4mm 32G X 4 mm Misc Insulin Syringe-Needle use with lantus 100units Loki Jonhson MD 2018 U-100 daily 31G X 1/4" 1 ML Misc Onetouch Verio use to check 600units Loki Johnson MD 08/04/2018 Strips blood sugar 4 times a day and for hypoglycemia. Atorvastatin Calcium 1 by mouth every Unknown 80mg day at 5 pm Tablets Torsemide 4 by mouth every Unknown 20mg Tablets day Spironolactone 1/2 tab by mouth Unknown 25mg every day Tablets Ascorbic Acid 1 tablet twice Unknown 500mg daily Tablets Metoprolol Succinate 1 by mouth once Unknown ER daily 50mg Tablets ER 24HR Traumeel 1 tablet twice Unknown Tablets daily Onetouch Ultra Blue test twice a day Unknown and as needed Strips Vitamin B-12 1 by mouth every Unknown 1000mcg day Tablets Aspirin 81 1 by mouth every Unknown 81mg Tablets day DR Amlodipine Besylate 1 by mouth every Unknown 5mg day Tablets Acyclovir 1 by mouth once Unknown 400mg Tablets daily History Medications Novolin 70/30 Flexpen 30 minutes before 15ml E11.22 Loki Johnson, 2018 - breakfast: 16 09/21/2018 (70-30)100Unit/ML Supn units 30 minutes before dinner: 12 units Novolog Mix 70/30 Take 28 units in 15ml E11.22 Loki Johnson, 09/21/2018 - Prefilled Flexpen the morning and 10 09/25/2018 units at night. (70-30)100Unit/ML Supn Immunizations Description No Information Available Vital Signs Date Vital Result Comment 02/14/2019 11:47am Height 64 inches 5'4" Weight 132.00 lb Heart Rate 69 /min BP Systolic Sitting 93 mmHg BP Diastolic Sitting 61 mmHg Body Temperature 96.7 F O2 % BldC Oximetry 97 % BMI (Body Mass Index) 22.7 kg/m2 02/13/2019 12:55pm Height 64 inches 5'4" Weight 134.00 lb Heart Rate 66 /min BP Systolic Sitting 108 mmHg L arm BP Diastolic Sitting 61 mmHg L arm O2 % BldC Oximetry 96 % BMI (Body Mass Index) 23.0 kg/m2 Results Test Acquired Date Facility Test Result H/L Range Note Neph Routine 02/13/2019 [facility] Total Protein 141 mg/dL [address] [place] [address] [phone] Creatinine Random Urine 57.19 mg/dL CBC Auto 02/13/2019 [facility] White Blood 9.5 10^3/uL Normal 3.5-10.[address] [place] [address] [phone] Red Blood Count 4.18 10^6/uL Normal 3.70-4.87 [...] Blood Cells % 0.0 Basic Metabolic 02/13/2019 [facility] Sodium 135 mmol/L Normal 135-[address] [place] [address] [phone] Potassium 4.3 mmol/L Normal 3.5-5.0 Chloride 98 mmol/L Low 101-111 Co2 Carbon Dioxide 20 mmol/L Low 22-32 Anion Gap 17 mmol/L High 2-11 Glucose 186 mg/dL High 70-100 Blood Urea Nitrogen 120 mg/dL High 6-24 Creatinine 6.55 mg/dL High 0.51-0.95 BUN/Creatinine Ratio 18.3 Normal 8-20 Calcium 9.8 mg/dL Normal 8.6-10.3 Egfr Non- 6.3 >60 Egfr 7.6 >60 1 Urinalysis Profile 02/13/2019 [facility] Urine Color Yellow [address] [place] [address] [phone] Urine Appearance Turbid Urine Specific English 1.010 Normal 1.010-1.030 Urine pH 5.0 Normal [...] Abnormal Absent Urine Bacteria 1+ Abnormal Absent Neph Routine 01/22/2019 [facility] Total Protein Random 131 mg/ dL [address] [place] [address] [phone] Creatinine Random Urine 61.80 mg/dL CBC Auto 01/22/2019 [facility] White Blood 8.0 10^3/uL Normal 3.5-10.[address] [place] [address] [phone] Red Blood Count 3.86 10^6/uL Normal 3.70-4.87 [...] Blood Cells % 0.0 Urinalysis Profile 01/22/2019 [facility] Urine Color Yellow [address] [place] [address] [phone] Urine Appearance Clear Urine Specific English 1.011 Normal 1.010-1.030 Urine pH 5.0 Normal 5-9 Urine Urobilinogen Negative Negative Urine Ketones Negative Negative Urine Protein 2+(100 mg/dL) Abnormal Negative Urine Leukocytes Negative Negative Urine Blood Negative Negative * * Abnormal Negative 2 Urine Nitrite Negative Negative Urine Bilirubin Negative Negative Urine Glucose 3+(>=500 mg/dL) Abnormal Negative Urine White Blood Cell Trace(0-5/hpf) Absent Urine Red Blood Cell Absent Absent Urine Bacteria Absent Absent Urine Squamous Epithelial Cell Present Abnormal Absent Basic Metabolic 01/22/2019 [facility] Sodium 136 mmol/L Normal 135-145 [place] [address] [phone] Potassium 4.9 mmol/L Normal 3.5-5.0 Chloride 106 mmol/L Normal 101-111 Co2 Carbon Dioxide 22 mmol/L Normal 22-32 Anion Gap 8 mmol/L Normal 2-11 Glucose 255 mg/dL High 70-100 Blood Urea Nitrogen 60 mg/dL High 6-24 Creatinine 4.11 mg/dL High 0.51-0.95 BUN/Creatinine Ratio 14.6 Normal 8-20 Calcium 9.5 mg/dL Normal 8.6-10.3 Egfr Non- 10.7 >60 Egfr 13.0 >60 3 Urine Culture 01/22/2019 [facility] Urine Culture SEE [address] [place] [address] BELOW [phone] Laboratory test 12/18/2018 [facility] Fructosamine 389 Abnormal 200 - 5 finding mcmol/L 285 [place] [address] [phone] Laboratory test 12/18/2018 [facility] Hemoglobin A1c 7.2 % High 4.0-5. 6 finding (Glyco HGB) 6 [place], [place] [id number] [phone] Urine Culture 12/18/2018 [facility] Urine Culture SEE [address] RESULT Sensitivities [place] [address] BELOW [phone] Pthi 12/18/2018 [facility] Calcium (PTH 9.4 mg/dL Normal 8.6- [address] Intact) .3 [place] [address] [phone] PTH Intact 110.1 pg/mL High 12-88 Laboratory test 12/18/2018 [facility] Total Protein 181 mg/dL finding [address] Random Urine [place] [address] [phone] Creatinine Random Urine 79.59 mg/dL Basic Metabolic 12/18/2018 [facility] Sodium 139 mmol/L Normal 135-[address] [place] [id number] [phone] Chloride 108 mmol/L Normal 101-111 Co2 Carbon Dioxide 23 mmol/L Normal 22-32 Glucose 74 mg/dL Normal 70-100 Blood Urea Nitrogen 69 mg/dL High 6-24 Creatinine 3.95 mg/dL High 0.51-0.95 BUN/Creatinine Ratio 17.5 Normal 8-20 Calcium 9.5 mg/dL Normal 8.6-10.3 Egfr Non- 11.2 >60 Egfr 13.6 >60 8 Potassium 5.4 mmol/L High 3.5-5.0 Anion Gap 8 mmol/L Normal 2-11 CBC Auto 12/18/2018 [facility] White Blood 8.1 10^3/uL Normal 3.5-10.[address] [place] [address] [phone] Red Blood Count 3.85 10^6/uL Normal 3.70-4.87 [...] Blood Cells % 0.1 Urinalysis Profile 12/18/2018 [facility] Urine Color Yellow [address] [place] [address] [phone] Urine Appearance Cloudy Urine Specific English 1.013 Normal 1.010-1.030 Urine pH 5.0 Normal [...] Epithelial Cell Present Abnormal Absent Laboratory 10/19/2018 [facility] Fructosamine 526 mcmol/L Abnormal 200 - 9 test finding 101 [facility] [address] [place] [address] [phone] Comp Metabolic 10/19/2018 [facility] Sodium 137 mmol/L Normal 135-[address] [place] [address] [phone] Potassium 4.5 mmol/L Normal 3.5-5.0 Chloride 105 [...] Egfr Non- 11.1 >60 Egfr 13.5 >60 10 Laboratory 10/19/2018 [facility] TSH (Thyroid 2.22 Normal 0.34 -5.60 test finding [address] Stim Horm) mcIU/[place] [address] [phone] Hemoglobin A1c (Glyco HGB) 9.6 % High 4.0-5.6 11 1 Because ethnic data is not always [...] 5 Kidney failure <15 (or dialysis) 2 *Ascorbic acid is present which may interfere with detection of blood. 3 Because ethnic data is not always [...] dialysis) 4 SEE RESULT BELOW Name: JOSÉ TOLBERT : [address]: Karthik Ornelas MD Acct: [id number] Unit: [id number] AGE: 68 Location: LAB Re01/22/19 SEX: F Status: REG REF SPEC: [id number] IVON: 01/22/[address]: Karthik Ornelas MD REQ: [id number] RECD: 01/22/19 STATUS: COMP _ SOURCE: URINE SPDESC: ORDERED: Urine Culture Procedure Result Reported Site Urine Culture Final 01/24/19- 925 ML No growth of clinically significant organisms * - [facility] . END OF REPORT DEPARTMENT OF PATHOLOGY, [address] [place] [address] Shakeel Song M.D. Director [facility] # [id number] 5 Test Performed by: [place] [address] Flamer Sealer: Andres Little M.D. Ph.D.; CLIA# [id number] 6 Therapeutic target for the treatment of diabetes mellitus patients is <7% HBA1C, and in selective patients <6.0%. Please refer to [place] [employer] diabetic care guidelines for further information. 7 SEE RESULT BELOW Name: JOSÉ TOLBERT : [address]: Dia Yoder NP, CNM Acct: [id number] Unit: [id number] AGE: 68 Location: LAB Re12/18/18 SEX: F Status: REG REF SPEC: [id number] IVON: 12/18/181255 [facility] DR: Karthik Ornelas MD REQ: [id number] RECD: 12/18/187493 STATUS: ALICIA ARROYO DR: Dia Yoder NP, CNM _ SOURCE: URINE SPDESC: ORDERED: Urine Culture Procedure Result Reported Site Urine Culture Final 12/19/18- 1616 ML No growth of clinically significant organisms * ML - Main Lab . END OF REPORT DEPARTMENT OF PATHOLOGY, [address] [place] [address] Shakeel Song M.D. Director [facility] # [id number] 8 Because ethnic data is not always [...] 5 Kidney failure <15 (or dialysis) 9 Test Performed by: [address] [address] 10 Because ethnic data is not always [...] 15-29 5 Kidney failure <15 (or dialysis) 11 Therapeutic target for the treatment of diabetes mellitus patients is <7% HBA1C, and in selective patients <6.0%. Please refer to [place] diabetic care guidelines for further information. Procedures Date Code Description Status 02/06/2019 74233 ECHO Transthorasic Realtime 2D W Doppler & Color Flow Hosp Completed 01/30/2019 88317 Glucose Monitoring Interpetation And Report Completed Medical Devices Description No Information Available Encounters Type Date Location Provider Dx Diagnosis Office Visit 02/08/2019 [facility] Andres Bryanna, I50.20 Unspecified 9:17a tim Coello systolic Hospitalists (congestive) heart failure R91.8 Other nonspecific abnormal finding of lung field E11.21 Type 2 diabetes mellitus with diabetic nephropathy Office Visit 02/08/2019 8:36a [facility] Nephrology Rosamaria Johnson, I13.2 Hyp hrt [...] I27.20 Pulmonary hypertension, unspecified Office Visit 02/07/2019 [facility] Kayla I50.33 Acute on chronic 9:17a Asstim louis MD diastolic Hospitalists (congestive) heart failure Z78.9 Other specified health status Office Visit 02/07/2019 8:54a [facility] Nephrology Rosamaria Johnson, I13.2 Hyp hrt [...] I27.20 Pulmonary hypertension, unspecified Office Visit 02/06/2019 [facility] Christel I50.33 Acute on chronic 9:16a Assoc,pc Ingrid Contreras diastolic Hospitalists (congestive) heart failure Office Visit 02/06/2019 [facility] Nephrology Rosamaria Johnson, I13.2 Hyp hrt & chr kdny 8:54a dis w hrt fail and w stg 5 chr kdny/Esrd I50.21 Acute systolic (congestive) heart failure E11.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 N18.5 Chronic kidney disease, stage 5 I95.89 Other hypotension Office Visit 02/05/2019 9:16a [facility] Leatha Vaca, I13.2 Hyp hrt & chr 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,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 kdny dis w hrt Hospitalists fail and w stg 5 chr kdny/Esrd E11.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 N18.6 End stage renal disease I50.9 Heart failure, unspecified Office Visit 01/23/2019 1:00p [facility]phrology Karthik French 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 Z79.4 MCC (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 of insulin E78.5 Hyperlipidemia, unspecified E87.5 Hyperkalemia I10 Essential (primary) hypertension I12.9 Hypertensive chronic kidney disease w stg 1-4/unsp chr kdny Office Visit 01/17/2019 11:00a [facility] Manjarrez Coch, E11.22 Type 2 diabetes [facility] mellitus w diabetic chronic kidney disease N18.4 Chronic kidney disease, stage 4 (severe) Z79.4 MCC (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 of insulin Office Visit 12/21/2018 11:00a [facility] Nephrology Karthik French 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 Z79.4 silver plater (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 of insulin E78.5 Hyperlipidemia, unspecified E87.5 Hyperkalemia I10 Essential (primary) hypertension Office Visit 12/12/2018 11:30a [facility] Dia Yoder, E11.22 Type 2 [facility] SENIOR BUYER-Cde diabetes mellitus w diabetic chronic kidney disease N18.5 Chronic kidney disease, stage 5 Office Visit 12/07/2018 11:00a [facility] Nephrology Karthik French N18.5 Chronic kidney MD Johnson disease, stage 5 E11.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 E11.65 Type 2 diabetes mellitus with hyperglycemia Z79.4 MCC (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 of insulin Office Visit 10/19/2018 2:00p [facility] Loki Johnson, E11.22 Type 2 diabetes [facility] MD mellitus w diabetic chronic kidney disease N18.5 Chronic kidney disease, stage 5 E11.65 Type 2 diabetes mellitus with hyperglycemia Z79.4 silver plater (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 of insulin Office Visit 09/21/2018 1:00p [facility] Manda N18.6 End stage [facility] Marker, 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 Z79.4 silver plater (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 of insulin E11.649 Type 2 diabetes mellitus with hypoglycemia without coma Assessments Date Code Description Provider 02/14/2019 N18.5 Chronic kidney disease, stage 5 Deo Sierra MD 02/14/2019 E11.22 Type 2 diabetes mellitus with diabetic Deo Sierra MD chronic kidney disease 02/14/2019 I10 Essential (primary) hypertension Deo Sierra MD 02/14/2019 E78.2 Mixed hyperlipidemia Deo Sierra MD 02/14/2019 I50.20 Unspecified systolic (congestive) heart Deo Sierra MD failure 02/13/2019 N18.5 Chronic kidney disease, stage 5 Karthik Ornelas MD 02/13/2019 E87.70 Fluid overload, unspecified Karthik Ornelas MD 02/13/2019 E11.22 Type 2 diabetes mellitus with diabetic Karthik Ornelas MD chronic kidney disease 02/13/2019 I10 Essential (primary) hypertension Karthik Ornelas MD 02/13/2019 I12.9 Hypertensive chronic kidney disease with Karthik Ornelas MD stage 1 through stage 4 chronic kidney disease, or unspecified chronic kidney disease 02/13/2019 E78.2 Mixed hyperlipidemia Karthik Ornelas MD 02/09/2019 E87.70 Fluid overload, [...] 02/08/2019 D63.1 Anemia in chronic kidney disease oRsamaria Johnson MD 02/08/2019 I27.20 Pulmonary hypertension, unspecified Rosamaria Johnson MD 02/07/2019 I50.33 Acute on chronic diastolic (congestive) Kayla Movva, MD heart failure 02/07/2019 Z78.9 Other specified [...] Ornelas MD chronic kidney diseas 01/23/2019 Z79.4 silver plater (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 of insulin Karthik Ornelas MD [...] 4 (severe) Loki Johnson MD 01/17/2019 Z79.4 silver plater (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 of insulin Loki Johnson MD 12/21/2018 I12.0 Hypertensive chronic kidney disease with Karthik Ornelas MD stage 5 chronic kidney disease or end stage renal disease 12/21/2018 N18.5 Chronic kidney disease, stage 5 Karthik Ornelas MD 12/21/2018 E11.22 Type 2 diabetes mellitus with diabetic Karthik Ornelas MD chronic kidney diseas 12/21/2018 Z79.4 MCC (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 of insulin Karthik Ornelas MD 12/21/2018 E78.5 Hyperlipidemia, bhavaniified Karthik Orneals MD 12/21/2018 E87.5 Hyperkalemia Karthik Ornelas MD 12/21/2018 I10 Essential (primary) hypertension Karthik Ornelas MD 12/12/2018 E11.22 Type 2 diabetes mellitus with diabetic Dia Yoder, SENIOR BUYER- Cdenrique chronic kidney diseas 12/12/2018 N18.5 Chronic kidney disease, stage 5 Dia Yoder, SENIOR BUYER-Cde 12/07/2018 N18.5 Chronic kidney disease, stage 5 Karthik Ornelas MD 12/07/2018 E11.22 Type 2 diabetes mellitus with diabetic Karthik Ornelas MD chronic kidney diseas 12/07/2018 E11.65 Type 2 diabetes mellitus with Karthik Ornelas MD hyperglycemia 12/07/2018 Z79.4 MCC (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 of insulin Karthik Ornelas MD 10/19/2018 E11.22 Type 2 diabetes mellitus with diabetic Loki Johnson MD chronic kidney diseas 10/19/2018 N18.5 Chronic kidney disease, stage 5 Loki Johnson MD 10/19/2018 E11.65 Type 2 diabetes mellitus with Loki Johnson MD hyperglycemia 10/19/2018 Z79.4 MCC (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 of insulin Loki Johnson MD 09/21/2018 N18.6 End stage renal disease Manda Marker, RPA-C 09/21/2018 E11.22 Type 2 diabetes mellitus with diabetic Manda Marker, RPA -C chronic kidney diseas 09/21/2018 Z79.4 silver plater (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 of insulin Manda Marker, RPA-C 09/21/2018 E11.649 Type 2 diabetes mellitus with Manda Marker, RPA-C hypoglycemia without coma Plan of Treatment Future Appointment(s):04/16/2019 11:20 am - Deo Sierra MD at [facility] Internal Medicine - [address]/17/2018 11:30 am - Karthik Ornelas MD at [facility] Ltchxuucpx41/18/2019 2:20 pm - Romle Saldana DO FAC at [facility]02/23/2019 11:00 am - Karthik Ornelas MD at [facility] Hvnwsqdyin58/17/2019 11 :00 am - Loki Johnson MD at [facility]02/14/2019 - Deo Sierra MDN18.5 Chronic kidney disease, stage 5Follow up:8 weeks.E11.22 Type 2 diabetes mellitus with diabetic chronic kidney [id number] Essential ( primary) hypertensionComments:Your blood pressure was low today. Please record at home in a log book.E78.2 Mixed [id number] Unspecified systolic ( congestive) heart failure Functional Status Description No Information Available Mental Status Description No Information Available Referrals Refer to Reason for Referral Status Appt Date Romel Giles MD Dr. Bollo agreed to place PD Catheter next Tuesday Created 02/16. Please schedule on his clinic schedule for 02/15 She'll need PD very soon [place] [address] [facility] [address] [phone] Jay Rodriguez MD CKD 5 for AVF Sent [address] [place] [address] [place] [address] [phone]
--- OUTSIDE RECORDS SUMMARY | 2019-04-11 11:16 | XMS REPORT | Continuity of Care Document ---
:1950 External Reference #:[id number] Author Name Romel Saldana DO [facility] (transmitted by agent of provider Vilma Richard) Address [address] [place] [address] Care Team Providers Name Role Phone Selene Galo MD - Internal Medicine Care Team Information Well Logging Captain [phone] Franci Hart MD - Nephrology Care Team Information Well Logging Captain Romel Giles MD - Surgery Care Team Information Well Logging Captain [phone] Deo Sierra MD - Hospitalist Care Team Information Well Logging Captain [phone] Problems Description No Information Available Social History Type Date Description Comments Sex Unknown Tobacco Use Start: Unknown Never Smoked Cigarettes Smoking Status Reviewed: 02/15/19 Never Smoked Cigarettes ETOH Use Never used [...] Available Vital Signs Date Vital Result Comment 02/15/2019 11:51am Height 64 inches 5'4" Weight 132.00 lb Heart Rate 67 /min BP Systolic Sitting 126 mmHg left arm reg cuff BP Diastolic Sitting 79 mmHg left arm reg cuff O2 % BldC Oximetry 97 % room air BMI (Body Mass Index) 22.7 kg/m2 02/15/2019 10:58am Height 64 inches 5'4" Weight 132.00 lb Heart Rate 84 /min BP Systolic Sitting 130 mmHg BP Diastolic Sitting 60 mmHg Respiratory Rate 16 /min Body Temperature 97.1 F BMI (Body Mass Index) 22.7 kg/m2 Results Test Acquired Date Facility Test Result H/L Range Note Laboratory test 02/16/2019 [facility] Point of Care 175 mg/dL High 70-100 [address] [address] [phone] Laboratory test 02/16/2019 [facility] Point of Care 312 mg/dL High 70-100 [address] [place] [address] [phone] Laboratory test 02/16/2019 [facility] Potassium 4.0 mmol/L Normal 3.5-5.0 3, [address] [place] [address] [phone] Laboratory test 02/16/2019 [facility] Point of Care 323 mg/dL High 70-[address] [place] [address] [phone] Neph Routine 02/15/2019 [facility] Total Protein 183 mg/dL [address] [place] [address] [phone] Creatinine Random Urine 68.74 mg/dL CBC Auto 02/15/2019 [facility] White Blood 9.8 10^3/uL Normal 3.5-10.[address] [place] [address] [phone] Red Blood Count 4.05 10^6/uL Normal 3.70-4.87 [...] Red Blood Cells % 0.0 Basic Metabolic 02/15/2019 [facility] Sodium 134 mmol/L Low 135-145 Panel [address] [place] [address] [phone] Potassium 3.9 mmol/L Normal 3.5-5.0 Chloride 99 mmol/L Low 101-111 Co2 Carbon Dioxide 20 mmol/L Low 22-32 Anion Gap 15 mmol/L High 2-11 Glucose 273 mg/dL High 70-100 Creatinine 6.92 mg/dL High 0.51-0.95 Egfr Non- 5.9 >60 Egfr 7.1 >60 6 Blood Urea Nitrogen 144 mg/dL High 6-24 BUN/Creatinine Ratio 20.8 High 8-20 Urinalysis Profile 02/15/2019 [facility] Urine Color Yellow [address] [place] [address] [phone] Urine Appearance Turbid Urine Specific [place] 1.011 Normal 1.010-1.030 Urine pH 5.0 Normal [...] Epithelial Cell Present Abnormal Absent Laboratory test 02/15/2019 [facility] Albumin 4.2 g/dL Normal 3.2-5.2 finding [address] [place] [address] [phone] Phosphorus 8.7 mg/dL High 2.5-5.0 Pthi 02/15/2019 [facility] Calcium (PTH 9.4 mg/dL Normal 8.6- 10.3 101 [facility] Intact) [place] [address] [phone] PTH Intact 228.1 pg/mL High 12-88 Laboratory test 02/15/2019 [facility] Calcium 9.4 mg/dL Normal 8.6-10.[address] [place] [address] [phone] Hepatitis B Core AB Total Negative Negative 7 Hepatitis B Surface Ag Nonreactive Nonreactive Hepatitis B Madie AB Titer Not Immune Abnormal Immune Quantiferon-TB 02/15/2019 [facility] QuantiferonTb Negative Negative 8 Gold Plus [address] [place] [address] [phone] TB1 Ag minus Nil Result 0.01 IU/mL TB2 Ag minus Nil Result 0.01 IU/mL Mitogen minus Nil Result 3.16 IU/mL Nil Result 0.02 IU/mL Laboratory test 02/15/2019 [facility] B-Type 562 pg/mL High <= [address] [place] [address] Peptide BNP [phone] Urine Culture And 02/15/2019 [facility] Urine Culture SEE RESULT [address] [place] [address] [phone] Urine Culture And 02/13/2019 [facility] Urine Culture SEE RESULT [address] [place] [address] [phone] Urinalysis 02/13/2019 [facility] Urine Color Yellow Profile [address] [place] [address] [phone] Urine Appearance Turbid Urine Specific [place] 1.010 Normal 1.010-1.030 Urine pH 5.0 Normal [...] Bacteria 1+ Abnormal Absent Basic Metabolic 02/13/2019 [facility] Sodium 135 mmol/L Normal 135-[address] [place] [address] [phone] Potassium 4.3 mmol/L Normal 3.5-5.0 Chloride 98 mmol/L Low 101-111 Co2 Carbon Dioxide 20 mmol/L Low 22-32 Anion Gap 17 mmol/L High 2-11 Glucose 186 mg/dL High 70-100 Blood Urea Nitrogen 120 mg/dL High 6-24 Creatinine 6.55 mg/dL High 0.51-0.95 BUN/Creatinine Ratio 18.3 Normal 8-20 Calcium 9.8 mg/dL Normal 8.6-10.3 Egfr Non- 6.3 >60 Egfr 7.6 >60 11 CBC Auto 02/13/2019 [facility] White Blood 9.5 10^3/uL Normal 3.5-10.[address] [place] [address] [phone] Red Blood Count 4.18 10^6/uL Normal 3.70-4.87 [...] Blood Cells % 0.0 Neph Routine 02/13/2019 [facility] Total Protein Random 141 mg/ dL [address] [place] [address] [phone] Creatinine Random Urine 57.19 mg/dL Neph Routine 01/22/2019 [facility] Total Protein Random 131 mg/ dL [address] [place] [address] [phone] Creatinine Random Urine 61.80 mg/dL CBC Auto 01/22/2019 [facility] White Blood 8.0 10^3/uL Normal 3.5-10.[address] [place] [address] [phone] Red Blood Count 3.86 10^6/uL Normal 3.70-4.87 [...] Blood Cells % 0.0 Urinalysis Profile 01/22/2019 [facility] Urine Color Yellow [address] [place] [address] [phone] Urine Appearance Clear Urine Specific [place] 1.011 Normal 1.010-1.030 Urine pH 5.0 Normal [...] Cell Present Abnormal Absent Basic Metabolic 01/22/2019 [facility] Sodium 136 mmol/L Normal 135-[address] [place] [address] [phone] Potassium 4.9 mmol/L Normal 3.5-5.0 Chloride 106 mmol/L Normal 101-111 Co2 Carbon Dioxide 22 mmol/L Normal 22-32 Anion Gap 8 mmol/L Normal 2-11 Glucose 255 mg/dL High 70-100 Blood Urea Nitrogen 60 mg/dL High 6-24 Creatinine 4.11 mg/dL High 0.51-0.95 BUN/Creatinine Ratio 14.6 Normal 8-20 Calcium 9.5 mg/dL Normal 8.6-10.3 Egfr Non- 10.7 >60 Egfr 13.0 >60 13 Urine Culture 01/22/2019 [facility] Urine Culture SEE [address] [place] [address] BELOW [phone] Laboratory test 12/18/2018 [facility] Fructosamine 389 Abnormal 200 - [address] mcmol/L 285 [place] [address] [phone] Laboratory test 12/18/2018 [facility] Hemoglobin A1c 7.2 % High 4.0-[address] (Glyco HGB) .6 [place] [address] [phone] Urine Culture 12/18/2018 [facility] Urine Culture SEE [address] [place] [address] BELOW [phone] Pthi 12/18/2018 [facility] Calcium (PTH 9.4 mg/dL Normal 8.6- [address] Intact) 0.3 [place] [address] [phone] PTH Intact 110.1 pg/mL High 12-88 Laboratory test 12/18/2018 [facility] Total Protein 181 mg/dL finding [address] [place] [address] [phone] Creatinine Random Urine 79.59 mg/dL Basic Metabolic 12/18/2018 [facility] Sodium 139 mmol/L Normal 135-[address] [place] [address] [phone] Chloride 108 mmol/L Normal 101-111 Co2 Carbon Dioxide 23 mmol/L Normal 22-32 Glucose 74 mg/dL Normal 70-100 Blood Urea Nitrogen 69 mg/dL High 6-24 Creatinine 3.95 mg/dL High 0.51-0.95 BUN/Creatinine Ratio 17.5 Normal 8-20 Calcium 9.5 mg/dL Normal 8.6-10.3 Egfr Non- 11.2 >60 Egfr 13.6 >60 18 Potassium 5.4 mmol/L High 3.5-5.0 Anion Gap 8 mmol/L Normal 2-11 CBC Auto 12/18/2018 [facility] White Blood 8.1 10^3/uL Normal 3.5-10.[address] [place] [address] [phone] Red Blood Count 3.85 10^6/uL Normal 3.70-4.87 [...] Blood Cells % 0.1 Urinalysis Profile 12/18/2018 [facility] Urine Color Yellow [address] [place] [address] [phone] Urine Appearance Cloudy Urine Specific [place] 1.013 Normal 1.010-1.030 Urine pH 5.0 Normal [...] Epithelial Cell Present Abnormal Absent Laboratory 10/19/2018 [facility] Fructosamine 526 mcmol/L Abnormal 200 - 19 test finding [address] [place] [address] [phone] Comp Metabolic 10/19/2018 [facility] Sodium 137 mmol/L Normal 135-[address] 5 [place], [place] [address] [phone] Potassium 4.5 mmol/L Normal 3.5-5.0 Chloride 105 [...] >60 Egfr 13.5 >60 20 Laboratory 10/19/2018 [facility] TSH (Thyroid 2.22 Normal 0.34 -5.60 test finding [address] Stim Horm) mcIU/[place] [address] [phone] Hemoglobin A1c (Glyco HGB) 9.6 % High 4.0-5.6 21 1 Chauffeur: [id number] 2 Chauffeur: [id number] 3 Comment: when arrives for OR 4 Comment: when arrives for OR 5 Chauffeur: [id number] 6 Because ethnic data is not always [...] 5 Kidney failure <15 (or dialysis) 7 Test Performed by: [facility] [address] [place] [address] Sprinkling Truck Driver: Andres Little M.D. Ph.D.; CLIA# [id number] 8 M. tuberculosis infection NOT likely 9 SEE RESULT BELOW Name: JOSÉ TOLBERT : [address]: Karthik Ornelas MD Acct: [id number] Unit: [id number] AGE: 68 Location: LAB Re02/15/19 SEX: F Status: REG REF SPEC: [id number] IVON: 02/15/[address]: Karthik Ornelas MD REQ: [id number] RECD: 02/15/19 STATUS:COMP _ SOURCE: URINE SPDESC: ORDERED: Urine Culture Procedure Result Reported Site Urine Culture Final 02/17/19- 0839 ML Organism 1 KLEBSIELLA PNEUMONIAE [place] Count >100,000 (Many) CFU/ML 1. KLEBSIELLA PNEUMONIAE [...] END OF REPORT DEPARTMENT OF PATHOLOGY, [address] [place] [address] Shakeel Song M.D. Director [facility] # [id number] 10 SEE RESULT BELOW Name: JOSÉ TOLBERT : [address]: Karthik Ornelas MD Acct: [id number] Unit: [id number] AGE: 68 Location: LAB Re02/13/19 SEX: F Status: REG REF SPEC: [id number] IVON: 02/13/[address] [facility] [address]: Karthik Ornelas MD REQ: [id number] RECD: 02/13/19 STATUS:COMP _ SOURCE: URINE SPDESC: ORDERED: Urine Culture Procedure Result Reported Site Urine Culture Final 02/15/19- 1007 ML Organism 1 KLEBSIELLA PNEUMONIAE [place] Count >100,000 (Many) CFU/ML 1. KLEBSIELLA PNEUMONIAE [...] END OF REPORT DEPARTMENT OF PATHOLOGY, [address] [place] [address] Shakeel Song M.D. Director [facility] # [id number] 11 Because ethnic data is not always [...] [address]: Karthik Ornelas MD Acct: [id number] Unit: [id number] AGE: 68 Location: LAB Re01/22/19 SEX: F Status: REG REF SPEC: [id number] IVON: 01/22/[address]: Karthik Ornelas MD REQ: [id number] RECD: 01/22/19 STATUS: COMP _ SOURCE: URINE SPDESC: ORDERED: Urine Culture Procedure Result Reported Site Urine Culture Final 01/24/19- 925 ML No growth of clinically significant organisms * - Main Lab . END OF REPORT DEPARTMENT OF PATHOLOGY, [address] [place] [address] Shakeel Song M.D. Director [facility] # [id number] 15 Test Performed by: [facility] [address] Sprinkling Truck Driver: Andres Little M.D. Ph.D.; CLIA# [id number] 16 Therapeutic target for the treatment of diabetes mellitus patients is <7% HBA1C, and in selective patients <6.0%. Please refer to [place] [employer] diabetic care guidelines for further information. 17 SEE RESULT BELOW Name: JOSÉ TOLBERT : [address]: Dia Yoder NP, CNM Acct: [id number] Unit: [id number] AGE: 68 Location: LAB Re12/18/18 SEX: F Status: REG REF SPEC: [id number] IVON: 12/18/18-[address] [facility] [address]: Karthik Ornelas MD REQ: [id number] RECD: 12/18/186677 STATUS: ALICIA ARROYO DR: Dia KWON _ SOURCE: URINE SPDESC: ORDERED: Urine Culture Procedure Result Reported Site Urine Culture Final 12/19/18- 1616 ML No growth of clinically significant organisms * ML - Main Lab . END OF REPORT DEPARTMENT OF PATHOLOGY, [address] [place] [address] Shakeel Song M.D. Director [facility] # [id number] 18 Because ethnic data is not always [...] <15 (or dialysis) 19 Test Performed by: [address] [address] 20 Because ethnic data is not always [...] in selective patients <6.0%. Please refer to [place] [employer] diabetic care guidelines for further information. Procedures Date Code Description Status 02/06/2019 10288 ECHO Transthorasic Realtime 2D W Doppler & Color Flow Hosp Completed 01/30/2019 94263 Glucose Monitoring Interpetation And Report Completed Medical Devices Description No Information Available Encounters Type Date Location Provider Dx Diagnosis Office Visit 02/09/2019 [facility] Nephrology Karthik Ornelas, N18.5 Chronic kidney 3:27p disease, stage 5 E87.70 Fluid overload, unspecified Office Visit 02/08/2019 [facility] Andres I50.20 Unspecified 9:17a Assoc,pc ARCENIO Gould systolic Hospitalists (congestive) heart failure R91.8 Other nonspecific abnormal finding of lung field E11.21 Type 2 diabetes mellitus with diabetic nephropathy Office Visit 02/08/2019 8:36a [facility] Nephrology Rosamaria Johnson, I13.2 Hyp hrt & [...] I27.20 Pulmonary hypertension, unspecified Office Visit 02/07/2019 [facility] Kayla I50.33 Acute on chronic 9:17a Assoc,pc MD Bret diastolic Hospitalists (congestive) heart failure Z78.9 Other specified health status Office Visit 02/07/2019 8:54a [facility] Nephrology Rosamaria Johnson, I13.2 Hyp hrt & chr 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 I50.21 Acute systolic (congestive) heart failure E11.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 N18.5 Chronic kidney disease, stage 5 D63.1 Anemia in chronic kidney disease E11.40 Type 2 diabetes mellitus with diabetic neuropathy, unsp I27.20 Pulmonary hypertension, unspecified Office Visit 02/06/2019 [facility] Christel I50.33 Acute on chronic 9:16a Assoc,pc Ingrid Contreras diastolic Hospitalists (congestive) heart failure Office Visit 02/06/2019 [facility] Nephrology Rosamaria Johnson, I13.2 Hyp hrt & chr kdny 8:54a MD dis w hrt fail and w stg 5 chr kdny/Esrd I50.21 Acute systolic (congestive) heart failure E11.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 N18.5 Chronic kidney disease, stage 5 I95.89 Other hypotension Office Visit 02/05/2019 9:16a [facility] Leatha Vaca, I13.2 Hyp hrt & chr Assoc,pc ENTER[employer] SAL[employer] PERSON kdny dis w hrt Hospitalists fail and w stg 5 chr kdny/Esrd E11.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 N18.6 End stage renal disease I50.9 Heart failure, unspecified Office Visit 01/23/2019 1:00p [facility] Nephrology Karthik French 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 Z79.4 detention (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 of insulin E78.5 Hyperlipidemia, unspecified E87.5 Hyperkalemia I10 Essential (primary) hypertension I12.9 Hypertensive chronic kidney disease w stg 1-4/unsp chr kdny Office Visit 01/17/2019 11:00a [facility] Manjarrez Coch, E11.22 Type 2 diabetes [facility] mellitus w diabetic chronic kidney disease N18.4 Chronic kidney disease, stage 4 (severe) Z79.4 detention (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 of insulin Office Visit 12/21/2018 11:00a [facility] Nephrology Karthik French 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 Z79.4 termination clerk (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 of insulin E78.5 Hyperlipidemia, unspecified E87.5 Hyperkalemia I10 Essential (primary) hypertension Office Visit 12/12/2018 11:30a [facility] Dia Beckfordkins, E11.22 Type 2 [facility] SERVICE SPECIALIST-Cde diabetes mellitus w diabetic chronic kidney disease N18.5 Chronic kidney disease, stage 5 Office Visit 12/07/2018 11:00a [facility] Nephrology Karthik French N18.5 Chronic kidney MD Johnson disease, stage 5 E11.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 E11.65 Type 2 diabetes mellitus with hyperglycemia Z79.4 detention (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 of insulin Office Visit 10/19/2018 2:00p [facility] Manjarrez Coch, E11.22 Type 2 diabetes [facility] MD mellitus w diabetic chronic kidney disease N18.5 Chronic kidney disease, stage 5 E11.65 Type 2 diabetes mellitus with hyperglycemia Z79.4 termination clerk (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 of insulin Office Visit 09/21/2018 1:00p [facility] Manda N18.6 End stage [facility] Marker, 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 Z79.4 termination clerk (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 of insulin E11.649 Type 2 diabetes mellitus with hypoglycemia without coma Assessments Date Code Description Provider 02/15/2019 N18.5 Chronic kidney disease, stage 5 [...] 02/08/2019 I50.20 Unspecified systolic (congestive) heart ARCENIO Bnenett failure 02/08/2019 I13.2 Hypertensive heart and chronic [...] Ornelas MD chronic kidney diseas 01/23/2019 Z79.4 termination clerk (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 of insulin Karthik Ornelas MD [...] 4 (severe) Loki Johnson MD 01/17/2019 Z79.4 termination clerk (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 of insulin Loki Johnson MD 12/21/2018 I12.0 Hypertensive chronic kidney disease with Karthik Ornelas MD stage 5 chronic kidney disease or end stage renal disease 12/21/2018 N18.5 Chronic kidney disease, stage 5 Karthik Ornelas MD 12/21/2018 E11.22 Type 2 diabetes mellitus with diabetic Karthik Ornelas MD chronic kidney diseas 12/21/2018 Z79.4 termination clerk (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 of insulin Karthik Ornelas MD [...] with Karthik Ornelas MD hyperglycemia 12/07/2018 Z79.4 detention (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 of insulin Karthik Ornelas MD 10/19/2018 E11.22 Type 2 diabetes mellitus with diabetic Loki Johnson MD chronic kidney diseas 10/19/2018 N18.5 Chronic kidney disease, stage 5 Loki Johnson MD 10/19/2018 E11.65 Type 2 diabetes mellitus with Loki Johnson MD hyperglycemia 10/19/2018 Z79.4 termination clerk (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 of insulin Loki Johnson MD 09/21/2018 N18.6 End stage renal disease Manda Marker, RPA-C 09/21/2018 E11.22 Type 2 diabetes mellitus with diabetic Manda Marker, RPA -C chronic kidney diseas 09/21/2018 Z79.4 termination clerk (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 of insulin Manda Marker, RPA-C 09/21/2018 E11.649 Type 2 diabetes mellitus with Manda Marker, RPA-C hypoglycemia without coma Plan of Treatment Future Appointment(s):02/22/2019 2:45 pm - Romel Giles MD, FACS at [facility]04/16/2019 11:20 am - Deo Sierra MD at [facility] Internal Medicine - [address]/28/2018 11:00 am - Loki Johnson MD at [facility]02/14/2019 - Deo Sierra MDN18.5 Chronic kidney disease, stage 5Follow up:8 weeks.E11.22 Type 2 diabetes mellitus with diabetic chronic kidney [id number] Essential (primary) hypertensionComments:Your blood pressure was low today. Please record at home in a log book.E78.2 Mixed ioxnfymwaqzrjdH15.20 Unspecified systolic (congestive) heart failure Functional Status Description No Information Available Mental Status Description No Information Available Referrals Refer to Dr Reason for Referral Status Appt Date Romel Giles MD Dr. Bollo agreed to place PD Catheter next Tuesday Created 02/16. Please schedule on his clinic schedule for 02/15 She'll need PD very soon [place] [address] [facility] [address] [phone] Jay Rodriguez MD CKD 5 for AVF Sent [place] [address] [place] [address] [phone]
--- OUTSIDE RECORDS SUMMARY | 2019-04-11 11:16 | XMS REPORT | Continuity of Care Document ---
:1950 External Reference #:[id number] Author Name Karthik Ornelas MD (transmitted by agent of provider Marybeth Patel) Address [address] [address] Care Team Providers Name Role Phone Selene Galo MD - Internal Medicine Care Team Information [employer] [phone] Franci Hart MD - Nephrology Care Team Information [employer] Romel Giles MD - Surgery Care Team Information [employer] [phone] Deo Sierra MD - Hospitalist Care Team Information [employer] [phone] Problems Description No Information Available Social History Type Date Description Comments Sex Unknown Tobacco Use Start: Unknown Never Smoked Cigarettes Smoking Status Reviewed: 02/13/19 Never Smoked Cigarettes ETOH Use Never used [...] Insulin Syringe-Needle use with lantus 100units Loki Johnson MD 2018 U-100 daily 31G X 1/4" 1 ML Misc Onetouch Verio use to check 600units Loki Johnson MD 08/04/2018 Strips blood sugar 4 times a day and for hypoglycemia. Torsemide 1 by mouth every Unknown 20mg Tablets day [...] Available Vital Signs Date Vital Result Comment 02/13/2019 12:55pm Height 64 inches 5'4" Weight 134.00 lb Heart Rate 66 /min BP Systolic Sitting 108 mmHg L arm BP Diastolic Sitting 61 mmHg L arm O2 % BldC Oximetry 96 % BMI (Body Mass Index) 23.0 kg/m2 01/30/2019 9:24am Height 64 inches 5'4" Weight 142.00 lb w/shoes Heart Rate 67 /min BP Systolic Sitting 120 mmHg BP Diastolic Sitting 71 mmHg BMI (Body Mass Index) 24.4 kg/m2 Results Test Acquired Date Facility Test Result H/L Range Note Neph Routine 02/13/2019 [facility] Total Protein <pending> [address] [place] [address] [phone] Creatinine Random Urine <pending> CBC Auto 02/13/2019 [facility] White Blood 9.5 10^3/uL Normal 3.5-10.[address] [place] [address] [phone] Red Blood Count 4.18 10^6/uL Normal 3.70-4.87 [...] Blood Cells % 0.0 Basic Metabolic 02/13/2019 [facility] Sodium 135 mmol/L Normal 135-[address] [place] [address] [phone] Potassium 4.3 mmol/L Normal 3.5-5.0 Chloride 98 mmol/L Low 101-111 Co2 Carbon Dioxide 20 mmol/L Low 22-32 Anion Gap 17 mmol/L High 2-11 Glucose 186 mg/dL High 70-100 Blood Urea Nitrogen 120 mg/dL High 6-24 Creatinine 6.55 mg/dL High 0.51-0.95 BUN/Creatinine Ratio 18.3 Normal 8-20 Calcium 9.8 mg/dL Normal 8.6-10.3 Egfr Non- 6.3 >60 Egfr 7.6 >60 1 Neph Routine 01/22/2019 [facility] Total Protein Random 131 mg/ dL [address] [place] [address] [phone] Creatinine Random Urine 61.80 mg/dL CBC Auto 01/22/2019 [facility] White Blood 8.0 10^3/uL Normal 3.5-10.[address] [place] [address] [phone] Red Blood Count 3.86 10^6/uL Normal 3.70-4.87 [...] Blood Cells % 0.0 Urinalysis Profile 01/22/2019 [facility] Urine Color Yellow [address] [place] [address] [phone] Urine Appearance Clear Urine Specific [place] 1.011 Normal 1.010-1.030 Urine pH 5.0 Normal [...] Cell Present Abnormal Absent Basic Metabolic 01/22/2019 [facility] Sodium 136 mmol/L Normal 135-[address] [place] [address] [phone] Potassium 4.9 mmol/L Normal 3.5-5.0 Chloride 106 mmol/L Normal 101-111 Co2 Carbon Dioxide 22 mmol/L Normal 22-32 Anion Gap 8 mmol/L Normal 2-11 Glucose 255 mg/dL High 70-100 Blood Urea Nitrogen 60 mg/dL High 6-24 Creatinine 4.11 mg/dL High 0.51-0.95 BUN/Creatinine Ratio 14.6 Normal 8-20 Calcium 9.5 mg/dL Normal 8.6-10.3 Egfr Non- 10.7 >60 Egfr 13.0 >60 3 Urine Culture 01/22/2019 [facility] Urine Culture SEE [address] [place] [address] BELOW [phone] Laboratory test 12/18/2018 [facility] Fructosamine 389 Abnormal 200 - [address] mcmol/L [address] [place] [address] [phone] Laboratory test 12/18/2018 [facility] Hemoglobin A1c 7.2 % High 4.0-5. [address] (Glyco HGB) 6 [place] [address] [phone] Urine Culture 12/18/2018 [facility] Urine Culture SEE [address] [place] [address] BELOW [phone] Pthi 12/18/2018 [facility] Calcium (PTH 9.4 mg/dL Normal 8.6- [address] Intact) .3 [place] [address] [phone] PTH Intact 110.1 pg/mL High 12-88 Laboratory test 12/18/2018 [facility] Total Protein 181 mg/dL finding [address] [place] [address] [phone] Creatinine Random Urine 79.59 mg/dL Basic Metabolic 12/18/2018 [facility] Sodium 139 mmol/L Normal 135-[address] [place] [address] [phone] Chloride 108 mmol/L Normal 101-111 Co2 Carbon Dioxide 23 mmol/L Normal 22-32 Glucose 74 mg/dL Normal 70-100 Blood Urea Nitrogen 69 mg/dL High 6-24 Creatinine 3.95 mg/dL High 0.51-0.95 BUN/Creatinine Ratio 17.5 Normal 8-20 Calcium 9.5 mg/dL Normal 8.6-10.3 Egfr Non- 11.2 >60 Egfr 13.6 >60 8 Potassium 5.4 mmol/L High 3.5-5.0 Anion Gap 8 mmol/L Normal 2-11 CBC Auto 12/18/2018 [facility] White Blood 8.1 10^3/uL Normal 3.5-10.[address] [place] [address] [phone] Red Blood Count 3.85 10^6/uL Normal 3.70-4.87 [...] Blood Cells % 0.1 Urinalysis Profile 12/18/2018 [facility] Urine Color Yellow [address] [place] [address] [phone] Urine Appearance Cloudy Urine Specific [place] 1.013 Normal 1.010-1.030 Urine pH 5.0 Normal [...] Epithelial Cell Present Abnormal Absent Laboratory 10/19/2018 [facility] Fructosamine 526 mcmol/L Abnormal 200 - 9 test finding [address] [place] [address] [phone] Comp Metabolic 10/19/2018 [facility] Sodium 137 mmol/L Normal 135-[address] [place] [address] [phone] Potassium 4.5 mmol/L Normal 3.5-5.0 Chloride 105 [...] >60 Egfr 13.5 >60 10 Laboratory 10/19/2018 [facility] TSH (Thyroid 2.22 Normal 0.34 -5.60 test finding [address] Stim Horm) mcIU/[place] [address] [phone] Hemoglobin A1c (Glyco HGB) 9.6 % High [...] [address]: Karthik Ornelas MD Acct: [id number] Unit: [id number] AGE: 68 Location: LAB Re01/22/19 SEX: F Status: REG REF SPEC: [id number] IVON: 01/22/19 [facility] DR: Karthik rOnelas MD REQ: [id number] RECD: 01/22/19 STATUS: COMP _ SOURCE: URINE SPDESC: ORDERED: Urine Culture Procedure Result Reported Site Urine Culture Final 01/24/19925 ML No growth of clinically significant organisms * ML - Main Lab . END OF REPORT DEPARTMENT OF PATHOLOGY, [address] [place] [address] Shakeel Song M.D. Director CLIA # [id number] 5 Test Performed by: [address] [address] Manager Hospital: Andres Little M.D. Ph.D.; CLIA# [id number] 6 Therapeutic target for the treatment of diabetes mellitus patients is <7% HBA1C, and in selective patients <6.0%. Please refer to [place] [employer] diabetic care guidelines for further information. 7 SEE RESULT BELOW Name: JOSÉ TOLBERT : [address]: Dia KWON Acct: [id number] Unit: [id number] AGE: 68 Location: LAB Re12/18/18 SEX: F Status: REG REF SPEC: [id number] IVON: 12/18/18-[address]: Karthik Ornelas MD REQ: [id number] RECD: 12/18/18 STATUS: ALICIA ARROYO DR: Dia Yoder NP [facility] _ SOURCE: URINE SPDESC: ORDERED: Urine Culture Procedure Result Reported Site Urine Culture Final 12/19/18- 1616 ML No growth of clinically significant organisms * - [facility] Lab . END OF REPORT DEPARTMENT OF PATHOLOGY, [address] [place] [address] Shakeel Song M.D. Director [facility] # [id number] 8 Because ethnic data is not always [...] <15 (or dialysis) 9 Test Performed by: [address] [address] 10 Because ethnic data is not always [...] in selective patients <6.0%. Please refer to [place] [employer] diabetic care guidelines for further information. Procedures Date Code Description Status 02/06/2019 40748 ECHO Transthorasic Realtime 2D W Doppler & Color Flow Hosp Completed 01/30/2019 38687 Glucose Monitoring Interpetation And Report Completed Medical Devices Description No Information Available Encounters Type Date Location Provider Dx Diagnosis Office Visit 02/08/2019 [facility] Andres Gould, I50.20 Unspecified 9:17a tim Coello systolic Hospitalists (congestive) heart failure R91.8 Other nonspecific abnormal finding of lung field E11.21 Type 2 diabetes mellitus with diabetic nephropathy Office Visit 02/08/2019 8:36a [facility] Nephrology Rosamaria Johnson, I13.2 Hyp hrt & [...] I27.20 Pulmonary hypertension, unspecified Office Visit 02/07/2019 [facility] I50.33 Acute on chronic 9:17a tim Coello MD diastolic Hospitalists (congestive) heart failure Z78.9 Other specified health status Office Visit 02/07/2019 8:54a [facility] Nephrology Rosamaria Johnson, I13.2 Hyp hrt & 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 diastolic Hospitalists (congestive) heart failure Office Visit 02/06/2019 [facility] Nephrology Rosamaria Johnson, I13.2 Hyp hrt & chr kdny 8:54a MD dis w hrt fail and w stg 5 chr kdny/Esrd I50.21 Acute systolic (congestive) heart failure E11.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 N18.5 Chronic kidney disease, stage 5 I95.89 Other hypotension Office Visit 02/05/2019 9:16a [facility] Leatha Vaca, I13.2 Hyp hrt & chr Assoc,pc [employer] kdny dis w hrt Hospitalists fail and w stg 5 chr kdny/Esrd E11.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 N18.6 End stage renal disease I50.9 Heart failure, unspecified Office Visit 01/23/2019 1:00p [facility] Nephrology Karthik French 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 Z79.4 [employer] (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 of insulin E78.5 Hyperlipidemia, unspecified E87.5 Hyperkalemia I10 Essential (primary) hypertension I12.9 Hypertensive chronic kidney disease w stg 1-4/unsp chr kdny Office Visit 01/17/2019 11:00a [place] [facility] Loki Johnson, E11.22 Type 2 diabetes [facility] mellitus w diabetic chronic kidney disease N18.4 Chronic kidney disease, stage 4 (severe) Z79.4 FDC (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 of insulin Office Visit 12/21/2018 11:00a [facility] Nephrology Karthik French 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 Z79.4 [employer] (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 of insulin E78.5 Hyperlipidemia, unspecified E87.5 Hyperkalemia I10 Essential (primary) hypertension Office Visit 12/12/2018 11:30a [place] [facility] Dia Yoder, E11.22 Type 2 [facility] [employer] diabetes mellitus w diabetic chronic kidney disease N18.5 Chronic kidney disease, stage 5 Office Visit 12/07/2018 11:00a [facility] Nephrology Karthik French N18.5 Chronic kidney MD Johnson disease, stage 5 E11.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 E11.65 Type 2 diabetes mellitus with hyperglycemia Z79.4 [employer] (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 of insulin Office Visit 10/19/2018 2:00p [place] [facility] Manjarrez Coch, E11.22 Type 2 diabetes [facility] MD mellitus w diabetic chronic kidney disease N18.5 Chronic kidney disease, stage 5 E11.65 Type 2 diabetes mellitus with hyperglycemia Z79.4 [employer] (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 of insulin Office Visit 09/21/2018 1:00p [place] [facility] Manda N18.6 End stage [facility] Marker, 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 Z79.4 [employer] (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 of insulin E11.649 Type 2 diabetes mellitus with hypoglycemia without coma Assessments Date Code Description Provider 02/13/2019 N18.5 Chronic kidney disease, stage 5 [...] Ornelas MD chronic kidney diseas 01/23/2019 Z79.4 FDC (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 of insulin Karthik Ornelas MD [...] N18.4 Chronic kidney disease, stage 4 (severe) Manjarrez Coch, MD 01/17/2019 Z79.4 [employer] (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 of insulin Loki Johnson MD 12/21/2018 I12.0 Hypertensive chronic kidney disease with Karthik Ornelas MD stage 5 chronic kidney disease or end stage renal disease 12/21/2018 N18.5 Chronic kidney disease, stage 5 Karthik Ornelas MD 12/21/2018 E11.22 Type 2 diabetes mellitus with diabetic Karthik Ornelas MD chronic kidney diseas 12/21/2018 Z79.4 FDC (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 of insulin Karthik Ornelas MD [...] with Karthik Ornelas MD hyperglycemia 12/07/2018 Z79.4 FDC (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 of insulin Katrhik Ornelas MD 10/19/2018 E11.22 Type 2 diabetes mellitus with diabetic Loki Johnson MD chronic kidney diseas 10/19/2018 N18.5 Chronic kidney disease, stage 5 Loki Johnson MD 10/19/2018 E11.65 Type 2 diabetes mellitus with Loki Johnson MD hyperglycemia 10/19/2018 Z79.4 FDC (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 of insulin Loki Johnson MD 09/21/2018 N18.6 End stage renal disease Manda Marker, RPA-C 09/21/2018 E11.22 Type 2 diabetes mellitus with diabetic Manda Marker, RPA -C chronic kidney diseas 09/21/2018 Z79.4 [employer] (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 of insulin Manda Marker, RPA-C 09/21/2018 E11.649 Type 2 diabetes mellitus with Manda Marker, RPA-C hypoglycemia without coma Plan of Treatment Future Appointment(s):02/15/2019 11:30 am - Karthik Ornelas MD at [facility] Vaqkhhygsv86/18/2019 2:20 pm - Romel Saldana DO FACC at [facility]02/23/2019 11:00 am - Karthik Ornelas MD at [facility] Qmqsyurqjq81/17/2019 11 :00 am - Loki Johsnon MD at [place] [facility]02/13/2019 - Karthik Ornelas MDN18.5 Chronic kidney disease, stage 5Follow up:f/u with labsE87.70 Fluid overload, sutoeqnollcH07.22 Type 2 diabetes mellitus with diabetic chronic kidney [id number] Essential (primary) axncfqpyvshgI11.9 Hypertensive chronic kidney disease with stage 1 through stage 4 chronic kidney disease, or unspecified chronic kidney sevjybaX61.2 Mixed hyperlipidemia Functional Status Description No Information Available Mental Status Description No Information Available Referrals Refer to Dr Reason for Referral Status Appt Date Romel Giles MD Dr. Bollo agreed to place PD Catheter next Tuesday Created 02/16. Please schedule on his clinic schedule for 02/15 She'll need PD very soon [place] [address] [facility], [place] [address] [phone] Jay Rodriguez MD CKD 5 for AVF [address] [place] [address] [place] [address] [phone]
--- OUTSIDE RECORDS SUMMARY | 2019-04-11 11:16 | XMS REPORT | Continuity of Care Document ---
:1950 External Reference #:[id number] Author Name Karthik Ornelas MD (transmitted by agent of provider Marybeth Patel) Address [address] [address] Care Team Providers Name Role Phone Selene Galo MD - Internal Medicine Care Team Information Economist Research Assistant [phone] Farnci Hart MD - Nephrology Care Team Information Economist Research Assistant [phone] Romel Giles MD - Surgery Care Team Information Economist Research Assistant [phone] Deo Sierra MD - Hospitalist Care Team Information Economist Research Assistant [phone] Problems Description No Information Available Social History [...] Test Result H/L Range Note Neph Routine 02/15/2019 [facility] Total Protein 183 mg/dL [address] [place] [address] [phone] Creatinine Random Urine 68.74 mg/dL CBC Auto 02/15/2019 [facility] White Blood 9.8 10^3/uL Normal 3.5-10.[address] [place] [address] [phone] Red Blood Count 4.05 10^6/uL Normal 3.70-4.87 [...] Red Blood Cells % 0.0 Urinalysis Profile 02/15/2019 [facility] Urine Color Yellow [address] [place] [address] [phone] Urine Appearance Turbid Urine Specific [place] 1.011 Normal 1.010-1.030 Urine pH 5.0 Normal [...] Epithelial Cell Present Abnormal Absent Laboratory test finding 02/15/2019 [facility] Albumin <pending> [address] [place], [place] [id number] [phone] Phosphorus <pending> Pthi 02/15/2019 [facility] Calcium (PTH 9.4 mg/dL Normal 8.6- 10.[address] Intact) [place], [place] [id number] [phone] PTH Intact 228.1 pg/mL High 12-88 Laboratory test finding 02/15/2019 [facility] Calcium <pending> [address] [place] [address] [phone] Hepatitis B Core AB Total <pending> Hepatitis B Surface Ag <pending> Hepatitis B Madie AB Titer <pending> Laboratory test 02/15/2019 [facility] B-Type 562 pg/mL High <= [address] [place] [place] [address] Peptide BNP [phone] Neph Routine 02/13/2019 [facility] Total Protein 141 mg/dL [address] [place] [address] [phone] Creatinine Random Urine 57.19 mg/dL CBC Auto 02/13/2019 [facility] White Blood 9.5 10^3/uL Normal 3.5-10.[address] [place] [address] [phone] Red Blood Count 4.18 10^6/uL Normal 3.70-4.87 [...] Blood Cells % 0.0 Basic Metabolic 02/13/2019 [facility] Sodium 135 mmol/L Normal 135-[address] [place] [address] [phone] Potassium 4.3 mmol/L Normal 3.5-5.0 Chloride 98 mmol/L Low 101-111 Co2 Carbon Dioxide 20 mmol/L Low 22-32 Anion Gap 17 mmol/L High 2-11 Glucose 186 mg/dL High 70-100 Blood Urea Nitrogen 120 mg/dL High 6-24 Creatinine 6.55 mg/dL High 0.51-0.95 BUN/Creatinine Ratio 18.3 Normal 8-20 Calcium 9.8 mg/dL Normal 8.6-10.3 Egfr Non- 6.3 >60 Egfr 7.6 >60 1 Urinalysis Profile 02/13/2019 [facility] Urine Color Yellow [address] [place] [address] [phone] Urine Appearance Turbid Urine Specific [place] 1.010 Normal 1.010-1.030 Urine pH 5.0 Normal [...] 1+ Abnormal Absent Urine Culture And 02/13/2019 [facility] Urine SEE RESULT [address] [place] [address] [phone] Urine Culture And 01/22/2019 [facility] Urine SEE RESULT [address] [place] [address] [phone] Basic Metabolic 01/22/2019 [facility] Sodium 136 mmol/L Normal 135-[address] [place] [address] [phone] Potassium 4.9 mmol/L Normal 3.5-5.0 Chloride 106 mmol/L Normal 101-111 Co2 Carbon Dioxide 22 mmol/L Normal 22-32 Anion Gap 8 mmol/L Normal 2-11 Glucose 255 mg/dL High 70-100 Blood Urea Nitrogen 60 mg/dL High 6-24 Creatinine 4.11 mg/dL High 0.51-0.95 BUN/Creatinine Ratio 14.6 Normal 8-20 Calcium 9.5 mg/dL Normal 8.6-10.3 Egfr Non- 10.7 >60 Egfr 13.0 >60 4 Urinalysis Profile 01/22/2019 [facility] Urine Color Yellow [address] [place] [address] [phone] Urine Appearance Clear Urine Specific [place] 1.011 Normal 1.010-1.030 Urine pH 5.0 Normal 5-9 Urine Urobilinogen Negative Negative Urine Ketones Negative Negative Urine Protein 2+(100 mg/dL) Abnormal Negative Urine Leukocytes Negative Negative Urine Blood Negative Negative * * Abnormal Negative 5 Urine Nitrite Negative Negative Urine Bilirubin Negative Negative Urine Glucose 3+(>=500 mg/dL) Abnormal Negative Urine White Blood Cell Trace(0-5/hpf) Absent Urine Red Blood Cell Absent Absent Urine Bacteria Absent Absent Urine Squamous Epithelial Cell Present Abnormal Absent CBC Auto 01/22/2019 [facility] White Blood 8.0 10^3/uL Normal 3.5-10.[address] [place] [address] [phone] Red Blood Count 3.86 10^6/uL Normal 3.70-4.87 [...] Blood Cells % 0.0 Neph Routine 01/22/2019 [facility] Total Protein Random 131 mg/ dL [address] [place] [address] [phone] Creatinine Random Urine 61.80 mg/dL Urinalysis Profile 12/18/2018 [facility] Urine Color Yellow [address] [place] [address] [phone] Urine Appearance Cloudy Urine Specific [place] 1.013 Normal 1.010-1.030 Urine pH 5.0 Normal [...] Cell Present Abnormal Absent CBC Auto 12/18/2018 [facility] White Blood 8.1 10^3/uL Normal 3.5-10.[address] [place] [address] [phone] Red Blood Count 3.85 10^6/uL Normal 3.70-4.87 [...] Blood Cells % 0.1 Basic Metabolic 12/18/2018 [facility] Sodium 139 mmol/L Normal 135-[address] [place] [address] [phone] Chloride 108 mmol/L Normal 101-111 Co2 Carbon Dioxide 23 mmol/L Normal 22-32 Glucose 74 mg/dL Normal 70-100 Blood Urea Nitrogen 69 mg/dL High 6-24 Creatinine 3.95 mg/dL High 0.51-0.95 BUN/Creatinine Ratio 17.5 Normal 8-20 Calcium 9.5 mg/dL Normal 8.6-10.3 Egfr Non- 11.2 >60 Egfr 13.6 >60 6 Potassium 5.4 mmol/L High 3.5-5.0 Anion Gap 8 mmol/L Normal 2-11 Laboratory test 12/18/2018 [facility] Total Protein 181 mg/dL finding [address] Random Urine [place], [place] [id number] [phone] Creatinine Random Urine 79.59 mg/dL Pthi 12/18/2018 [facility] Calcium (PTH 9.4 mg/dL Normal 8.6- 10.[address] Intact) [place], [place] [address] [phone] PTH Intact 110.1 pg/mL High 12-88 Urine Culture 12/18/2018 [facility] Urine Culture SEE [address] [place] [address] BELOW [phone] Laboratory test 12/18/2018 [facility] Hemoglobin A1c 7.2 % High 4.0-[address] (Glyco HGB) .6 [place], [place] [id number] [phone] Laboratory test 12/18/2018 [facility] Fructosamine 389 Abnormal 200 - [address] mcmol/L 285 [place] [address] [phone] Laboratory test 10/19/2018 [facility] Fructosamine 526 Abnormal 200 - [address] mcmol/L 285 [place] [address] [phone] Comp Metabolic 10/19/2018 [facility] Sodium 137 Normal 135-[address] mmol/L 45 [place] [address] [phone] Potassium 4.5 mmol/L Normal 3.5-5.0 Chloride 105 [...] Egfr Non- 11.1 >60 Egfr 13.5 >60 11 Laboratory 10/19/2018 [facility] TSH (Thyroid 2.22 Normal 0.34 -5.60 test finding [address] Stim Horm) mcIU/[place] [address] [phone] Hemoglobin A1c (Glyco HGB) 9.6 % High 4.0-5.6 12 1 Because ethnic data is not always [...] dialysis) 2 SEE RESULT BELOW Name: JOSÉ TOLBERT : [address]: Karthik Ornelas MD Acct: [id number] Unit: [id number] AGE: 68 Location: LAB Re02/13/19 SEX: F Status: REG REF SPEC: [id number] IVON: 02/13/19-[address]: Karthik Ornelas MD REQ: [id number] RECD: 02/13/199280 STATUS:COMP _ SOURCE: URINE SPDESC: ORDERED: Urine Culture Procedure Result Reported Site Urine Culture Final 02/15/19- 1007 ML Organism 1 KLEBSIELLA PNEUMONIAE [place] Count >100,000 (Many) CFU/ML 1. KLEBSIELLA PNEUMONIAE [...] . END OF REPORT DEPARTMENT OF PATHOLOGY, [address] [place] [address] Shakeel Song M.D. Director [facility] # [id number] 3 SEE RESULT BELOW Name: JOSÉ TOLBERT : [address]: Karthik Ornelas MD Acct: [id number] Unit: [id number] AGE: 68 Location: LAB Re01/22/19 SEX: F Status: REG REF SPEC: [id number] IVON: 01/22/19-[address]: Karthik Ornelas MD REQ: [id number] RECD: 01/22/19 STATUS: COMP _ SOURCE: URINE [facility]: ORDERED: Urine Culture Procedure Result Reported Site Urine Culture Final 01/24/19925 ML No growth of clinically significant organisms * ML - Main Lab . END OF REPORT DEPARTMENT OF PATHOLOGY, [address] [place] [address] Shakeel Song M.D. Director [facility] # [id number] 4 Because ethnic data is not always [...] 5 Kidney failure <15 (or dialysis) 5 *Ascorbic acid is present which may interfere with detection of blood. 6 Because ethnic data is not always [...] 5 Kidney failure <15 (or dialysis) 7 SEE RESULT BELOW Name: JOSÉ TOLBERT : [address]: Dia Yoder NP, CNM Acct: [id number] Unit: [id number] AGE: 68 Location: LAB Re12/18/18 SEX: F Status: REG REF SPEC: [id number] IVON: 12/18/18-[address]: Karthik Ornelas MD REQ: [id number] RECD: 12/18/183496 STATUS: COMP [facility] DR: Dia Yoder NP, CNM _ SOURCE: URINE SPDESC: ORDERED: Urine Culture Procedure Result Reported Site Urine Culture Final 12/19/18- 1616 ML No growth of clinically significant organisms * ML - Main Lab . END OF REPORT DEPARTMENT OF PATHOLOGY, [address] [place] [address] Shakeel Song M.D. Director [place] # [id number] 8 Therapeutic target for the treatment of diabetes mellitus patients is <7% HBA1C, and in selective patients <6.0%. Please refer to [place] [employer] diabetic care guidelines for further information. 9 Test Performed by: [place] [id number] Checker Loader: Andres Little M.D. Ph.D.; CLIA# [id number] 10 Test Performed by: [address] [address] 11 Because ethnic data is not always [...] 5 Kidney failure <15 (or dialysis) 12 Therapeutic target for the treatment of diabetes mellitus patients is <7% HBA1C, and in selective patients <6.0%. Please refer to [place] [employer] diabetic care guidelines for further information. Procedures Date Code Description Status 02/06/2019 72669 ECHO Transthorasic Realtime 2D W Doppler & Color Flow Hosp Completed 01/30/2019 29621 Glucose Monitoring Interpetation And Report Completed Medical Devices Description No Information Available Encounters Type Date Location Provider Dx Diagnosis Office Visit 02/08/2019 [facility] Andres Gould, I50.20 Unspecified 9:17a tim Coello systolic Hospitalists (congestive) heart failure R91.8 Other nonspecific abnormal finding of lung field E11.21 Type 2 diabetes mellitus with diabetic nephropathy Office Visit 02/08/2019 8:36a [facility] Rosamaria Johnson, I13.2 Hyp hrt [...] I27.20 Pulmonary hypertension, unspecified Office Visit 02/07/2019 [facility] Kayla I50.33 Acute on chronic 9:17a Assoctim MD diastolic Hospitalists (congestive) heart failure Z78.9 Other specified health status Office Visit 02/07/2019 8:54a [facility] Rosamaria Johnson, I13.2 Hyp hrt [...] I27.20 Pulmonary hypertension, unspecified Office Visit 02/06/2019 [facility] Christel I50.33 Acute on chronic 9:16a Assoc,pc Ingrid Contreras diastolic Hospitalists (congestive) heart failure Office Visit 02/06/2019 [facility] Rosamaria Johnson, I13.2 Hyp hrt & chr kdny 8:54a MD dis w hrt fail and w stg 5 chr kdny/Esrd I50.21 Acute systolic (congestive) heart failure E11.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 N18.5 Chronic kidney disease, stage 5 I95.89 Other hypotension Office Visit 02/05/2019 9:16a [facility] Leatha Vaca, I13.2 Hyp hrt & chr Assoc,pc ECONOMIC SPECIALIST kdny dis w hrt Hospitalists fail and w stg 5 chr kdny/Esrd E11.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 N18.6 End stage renal disease I50.9 Heart failure, unspecified Office Visit 01/23/2019 1:00p [facility] Karthik French 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 Z79.4 meterman (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 of insulin E78.5 Hyperlipidemia, unspecified E87.5 Hyperkalemia I10 Essential (primary) hypertension I12.9 Hypertensive chronic kidney disease w stg 1-4/unsp chr kdny Office Visit 01/17/2019 11:00a [facility] Loki Johnson, E11.22 Type 2 diabetes [facility] mellitus w diabetic chronic kidney disease N18.4 Chronic kidney disease, stage 4 (severe) Z79.4 halfway (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 of insulin Office Visit 12/21/2018 11:00a [facility] Karthik French 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 Z79.4 meterman (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 of insulin E78.5 Hyperlipidemia, unspecified E87.5 Hyperkalemia I10 Essential (primary) hypertension Office Visit 12/12/2018 11:30a [facility] Dia Beba, E11.22 Type 2 [facility] INTERNAL WHOLESALER-Cde diabetes mellitus w diabetic chronic kidney disease N18.5 Chronic kidney disease, stage 5 Office Visit 12/07/2018 11:00a [facility] Karthik French N18.5 Chronic kidney MD Johnson disease, stage 5 E11.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 E11.65 Type 2 diabetes mellitus with hyperglycemia Z79.4 halfway (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 of insulin Office Visit 10/19/2018 2:00p [facility] Manjarrez Coch, E11.22 Type 2 diabetes [facility] MD mellitus w diabetic chronic kidney disease N18.5 Chronic kidney disease, stage 5 E11.65 Type 2 diabetes mellitus with hyperglycemia Z79.4 meterman (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 of insulin Office Visit 09/21/2018 1:00p [facility] Manda N18.6 End stage [facility] Marker, 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 Z79.4 meterman (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 of insulin E11.649 Type 2 [...] disease, or unspecified chronic kidney disease 02/09/2019 E87.70 Fluid overload, unspecified Karthik Ornelas [...] 02/08/2019 R91.8 Other nonspecific abnormal finding of ACRENIO Bennett lung field 02/08/2019 E11.22 Type 2 [...] Ornelas MD chronic kidney diseas 01/23/2019 Z79.4 halfway (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 of insulin Karthik Ornelas MD [...] 4 (severe) Loki Johnson MD 01/17/2019 Z79.4 halfway (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 of insulin Loki Johnson MD 12/21/2018 I12.0 Hypertensive chronic kidney disease with Karthik Ornelas MD stage 5 chronic kidney disease or end stage renal disease 12/21/2018 N18.5 Chronic kidney disease, stage 5 Karthik Ornelas MD 12/21/2018 E11.22 Type 2 diabetes mellitus with diabetic Karthik Ornelas MD chronic kidney diseas 12/21/2018 Z79.4 halfway (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 of insulin Karthik Ornelas MD 12/21/2018 E78.5 Hyperlipidemia, unspecified Karthik Ornelas MD 12/21/2018 E87.5 Hyperkalemia Karthik Ornelas MD 12/21/2018 I10 Essential (primary) hypertension Karthik Ornelas MD 12/12/2018 E11.22 Type 2 diabetes mellitus with diabetic Dia Yoder, [facility]- enrique chronic kidney diseas 12/12/2018 N18.5 Chronic kidney disease, stage 5 CATHY RmP-enrique 12/07/2018 N18.5 Chronic kidney disease, stage 5 Karthik Ornelas MD 12/07/2018 E11.22 Type 2 diabetes mellitus with diabetic Karthik Ornelas MD chronic kidney diseas 12/07/2018 E11.65 Type 2 diabetes mellitus with Karthik Ornelas MD hyperglycemia 12/07/2018 Z79.4 meterman (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 of insulin Karthik Ornelas MD 10/19/2018 E11.22 Type 2 diabetes mellitus with diabetic Loki Johnson MD chronic kidney diseas 10/19/2018 N18.5 Chronic kidney disease, stage 5 Loki Johnson MD 10/19/2018 E11.65 Type 2 diabetes mellitus with Loki Johnson MD hyperglycemia 10/19/2018 Z79.4 meterman (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 of insulin Loki Johnson MD 09/21/2018 N18.6 End stage renal disease Manda Marker, RPA-C 09/21/2018 E11.22 Type 2 diabetes mellitus with diabetic Manda Marker, RPA -C chronic kidney diseas 09/21/2018 Z79.4 meterman (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 of insulin Manda Marker, RPA-C 09/21/2018 E11.649 Type 2 diabetes mellitus with Manda Marker, RPA-C hypoglycemia without coma Plan of Treatment Future Appointment(s):02/19/2019 2:30 pm - Karthik Ornelas MD at [facility] Tdqqckwisv53/18/2019 9:45 am - Romel Giles MD, FACS at [facility]02/16/2019 2:00 pm - Romel Giles MD, FACS at [facility]04/16/2019 11:20 am - Deo Sierra MD at [facility] Internal Medicine - [id number] 2:20 pm - Romel Saldana DO FACC at [facility]03/27/2019 11:00 am - Loki Johnson MD at [facility]2018 - Karthik Ornelas MDN18.5 Chronic kidney disease, stage 5Follow up:f/u EecndwA57.6 End stage renal ormujdnX48.22 Type 2 diabetes mellitus with diabetic chronic kidney nzjilpqP95 Essential (primary) efcaweheepwhQ12.2 Mixed mquqtytjaftlgsH27.70 Fluid overload, unspecified Functional Status Description No Information Available Mental Status Description No Information Available Referrals Refer to Dr Reason for Referral Status Appt Date Romel Giles MD Dr. Bollo agreed to place PD Catheter next Tuesday Created 02/16. Please schedule on his clinic schedule for 02/15 She'll need PD very soon MS [address] [facility] [address] [phone] Jay Rodriguez MD CKD 5 for AVF Sent [address] [address] [place] [address] [phone]
--- OUTSIDE RECORDS SUMMARY | 2019-04-11 11:16 | XMS REPORT | Continuity of Care Document ---
:1950 External Reference #:[id number] Author Name Romel Giles MD, FACS (transmitted by agent of provider Chantale Piper) Address [address] [place] [id number] Care Team Providers Name Role Phone Selene Galo MD - Internal Medicine Care Team Information Tractor Expert Franci Hart MD - Nephrology Care Team Information Tractor Expert [phone] Romel Giles MD - Surgery Care Team Information Tractor Expert [phone] Deo Sierra MD - Hospitalist Care Team Information Tractor Expert [phone] Problems Description No Information Available Social History [...] 12/06/2018 1% daily in right Suspension eye Humalog Mix 75/25 inject 20 [...] 4 times a day and for hypoglycemia. Sodium Bicarbonate 1/2 tab by mouth Unknown 650mg four times a day Tablets Atorvastatin Calcium 1 by mouth every Unknown 80mg day at 5 pm Tablets Torsemide 3 by mouth every Unknown 20mg Tablets day Spironolactone 1/2 tab by mouth Unknown 25mg every day Tablets Metoprolol Succinate 1 by mouth once Unknown ER daily 50mg Tablets ER 24HR Onetouch Ultra Blue test twice a day Unknown and as needed Strips Aspirin 81 1 by mouth every Unknown 81mg Tablets day DR Amlodipine Besylate 1 by mouth every Unknown 5mg day Tablets Acyclovir 1 by mouth once Unknown 400mg Tablets daily as needed History Medications Chromium Picolinate one tablet twice [...] Vital Signs Date Vital Result Comment 02/15/2019 10:58am Height 64 inches 5'4" Weight 132.00 lb Heart Rate 84 /min BP Systolic Sitting 130 mmHg BP Diastolic Sitting 60 mmHg Respiratory Rate 16 /min Body Temperature 97.1 F BMI (Body Mass Index) 22.7 kg/m2 02/14/2019 11:47am Height 64 inches 5'4" Weight 132.00 lb Heart Rate 69 /min BP Systolic Sitting 93 mmHg BP Diastolic Sitting 61 mmHg Body Temperature 96.7 F O2 % BldC Oximetry 97 % BMI (Body Mass Index) 22.7 kg/m2 Results Test Acquired Date Facility Test Result H/L Range Note Neph Routine 02/15/2019 [facility] Total Protein 183 mg/dL [address] [place] [address] [phone] Creatinine Random Urine 68.74 mg/dL CBC Auto 02/15/2019 [facility] White Blood 9.8 10^3/uL Normal 3.5-10.[address] [place] [address] [phone] Red Blood Count 4.05 10^6/uL Normal 3.70-4.87 [...] Blood Cells % 0.0 Urinalysis Profile 02/15/2019 [facility] Urine Color Yellow [address] [place] [address] [phone] Urine Appearance Turbid Urine Specific Daphne 1.011 Normal 1.010-1.030 Urine pH 5.0 Normal [...] Present Abnormal Absent Laboratory test finding 02/15/2019 [facility] Albumin <pending> [address] [place] [address] [phone] Phosphorus <pending> Pthi 02/15/2019 [facility] Calcium (PTH 9.4 mg/dL Normal 8.6- 10.[address] Intact) [place], [place] [id number] [phone] PTH Intact 228.1 pg/mL High 12-88 Laboratory test finding 02/15/2019 [facility] Calcium <pending> [address] [place] [address] [phone] Hepatitis B Core AB Total <pending> Hepatitis B Surface Ag <pending> Hepatitis B Madie AB Titer <pending> Laboratory test 02/15/2019 [facility] B-Type 562 pg/mL High <= [address] [place] [address] Peptide BNP [phone] Neph Routine 02/13/2019 [facility] Total Protein 141 mg/dL [address] [place] [address] [phone] Creatinine Random Urine 57.19 mg/dL CBC Auto 02/13/2019 [facility] White Blood 9.5 10^3/uL Normal 3.5-10.[address] [place] [address] [phone] Red Blood Count 4.18 10^6/uL Normal 3.70-4.87 [...] Blood Cells % 0.0 Basic Metabolic 02/13/2019 [facility] Sodium 135 mmol/L Normal 135-[address] [place] [address] [phone] Potassium 4.3 mmol/L Normal 3.5-5.0 Chloride 98 mmol/L Low 101-111 Co2 Carbon Dioxide 20 mmol/L Low 22-32 Anion Gap 17 mmol/L High 2-11 Glucose 186 mg/dL High 70-100 Blood Urea Nitrogen 120 mg/dL High 6-24 Creatinine 6.55 mg/dL High 0.51-0.95 BUN/Creatinine Ratio 18.3 Normal 8-20 Calcium 9.8 mg/dL Normal 8.6-10.3 Egfr Non- 6.3 >60 Egfr 7.6 >60 1 Urinalysis Profile 02/13/2019 [facility] Urine Color Yellow [address] [place] [address] [phone] Urine Appearance Turbid Urine Specific Daphne 1.010 Normal 1.010-1.030 Urine pH 5.0 Normal [...] 1+ Abnormal Absent Urine Culture And 02/13/2019 [facility] Urine SEE RESULT [address] [place] [place] [address] [phone] Urine Culture And 01/22/2019 [facility] Urine SEE RESULT [address] [place] [place] [address] [phone] Basic Metabolic 01/22/2019 [facility] Sodium 136 mmol/L Normal 135-[address] [place] [address] [phone] Potassium 4.9 mmol/L Normal 3.5-5.0 Chloride 106 mmol/L Normal 101-111 Co2 Carbon Dioxide 22 mmol/L Normal 22-32 Anion Gap 8 mmol/L Normal 2-11 Glucose 255 mg/dL High 70-100 Blood Urea Nitrogen 60 mg/dL High 6-24 Creatinine 4.11 mg/dL High 0.51-0.95 BUN/Creatinine Ratio 14.6 Normal 8-20 Calcium 9.5 mg/dL Normal 8.6-10.3 Egfr Non- 10.7 >60 Egfr 13.0 >60 4 Urinalysis Profile 01/22/2019 [facility] Urine Color Yellow [address] [place] [address] [phone] Urine Appearance Clear Urine Specific Daphne 1.011 Normal 1.010-1.030 Urine pH 5.0 Normal [...] Cell Present Abnormal Absent CBC Auto 01/22/2019 [facility] White Blood 8.0 10^3/uL Normal 3.5-10.[address] [place] [address] [phone] Red Blood Count 3.86 10^6/uL Normal 3.70-4.87 [...] Blood Cells % 0.0 Neph Routine 01/22/2019 [facility] Total Protein Random 131 mg/ dL [address] [place] [address] [phone] Creatinine Random Urine 61.80 mg/dL Urinalysis Profile 12/18/2018 [facility] Urine Color Yellow [address] [place] [address] [phone] Urine Appearance Cloudy Urine Specific Daphne 1.013 Normal 1.010-1.030 Urine pH 5.0 Normal [...] Cell Present Abnormal Absent CBC Auto 12/18/2018 [facility] White Blood 8.1 10^3/uL Normal 3.5-10.[address] [place] [address] [phone] Red Blood Count 3.85 10^6/uL Normal 3.70-4.87 [...] Blood Cells % 0.1 Basic Metabolic 12/18/2018 [facility] Sodium 139 mmol/L Normal 135-[address] [place], [place] [address] [phone] Chloride 108 mmol/L Normal 101-111 Co2 Carbon Dioxide 23 mmol/L Normal 22-32 Glucose 74 mg/dL Normal 70-100 Blood Urea Nitrogen 69 mg/dL High 6-24 Creatinine 3.95 mg/dL High 0.51-0.95 BUN/Creatinine Ratio 17.5 Normal 8-20 Calcium 9.5 mg/dL Normal 8.6-10.3 Egfr Non- 11.2 >60 Egfr 13.6 >60 6 Potassium 5.4 mmol/L High 3.5-5.0 Anion Gap 8 mmol/L Normal 2-11 Laboratory test 12/18/2018 [facility] Total Protein 181 mg/dL finding [address] [place] [address] [phone] Creatinine Random Urine 79.59 mg/dL Pthi 12/18/2018 [facility] Calcium (PTH 9.4 mg/dL Normal 8.6- 10.[address] Intact) [place] [address] [phone] PTH Intact 110.1 pg/mL High 12-88 Urine Culture 12/18/2018 [facility] Urine Culture SEE [address] [place] [address] BELOW [phone] Laboratory test 12/18/2018 [facility] Hemoglobin A1c 7.2 % High 4.0-[address] (Glyco HGB) .6 [place], [place] [address] [phone] Laboratory test 12/18/2018 [facility] Fructosamine 389 Abnormal 200 - [address] mcmol/L 285 [place], [place] [address] [phone] Laboratory test 10/19/2018 [facility] Fructosamine 526 Abnormal 200 - [address] mcmol/L 285 [place] [address] [phone] Comp Metabolic 10/19/2018 [facility] Sodium 137 Normal 135-[address] mmol/L 45 [place] [address] [phone] Potassium 4.5 mmol/L Normal 3.5-5.0 Chloride 105 [...] >60 Egfr 13.5 >60 11 Laboratory 10/19/2018 [facility] TSH (Thyroid 2.22 Normal 0.34 -5.60 test finding [address] Stim Horm) mcIU/[place] [address] [phone] Hemoglobin A1c (Glyco HGB) 9.6 % High [...] [address]: Karthik Ornelas MD Acct: [id number] Unit: [id number] AGE: 68 Location: LAB Re02/13/19 SEX: F Status: REG REF SPEC: [id number] IVON: 02/13/[address] [facility] [address]: Karthik Ornelas MD REQ: [id number] RECD: 02/13/19 STATUS:COMP _ SOURCE: URINE SPDESC: ORDERED: Urine Culture Procedure Result Reported Site Urine Culture Final 02/15/19- 1007 ML Organism 1 KLEBSIELLA PNEUMONIAE Edwards Count >100,000 (Many) CFU/ML 1. KLEBSIELLA PNEUMONIAE [...] . END OF REPORT DEPARTMENT OF PATHOLOGY, [address] [place] [address] Shakeel Song M.D. Director [facility] # [id number] 3 SEE RESULT BELOW Name: JOSÉ TOLBERT : [address]: Karthik Ornelas MD Acct: [id number] Unit: [id number] AGE: 68 Location: LAB Re01/22/19 SEX: F Status: REG REF SPEC: [id number] IVON: 01/22/191035 [facility] DR: Karthik Ornelas MD REQ: [id number] RECD: 01/22/19 STATUS: COMP _ SOURCE: URINE SPDESC: ORDERED: Urine Culture Procedure Result Reported Site Urine Culture Final 01/24/19- 925 ML No growth of clinically significant organisms * ML - Main Lab . END OF REPORT DEPARTMENT OF PATHOLOGY, [address] [place] [address] Shakeel Song M.D. Director [facility] # [id number] 4 Because ethnic data is not always [...] Attend Dr: Dia Yoder NP, CNM Acct: [id number] Unit: [id number] AGE: 68 Location: LAB Re12/18/18 SEX: F Status: REG REF SPEC: [id number] IVON: 12/18/18-[address]: Karthik Ornelas MD REQ: [id number] RECD: 12/18/18-3363 STATUS: COMP [facility] DR: Dia Yoder NP, CNM _ SOURCE: URINE SPDESC: ORDERED: Urine Culture Procedure Result Reported Site Urine Culture Final 12/19/18- 1616 ML No growth of clinically significant organisms * ML - Main Lab . END OF REPORT DEPARTMENT OF PATHOLOGY, [address] [place] [address] Shakeel Song M.D. Director [place] # [id number] 8 Therapeutic target for the treatment of diabetes mellitus patients is <7% HBA1C, and in selective patients <6.0%. Please refer to [place] [employer] diabetic care guidelines for further information. 9 Test Performed by: [facility] [place] [address] Functional Director: Andres Little M.D. Ph.D.; CLIA# [id number] 10 Test Performed by: [address] [address] 11 Because ethnic data is not always [...] in selective patients <6.0%. Please refer to [place] [employer] diabetic care guidelines for further information. Procedures Date Code Description Status 02/06/2019 48332 ECHO Transthorasic Realtime 2D W Doppler & Color Flow Hosp Completed 01/30/2019 00252 Glucose Monitoring Interpetation And Report Completed Medical Devices Description No Information Available Encounters Type Date Location Provider Dx Diagnosis Office Visit 02/08/2019 [facility] Andres Gould, I50.20 Unspecified 9:17a Assoctim systolic Hospitalists (congestive) heart failure R91.8 Other nonspecific abnormal finding of lung field E11.21 Type 2 diabetes mellitus with diabetic nephropathy Office Visit 02/08/2019 8:36a [facility] Rosamaria Johnson, I13.2 Hyp hrt & [...] I27.20 Pulmonary hypertension, unspecified Office Visit 02/07/2019 [facility] Kayla I50.33 Acute on chronic 9:17a Assoc,pc MD Bret diastolic Hospitalists (congestive) heart failure Z78.9 Other specified health status Office Visit 02/07/2019 8:54a [facility]rology Rosamaria Johnson, I13.2 Hyp hrt & trevon reeves MD dis w hrt fail and w stg 5 chr kdny/Esrd I50.21 Acute systolic (congestive) heart failure E11.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 N18.5 Chronic kidney disease, stage 5 D63.1 Anemia in chronic kidney disease E11.40 Type 2 diabetes mellitus with diabetic neuropathy, unsp I27.20 Pulmonary hypertension, unspecified Office Visit 02/06/2019 [facility] Christel I50.33 Acute on chronic 9:16a Assoc,pc Ingrid Contreras diastolic Hospitalists (congestive) heart failure Office Visit 02/06/2019 [facility]rology Rosamaria Johnson, I13.2 Hyp hrt & chr kdny 8:54a dis w hrt fail and w stg 5 chr kdny/Esrd I50.21 Acute systolic (congestive) heart failure E11.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 N18.5 Chronic kidney disease, stage 5 I95.89 Other hypotension Office Visit 02/05/2019 9:16a [facility] Leatha Vaca, I13.2 Hyp hrt & chr Assoc,pc RETURN TO FACTORY CLERK kdny dis w hrt Hospitalists fail and w stg 5 chr kdny/Esrd E11.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 N18.6 End stage renal disease I50.9 Heart failure, unspecified Office Visit 01/23/2019 1:00p [facility]rology Karthik French 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 Z79.4 ice crusher (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 of insulin E78.5 Hyperlipidemia, unspecified E87.5 Hyperkalemia I10 Essential (primary) hypertension I12.9 Hypertensive chronic kidney disease w stg 1-4/unsp chr kdny Office Visit 01/17/2019 11:00a [facility] Loki Johnson, E11.22 Type 2 diabetes [facility] mellitus w diabetic chronic kidney disease N18.4 Chronic kidney disease, stage 4 (severe) Z79.4 ice crusher (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 of insulin Office Visit 12/21/2018 11:00a [facility] Karthik French 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 Z79.4 ice crusher (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 of insulin E78.5 Hyperlipidemia, unspecified E87.5 Hyperkalemia I10 Essential (primary) hypertension Office Visit 12/12/2018 11:30a [facility] Dia Beba, E11.22 Type 2 [facility] CYTOGENETICIST-Cde diabetes mellitus w diabetic chronic kidney disease N18.5 Chronic kidney disease, stage 5 Office Visit 12/07/2018 11:00a [facility] Karthik French N18.5 Chronic kidney MD Johnson disease, stage 5 E11.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 E11.65 Type 2 diabetes mellitus with hyperglycemia Z79.4 [facility] (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 of insulin Office Visit 10/19/2018 2:00p [facility] [place] [facility] and Loki Johnson, E11.22 Type 2 diabetes [facility] MD mellitus w diabetic chronic kidney disease N18.5 Chronic kidney disease, stage 5 E11.65 Type 2 diabetes mellitus with hyperglycemia Z79.4 [facility] (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 of insulin Office Visit 09/21/2018 1:00p [facility] [place] [facility] and Manda N18.6 End stage [facility] Marker, 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 Z79.4 ice crusher (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 of insulin E11.649 Type 2 diabetes mellitus with hypoglycemia without coma Assessments Date Code Description Provider 02/15/2019 N18.6 End stage renal disease Romel Giles MD, FACS 02/14/2019 N18.5 Chronic kidney disease, stage 5 [...] N18.5 Chronic kidney disease, stage 5 Karthik rOnelas MD 02/13/2019 E87.70 Fluid overload, unspecified Karthik [...] NP 02/05/2019 I50.9 Heart failure, unspecified Leatha Vaca, BOB 01/30/2019 E11.22 Type 2 diabetes mellitus with [...] Ornelas MD chronic kidney diseas 01/23/2019 Z79.4 [facility] (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 [...] 4 (severe) Loki Johnson MD 01/17/2019 Z79.4 ice crusher (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 of insulin Loki Johnson MD 12/21/2018 I12.0 Hypertensive chronic kidney disease with Karthik Ornelas MD stage 5 chronic kidney disease or end stage renal disease 12/21/2018 N18.5 Chronic kidney disease, stage 5 Karthik Ornelas MD 12/21/2018 E11.22 Type 2 diabetes mellitus with diabetic Karthik Ornelas MD chronic kidney diseas 12/21/2018 Z79.4 [facility] (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 of insulin Karthik Ornelas MD 12/21/2018 E78.5 Hyperlipidemia, bhavaniified Karthik Ornelas MD 12/21/2018 E87.5 Hyperkalemia Karthik Ornelas MD 12/21/2018 I10 Essential (primary) hypertension Karthik Ornelas MD 12/12/2018 E11.22 Type 2 diabetes mellitus with diabetic Dia Yoder, CYTOGENETICIST- Cde chronic kidney diseas 12/12/2018 N18.5 Chronic kidney disease, stage 5 Diaenrique Yoder, CYTOGENETICIST-Cde 12/07/2018 N18.5 Chronic kidney disease, stage 5 Karthik Ornelas MD 12/07/2018 E11.22 Type 2 diabetes mellitus with diabetic Karthik Ornelas MD chronic kidney diseas 12/07/2018 E11.65 Type 2 diabetes mellitus with Karthik Ornelas MD hyperglycemia 12/07/2018 Z79.4 ice crusher (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 of insulin Karthik Ornelas MD 10/19/2018 E11.22 Type 2 diabetes mellitus with diabetic Loki Johnson MD chronic kidney diseas 10/19/2018 N18.5 Chronic kidney disease, stage 5 Loki Johnson MD 10/19/2018 E11.65 Type 2 diabetes mellitus with Loki Johnson MD hyperglycemia 10/19/2018 Z79.4 [facility] (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 of insulin Loki Johnson MD 09/21/2018 N18.6 End stage renal disease Manda Marker, RPA-C 09/21/2018 E11.22 Type 2 diabetes mellitus with diabetic Manda Marker, RPA -C chronic kidney diseas 09/21/2018 Z79.4 ice crusher (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 of insulin Manda Marker, RPA-C 09/21/2018 E11.649 Type 2 diabetes mellitus with Manda Marker, RPA-C hypoglycemia without coma Plan of Treatment Future Appointment(s):02/26/2019 9:45 am - Romel Giles MD, FACS at [facility]02/16/2019 2:00 pm - Romel Giles MD, FACS at [facility]04/16/2019 11:20 am - Deo Sierra MD at [facility] Internal Medicine - [address]/28/2018 2:20 pm - Romel Saldana DO FACC at [facility]03/27/2019 11:00 am - Loki Johnson MD at [facility]02/15/2019 - Romel Giles MD, FACSN18.6 End stage renal diseaseFollow up:Operating room Functional Status Description No Information Available Mental Status Description No Information Available Referrals Refer to Dr Reason for Referral Status Appt Date Romel Giles MD Dr. Bollo agreed to place PD Catheter next Tuesday Created 02/16. Please schedule on his clinic schedule for 02/15 She'll need PD very soon [place] [address] [facility] [address] [phone] Jay Rodriguez MD CKD 5 for AVF Sent [address] [place] [address] [place] [address] [phone]
--- NOTE | 2019-04-11 11:38 | ED ---
HPI Febrile Illness - HPI Summary HPI Summary: This pt is a 68 Y/O F presenting to [facility] with a CC of a fever of 100.9 F while at home. She states that she is currently being treated for a UTI with keflex and is currently a dialysis pt. She states that she has been having chills. She states that she has myalgia and abdominal pain that is rated a 6/10 in severity. She denies any N/V, headaches, coughs, and sore throat. She denies any aggravating or alleviating factors. She has a PMHx of dialysis treatments,. CHF, and diabetes. - History of Current Complaint Chief Complaint: EDGeneral Time Seen by Provider: 04/11/19 11:15 Hx Obtained From: Patient Onset/Duration: Started Minutes Ago - NURSE CLINICIAN, Still Present Timing: Constant Temperature: 100.9 F Initial Severity: Moderate Current Severity: Moderate Pain Intensity: 6 Pain Scale Used: 0-10 Numeric Aggravating Factors: Nothing Alleviating Factors: Nothing Associated Signs and Symptoms: Negative - N/V, headaches, coughs, and sore throat, Chills, Myalgia, Other: - abdominal pain - Additional Pertinent History Primary Care Physician: [id number] - Allergy/Home Medications Allergies/Adverse Reactions: Allergies Allergy/AdvReac Type Severity Reaction Status Date / Time aspirin AdvReac GI Upset Verified 04/11/19 11:00 seafood Allergy Airway Uncoded 02/16/19 12:53 Obstruction PMH/Surg Hx/FS Hx/Imm Hx Previously Healthy: Yes Endocrine/Hematology History: Reports: Hx Diabetes - Type 2 Denies: Hx Anticoagulant Therapy Cardiovascular History: Reports: Hx Congestive Heart Failure - Hospitalized -02/09, Hx Hypercholesterolemia, Hx Hypertension - on medication, Hx Valvular Heart Disease Denies: Hx Angina, Hx Coronary Artery Disease, Hx Pacemaker/ICD, Hx Peripheral Vascular Disease, Other Cardiovascular Problems/Disorders Respiratory History: Denies: Hx Asthma, Hx Chronic Obstructive Pulmonary Disease (COPD), Other Respiratory Problems/Disorders GI History: Denies: Other GI Disorders History: Reports: Hx Chronic Renal Failure - will be starting dialysis soon Denies: Other Problems/Disorders Musculoskeletal History: Reports: Hx Arthritis - Fingers and hands, Other Musculoskeletal History - spine surgery-bone spurs /sciatic nerve pain 2003 Sensory History: Reports: Hx Cataracts - Bilateral Extractions, Hx Contacts or Glasses - Glasses, Hx Vision Problem Denies: Hx Glaucoma, Hx Hearing Aid Opthamlomology History: Reports: Hx Cataracts - Bilateral Extractions, Hx Contacts or Glasses - Glasses, Hx Vision Problem Denies: Hx Glaucoma Neurological History: Denies: Hx Seizures, Hx Transient Ischemic Attacks (TIA), Other Neuro Impairments/Disorders Psychiatric History: Reports: Hx Anxiety, Hx Depression Denies: Hx Panic Disorder - Surgical History Surgical History: Yes Surgery Procedure, Year, and Place: Corneal Transplant Right Eye 2008. Back surgery- bone spurs pressing on sciatic nerve 2003. Bilateral Cataract Extractions . Tubal Ligation Hx Anesthesia Reactions: No - Immunization History Immunizations Up to Date: Yes Infectious Disease History: No Infectious Disease History: Denies: Traveled Outside the [place] in Last 30 Days - Family History Known Family History: Positive: Hypertension - Social History Occupation: Retired Lives: [facility] Alcohol Use: None Hx Substance Use: No Substance Use Type: Reports: None Hx Tobacco Use: No Smoking Status (MU): Never Smoked Tobacco Review of Systems Positive: Fever - 100.9 at home , Chills Negative: Sore Throat Negative: Cough Negative: Vomiting, Nausea Positive: Myalgia Negative: Headache All Other Systems Reviewed And Are Negative: Yes Physical Exam - Summary Physical Exam Summary: Constitutional: Well-developed, Well-nourished, Alert. (-) Distressed, currently without fever Skin: Warm, Dry HENT: Normocephalic; Atraumatic Eyes: Conjunctiva normal Neck: Musculoskeletal ROM normal neck. (-) JVD, (-) Stridor, (-) Tracheal deviation Cardio: Rhythm regular, rate normal, Heart sounds normal; Intact distal pulses; The pedal pulses are 2+ and symmetric. Radial pulses are 2+ and symmetric. Pulmonary/Chest wall: Effort normal. (-) Respiratory distress, (-) Wheezes, (-) Rales Abd: Soft, mild tenderness, (-) Distension, (-) Guarding, (-) Rebound, recent UTI Musculoskeletal: (-) Edema Neuro: Alert, Oriented x3 Psych: Mood and affect Normal Triage Information Reviewed: Yes Vital Signs On Initial Exam: Initial Vitals Temp Pulse Resp BP Pulse Ox 98.2 F 91 16 148/77 97 04/11/19 10:55 04/11/19 10:55 04/11/19 10:55 04/11/19 10:55 04/11/19 10:55 Vital Signs Reviewed: Yes Procedures - Sedation Patient Received Moderate/Deep Sedation with Procedure: No Diagnostics - Vital Signs Vital Signs Temp Pulse Resp BP Pulse Ox 04/11/19 10:55 98.2 F 91 16 148/77 97 - Laboratory Result Diagrams: 04/11/19 11:38 04/11/19 11:38 Lab Statement: Any lab studies that have been ordered have been reviewed, and results considered in the medical decision making process. Course/Dx - Course Course Of Treatment: This pt is a 68 Y/O F presenting to [facility] with a CC of a fever of 100.9 F while at home. She states that she is currently being treated for a UTI with keflex and is currently a dialysis pt. She states that she has been having chills. She states that she has myalgia that is rated a 6/10 in severity. She denies any N/V, headaches, coughs, and sore throat. Her PE found mild abdominal tenderness, is currently treated for a UTI, and is currently without fever w/ a temperature of 98.2 F. She has abnormalities in RBC, Hgb, and HCT. Her urine is consistent with her previous diagnosis. She will be discharged home with a Dx of a fever. - Diagnoses Provider Diagnoses: Fever Discharge ED - Sign-Out/Discharge Documenting (check all that apply): Patient Departure - discharge - Discharge Plan Condition: Stable Disposition: HOME Patient Education Materials: Fever in Adults (ED) Referrals: Deo Sierra MD [Primary Care Provider] - 2 Days Additional Instructions: PLEASE FOLLOW UP WITH YOUR PRIMARY CARE PROVIDER IN 1-3 DAYS AND RETURN TO THE EMERGENCY DEPARTMENT FOR ANY NEW OR WORSENING SYMPTOMS. - Attestation Statements Document Initiated by Scribe: Yes Documenting Scribe: Jerod Carver Provider For Whom Scribe is Documenting (Include Credential): Rah Hammonds MD Scribe Attestation: Jerod Kat, scribed for Rah Hammonds MD on 04/11/19 at 1250. Status of Scribe Document: Ready
[2019-04-11 11:49] LABS: ABS Basophils 0.1 10^3/ul (0-0.2); ABS Eosinophils 0.6 10^3/ul (0-0.6); ABS Lymphocytes 0.7 10^3/ul (1.0-4.8); ABS Monocytes 0.5 10^3/ul (0-0.8); ABS Neutrophils 5.7 10^3/ul (1.5-7.7); Hematocrit 31 % (35-47); Hemoglobin 10.8 g/dL (12.0-16.0); Lymphocyte % 9.7 %; Mean Corpuscular HGB Conc 34 g/dL (31-36); Mean Corpuscular Hemoglobin 32 pg (27-31); Mean Corpuscular Volume 92 fL (80-97); Mean Platelet Volume 7.2 fL (7.4-10.4); Platelet Count 282 10^3/uL (150-450); Red Cell Distribution Width 14 % (10-15); White Blood Count 7.7 10^3/uL (3.5-10.8)
[2019-04-11 12:05] LABS: Albumin 3.3 g/dL (3.2-5.2); BUN/Creatinine Ratio 7.4 (8-20); Calcium 9.1 mg/dL (8.6-10.3); EGFR African American 13.2 (>60); EGFR Non-African American 10.9 (>60); Globulin 3.2 g/dL (2-4); Potassium 4.1 mmol/L (3.5-5.0); Total Bilirubin 0.5 mg/dL (0.2-1.0); Total Protein 6.5 g/dL (6.4-8.9)
[2019-04-11 12:37] LABS: Urine Appearance Turbid; Urine Bilirubin Negative (Negative); Urine Blood Negative (Negative); Urine Color Yellow; Urine Glucose 3+(>=500 mg/dL) (Negative); Urine Ketones Negative (Negative); Urine Nitrite Negative (Negative); Urine Protein 2+(100 mg/dL) (Negative); Urine Specific Gravity 1.008 (1.010-1.030); Urine Urobilinogen Negative (Negative)
[2019-04-11 12:46] LABS: Urine Bacteria Absent (Absent); Urine Red Blood Cell 3+(>10/hpf) (Absent); Urine White Blood Cell 3+(>20/hpf) (Absent)
[2019-04-11 13:33] VITALS: BP 135/102
== END 2019-04-11 13:32 | disposition home or self-care (01) ==
LOC: ED 10:52
DX: R50.9 Fever, unspecified (principal); E11.22 Type 2 diabetes mellitus with diabetic chronic kidney disease; I13.2 Hypertensive heart and chronic kidney disease with heart failure and with stage 5 chronic kidney disease, or end stage renal disease; N18.6 End stage renal disease; I50.9 Heart failure, unspecified; E78.00 Pure hypercholesterolemia, unspecified; F41.9 Anxiety disorder, unspecified; F32.9 Major depressive disorder, single episode, unspecified; Z88.8 Allergy status to other drugs, medicaments and biological substances
CPT/HCPCS: 36415; 80053; 81003; 81015; 85025; 87086; 99282

== ENCOUNTER 2021-04-09 13:12 | Inpatient (IN) ==
[2021-04-09] MEDS ORDERED: Lactated Ringers 1000 ml BAG 1,000 ML IV ONE ×2 (13:46→16:16)
[2021-04-09 14:21] LABS: ABS Eosinophils 0.1 10^3/ul (0-0.6); ABS Lymphocytes 0.3 10^3/ul (1.0-4.8); ABS Monocytes 0.4 10^3/ul (0-0.8); ABS Neutrophils 13.1 10^3/ul (1.5-7.7); Eosinophil % 0.8 %; Hematocrit 39 % (35-47); Hemoglobin 12.6 g/dL (12.0-16.0); Lymphocyte % 2.2 %; Mean Corpuscular HGB Conc 32 g/dL (31-36); Mean Corpuscular Hemoglobin 34 pg (27-31); Mean Corpuscular Volume 104 fL (80-97); Mean Platelet Volume 8.3 fL (7.4-10.4); Nucleated Red Blood Cells % 0.3; Platelet Count 150 10^3/uL (150-450); Red Blood Count 3.74 10^6 /uL (3.70-4.87); Red Cell Distribution Width 16 % (10-15); White Blood Count 13.9 10^3/uL (3.5-10.8)
[2021-04-09 14:41] LABS: ALT 63 U/L (7-52); AST 49 U/L (13-39); Albumin 3.2 g/dL (3.2-5.2); Alkaline Phosphatase 368 U/L (35-149); Blood Urea Nitrogen 92 mg/dL (6-24); C Reactive Protein 155.54 mg/L (<8.01); Calcium 7.6 mg/dL (8.6-10.3); Chloride 102 mmol/L (101-111); Globulin 3.1 g/dL (2-4); Glucose 82 mg/dL (70-100); Magnesium 3.1 mg/dL (1.9-2.7); Sodium 133 mmol/L (135-145); Total Protein 6.3 g/dL (6.4-8.9); Troponin I 0.07 ng/mL (<0.03); eGFR CKD-EPI 5.1 (>60)
[2021-04-09 14:46] LABS: Potassium 5.5 mmol/L (3.5-5.0)
[2021-04-09 14:48] LABS: Anion Gap 19 mmol/L (2-11); CO2 Carbon Dioxide 12 mmol/L (22-32)
[2021-04-09] MEDS ORDERED: Piperacillin/Tazobac ADVAN 3.375 GM in NS 0.9% 100 ml BAG 100 ML IV ONE (15:53)
[2021-04-09] MEDS ORDERED: Zosyn per Pharmacy NOTE FOLLOW UP SCH ×2 (16:00→18:00)
[2021-04-09] MEDS ORDERED: Lactulose 30 ml UDC PO PRN (17:13)
[2021-04-09 20:03] LABS: Troponin I 0.07 ng/mL (<0.03)
[2021-04-09] MEDS ORDERED: Heparin 5000 UNITS/ML 1 mL VIAL SUBCUT SCH (21:00)
[2021-04-09] MEDS: ZOSYN 3.375 GM Q12H per EXTENDED INFUSION IV SCH (22:23)
[2021-04-10 00:06] LABS: Troponin I 0.07 ng/mL (<0.03)
[2021-04-10] MEDS ORDERED: Dextran 70/Hypromellose Tears Eye Drops 15 ml BTL (for Artificials Tears) BOTH EYES PRN (01:19)
[2021-04-10 02:55] LABS: ABS Basophils 0.1 10^3/ul (0-0.2); ABS Lymphocytes 0.3 10^3/ul (1.0-4.8); ABS Monocytes 0.3 10^3/ul (0-0.8); ABS Neutrophils 11.3 10^3/ul (1.5-7.7); Eosinophil % 0.2 %; Hematocrit 35 % (35-47); Hemoglobin 11.5 g/dL (12.0-16.0); Lymphocyte % 2.1 %; Mean Corpuscular HGB Conc 33 g/dL (31-36); Mean Corpuscular Hemoglobin 34 pg (27-31); Mean Corpuscular Volume 103 fL (80-97); Mean Platelet Volume 8.4 fL (7.4-10.4); Nucleated Red Blood Cells % 0.3; Platelet Count 134 10^3/uL (150-450); Red Blood Count 3.44 10^6 /uL (3.70-4.87); Red Cell Distribution Width 15 % (10-15)
[2021-04-10 03:11] LABS: ALT 59 U/L (7-52); AST 58 U/L (13-39); Albumin 2.9 g/dL (3.2-5.2); Albumin/Globulin Ratio 1.1 (1-3); Alkaline Phosphatase 398 U/L (35-149); Blood Urea Nitrogen 98 mg/dL (6-24); Calcium 7.5 mg/dL (8.6-10.3); Chloride 102 mmol/L (101-111); Globulin 2.7 g/dL (2-4); Glucose 76 mg/dL (70-100); Indirect Bilirubin 0.3 mg/dL (0.3-1.0); Phosphorus 9.3 mg/dL (2.5-5.0); Sodium 134 mmol/L (135-145); Total Protein 5.6 g/dL (6.4-8.9)
[2021-04-10 03:12] LABS: Potassium 5.8 mmol/L (3.5-5.0)
[2021-04-10 03:26] LABS: Anion Gap 20 mmol/L (2-11); CO2 Carbon Dioxide 12 mmol/L (22-32)
[2021-04-10 03:27] LABS: Troponin I 0.09 ng/mL (<0.03)
[2021-04-10 03:47] LABS: Calcium (PTH Intact) 7.2 mg/dL (8.6-10.3)
[2021-04-10] MEDS ORDERED: Lactated Ringers 500 ml BAG 500 ML IV ONE (03:59)
[2021-04-10 07:11] LABS: Hepatitis B Surface Antigen Nonreactive (Nonreactive)
[2021-04-10] MEDS ORDERED: Aspirin EC 81 mg TAB.EC (enteric coated) PO SCH (09:00)
[2021-04-10] MEDS ORDERED: LORazepam 2 mg VIAL 1 ml IV PUSH ONE ×2 (09:57→11:18)
[2021-04-10] MEDS ORDERED: Lorazepam PYXIS KEY PRN ×2 (09:57→11:18)
[2021-04-10] MEDS: Dextrose 50% Syringe 50 ml 25 GM/50 ML SYRINGE IV PUSH PRN (10:39)
[2021-04-10 11:36] LABS: PCO2 Arterial 30 mmHg (35-45); PO2 Arterial 64 mmHg (80-100)
[2021-04-10] MEDS: Nystatin TOP POWDER 15 GM BTL TOPICAL SCH ×2 (12:28→20:32)
[2021-04-10] MEDS ORDERED: Flumazenil 0.5 mg/5 ml 0.1 MG/ML 5 ml VIAL ONE (13:42)
[2021-04-10] MEDS ORDERED: Naloxone 0.4 mg VIAL 0.4 mg/ml 1 ml VIAL ONE (13:42)
[2021-04-10] MEDS ORDERED: Norepinephrine 16MCG/ML BAG NS 4,000 MCG/250 ML BAG IV SCH (14:00)
[2021-04-10] MEDS ORDERED: Etomidate 20 mg/10 ml 2 MG/ML 10 ml VIAL ONE (14:00)
[2021-04-10] MEDS ORDERED: Sodium Bicarb 8.4% Vial 50 ML 150 MEQ in D5W 1000 ml BAG 850 ML IV SCH (14:00)
[2021-04-10] MEDS ORDERED: Rocuronium 50 mg VIAL 10 mg/ml 5 ml VIAL (50 mg) ONE (14:01)
[2021-04-10] MEDS ORDERED: Hydrocortisone INJ 100 MG/2ML 2 ML VIAL ONE (14:07)
[2021-04-10] MEDS ORDERED: Heparin 1,000 UNIT/ML 10 ml (10,000 UNITS) CATHLAB/DIALYSIS DIALYSIS ONE (15:00)
[2021-04-10] MEDS ORDERED: LORazepam 2 mg VIAL 1 ml ONE (15:13)
[2021-04-10 15:14] LABS: Urine Appearance Turbid; Urine Bilirubin Negative (Negative); Urine Blood 1+ (Negative); Urine Color Yellow; Urine Glucose Negative (Negative); Urine Ketones Negative (Negative); Urine Nitrite Negative (Negative); Urine Protein 2+(100 mg/dL) (Negative); Urine Specific Gravity 1.016 (1.002-1.030); Urine Urobilinogen Negative (Negative)
[2021-04-10 15:16] LABS: Urine Bacteria Absent (Absent); Urine Red Blood Cell Absent (Absent); Urine White Blood Cell 3+(>20/hpf) (Absent)
[2021-04-10] MEDS: ZOSYN 3.375 GM Q12H per EXTENDED INFUSION IV SCH ×2 (15:43→20:30)
[2021-04-10] MEDS: Sodium Bicarbonate 8.4% VIAL 1 MEQ/ML 50 ml VIAL (50 meq) IV SCH (15:45)
[2021-04-10] MEDS: Hydrocortisone INJ 100 MG/2ML 2 ML VIAL IV SCH ×2 (15:46→21:06)
[2021-04-10] MEDS ORDERED: Dexmedetomidine 1,000 MCG in NS 0.9% 250 ml 240 ML IV SCH (16:00)
[2021-04-10 16:40] LABS: Troponin I 0.27 ng/mL (<0.03)
[2021-04-10] MEDS: Chlorhexidine MOUTHWASH 0.12% 15 ML UDC TOPICAL SCH ×3 (16:44→22:13)
[2021-04-10] MEDS: Famotidine IV 10 MG/ML 2 ml VIAL (20 mg) IV SLOW PU SCH (16:50)
[2021-04-10 17:05] LABS: Hepatitis B Surface Antigen Nonreactive (Nonreactive)
[2021-04-10 17:23] LABS: Hepatitis B Surface Ab Immune (Immune)
[2021-04-10 17:47] LABS: Troponin I 0.28 ng/mL (<0.03)
[2021-04-10 20:56] LABS: Troponin I 0.36 ng/mL (<0.03)
[2021-04-10 23:39] LABS: Troponin I 0.58 ng/mL (<0.03)
[2021-04-11] MEDS: Chlorhexidine MOUTHWASH 0.12% 15 ML UDC TOPICAL SCH ×5 (02:20→20:22)
[2021-04-11 04:05] LABS: ABS Lymphocytes 0.2 10^3/ul (1.0-4.8); ABS Monocytes 0.2 10^3/ul (0-0.8); ABS Neutrophils 8.4 10^3/ul (1.5-7.7); Hematocrit 37 % (35-47); Hemoglobin 12.4 g/dL (12.0-16.0); Lymphocyte % 2.3 %; Mean Corpuscular HGB Conc 34 g/dL (31-36); Mean Corpuscular Hemoglobin 34 pg (27-31); Mean Corpuscular Volume 101 fL (80-97); Mean Platelet Volume 8.3 fL (7.4-10.4); Nucleated Red Blood Cells % 0.2; Platelet Count 111 10^3/uL (150-450); Red Blood Count 3.64 10^6 /uL (3.70-4.87); Red Cell Distribution Width 15 % (10-15); White Blood Count 8.7 10^3/uL (3.5-10.8)
[2021-04-11 04:24] LABS: Magnesium 2.6 mg/dL (1.9-2.7); Phosphorus 6.5 mg/dL (2.5-5.0); Potassium 4.9 mmol/L (3.5-5.0); eGFR CKD-EPI 8.7 (>60)
[2021-04-11 04:31] LABS: Troponin I 0.79 ng/mL (<0.03)
[2021-04-11] MEDS: Hydrocortisone INJ 100 MG/2ML 2 ML VIAL IV SCH ×3 (06:32→22:16)
[2021-04-11] MEDS ORDERED: Sodium Bicarbonate 8.4% SYR 50 ml SYRINGE IV ONE (06:42)
[2021-04-11] MEDS: Nystatin TOP POWDER 15 GM BTL TOPICAL SCH ×3 (08:25→20:24)
[2021-04-11 08:49] LABS: Troponin I 0.84 ng/mL (<0.03)
[2021-04-11 09:15] LABS: PCO2 Arterial 29 mmHg (35-45); PO2 Arterial 82 mmHg (80-100)
[2021-04-11] MEDS: ZOSYN 3.375 GM Q12H per EXTENDED INFUSION IV SCH ×2 (10:15→22:16)
[2021-04-11] MEDS ORDERED: LORazepam 2 mg VIAL 1 ml ONE (14:58)
[2021-04-11] MEDS ORDERED: Lorazepam PYXIS KEY PRN ×2 (15:18→20:18)
[2021-04-11] MEDS ORDERED: LORazepam 2 mg VIAL 1 ml IV PUSH ONE ×2 (15:18→20:18)
[2021-04-11] MEDS ORDERED: Norepinephrine 16MCG/ML BAG NS 4,000 MCG/250 ML BAG IV SCH (15:19)
[2021-04-11] MEDS ORDERED: Lorazepam PYXIS KEY ONE (20:26)
[2021-04-12] MEDS: Chlorhexidine MOUTHWASH 0.12% 15 ML UDC TOPICAL SCH ×7 (00:32→22:42)
[2021-04-12] MEDS: Dexmedetomidine 1,000 MCG in NS 0.9% 250 ml 240 ML IV SCH (03:30)
[2021-04-12 04:50] LABS: Hematocrit 34 % (35-47); Hemoglobin 11.4 g/dL (12.0-16.0); Mean Corpuscular HGB Conc 33 g/dL (31-36); Mean Corpuscular Hemoglobin 34 pg (27-31); Mean Corpuscular Volume 101 fL (80-97); Mean Platelet Volume 8.5 fL (7.4-10.4); Platelet Count 140 10^3/uL (150-450); Red Blood Count 3.39 10^6 /uL (3.70-4.87); Red Cell Distribution Width 16 % (10-15); White Blood Count 12.7 10^3/uL (3.5-10.8)
[2021-04-12 04:53] LABS: ABS Lymphocytes 0.3 10^3/ul (1.0-4.8); ABS Monocytes 0.3 10^3/ul (0-0.8); Lymphocyte % 2.7 %; Nucleated Red Blood Cells % 0.1
[2021-04-12 05:05] LABS: Blood Urea Nitrogen 67 mg/dL (6-24); CO2 Carbon Dioxide 15 mmol/L (22-32); Calcium 7.8 mg/dL (8.6-10.3); Chloride 101 mmol/L (101-111); Glucose 282 mg/dL (70-100); Sodium 131 mmol/L (135-145); eGFR CKD-EPI 7.3 (>60)
[2021-04-12 05:20] LABS: Anion Gap 15 mmol/L (2-11)
[2021-04-12] MEDS: Hydrocortisone INJ 100 MG/2ML 2 ML VIAL IV SCH ×4 (05:56→21:51)
[2021-04-12 07:36] LABS: Magnesium 2.7 mg/dL (1.9-2.7); Potassium Redraw 4.9 mmol/L (3.5-5.0)
[2021-04-12 08:24] LABS: Troponin I 1.08 ng/mL (<0.03)
[2021-04-12] MEDS: Nystatin TOP POWDER 15 GM BTL TOPICAL SCH ×2 (08:37→19:56)
[2021-04-12] MEDS: ZOSYN 3.375 GM Q12H per EXTENDED INFUSION IV SCH ×2 (09:20→21:52)
[2021-04-12 12:32] LABS: Troponin I 0.95 ng/mL (<0.03)
[2021-04-12] MEDS: Lanthanum 500 mg CHEW TAB PO SCH ×2 (15:26→19:56)
[2021-04-12] MEDS ORDERED: Insulin GLARGINE 100 un/ml 10 ml VIAL SUBCUT SCH (20:00)
[2021-04-12 22:12] LABS: Glucose Confirmatory 402 mg/dL (70-100)
[2021-04-12 22:30] LABS: Troponin I 0.98 ng/mL (<0.03)
[2021-04-13] MEDS ORDERED: LORazepam 2 mg VIAL 1 ml IV PUSH PRN (01:10)
[2021-04-13] MEDS: Chlorhexidine MOUTHWASH 0.12% 15 ML UDC TOPICAL SCH ×6 (04:49→23:48)
[2021-04-13 05:11] LABS: ABS Lymphocytes 0.3 10^3/ul (1.0-4.8); ABS Monocytes 0.3 10^3/ul (0-0.8); ABS Neutrophils 9.7 10^3/ul (1.5-7.7); Hematocrit 29 % (35-47); Hemoglobin 9.6 g/dL (12.0-16.0); Mean Corpuscular HGB Conc 33 g/dL (31-36); Mean Corpuscular Hemoglobin 34 pg (27-31); Mean Corpuscular Volume 102 fL (80-97); Mean Platelet Volume 8.8 fL (7.4-10.4); Nucleated Red Blood Cells % 0.2; Platelet Count 82 10^3/uL (150-450); Red Blood Count 2.81 10^6 /uL (3.70-4.87); Red Cell Distribution Width 15 % (10-15); White Blood Count 10.3 10^3/uL (3.5-10.8)
[2021-04-13 05:32] LABS: Blood Urea Nitrogen 61 mg/dL (6-24); Glucose 283 mg/dL (70-100); Magnesium 1.7 mg/dL (1.9-2.7); Sodium 139 mmol/L (135-145); eGFR CKD-EPI 11.9 (>60)
[2021-04-13 05:49] LABS: Anion Gap 9 mmol/L (2-11); CO2 Carbon Dioxide 12 mmol/L (22-32); Chloride 118 mmol/L (101-111)
[2021-04-13] MEDS: Hydrocortisone INJ 100 MG/2ML 2 ML VIAL IV SCH (06:17)
[2021-04-13 06:46] LABS: CO2 Carbon Dioxide 15 mmol/L (22-32); Calcium 6.7 mg/dL (8.6-10.3); Chloride 108 mmol/L (101-111); Magnesium 2.4 mg/dL (1.9-2.7); Sodium 134 mmol/L (135-145)
[2021-04-13 06:51] LABS: Blood Urea Nitrogen 73 mg/dL (6-24); Glucose 333 mg/dL (70-100); eGFR CKD-EPI 8.7 (>60)
[2021-04-13 07:00] LABS: Anion Gap 11 mmol/L (2-11)
[2021-04-13] MEDS: Heparin 1,000 UNIT/ML 10 ml (10,000 UNITS) CATHLAB/DIALYSIS DIALYSIS ONE ×2 (07:37→11:06)
[2021-04-13 08:08] LABS: Potassium Redraw 4.9 mmol/L (3.5-5.0)
[2021-04-13] MEDS: Insulin GLARGINE 100 un/ml 10 ml VIAL SUBCUT SCH ×2 (08:18→21:38)
[2021-04-13] MEDS ORDERED: Dexmedetomidine 1,000 MCG in NS 0.9% 250 ml 240 ML IV SCH (08:37)
[2021-04-13] MEDS: Dexmedetomidine 1,000 MCG in NS 0.9% 250 ml 240 ML IV SCH (09:53)
[2021-04-13] MEDS: cefTRIAXone 2 GM ADDV.VIAL 2 GM in NS 0.9% 100 ml BAG 100 ML IV SCH (11:21)
[2021-04-13] MEDS: Lanthanum 500 mg CHEW TAB PO SCH ×4 (11:22→20:48)
[2021-04-13] MEDS: Nystatin TOP POWDER 15 GM BTL TOPICAL SCH ×2 (11:22→21:38)
[2021-04-13 15:41] LABS: ABS Lymphocytes 0.4 10^3/ul (1.0-4.8); ABS Monocytes 0.6 10^3/ul (0-0.8); ABS Neutrophils 16.4 10^3/ul (1.5-7.7); Hematocrit 39 % (35-47); Hemoglobin 13.5 g/dL (12.0-16.0); Lymphocyte % 2.5 %; Mean Corpuscular HGB Conc 35 g/dL (31-36); Mean Corpuscular Hemoglobin 34 pg (27-31); Mean Corpuscular Volume 98 fL (80-97); Mean Platelet Volume 7.8 fL (7.4-10.4); Platelet Count 88 10^3/uL (150-450); Red Blood Count 3.98 10^6 /uL (3.70-4.87); Red Cell Distribution Width 15 % (10-15); White Blood Count 17.4 10^3/uL (3.5-10.8)
[2021-04-13] MEDS: Famotidine IV 10 MG/ML 2 ml VIAL (20 mg) IV SLOW PU SCH (17:11)
[2021-04-14] MEDS: Chlorhexidine MOUTHWASH 0.12% 15 ML UDC TOPICAL SCH ×3 (04:42→11:06)
[2021-04-14 04:52] LABS: Hematocrit 36 % (35-47); Hemoglobin 12.2 g/dL (12.0-16.0); Mean Corpuscular HGB Conc 34 g/dL (31-36); Mean Corpuscular Hemoglobin 34 pg (27-31); Mean Corpuscular Volume 99 fL (80-97); Mean Platelet Volume 8.1 fL (7.4-10.4); Platelet Count 83 10^3/uL (150-450); Red Blood Count 3.62 10^6 /uL (3.70-4.87); Red Cell Distribution Width 15 % (10-15)
[2021-04-14 05:03] LABS: Blood Urea Nitrogen 63 mg/dL (6-24); CO2 Carbon Dioxide 23 mmol/L (22-32); Calcium 8.2 mg/dL (8.6-10.3); Chloride 100 mmol/L (101-111); Glucose 79 mg/dL (70-100); Magnesium 2.4 mg/dL (1.9-2.7); Sodium 133 mmol/L (135-145); eGFR CKD-EPI 9.5 (>60)
[2021-04-14 05:22] LABS: Anion Gap 10 mmol/L (2-11)
[2021-04-14 07:44] LABS: Phosphorus 4.1 mg/dL (2.5-5.0); Potassium Redraw 3.7 mmol/L (3.5-5.0)
[2021-04-14] MEDS: Dextrose 50% Syringe 50 ml 25 GM/50 ML SYRINGE IV PUSH PRN (08:21)
[2021-04-14] MEDS: cefTRIAXone 2 GM ADDV.VIAL 2 GM in NS 0.9% 100 ml BAG 100 ML IV SCH (08:21)
[2021-04-14 09:43] LABS: PCO2 Arterial 37 mmHg (35-45); PO2 Arterial 90 mmHg (80-100)
[2021-04-14] MEDS: Nystatin TOP POWDER 15 GM BTL TOPICAL SCH ×2 (10:37→20:33)
[2021-04-14] MEDS: Lanthanum 500 mg CHEW TAB PO SCH ×3 (10:37→20:34)
[2021-04-14] MEDS ORDERED: Heparin 1,000 UNIT/ML 10 ml (10,000 UNITS) CATHLAB/DIALYSIS DIALYSIS ONE ×2 (16:00)
[2021-04-15 05:04] LABS: Hematocrit 37 % (35-47); Hemoglobin 12.6 g/dL (12.0-16.0); Mean Corpuscular HGB Conc 34 g/dL (31-36); Mean Corpuscular Hemoglobin 34 pg (27-31); Mean Corpuscular Volume 99 fL (80-97); Mean Platelet Volume 8.3 fL (7.4-10.4); Platelet Count 70 10^3/uL (150-450); Platelet Count 73 10^3/ul (150-450); Red Blood Count 3.77 10^6 /uL (3.70-4.87); Red Cell Distribution Width 15 % (10-15); White Blood Count 17.5 10^3/uL (3.5-10.8)
[2021-04-15 05:09] LABS: Activated Partial Thrombo Time 28.6 seconds (26.0-38.0); Fibrinogen 352.7 mg/dL (110.8-404.3); INR 1.02 (0.86-1.15)
[2021-04-15 05:17] LABS: Albumin 2.6 g/dL (3.2-5.2); Calcium 8.2 mg/dL (8.6-10.3); Total Protein 5.2 g/dL (6.4-8.9); eGFR CKD-EPI 8.3 (>60)
[2021-04-15 05:18] LABS: Direct Bilirubin 0.2 mg/dL (0.03-0.18); Globulin 2.6 g/dL (2-4); Indirect Bilirubin 0.5 mg/dL (0.3-1.0); Schistocytes ABSENT; Total Bilirubin 0.7 mg/dL (0.2-1.0)
[2021-04-15] MEDS: Lanthanum 500 mg CHEW TAB PO SCH ×4 (08:33→22:35)
[2021-04-15] MEDS: cefTRIAXone 2 GM ADDV.VIAL 2 GM in NS 0.9% 100 ml BAG 100 ML IV SCH (08:49)
[2021-04-15] MEDS: Heparin 1,000 UNIT/ML 10 ml (10,000 UNITS) CATHLAB/DIALYSIS DIALYSIS ONE ×2 (09:20→12:21)
[2021-04-15] MEDS: Nystatin TOP POWDER 15 GM BTL TOPICAL SCH ×2 (09:51→22:34)
[2021-04-15] MEDS ORDERED: Acetaminophen IV 1 GM/100ML 100 ML IV ONE (10:08)
[2021-04-15] MEDS: Acetaminophen IV 1 GM/100ML 100 ML IV ONE ×2 (10:51→12:48)
[2021-04-16] MEDS ORDERED: Dextrose 50% Syringe 50 ml 25 GM/50 ML SYRINGE IV PUSH PRN (06:42)
[2021-04-16 09:22] LABS: ABS Basophils 0.1 10^3/ul (0-0.2); ABS Eosinophils 0.1 10^3/ul (0-0.6); ABS Lymphocytes 0.3 10^3/ul (1.0-4.8); ABS Monocytes 0.7 10^3/ul (0-0.8); ABS Neutrophils 15.9 10^3/ul (1.5-7.7); Eosinophil % 0.5 %; Hematocrit 37 % (35-47); Hemoglobin 12.4 g/dL (12.0-16.0); Lymphocyte % 1.9 %; Mean Corpuscular HGB Conc 33 g/dL (31-36); Mean Corpuscular Hemoglobin 33 pg (27-31); Mean Corpuscular Volume 100 fL (80-97); Mean Platelet Volume 9.4 fL (7.4-10.4); Platelet Count 96 10^3/uL (150-450); Red Blood Count 3.73 10^6 /uL (3.70-4.87); Red Cell Distribution Width 14 % (10-15); White Blood Count 17.2 10^3/uL (3.5-10.8)
[2021-04-16 09:39] LABS: Albumin 2.6 g/dL (3.2-5.2); Calcium 8.1 mg/dL (8.6-10.3); Globulin 2.5 g/dL (2-4); Magnesium 2.4 mg/dL (1.9-2.7); Potassium 4.2 mmol/L (3.5-5.0); Total Bilirubin 0.7 mg/dL (0.2-1.0); Total Protein 5.1 g/dL (6.4-8.9); eGFR CKD-EPI 12.6 (>60)
[2021-04-16] MEDS: cefTRIAXone 2 GM ADDV.VIAL 2 GM in NS 0.9% 100 ml BAG 100 ML IV SCH (10:12)
[2021-04-16] MEDS: Lanthanum 500 mg CHEW TAB PO SCH ×3 (10:13→20:28)
[2021-04-16] MEDS: Nystatin TOP POWDER 15 GM BTL TOPICAL SCH ×2 (10:14→20:32)
[2021-04-17 06:09] LABS: ABS Eosinophils 0.1 10^3/ul (0-0.6); ABS Lymphocytes 0.3 10^3/ul (1.0-4.8); ABS Monocytes 0.9 10^3/ul (0-0.8); ABS Neutrophils 12.3 10^3/ul (1.5-7.7); Eosinophil % 0.8 %; Hematocrit 32 % (35-47); Hemoglobin 10.6 g/dL (12.0-16.0); Mean Corpuscular HGB Conc 33 g/dL (31-36); Mean Corpuscular Hemoglobin 34 pg (27-31); Mean Corpuscular Volume 101 fL (80-97); Mean Platelet Volume 8.7 fL (7.4-10.4); Platelet Count 112 10^3/uL (150-450); Red Blood Count 3.14 10^6 /uL (3.70-4.87); Red Cell Distribution Width 15 % (10-15); White Blood Count 13.6 10^3/uL (3.5-10.8)
[2021-04-17 06:35] LABS: Albumin 2.5 g/dL (3.2-5.2); Albumin/Globulin Ratio 1.1 (1-3); Calcium 8.1 mg/dL (8.6-10.3); Globulin 2.3 g/dL (2-4); Magnesium 2.5 mg/dL (1.9-2.7); Potassium 3.9 mmol/L (3.5-5.0); Total Bilirubin 0.5 mg/dL (0.2-1.0); Total Protein 4.8 g/dL (6.4-8.9); eGFR CKD-EPI 9.9 (>60)
[2021-04-17] MEDS: Lanthanum 500 mg CHEW TAB PO SCH ×3 (08:04→20:09)
[2021-04-17] MEDS: Nystatin TOP POWDER 15 GM BTL TOPICAL SCH ×2 (08:05→20:09)
[2021-04-17] MEDS: Heparin 1,000 UNIT/ML 10 ml (10,000 UNITS) CATHLAB/DIALYSIS DIALYSIS ONE ×2 (09:16→12:40)
[2021-04-18 08:14] LABS: Blood Urea Nitrogen 30 mg/dL (6-24); CO2 Carbon Dioxide 26 mmol/L (22-32); Calcium 8.2 mg/dL (8.6-10.3); Chloride 101 mmol/L (101-111); Glucose 211 mg/dL (70-100); Magnesium 2.4 mg/dL (1.9-2.7); Sodium 135 mmol/L (135-145); eGFR CKD-EPI 13.9 (>60)
[2021-04-18 08:27] LABS: Anion Gap 8 mmol/L (2-11)
[2021-04-18] MEDS: Lanthanum 500 mg CHEW TAB PO SCH ×3 (08:57→22:03)
[2021-04-18] MEDS: Nystatin TOP POWDER 15 GM BTL TOPICAL SCH ×2 (09:06→22:10)
[2021-04-18] MEDS: Heparin 5000 UNITS/ML 1 mL VIAL SUBCUT SCH ×2 (17:24→21:54)
[2021-04-18] MEDS: Insulin GLARGINE 100 un/ml 10 ml VIAL SUBCUT SCH (21:56)
[2021-04-19] MEDS: Heparin 5000 UNITS/ML 1 mL VIAL SUBCUT SCH ×3 (05:46→21:27)
[2021-04-19 06:45] LABS: Calcium 8.1 mg/dL (8.6-10.3); Magnesium 2.4 mg/dL (1.9-2.7); eGFR CKD-EPI 10.3 (>60)
[2021-04-19] MEDS: Nystatin TOP POWDER 15 GM BTL TOPICAL SCH (09:09)
[2021-04-19] MEDS: Lanthanum 500 mg CHEW TAB PO SCH ×3 (09:12→21:16)
[2021-04-19] MEDS: Insulin GLARGINE 100 un/ml 10 ml VIAL SUBCUT SCH (21:27)
[2021-04-20] MEDS: Nystatin TOP POWDER 15 GM BTL TOPICAL SCH ×3 (04:39→21:33)
[2021-04-20 06:12] LABS: ABS Eosinophils 0.2 10^3/ul (0-0.6); ABS Lymphocytes 0.3 10^3/ul (1.0-4.8); ABS Neutrophils 7.8 10^3/ul (1.5-7.7); Eosinophil % 2.6 %; Hematocrit 31 % (35-47); Hemoglobin 10.7 g/dL (12.0-16.0); Lymphocyte % 3.7 %; Mean Corpuscular HGB Conc 34 g/dL (31-36); Mean Corpuscular Hemoglobin 34 pg (27-31); Mean Corpuscular Volume 100 fL (80-97); Platelet Count 198 10^3/uL (150-450); Red Blood Count 3.13 10^6 /uL (3.70-4.87); Red Cell Distribution Width 15 % (10-15); White Blood Count 9.5 10^3/uL (3.5-10.8)
[2021-04-20 06:30] LABS: Calcium 8.4 mg/dL (8.6-10.3); Magnesium 2.5 mg/dL (1.9-2.7); Potassium 4.2 mmol/L (3.5-5.0); eGFR CKD-EPI 7.8 (>60)
[2021-04-20] MEDS: Heparin 5000 UNITS/ML 1 mL VIAL SUBCUT SCH ×3 (06:44→21:34)
[2021-04-20] MEDS: Lanthanum 500 mg CHEW TAB PO SCH ×3 (07:55→21:33)
[2021-04-20] MEDS: Heparin 1,000 UNIT/ML 10 ml (10,000 UNITS) CATHLAB/DIALYSIS DIALYSIS ONE ×2 (10:12→12:45)
[2021-04-20] MEDS: Insulin GLARGINE 100 un/ml 10 ml VIAL SUBCUT SCH (21:34)
[2021-04-21 05:02] LABS: ABS Basophils 0.1 10^3/ul (0-0.2); ABS Eosinophils 0.2 10^3/ul (0-0.6); ABS Lymphocytes 0.4 10^3/ul (1.0-4.8); ABS Monocytes 0.7 10^3/ul (0-0.8); ABS Neutrophils 5.9 10^3/ul (1.5-7.7); Eosinophil % 2.8 %; Hematocrit 32 % (35-47); Hemoglobin 10.8 g/dL (12.0-16.0); Lymphocyte % 5.3 %; Mean Corpuscular HGB Conc 34 g/dL (31-36); Mean Corpuscular Hemoglobin 34 pg (27-31); Mean Corpuscular Volume 100 fL (80-97); Mean Platelet Volume 8.1 fL (7.4-10.4); Nucleated Red Blood Cells % 0.1; Platelet Count 203 10^3/uL (150-450); Red Blood Count 3.17 10^6 /uL (3.70-4.87); Red Cell Distribution Width 15 % (10-15); White Blood Count 7.2 10^3/uL (3.5-10.8)
[2021-04-21 05:25] LABS: Calcium 8.3 mg/dL (8.6-10.3); Potassium 3.8 mmol/L (3.5-5.0); eGFR CKD-EPI 11.5 (>60)
[2021-04-21] MEDS: Heparin 5000 UNITS/ML 1 mL VIAL SUBCUT SCH ×3 (06:00→20:48)
[2021-04-21] MEDS: Lanthanum 500 mg CHEW TAB PO SCH ×3 (08:08→20:43)
[2021-04-21 08:10] LABS: Magnesium 2.2 mg/dL (1.9-2.7); Phosphorus 2.8 mg/dL (2.5-5.0)
[2021-04-21 11:31] LABS: Folate 12.07 ng/mL (5.90-24.80)
[2021-04-21] MEDS: Nystatin TOP POWDER 15 GM BTL TOPICAL SCH ×2 (12:56→20:50)
[2021-04-21] MEDS: Insulin GLARGINE 100 un/ml 10 ml VIAL SUBCUT SCH (20:49)
[2021-04-22] MEDS: Heparin 5000 UNITS/ML 1 mL VIAL SUBCUT SCH ×3 (05:35→20:43)
[2021-04-22 06:44] LABS: ABS Basophils 0.1 10^3/ul (0-0.2); ABS Eosinophils 0.2 10^3/ul (0-0.6); ABS Lymphocytes 0.3 10^3/ul (1.0-4.8); ABS Monocytes 0.7 10^3/ul (0-0.8); ABS Neutrophils 6.2 10^3/ul (1.5-7.7); Eosinophil % 2.4 %; Hematocrit 31 % (35-47); Hemoglobin 10.7 g/dL (12.0-16.0); Lymphocyte % 4.2 %; Mean Corpuscular HGB Conc 35 g/dL (31-36); Mean Corpuscular Hemoglobin 34 pg (27-31); Mean Corpuscular Volume 100 fL (80-97); Mean Platelet Volume 7.7 fL (7.4-10.4); Platelet Count 187 10^3/uL (150-450); Red Blood Count 3.09 10^6 /uL (3.70-4.87); Red Cell Distribution Width 15 % (10-15); White Blood Count 7.5 10^3/uL (3.5-10.8)
[2021-04-22 07:05] LABS: Calcium 8.5 mg/dL (8.6-10.3); Potassium 4.2 mmol/L (3.5-5.0)
[2021-04-22] MEDS: Lanthanum 500 mg CHEW TAB PO SCH ×3 (09:00→20:35)
[2021-04-22] MEDS: Nystatin TOP POWDER 15 GM BTL TOPICAL SCH ×2 (09:11→20:43)
[2021-04-22] MEDS: Heparin 1,000 UNIT/ML 10 ml (10,000 UNITS) CATHLAB/DIALYSIS DIALYSIS ONE ×2 (09:40→12:55)
[2021-04-22] MEDS: Insulin GLARGINE 100 un/ml 10 ml VIAL SUBCUT SCH (20:42)
[2021-04-23] MEDS: Heparin 5000 UNITS/ML 1 mL VIAL SUBCUT SCH ×3 (05:19→20:15)
[2021-04-23 06:26] LABS: Hematocrit 32 % (35-47); Mean Corpuscular HGB Conc 34 g/dL (31-36); Mean Corpuscular Hemoglobin 34 pg (27-31); Mean Corpuscular Volume 100 fL (80-97); Mean Platelet Volume 7.9 fL (7.4-10.4); Platelet Count 193 10^3/uL (150-450); Red Cell Distribution Width 15 % (10-15)
[2021-04-23 06:49] LABS: Calcium 8.5 mg/dL (8.6-10.3); Magnesium 2.2 mg/dL (1.9-2.7); Phosphorus 2.4 mg/dL (2.5-5.0); Potassium 3.9 mmol/L (3.5-5.0); eGFR CKD-EPI 11.7 (>60)
[2021-04-23] MEDS: Lanthanum 500 mg CHEW TAB PO SCH ×3 (09:07→20:03)
[2021-04-23] MEDS: Insulin GLARGINE 100 un/ml 10 ml VIAL SUBCUT SCH (20:13)
[2021-04-24 04:58] LABS: Hematocrit 30 % (35-47); Hemoglobin 10.3 g/dL (12.0-16.0); Mean Corpuscular HGB Conc 35 g/dL (31-36); Mean Corpuscular Hemoglobin 35 pg (27-31); Mean Corpuscular Volume 100 fL (80-97); Mean Platelet Volume 7.7 fL (7.4-10.4); Platelet Count 173 10^3/uL (150-450); Red Blood Count 2.98 10^6 /uL (3.70-4.87); Red Cell Distribution Width 16 % (10-15); White Blood Count 5.5 10^3/uL (3.5-10.8)
[2021-04-24 05:05] LABS: Calcium 8.8 mg/dL (8.6-10.3); Potassium 3.8 mmol/L (3.5-5.0); eGFR CKD-EPI 8.7 (>60)
[2021-04-24] MEDS: Heparin 5000 UNITS/ML 1 mL VIAL SUBCUT SCH ×3 (05:58→22:48)
[2021-04-24] MEDS: Lanthanum 500 mg CHEW TAB PO SCH ×3 (10:30→22:49)
[2021-04-24] MEDS ORDERED: Heparin 1,000 UNIT/ML 10 ml (10,000 UNITS) CATHLAB/DIALYSIS DIALYSIS SCH (13:00)
[2021-04-24] MEDS: Insulin GLARGINE 100 un/ml 10 ml VIAL SUBCUT SCH (22:47)
[2021-04-25] MEDS: Heparin 5000 UNITS/ML 1 mL VIAL SUBCUT SCH ×3 (05:48→21:59)
[2021-04-25 06:12] LABS: ABS Basophils 0.1 10^3/ul (0-0.2); ABS Eosinophils 0.2 10^3/ul (0-0.6); ABS Lymphocytes 0.4 10^3/ul (1.0-4.8); ABS Monocytes 0.5 10^3/ul (0-0.8); ABS Neutrophils 4.6 10^3/ul (1.5-7.7); Eosinophil % 2.8 %; Hematocrit 31 % (35-47); Hemoglobin 10.6 g/dL (12.0-16.0); Lymphocyte % 6.4 %; Mean Corpuscular HGB Conc 34 g/dL (31-36); Mean Corpuscular Hemoglobin 34 pg (27-31); Mean Corpuscular Volume 100 fL (80-97); Mean Platelet Volume 8.2 fL (7.4-10.4); Platelet Count 177 10^3/uL (150-450); Red Blood Count 3.12 10^6 /uL (3.70-4.87); Red Cell Distribution Width 17 % (10-15); White Blood Count 5.6 10^3/uL (3.5-10.8)
[2021-04-25 06:39] LABS: Calcium 8.8 mg/dL (8.6-10.3); Magnesium 2.2 mg/dL (1.9-2.7); eGFR CKD-EPI 15.5 (>60)
[2021-04-25 07:57] LABS: Potassium 4.1 mmol/L (3.5-5.0)
[2021-04-25] MEDS: Lanthanum 500 mg CHEW TAB PO SCH ×3 (08:43→21:51)
[2021-04-25 08:55] LABS: Phosphorus 2.3 mg/dL (2.5-5.0)
[2021-04-25] MEDS: Insulin GLARGINE 100 un/ml 10 ml VIAL SUBCUT SCH (21:57)
[2021-04-26] MEDS: Heparin 5000 UNITS/ML 1 mL VIAL SUBCUT SCH ×3 (06:16→20:33)
[2021-04-26] MEDS: Lanthanum 500 mg CHEW TAB PO SCH ×3 (08:56→20:32)
[2021-04-26 10:19] LABS: Urine Appearance Clear; Urine Color Yellow
[2021-04-26 10:20] LABS: Urine Ketones Negative (Negative); Urine Urobilinogen Negative (Negative); Urine pH 6 (5-9)
[2021-04-26 10:21] LABS: Urine Bilirubin Negative (Negative); Urine Blood 3+ (Negative); Urine Nitrite Negative (Negative); Urine Protein 1+(30 mg/dL) (Negative)
[2021-04-26 10:22] LABS: Urine Glucose 3+(>=500 mg/dL) (Negative)
[2021-04-26 10:23] LABS: Urine Amorphous Crystals Present (Absent); Urine Bacteria 1+ (Absent); Urine Red Blood Cell 3+(>10/hpf) (Absent); Urine Squamous Epithelial Cell Present (Absent); Urine White Blood Cell 3+(>20/hpf) (Absent)
[2021-04-26 11:45] LABS: ABS Basophils 0.1 10^3/ul (0-0.2); ABS Eosinophils 0.1 10^3/ul (0-0.6); ABS Lymphocytes 0.3 10^3/ul (1.0-4.8); ABS Monocytes 0.6 10^3/ul (0-0.8); ABS Neutrophils 4.8 10^3/ul (1.5-7.7); Hematocrit 30 % (35-47); Hemoglobin 10.3 g/dL (12.0-16.0); Lymphocyte % 4.9 %; Mean Corpuscular HGB Conc 34 g/dL (31-36); Mean Corpuscular Hemoglobin 35 pg (27-31); Mean Corpuscular Volume 100 fL (80-97); Mean Platelet Volume 7.6 fL (7.4-10.4); Nucleated Red Blood Cells % 0.1; Platelet Count 175 10^3/uL (150-450); Red Blood Count 2.99 10^6 /uL (3.70-4.87); Red Cell Distribution Width 19 % (10-15); White Blood Count 5.9 10^3/uL (3.5-10.8)
[2021-04-26 12:10] LABS: Calcium 9.6 mg/dL (8.6-10.3); Potassium 4.4 mmol/L (3.5-5.0); eGFR CKD-EPI 9.7 (>60)
[2021-04-26] MEDS: Insulin GLARGINE 100 un/ml 10 ml VIAL SUBCUT SCH (20:33)
[2021-04-26] MEDS: Cephalexin SUSP ORALSYR 50 MG/ML PO SCH (21:26)
[2021-04-27] MEDS: Heparin 5000 UNITS/ML 1 mL VIAL SUBCUT SCH (05:06)
[2021-04-27] MEDS: Lanthanum 500 mg CHEW TAB PO SCH (08:16)
[2021-04-27 08:20] LABS: ABS Basophils 0.2 10^3/ul (0-0.2); ABS Eosinophils 0.2 10^3/ul (0-0.6); ABS Lymphocytes 0.3 10^3/ul (1.0-4.8); ABS Monocytes 0.5 10^3/ul (0-0.8); ABS Neutrophils 4.6 10^3/ul (1.5-7.7); Eosinophil % 2.8 %; Hematocrit 29 % (35-47); Hemoglobin 10.1 g/dL (12.0-16.0); Lymphocyte % 5.2 %; Mean Corpuscular HGB Conc 34 g/dL (31-36); Mean Corpuscular Hemoglobin 35 pg (27-31); Mean Corpuscular Volume 101 fL (80-97); Mean Platelet Volume 7.5 fL (7.4-10.4); Platelet Count 167 10^3/uL (150-450); Red Cell Distribution Width 19 % (10-15); White Blood Count 5.7 10^3/uL (3.5-10.8)
[2021-04-27] MEDS: Cephalexin SUSP ORALSYR 50 MG/ML PO SCH (08:26)
[2021-04-27 08:37] LABS: Albumin 2.8 g/dL (3.2-5.2); Albumin/Globulin Ratio 0.9 (1-3); Calcium 9.6 mg/dL (8.6-10.3); Magnesium 2.4 mg/dL (1.9-2.7); Potassium 4.8 mmol/L (3.5-5.0); Total Bilirubin 0.5 mg/dL (0.2-1.0); Total Protein 5.8 g/dL (6.4-8.9)
[2021-04-27 09:33] LABS: Phosphorus 3.3 mg/dL (2.5-5.0)
[2021-04-27] MEDS ORDERED: Heparin 1,000 UNIT/ML 10 ml (10,000 UNITS) CATHLAB/DIALYSIS DIALYSIS ONE (10:53)
[2021-04-27 14:26] VITALS: BP 140/78
== END 2021-04-27 16:52 | disposition swing bed (61) | DRG 870 ==
LOC: ED 13:12 → EDHOLD 17:22 → SUATTDRO 17:22 → EDHOLD 23:00 → MED 23:19 → ICU 04-10 13:27 → MED 04-15 20:42
PROVIDERS: ADMIT Hospitalist; ATTEND Internal Medicine

== ENCOUNTER 2021-04-27 16:55 | Inpatient (IN) ==
[2021-04-27] MEDS ORDERED: Dextrose 50% Syringe 50 ml 25 GM/50 ML SYRINGE IV PUSH PRN ×3 (17:27→17:50)
[2021-04-27] MEDS ORDERED: Heparin *DIALYSIS* ONLY 1,000 UNITS/ML VIAL DIALYSIS ONE (17:34)
[2021-04-27] MEDS ORDERED: Dextran 70/Hypromellose Tears Eye Drops 15 ml BTL (for Artificials Tears) BOTH EYES PRN (17:50)
[2021-04-27] MEDS ORDERED: Heparin *DIALYSIS* ONLY 1,000 UNITS/ML VIAL DIALYSIS SCH (18:00)
[2021-04-27 18:06] LABS: ABS Basophils 0.2 10^3/ul (0-0.2); ABS Eosinophils 0.1 10^3/ul (0-0.6); ABS Lymphocytes 0.2 10^3/ul (1.0-4.8); ABS Monocytes 0.4 10^3/ul (0-0.8); ABS Neutrophils 3.9 10^3/ul (1.5-7.7); Eosinophil % 2.2 %; Hematocrit 32 % (35-47); Hemoglobin 10.8 g/dL (12.0-16.0); Lymphocyte % 5.1 %; Mean Corpuscular HGB Conc 34 g/dL (31-36); Mean Corpuscular Hemoglobin 34 pg (27-31); Mean Corpuscular Volume 101 fL (80-97); Mean Platelet Volume 7.5 fL (7.4-10.4); Platelet Count 158 10^3/uL (150-450); Red Blood Count 3.16 10^6 /uL (3.70-4.87); Red Cell Distribution Width 19 % (10-15); White Blood Count 4.7 10^3/uL (3.5-10.8)
[2021-04-27 18:17] LABS: Activated Partial Thrombo Time 28.5 seconds (26.0-38.0); INR 0.88 (0.86-1.15)
[2021-04-27] MEDS ORDERED: Lactulose 30 ml UDC PO PRN (18:19)
[2021-04-27 18:24] LABS: eGFR CKD-EPI 14.1 (>60)
[2021-04-27] MEDS: Lanthanum 500 mg CHEW TAB PO SCH (19:02)
[2021-04-27] MEDS: Insulin GLARGINE 100 un/ml 10 ml VIAL SUBCUT SCH (19:53)
[2021-04-27] MEDS: Cephalexin SUSP ORALSYR 50 MG/ML PO SCH (20:24)
[2021-04-27] MEDS ORDERED: Lanthanum 500 mg CHEW TAB PO SCH (21:00)
[2021-04-27] MEDS ORDERED: Heparin 5000 UNITS/ML 1 mL VIAL SUBCUT SCH (22:00)
[2021-04-27] MEDS: Heparin 5000 UNITS/ML 1 mL VIAL SUBCUT SCH (23:36)
[2021-04-28] MEDS: Heparin 5000 UNITS/ML 1 mL VIAL SUBCUT SCH ×3 (05:26→21:52)
[2021-04-28] MEDS: Aspirin EC 81 mg TAB.EC (enteric coated) PO SCH (09:15)
[2021-04-28] MEDS: Lanthanum 500 mg CHEW TAB PO SCH ×3 (09:17→17:37)
[2021-04-28] MEDS: Cephalexin SUSP ORALSYR 50 MG/ML PO SCH ×2 (09:17→21:52)
[2021-04-28] MEDS ORDERED: COVID-19 VACCINE, MRNA(MODERNA)/PF 100 MCG/0.5 ML IM ONE (15:30)
[2021-04-28] MEDS ORDERED: NS 0.9% 500 ml BAG 500 ML IV ONE (16:53)
[2021-04-28 17:28] LABS: PCO2 Arterial 49 mmHg (35-45); PO2 Arterial 75 mmHg (80-100)
[2021-04-28] MEDS: Collagenase 250 units/gm OINT 1 tube TOPICAL SCH (17:40)
[2021-04-28] MEDS: Insulin GLARGINE 100 un/ml 10 ml VIAL SUBCUT SCH (21:52)
[2021-04-29] MEDS: Heparin 5000 UNITS/ML 1 mL VIAL SUBCUT SCH ×2 (04:45→15:12)
[2021-04-29] MEDS: Aspirin EC 81 mg TAB.EC (enteric coated) PO SCH (08:52)
[2021-04-29] MEDS: Lanthanum 500 mg CHEW TAB PO SCH ×2 (08:52→15:12)
[2021-04-29] MEDS: Cephalexin SUSP ORALSYR 50 MG/ML PO SCH (08:55)
[2021-04-29] MEDS: Collagenase 250 units/gm OINT 1 tube TOPICAL SCH (15:11)
[2021-04-30 08:23] VITALS: BP 124/50
== END 2021-04-30 17:30 | disposition hospice, home (50) | DRG 689 ==
LOC: MED 16:55 → SSU 04-29 22:22
PROVIDERS: ADMIT Internal Medicine; ATTEND Internal Medicine